=== PATIENT | female | born 1965 | race Caucasian/White ===

== ENCOUNTER 2020-04-14 13:32 | Inpatient (IN) ==
[2020-04-14] MEDS ORDERED: STAT IV Infusion **Titration per Protocol STA (14:08)
[2020-04-14] MEDS ORDERED: dilTIAZem HCl 5 MG/ML 5 ML VIAL IV STA (14:08)
[2020-04-14] MEDS ORDERED: SODIUM CHLORIDE 0.9% 500 ML IV SCH (14:15)
[2020-04-14] MEDS ORDERED: dilTIAZem HCL 125 MG in DEXTROSE 5% 100 ML IV SCH (14:15)
--- NOTE | 2020-04-14 14:19 | Emergency Department Note ---
Impression & Plan Atrial fibrillation with rapid ventricular response, Weakness, Chest tightness, Headache ED Provider Note NAME: STANLEY KO AGE: 54 SEX: F : 1965 ARRIVES VIA: Ambulance INFORMANT: [Patient] ED PROVIDER(S): [Bo Moss MD] CHIEF COMPLAINT: Cardiac assessment HISTORY OF PRESENT ILLNESS: The patient is a 54-year-old female who states that 2 weeks ago, she injured her left knee. She states that she is still having pain but it is improving. She does have some pain in the area of the left calf. The patient states that for the last 3 days, she has felt palpitations, she has been slightly more short of breath and her chest has been mildly tight. She has been fatigued and dizzy and weak. The patient states that she went to her doctor's office, she was referred to the ED as her pulse was fast. In route, she was given 25 milligrams of IV Cardizem and 4 mg of IV Zofran. The patient states that 2 weeks ago, she had her blood pressure medication do ubled, that has been her only recent change in medications. She has no history of A. fib or cardiac disease. She has not had a fever. No vomiting or diarrhea. No urinary complaints. REVIEW OF SYSTEMS: See HPI for pertinent positives and negatives. A total of ten systems were reviewed and were otherwise negative. PMHx/PSHx: See Below SOCIAL HISTORY: See Below. PHYSICAL EXAM: GENERAL: Patient is in mild distress HEENT: No acute trauma, normocephalic atraumatic, mucous membranes moist, no nasal congestion, no scleral icterus. NECK: No stridor, no adenopathy, no meningismus, trachea is midline. LUNGS: Clear to auscultation bilaterally, no wheeze, no rhonchi, breath sounds equal. HEART: Tachycardic, irregular rhythm, no obvious murmur. ABDOMEN: Soft, nontender, bowel sounds positive, no hernias, no peritonitis. EXTREMITIES: No cyanosis, mild bilateral pedal edema, no obvious gross deformity to the lower extremities. NEUROLOGIC: Oriented x 3, no acute motor or sensory deficits, no focal weakness. SKIN: No rash, no jaundice, no diaphoresis. DIFFERENTIAL DIAGNOSIS: Infection, dehydration, metabolic abnormality, hypo/hyperglycemia, electrolyte disturbance, SVT, A. fib or a flutter, CT, DVT or PE, anemia, hypoxia, cardiac sources, toxicologic issues, as well as other pathologies. EMERGENCY DEPARTMENT COURSE/PROCEDURES: ECG: Indication was tachycardia. The ECG shows atrial fibrillation with a rate of 137. There is poor R wave progression anteriorly. There is no ST elevation, no PVCs. The QTc is 501. Repeat ECG: Indication was atrial fibrillation. There is a normal sinus rhythm with a rate of 81. There is some poor anterior R wave progression. The QTc is 478. There are no PVCs, no ST elevation. Compared to the ECG from earlier today, normal sinus rhythm is now present. Continuous Cardiac Monitoring: An order was placed for continuous cardiac monitoring. The monitor shows a rate of 117 with atrial fibrillation. Critical Care Note: I have personally spent 52 minutes of critical care time in the direct management of this patient. This includes bedside care, interpretation of diagnostic studies, and testing, discussion with consultants, patient, and family members, and other required patient management activities. This 52 minutes is in excess of all separately billable procedures. MEDICAL DECISION MAKING: There is no leukocytosis or concerning anemia. There is a normal platelet count. No coagulopathy. No significant electrolyte abnormality or kidney failure. No concerning liver enzyme elevation. The patient appeared to be in a euthyroid state. ECG showed a rapid atrial fibrillation without ischemia. Cardiac enzyme testing x1 was not consistent with acute cardiac injury. Covid testing returned negative. Chest film did not show pneumonia or CHF. Left leg ultrasound did not show any evidence for DVT. Chest CT did not show PE or pneumonia. On exam, the patient was significantly tachycardic. The patient presented in a rapid atrial fibrillation. Patient was aggressively managed. She was given IV Cardizem as a bolus and then placed on an IV Cardizem drip. She received a 500 cc saline bolus and then a repeat 500 cc saline bolus. Patient received IV Toradol, IV Benadryl and IV Tylenol for her headache. The diltiazem drip was eventually discontinued when she converted to a sinus rhythm. I do think the patient is in need of a hospital stay. She has had ongoing symptoms for around 3 days. Further work-up is warranted, she is likely going to require rate controlling medications and possibly even anticoagulation. I did have a repeat ECG performed when she appeared to convert to a sinus rhythm on the monitor, this confirmed a normal sinus rhythm without acute ischemia. The patient is aware of her findings, case management has been involved. The on-call hospitalist was consulted. Past Med/Surg History Medical History Bipolar disorder DM type 2 (diabetes mellitus, type 2) HTN (hypertension) Hx of lymphoma, non-Hodgkins 2014 - 6 cycles of CHOP 2018 - 3 cycles of brentuximab and radiation Family History (Updated 04/14/20 @ 18:35 by PATSY Lopez) Denies family history of Heart disease Social History Smoking Status: Never smoker Hx Alcohol Use: No Hx Substance Use: No Preferred Language: Lao [employer] Required: No Beliefs That Will Affect Care: None Current Living Situation: Family Other Information That Helps Us Care for You: No Feels Safe at Home: Yes Safety Concerns: Feels Safe At This Time Assistive Devices: Cane, CPAP and Glasses Allergies Allergies Allergy/AdvReac Type Severity Reaction Status Date / Time No Known Allergies Allergy Unverified 04/14/20 17:10 Home Meds Home Medications Medication Instructions Recorded Confirmed fluoxetine 20 mg PO TID 04/14/20 04/14/20 gabapentin 400 mg PO HS PRN 04/14/20 04/14/20 ibuprofen [Advil] 400 mg PO Q6H PRN 04/14/20 04/14/20 lamotrigine 100 mg PO BID 04/14/20 04/14/20 lisinopril 40 mg PO DAILY 04/14/20 04/14/20 metformin 1,000 mg PO DAILY 04/14/20 04/14/20 Results & Data (ED) Vital Signs Vital Signs - 24 hr 04/14/20 13:38 04/14/20 13:51 04/14/20 13:58 Temperature 36.7 C Temperature Source Temporal Artery Scan Pulse Rate 131 H 117 H 128 H Pulse Rate from SpO2 Sensor 136 H 132 H Respiratory Rate 17 20 20 Respiratory Effort / Characteristics Non-Labored Spontaneous Respiratory Depth Normal Blood Pressure 175/113 H 175/113 H Blood Pressure Mean 133 133 Blood Pressure Position Sitting Pulse Oximetry 93 97 96 Oxygen Delivery Method Room Air Room Air Room Air Sepsis Recent Fever Within 48 Hours No Sepsis New/Unexplained Change in Mental Status N/A Sepsis Action Taken by Nursing No Action Required 04/14/20 14:00 04/14/20 14:10 04/14/20 14:17 Temperature Temperature Source Pulse Rate 138 H 135 H 138 H Pulse Rate from SpO2 Sensor 138 H 150 H 120 H Respiratory Rate 26 H 15 22 Respiratory Effort / Characteristics Respiratory Depth Blood Pressure 160/90 H Blood Pressure Mean 113 Blood Pressure Position Pulse Oximetry 95 92 98 Oxygen Delivery Method Room Air Room Air Room Air Sepsis Recent Fever Within 48 Hours Sepsis New/Unexplained Change in Mental Status Sepsis Action Taken by Nursing 04/14/20 14:20 04/14/20 14:30 04/14/20 14:40 Temperature Temperature Source Pulse Rate 155 H 130 H 132 H Pulse Rate from SpO2 Sensor 137 H Respiratory Rate 21 18 17 Respiratory Effort / Characteristics Respiratory Depth Blood Pressure Blood Pressure Mean Blood Pressure Position Pulse Oximetry 98 95 Oxygen Delivery Method Room Air Room Air Sepsis Recent Fever Within 48 Hours Sepsis New/Unexplained Change in Mental Status Sepsis Action Taken by Nursing 04/14/20 14:50 04/14/20 15:00 Temperature Temperature Source Pulse Rate 124 H 123 H Pulse Rate from SpO2 Sensor Respiratory Rate 16 16 Respiratory Effort / Characteristics Respiratory Depth Blood Pressure Blood Pressure Mean Blood Pressure Position Pulse Oximetry Oxygen Delivery Method Sepsis Recent Fever Within 48 Hours Sepsis New/Unexplained Change in Mental Status Sepsis Action Taken by [facility] Medications Current Medication List: was personally reviewed by me Laboratory Data Attestation: I reviewed the patient's lab results. Result diagrams: 04/14/20 13:31 04/14/20 13:31 Lab Results 04/14/20 04/14/20 04/14/20 Range/Units 13:31 13:31 13:31 WBC 8.90 (4.8-10.8) K/uL RBC 5.05 (4.2-5.4) M/uL Hgb 14.2 (12.0-16.0) g/dL Hct 43.8 (37-47) % MCV 86.7 (80-100) fL MCH 28.1 (25-34) pg MCHC 32.4 (32-36) g/dL RDW Std Deviation 48.4 H (36.4-46.3) fL RDW Coeff of Ida 15.2 H (11.5-14.5) % Plt Count 310 (130-400) K/uL MPV 10.6 H (7.4-10.4) fL Immature Gran % (Auto) 0.2 % Neut % (Auto) 62.6 % Lymph % (Auto) 28.4 % [place] % (Auto) 7.3 % Eos % (Auto) 1.3 % Baso % (Auto) 0.2 % Neut # (Auto) 5.56 (1.4-6.5) K/uL Lymph # (Auto) 2.53 (1.2-3.4) K/uL [place] # (Auto) 0.65 H (0.11-0.59) K/uL Eos # (Auto) 0.12 (0-0.5) K/uL Baso # (Auto) 0.02 (0-0.2) K/uL Immature Gran # (Auto) 0.02 (0.00-0.02) K/uL PT 10.3 (9.0-12.0) Seconds INR 1.0 (0.9-1.1) APTT 25.7 (21.0-31.0) Seconds PTT Ratio 1.0 Sodium 140 (136-145) mmol/L Potassium 4.5 (3.5-5.1) mmol/L Chloride 103 (98-107) mmol/L Carbon Dioxide 30 (21-32) mmol/L Anion Gap 7.0 (3-11) BUN 16 (7-18) mg/dl Creatinine 0.76 (0.6-1.2) mg/dl Est Cr Clr Drug Dosing 164.7 ml/min Est GFR ( Amer) 103.8 Est GFR (Non-Af Amer) 89.6 BUN/Creatinine Ratio 21.3 H (10-20) Glucose 121 H (70-99) mg/dl Calcium 9.5 (8.5-10.1) mg/dl Magnesium 2.1 (1.8-2.4) mg/dl Total Bilirubin 0.4 (0.2-1) mg/dl AST 24 (15-37) U/L ALT 35 (12-78) U/L Alkaline Phosphatase 101 (45-117) U/L Troponin I < 0.015 (0-0.045) ng/ml Total Protein 8.7 H (6.4-8.2) gm/dl Albumin 4.3 (3.4-5.0) gm/dl Globulin 4.4 H (2.5-4.0) gm/dl Albumin/Globulin Ratio 1.0 (0.9-2) TSH 1.050 (0.300-4.500) uIu/ml Specimen Hemolysis Administered Medications Acetaminophen (Acetaminophen 325 Mg Tab) 650 mg PO Q4H PRN PRN Reason: Pain or Fever Stop: 05/14/20 18:02 Last Admin: 04/14/20 18:24 Dose: 650 mg Documented by: [id number] Discontinued Medications Acetaminophen (Acetaminophen 1000 Mg/100 Ml Iv) 1,000 mg IV NOW STA Stop: 04/14/20 16:07 Last Admin: 04/14/20 16:17 Dose: 1,000 mg Documented by: [id number] Diltiazem HCl (Diltiazem Hcl 5 Mg/Ml 5 Ml Vial) 20 mg IV NOW STA Stop: 04/14/20 14:09 Last Admin: 04/14/20 14:20 Dose: 20 mg Documented by: [id number] Cosigned by: [id number] Diphenhydramine HCl (Diphenhydramine 50 Mg/Ml Vial) 12.5 mg IV NOW STA Stop: 04/14/20 16:07 Last Admin: 04/14/20 16:17 Dose: 12.5 mg Documented by: [id number] Diltiazem HCl 125 mg/ Dextrose 125 mls @ 5 mls/hr IV .Q24H ADAN; Protocol Stop: 05/14/20 14:14 Last Titration: 04/14/20 17:45 Dose: 0 mg/hr, 0 mls/hr Documented by: [id number] Cosigned by: [id number] Titration: 04/14/20 16:10 Dose: 0 mg/hr, 0 mls/hr Documented by: [id number] Cosigned by: [id number] Titration: 04/14/20 14:59 Dose: 15 mg/hr, 15 mls/hr Documented by: [id number] Cosigned by: [id number] Titration: 04/14/20 14:48 Dose: 10 mg/hr, 10 mls/hr Documented by: [id number] Cosigned by: [id number] Admin: 04/14/20 14:25 Dose: 5 mg/hr, 5 mls/hr Documented by: [id number] Cosigned by: [id number] Sodium Chloride (Nss) 500 mls @ 999 mls/hr IV .Q31M ADAN Stop: 04/14/20 14:45 Last Infusion: 04/14/20 14:51 Dose: 0 mls/hr Documented by: [id number] Admin: 04/14/20 14:19 Dose: 999 mls/hr Documented by: [id number] Sodium Chloride (Nss 1000ml) 500 mls @ 999 mls/hr IV .Q31M ONE Stop: 04/14/20 16:36 Last Infusion: 04/14/20 17:24 Dose: 0 mls/hr Documented by: [id number] Admin: 04/14/20 16:17 Dose: 999 mls/hr Documented by: [id number] Ioversol (Optiray 320 125ml) 120 ml IV ONCE ONE Stop: 04/14/20 15:38 Last Admin: 04/14/20 15:37 Dose: 120 ml Documented by: [id number] Ketorolac Tromethamine (Ketorolac Tromethamine 15 Mg/Ml Vial) 10 mg IV NOW ONE Stop: 04/14/20 16:07 Last Admin: 04/14/20 16:17 Dose: 10 mg Documented by: [id number] Miscellaneous (Stat Iv Infusion Titration Per Protocol) 1 ea N/A NOW STA Stop: 04/14/20 14:09 Last Admin: 04/14/20 16:23 Dose: Not Given Documented by: [id number] Imaging Data Radiologist's Impression: XR chest 1V portable HISTORY: weakness COMPARISON: Chest 08/05/2019. FINDINGS: There are low lung volumes. No pleural effusions. No pneumothorax. No focal lung consolidations to suggest pneumonia. No evidence for pulmonary edema. Stable mild cardiomegaly. IMPRESSION: No significant change compared to the prior study. No acute process. LEFT LOWER EXTREMITY VENOUS DOPPLER HISTORY: Left leg pain and swelling. COMPARISON STUDY: None. FINDINGS: There is normal compressibility, flow, and augmentation within the left lower extremity deep venous system. IMPRESSION: No DVT within the left lower extremity. CT angio chest PE protocol CT DOSE: 930.75 mGy.cm HISTORY: 54 years-old Female with PE. Acute shortness breath with dizziness and headache TECHNIQUE: Multiple CTA images of the chest were obtained after the intravenous administration of 120 ml Optiray 320. Coronal and sagittal MIPS were obtained from the axial data set and were submitted for review. All measurements were obtained according to NASCET criteria. A dose lowering technique was utilized adhering to the principles of ALARA. COMPARISON: Duplex venous Doppler study and chest radiograph exam of same day FINDINGS: CTA: Mild cardiomegaly. No pericardial effusion. No thoracic aortic aneurysm or dissection. Patency of the imaged great vessels. Reflux of contrast into the IVC and hepatic veins. Pulmonary artery is opacified to the level of the proximal segmental branches. No filling defects identified to suggest thromboembolic disease. CT CHEST: Unremarkable thyroid. No adenopathy. There is a fissural 10 x 6 mm solid nodule of the lateral left midlung on image 141 series 4. No pneumothorax, pleural effusion, overt pulmonary edema or airspace consolidation to suggest pneumonia. Mild dependent bibasilar groundglass densities suggest atelectasis. Central airways are patent. No acute process of the imaged upper abdomen. Hepatic steatosis with hepatome sonal. Unremarkable soft tissues. No acute fracture. Multilevel spondylitic spurring of the spine. IMPRESSION: 1. No acute intrathoracic abnormality, specifically there are no pulmonary emboli. 2. 10 x 6 mm solid perifissural nodule of the lateral left midlung. Follow-up guidelines provided below. 3. Hepatomegaly with hepatic steatosis. Discharge Plan Visit Data Chief Complaint: Cardiac Assessment ED Provider: Bo Moss Discharge Problem: Atrial fibrillation with rapid ventricular response, Weakness, Chest tightness, Headache Patient Disposition: Admitted As Inpatient Condition: Fair Discharge Instructions Interventions: ED Discharge Assessment Last Done: 04/14/20 17:58 Discharge Problem: Headache Qualifiers: Headache type: unspecified Headache chronicity pattern: acute headache Intractability: not intractable Qualified Code(s): R51.9 - Headache, unspecified
[2020-04-14 14:30] LABS: Basophils # (auto) 0.02 K/uL (0-0.2); Basophils % (auto) 0.2 %; Eosinophils # (auto) 0.12 K/uL (0-0.5); Eosinophils % (auto) 1.3 %; Hematocrit (blood only) 43.8 % (37-47); Hemoglobin 14.2 g/dL (12.0-16.0); Immature Granulocytes # (auto) 0.02 K/uL (0.00-0.02); Immature Granulocytes % (auto) 0.2 %; Lymphocytes # (auto) 2.53 K/uL (1.2-3.4); Lymphocytes % (auto) 28.4 %; Mean Corpuscular Hemoglobin 28.1 pg (25-34); Mean Corpuscular Hgb Conc 32.4 g/dL (32-36); Mean Corpuscular Volume 86.7 fL (80-100); Mean Platelet Volume 10.6 fL (7.4-10.4); Monocytes # (auto) 0.65 K/uL (0.11-0.59); Monocytes % (auto) 7.3 %; Neutrophils # (auto) 5.56 K/uL (1.4-6.5); Neutrophils % (auto) 62.6 %; Platelet Count 310 K/uL (130-400); RDW Coefficient of Variation 15.2 % (11.5-14.5); RDW Standard Deviation 48.4 fL (36.4-46.3); Red Blood Count 5.05 M/uL (4.2-5.4)
[2020-04-14 14:34] LABS: Partial Thromboplastin Time 25.7 Seconds (21.0-31.0); Prothrombin Time 10.3 Seconds (9.0-12.0)
[2020-04-14 14:37] LABS: Alanine Aminotransferase 35 U/L (12-78); Albumin Level 4.3 gm/dl (3.4-5.0); Aspartate Aminotransferase 24 U/L (15-37); BUN Creatinine Ratio 21.3 (10-20); Bilirubin,Total 0.4 mg/dl (0.2-1); Blood Urea Nitrogen 16 mg/dl (7-18); Calcium 9.5 mg/dl (8.5-10.1); Carbon Dioxide 30 mmol/L (21-32); Chloride 103 mmol/L (98-107); Creatinine Clr Calc Pharmacy 164.7 ml/min; Est GFR (African American) 103.8; Est GFR (Non-African American) 89.6; Globulin 4.4 gm/dl (2.5-4.0); Glucose 121 mg/dl (70-99); Magnesium 2.1 mg/dl (1.8-2.4); Potassium 4.5 mmol/L (3.5-5.1); Sodium 140 mmol/L (136-145); Total Protein 8.7 gm/dl (6.4-8.2)
[2020-04-14 14:41] LABS: Alkaline Phosphatase 101 U/L (45-117); Troponin I < 0.015 ng/ml (0-0.045)
--- NOTE | 2020-04-14 14:48 | XRay Report ---
XR chest 1V portable HISTORY: weakness COMPARISON: Chest 08/05/2019. FINDINGS: There are low lung volumes. No pleural effusions. No pneumothorax. No focal lung consolidat ions to suggest pneumonia. No evidence for pulmonary edema. Stable mild cardiomegaly. IMPRESSION: No significant change compared to the prior study. No acute process. ACT 112: Negative or not required by law. Electronically signed by: Nirmal Rashid M.D. 04/14/2020 2:47 PM
[2020-04-14] MEDS ORDERED: OPTIRAY 320 125ml IV ONE (15:37)
--- NOTE | 2020-04-14 15:52 | Ultrasound Report ---
LEFT LOWER EXTREMITY VENOUS DOPPLER HISTORY: Left leg pain and swelling. COMPARISON STUDY: None. FINDINGS: There is normal compressibility, flow, and augmentation within the left lower extremity damaris p venous system. IMPRESSION: No DVT within the left lower extremity. ACT 112: Negative or not required by law. Electronically signed by: Nirmal Rashid M.D. 04/14/2020 3:50 PM
--- NOTE | 2020-04-14 15:54 | CT Scan Report ---
CT angio chest PE protocol CT DOSE: 930.75 mGy.cm HISTORY: 54 years-old Female with PE. Acute shortness breath with dizziness and headache TECHNIQUE: Multiple CTA images of the chest were obtained after the intravenous administration of 120 ml Optiray 320. Coronal and sagittal MIPS were obtained from the axial data set and were submitted for review. All measurements were obtained according to NASCET criteria. A dose lowering technique w as utilized adhering to the principles of ALARA. COMPARISON: Duplex venous Doppler study and chest radiograph exam of same day FINDINGS: CTA: Mild cardiomegaly. No pericardial effusion. No thoracic aortic aneurysm or dissection. Patency of the imaged great vessels. Reflux of contrast into the IVC and hepatic veins. Pulmonary artery is opacifi ed to the level of the proximal segmental branches. No filling defects identified to suggest thromboe mbolic disease. CT CHEST: Unremarkable thyroid. No adenopathy. There is a fissural 10 x 6 mm solid nodule of the lateral left m idlung on image 141 series 4. No pneumothorax, pleural effusion, overt pulmonary edema or airspace co nsolidation to suggest pneumonia. Mild dependent bibasilar groundglass densities suggest atelectasis. Central airways are patent. No acute process of the imaged upper abdomen. Hepatic steatosis with hepatomegaly. Unremarkable soft tissues. No acute fracture. Multilevel spondylitic spurring of the spine. IMPRESSION: 1. No acute intrathoracic abnormality, specifically there are no pulmonary emboli. 2. 10 x 6 mm solid perifissural nodule of the lateral left midlung. Follow-up guidelines provided bel ow. 3. Hepatomegaly with hepatic steatosis. Please refer to below summary of Fleischner criteria recommendations for follow-up of incidental CT n odules (Carlos Bruce, Guidelines for management of small pulmonary nodules detected on CT scans: A sta tement from the Fleischner Society, Radiology 237: [phone].) SOLID NODULES Solitary nodule size: >8 mm * either low or high risk patients - consider follow-up CT at 3 months, and/or CT-PET, and/or biopsy Note: newly detected indeterminate nodule in persons 35 years of age or older. * Low risk patients: minimal or absent history of smoking and/or other known risk factors * high risk patients: history of smoking or of other known risk factors (e.g. first degree relative with lung cancer, or exposure to asbestos, radon, uranium) * if a nodule up to 8 mm is partly solid or is ground glass further follow-up is required after 24 m onths to exclude possible slow growing adenocarcinoma (ESTEFANI) ACT 112: Negative or not required by law. The above report was generated using voice recognition software. It may contain grammatical, syntax o r spelling errors. Electronically signed by: Ran Coburn M.D. 04/14/2020 3:53 PM
[2020-04-14] MEDS ORDERED: KETOROLAC TROMETHAMINE 15 MG/ML VIAL IV ONE (16:06)
[2020-04-14] MEDS ORDERED: ACETAMINOPHEN 1000 MG/100 ML IV IV STA (16:06)
[2020-04-14] MEDS ORDERED: SODIUM CHLORIDE 0.9% 1000ML 500 ML IV ONE (16:06)
[2020-04-14] MEDS ORDERED: diphenhydrAMINE 50 MG/ML VIAL IV STA (16:06)
--- NOTE | 2020-04-14 16:55 | Electrocardiogram Report ---
Test Reason : Blood Pressure : / mmHG Vent. Rate : 137 BPM Atrial Rate : 340 BPM P-R Int : 000 ms QRS Dur : 082 ms QT Int : 332 ms P-R-T Axes : 000 085 032 degrees QTc Int : 501 ms Atrial fibrillation with rapid ventricular response Possible Anterior infarct (cited on or before 14-APR-2020) Abnormal ECG When compared with ECG of 05-AUG-2019 18:27, Atrial fibrillation has replaced Sinus rhythm Vent. rate has increased BY 57 BPM Questionable change in initial forces of Anterior leads Confirmed by Anish De Leon ([id number]) on 04/14/2020 4:55:11 PM Referred By: REFERRED SELF Confirmed By:Bora De Leon
--- NOTE | 2020-04-14 16:57 | Electrocardiogram Report ---
Test Reason : Blood Pressure : / mmHG Vent. Rate : 081 BPM Atrial Rate : 081 BPM P-R Int : 178 ms QRS Dur : 082 ms QT Int : 412 ms P-R-T Axes : 036 064 039 degrees QTc Int : 478 ms Normal sinus rhythm Poor R wave progression, consider anterior MA vs. lead placement vs. LVH Abnormal ECG When compared with ECG of 14-APR-2020 13:39, (unconfirmed) Sinus rhythm has replaced Atrial fibrillation Vent. rate has decreased BY 56 BPM Confirmed by Anish De Leon ([id number]) on 04/14/2020 4:57:20 PM Referred By: REFERRED SELF Confirmed By:Bora De Leon
[2020-04-14] MEDS ORDERED: GLUCOSE 10 TABS/TUBE PO PRN (18:03)
[2020-04-14] MEDS ORDERED: GLUCOSE 40% GEL 15 GM TUBE PO PRN (18:03)
[2020-04-14] MEDS ORDERED: CARBOHYDRATES FOR HYPOGLYCEMIA PO PRN (18:03)
[2020-04-14] MEDS ORDERED: DEXTROSE 50% 50 ML SYRINGE IV PRN (18:03)
[2020-04-14] MEDS ORDERED: ACETAMINOPHEN 325 MG TAB PO PRN (18:03)
[2020-04-14] MEDS ORDERED: GLUCAGON FOR INJ 1 MG VIAL SQ PRN (18:03)
--- NOTE | 2020-04-14 18:28 | History & Physical Report ---
Date of Service April 14, 2020 Assessment & Plan (1) New onset a-fib: -Admit to telemetry -Patient presenting from referral of PCPs office for evaluation of new onset A. fib with RVR -In the ED, EKG demonstrated A. fib with RVR in the 140s. Patient received diltiazem 20 mg bolus followed by drip. Patient has since converted to NSR. Off diltiazem drip. -Start metoprolol tartrate 25 mg twice daily -[id number] score 3 (HTN, DM, female). Start heparin drip once head CT obtained (patient complains of headache). -Serial cardiac enzymes, resting echo -Etiology of A. fib unclear at this point. CTA chest negative for PE. Electrolytes acceptable. No signs of infection. Patient does have underlying MEIR however reports compliance with CPAP. -Cardiology consult, case discussed with Dr. Renee (2) HTN (hypertension): -BP elevated on presentation, improved after IV diltiazem -Continue home dose of lisinopril 40 mg daily, starting metoprolol as above (3) Bipolar disorder: -Continue Lamictal -PCP changed fluoxetine to duloxetine yesterday however patient did not start taking the duloxetine yet (4) Pulmonary nodule: -CTA chest shows 10 mm x 6 mm solid nodule of the left lung -09/2019 CT chest measured the nodule to be 6.7 mm x 9 mm -will need close follow-up given underlying history of non-Hodgkin's lymphoma, patient has follow-up appointment with oncology next week (5) DM type 2 (diabetes mellitus, type 2): -Hgb A1c 7.1 03/2019 -Hold metformin and utilize NovoLog per protocol while hospitalized (6) DVT prophylaxis: -Likely will be starting heparin drip as above Admission and Anticipated Discharge Date Admission Date: April 14, 2020 History of Present Illness Chief Complaint: Referred by PCP Primary Care Provider: Osmani Estrella MD 54-year-old female with PMH DM type II, HTN, MEIR on CPAP, bipolar disorder, hi story of non-Hodgkin's lymphoma in remission, and other problems listed below who presents to the ED by referral of PCP for evaluation of new onset A. fib with RVR. Patient reports that a few weeks ago, she fell on the ice and suffered an injury to her left knee. She has been evaluated by orthopedics and has been participating in PT. She also intermittently wears a brace. She notes increasing swelling to the left leg during this time. Patient reports over the past 1 week, she has had increased frontal headache. She describes the pain as a pressure. She also reports episodes of palpitations, chest pain, and shortness of breath. Denies any specific causative or alleviating factors. No lightheadedness, dizziness, diaphoresis, syncopal events. Reports her blood pressure has been running high at home as well. Was evaluated by PCP on 03/26 and lisinopril was increased to 40 mg daily. Patient was seen in PCPs office today and EKG was obtained showing new onset A. fib with RVR. Patient was then referred to the ED for further evaluation. Patient denies any episodes of fevers or chills. No other recent illnesses. Denies abdominal pain, nausea, vomiting, diarrhea. No urinary symptoms. In the ED, patient was found to be in A. fib with RVR with rates in the 140s. Patient was given diltiazem 20 mg bolus followed by drip. Patient subsequently converted to NSR. Patient was h ypertensive on presentation however BP is improving after IV diltiazem. CTA chest is negative for pulmonary embolism and lower extremity Dopplers negative for DVT. Labs are unremarkable. Allergies Allergy/AdvReac Type Severity Reaction Status Date / Time No Known Allergies Allergy Unverified 04/14/20 17:10 Home Medications Medication Instructions Recorded Confirmed Type fluoxetine 20 mg PO TID 04/14/20 04/14/20 History gabapentin 400 mg PO HS PRN 04/14/20 04/14/20 History ibuprofen [Advil] 400 mg PO Q6H PRN 04/14/20 04/14/20 History lamotrigine 100 mg PO BID 04/14/20 04/14/20 History lisinopril 40 mg PO DAILY 04/14/20 04/14/20 History metformin 1,000 mg PO DAILY 04/14/20 04/14/20 History Past Med/Surg History Medical History Bipolar disorder DM type 2 (diabetes mellitus, type 2) HTN (hypertension) Hx of lymphoma, non-Hodgkins 2014 - 6 cycles of CHOP 2018 - 3 cycles of brentuximab and radiation Family History (Updated 04/14/20 @ 18:35 by PATSY Lopez) Denies family history of Heart disease Social History Smoking Status: Never smoker Hx Alcohol Use: No Hx Substance Use: No Preferred Language: Belgian Taxation Economist Required: No Beliefs That Will Affect Care: None Current Living Situation: Family Other Information That Helps Us Care for You: No Feels Safe at Home: Yes Safety Concerns: Feels Safe At This Time Assistive Devices: Cane, CPAP and Glasses Review of Systems Review of Systems: ROS per HPI, all other systems reviewed and negative Physical Exam Constitutional: WD/WN, vitals as above + obese Eyes: PERRL, conjunctivae normal, anicteric sclerae ENMT: external ear and nose normal, oropharynx normal Respiratory: normal respiratory effort, lungs clear to auscultation Cardiovascular: Rate/Rhythm: regular rate and regular rhythm Vessels: normal peripheral pulses Extremities: no edema Gastrointestinal (Abdomen): normal bowel sounds, soft, nontender, no hepatosplenomegaly Musculoskeletal: no cyanosis or clubbing, extremities motor strength 5/5 Skin: no rashes, warm and dry Neurologic: PERRL, EOMI, accommodation nl, no face palsy, no dysarthria Psychiatric: A+Ox3, euthymic affect Results & Data Results & Data ([facility]) Vital Signs (Past 12 Hours) Vital Signs Temp Pulse Pulse Resp BP BP Pulse Ox 04/14/20 18:04 87 18 162/92 H 96 04/14/20 17:03 86 21 161/95 H 96 04/14/20 17:00 91 H 21 04/14/20 16:50 81 19 04/14/20 16:40 94 H 23 04/14/20 16:30 84 15 04/14/20 16:20 82 19 04/14/20 16:10 84 21 04/14/20 16:00 81 29 H 04/14/20 15:59 85 18 185/107 H 95 04/14/20 15:51 93 H 24 185/107 H 95 04/14/20 15:50 103 H 20 04/14/20 15:10 137 H 18 04/14/20 15:00 123 H 16 04/14/20 14:50 124 H 16 04/14/20 14:40 132 H 17 95 04/14/20 14:30 130 H 18 04/14/20 14:20 155 H 21 98 04/14/20 14:17 138 H 22 160/90 H 98 04/14/20 14:10 135 H 15 92 04/14/20 14:00 138 H 26 H 95 04/14/20 13:58 128 H 20 96 04/14/20 13:51 36.7 C 117 H 20 175/113 H 97 04/14/20 13:38 131 H 17 175/113 H 93 Laboratory Results Short CBC 04/14/20 Range/Units 13:31 WBC 8.90 (4.8-10.8) K/uL Hgb 14.2 (12.0-16.0) g/dL Hct 43.8 (37-47) % Plt Count 310 (130-400) K/uL BMP 04/14/20 13:31 Sodium 140 Potassium 4.5 Chloride 103 Carbon Dioxide 30 BUN 16 Creatinine 0.76 Glucose 121 H Calcium 9.5 Cardiac Enzymes 04/14/20 Range/Units 13:31 Troponin I < 0.015 (0-0.045) ng/ml Liver Function 04/14/20 Range/Units 13:31 Total Bilirubin 0.4 (0.2-1) mg/dl AST 24 (15-37) U/L ALT 35 (12-78) U/L Alkaline Phosphatase 101 (45-117) U/L Albumin 4.3 (3.4-5.0) gm/dl Diagnostic Findings CXR IMPRESSION: No significant change compared to the prior study. No acute process. BLE DOPPLER IMPRESSION: No DVT within the left lower extremity. CTA CHEST IMPRESSION: 1. No acute intrathoracic abnormality, specifically there are no pulmonary emboli. 2. 10 x 6 mm solid perifissural nodule of the lateral left midlung. Follow-up guidelines provided below. 3. Hepatomegaly with hepatic steatosis. Code Status & VTE Plan VTE Prophylaxis Plan VTE Prophylaxis will be ordered: No Supervising Physician Co-Signing Physician Notes I have seen and examined the patient and have discussed the case with the provider above. I agree with the assessment and plan as stated. The patient is a 54 yo F presenting with new onset atrial fibrillation. She has elevated blood pressure and is reporting a severe headache. She reports a h/o migraines 15 years ago and took Imitrex injections successfully as an abortive. However, she has not dealt with those since that time. She has obstructive sleep apnea and obesity. She is compliant with home CPAP therapy. She denies any recent changes in medicines, no alcohol use. She reports overall feeling "cruddy." She goes into more detail with is reporting some generalized chest pressure and a fluttering feeling. Although she was in sinus rhythm on the floor she has now converted back into atrial fibrillation and she was able to feel the onset of that change. Exam reveals an obese woman in no acute distress with warm and dry skin was mentating clearly. Lungs are clear to auscultation. Heart rhythm is irregular and rapid, no murmur is heard. She appears euvolemic on exam. Agree with plan as outlined above including heparin drip. Although her blood pressure is elevated she appears to be in significant pain related to her headache. Would continue with a trial of gabapentin and magnesium at this time. Repeat BP on the floor is now 128/95 (8pm) so do not feel that is contributing to her headache at this time. Cardiology consulted in am to discuss definitive afib management with patient. Cont to trend cardiac enzymes overnight which have been negative so far. EKG also not concerning for acute ischemia. Echo in am. Patient has h/o NHL treated with chemo in the past per her report. DO Bill [place] [facility]
[2020-04-14] MEDS ORDERED: BUTALBITAL/ACETAMIN/CAFFEINE TAB PO PRN (18:58)
--- NOTE | 2020-04-14 19:07 | CT Scan Report ---
CT head/brain wo con CLINICAL HISTORY: headache COMPARISON STUDY: No previous studies for comparison. TECHNIQUE: Axial CT of the brain is performed from the vertex to the skull base. IV contrast was not administered for this examination. A dose lowering technique was utilized adhering to the principles of ALARA. CT DOSE: 884.08 mGy.cm FINDINGS: No intra or extra-axial mass lesions are visualized. There is no CT evidence of acute cortical infarc tion. There is no evidence of midline shift. There is no acute hemorrhage. No calvarial fractures ar e visualized. There is no evidence of pathologic ventricular dilatation. There is no evidence of acute sinusitis IMPRESSION: No acute intracranial findings ACT 112: Negative or not required by law. Electronically signed by: Lamine Ramirez M.D. 04/14/2020 7:06 PM
[2020-04-14] MEDS ORDERED: Heparin IV Adult Wt-Based Standard *NO* Bolus Protocol IV SCH (19:30)
[2020-04-14] MEDS ORDERED: HEPARIN SODIUM/DEXTROSE 25,000 UNITS/500 ML BAG IV SCH (19:30)
[2020-04-14] MEDS ORDERED: METOPROLOL TARTRATE 1 MG/ML VIAL IV PRN (20:06)
[2020-04-14] MEDS ORDERED: METOPROLOL TARTRATE 1 MG/ML VIAL IV STA (20:06)
[2020-04-14] MEDS ORDERED: Heparin IV Adult Wt-Based Standard *NO* Bolus Protocol ONE (20:08)
[2020-04-14] MEDS: lamoTRIgine 100 MG TAB PO SCH (20:24)
[2020-04-14] MEDS: METOPROLOL TARTRATE 25 MG TAB PO SCH (20:24)
[2020-04-14] MEDS: FLUoxetine HCL 20 MG CAP PO SCH (20:26)
[2020-04-14] MEDS: INSULIN ASPART 100 UNITS/ML 3 ML PEN SC SCH (20:28)
[2020-04-14] MEDS: HEPARIN SODIUM/DEXTROSE 25,000 UNITS/500 ML BAG IV SCH (21:16)
[2020-04-14] MEDS ORDERED: GABAPENTIN 600 MG TAB PO STA (21:39)
[2020-04-14] MEDS ORDERED: MAGNESIUM OXIDE 400 MG TAB PO STA (21:40)
[2020-04-15 03:51] LABS: Hematocrit (blood only) 41.9 % (37-47); Hemoglobin 13.4 g/dL (12.0-16.0); Mean Corpuscular Hemoglobin 27.9 pg (25-34); Mean Corpuscular Volume 87.1 fL (80-100); Platelet Count 300 K/uL (130-400); RDW Coefficient of Variation 15.3 % (11.5-14.5); RDW Standard Deviation 49.3 fL (36.4-46.3); Red Blood Count 4.81 M/uL (4.2-5.4); White Blood Count 6.51 K/uL (4.8-10.8)
[2020-04-15 04:02] LABS: Partial Thromboplastin Ratio 1.5; Partial Thromboplastin Time 40.3 Seconds (21.0-31.0)
[2020-04-15 04:11] LABS: BUN Creatinine Ratio 18.7 (10-20); Creatinine Clr Calc Pharmacy 127.9 ml/min; Est GFR (African American) 86.9
[2020-04-15] MEDS: METOPROLOL TARTRATE 25 MG TAB PO SCH (08:17)
[2020-04-15] MEDS: lamoTRIgine 100 MG TAB PO SCH (08:18)
[2020-04-15] MEDS: FLUoxetine HCL 20 MG CAP PO SCH ×2 (08:18→14:47)
[2020-04-15] MEDS: INSULIN ASPART 100 UNITS/ML 3 ML PEN SC SCH ×2 (08:20→12:26)
[2020-04-15] MEDS ORDERED: lisinopril 40 MG TAB PO SCH (09:00)
[2020-04-15] MEDS: HEPARIN SODIUM/DEXTROSE 25,000 UNITS/500 ML BAG IV SCH (10:31)
--- NOTE | 2020-04-15 11:39 | Cardiology Consultation ---
Date of Consultation April 15, 2020 Assessment & Plan (1) Atrial fibrillation with rapid ventricular response: (2) DM type 2 (diabetes mellitus, type 2): (3) HTN (hypertension): (4) Bipolar disorder: I will review the echocardiogram that was completed this morning. If that study is unremarkable then I think the patient can be discharged on a combination of metoprolol and Eliquis. We will follow up with her as an outpatient. History of Present Illness Attending Physician: Zelda Jack MD History of Present Illness This is a 54-year-old female with no prior history of heart disease. She does have a history of obesity, type 2 diabetes and sleep apnea. She presented yesterday to the emergency department with atrial fibrillation and RVR. She was given a bolus of diltiazem and converted spontaneously to sinus rhythm. She has been admitted and started on IV heparin along with metoprolol. She has maintained sinus rhythm for the past 24 hours. The patient recently fell on the ice and injured her left leg. She was laid up for a while and there was concern that she may have had a DVT and pulmonary emboli however, her CT was negative for pulmonary emboli. She also had a CT of the brain due to her hypertension and a headache on presentation which was negative for bleeding. Cardiac markers were negative. Currently she has no cardiac complaints. Allergies Allergy/AdvReac Type Severity Reaction Status Date / Time No Known Allergies Allergy Unverified 04/14/20 17:10 Home Medications Medication Instructions Recorded Confirmed Type fluoxetine 20 mg PO TID 04/14/20 04/14/20 History gabapentin 400 mg PO HS PRN 04/14/20 04/14/20 History ibuprofen [Advil] 400 mg PO Q6H PRN 04/14/20 04/14/20 History lamotrigine 100 mg PO BID 04/14/20 04/14/20 History lisinopril 40 mg PO DAILY 04/14/20 04/14/20 History metformin 1,000 mg PO DAILY 04/14/20 04/14/20 History Patient History Medical History Bipolar disorder DM type 2 (diabetes mellitus, type 2) HTN (hypertension) Hx of lymphoma, non-Hodgkins 2014 - 6 cycles of CHOP 2018 - 3 cycles of brentuximab and radiation Family History Denies family history of Heart disease Social History Smoking Status: Never smoker Hx Alcohol Use: No Hx Substance Use: No Preferred Language: Luxembourger Convertible Top Installer Required: No Beliefs That Will Affect Care: None Current Living Situation: Family Other Information That Helps Us Care for You: No Feels Safe at Home: Yes Safety Concerns: Feels Safe At This Time Assistive Devices: None Review of Systems Review of Systems: All systems reviewed & are unremarkable except as noted in HPI & below Nothing additional to add. Physical Exam Physical Exam: General: no acute distress and stated age Head: normocephalic, no masses, lesions, tenderness or abnormalities Eyes: conjunctiva are pink and non-injected, sclera clear Neck: supple, no adenopathy, no bruits, normal jugular venous pulse, no hepatojugular reflux Chest: normal shape and normal respiratory effort Lungs: clear to auscultation and percussion Cardiac Exam: - regular rate & rhythm, no murmurs gallops or rubs - normal S1, normal S2 Pulses: 2(+) throughout Abdomen: Obese, abdomen soft, non-tender, no abnormal masses and no hepatosplenomegaly Musculoskeletal: no gait disturbance, no joint inflammation, no deforming arthritis Extremities: no edema and no cyanosis Neuro: grossly normal exam Results & Data ([facility]) Vital Signs (Past 12 Hours) Vital Signs Temp Pulse Resp BP Pulse Ox 04/15/20 11:19 36.7 C 83 20 136/84 93 04/15/20 07:31 36.8 C 77 20 149/91 H 96 04/15/20 03:42 36.8 C 90 18 156/91 H 95 Laboratory Results Laboratory Results - last 24 hr 04/14/20 04/14/20 04/14/20 13:31 13:31 13:31 WBC 8.90 RBC 5.05 Hgb 14.2 Hct 43.8 MCV 86.7 MCH 28.1 MCHC 32.4 RDW Std Deviation 48.4 H RDW Coeff of Ida 15.2 H Plt Count 310 MPV 10.6 H Immature Gran % (Auto) 0.2 Neut % (Auto) 62.6 Lymph % (Auto) 28.4 [place] % (Auto) 7.3 Eos % (Auto) 1.3 Baso % (Auto) 0.2 Neut # (Auto) 5.56 Lymph # (Auto) 2.53 [place] # (Auto) 0.65 H Eos # (Auto) 0.12 Baso # (Auto) 0.02 Immature Gran # (Auto) 0.02 PT 10.3 INR 1.0 APTT 25.7 PTT Ratio 1.0 Sodium 140 Potassium 4.5 Chloride 103 Carbon Dioxide 30 Anion Gap 7.0 BUN 16 Creatinine 0.76 Est Cr Clr Drug Dosing 164.7 Est GFR ( Amer) 103.8 Est GFR (Non-Af Amer) 89.6 BUN/Creatinine Ratio 21.3 H Glucose 121 H POC Glucose Calcium 9.5 Magnesium 2.1 Total Bilirubin 0.4 AST 24 ALT 35 Alkaline Phosphatase 101 Troponin I < 0.015 Total Protein 8.7 H Albumin 4.3 Globulin 4.4 H Albumin/Globulin Ratio 1.0 TSH 1.050 Specimen Hemolysis COVID-19 Eval Order SARS-CoV-2, RNA, NAAT 04/14/20 04/14/20 04/14/20 16:01 16:01 19:17 WBC RBC Hgb Hct MCV MCH MCHC RDW Std Deviation RDW Coeff of Ida Plt Count MPV Immature Gran % (Auto) Neut % (Auto) Lymph % (Auto) [place] % (Auto) Eos % (Auto) Baso % (Auto) Neut # (Auto) Lymph # (Auto) [place] # (Auto) Eos # (Auto) Baso # (Auto) Immature Gran # (Auto) PT INR APTT PTT Ratio Sodium Potassium Chloride Carbon Dioxide Anion Gap BUN Creatinine Est Cr Clr Drug Dosing Est GFR ( Amer) Est GFR (Non-Af Amer) BUN/Creatinine Ratio Glucose POC Glucose Calcium Magnesium Total Bilirubin AST ALT Alkaline Phosphatase Troponin I < 0.015 Total Protein Albumin Globulin Albumin/Globulin Ratio TSH Specimen Hemolysis COVID-19 Eval Order Covid19 IDNow [facility] SARS-CoV-2, RNA, NAAT NEGATIVE 04/14/20 04/15/20 04/15/20 20:27 01:09 03:42 WBC RBC Hgb Hct MCV MCH MCHC RDW Std Deviation RDW Coeff of Ida Plt Count MPV Immature Gran % (Auto) Neut % (Auto) Lymph % (Auto) [place] % (Auto) Eos % (Auto) Baso % (Auto) Neut # (Auto) Lymph # (Auto) [place] # (Auto) Eos # (Auto) Baso # (Auto) Immature Gran # (Auto) PT INR APTT 40.3 H PTT Ratio 1.5 Sodium Potassium Chloride Carbon Dioxide Anion Gap BUN Creatinine Est Cr Clr Drug Dosing Est GFR ( Amer) Est GFR (Non-Af Amer) BUN/Creatinine Ratio Glucose POC Glucose 156 H Calcium Magnesium Total Bilirubin AST ALT Alkaline Phosphatase Troponin I < 0.015 Total Protein Albumin Globulin Albumin/Globulin Ratio TSH Specimen Hemolysis COVID-19 Eval Order SARS-CoV-2, RNA, NAAT 04/15/20 04/15/20 04/15/20 03:42 03:42 07:30 WBC 6.51 RBC 4.81 Hgb 13.4 Hct 41.9 MCV 87.1 MCH 27.9 MCHC 32.0 RDW Std Deviation 49.3 H RDW Coeff of Ida 15.3 H Plt Count 300 MPV 10.0 Immature Gran % (Auto) Neut % (Auto) Lymph % (Auto) [place] % (Auto) Eos % (Auto) Baso % (Auto) Neut # (Auto) Lymph # (Auto) [place] # (Auto) Eos # (Auto) Baso # (Auto) Immature Gran # (Auto) PT INR APTT PTT Ratio Sodium 140 Potassium 4.0 Chloride 103 Carbon Dioxide 33 H Anion Gap 4.0 BUN 16 Creatinine 0.88 Est Cr Clr Drug Dosing 127.9 Est GFR ( Amer) 86.9 Est GFR (Non-Af Amer) 75.0 BUN/Creatinine Ratio 18.7 Glucose 149 H POC Glucose 154 H Calcium 9.0 Magnesium Total Bilirubin AST ALT Alkaline Phosphatase Troponin I Total Protein Albumin Globulin Albumin/Globulin Ratio TSH Specimen Hemolysis COVID-19 Eval Order SARS-CoV-2, RNA, NAAT 04/15/20 11:17 WBC RBC Hgb Hct MCV MCH MCHC RDW Std Deviation RDW Coeff of Ida Plt Count MPV Immature Gran % (Auto) Neut % (Auto) Lymph % (Auto) [place] % (Auto) Eos % (Auto) Baso % (Auto) Neut # (Auto) Lymph # (Auto) [place] # (Auto) Eos # (Auto) Baso # (Auto) Immature Gran # (Auto) PT INR APTT PTT Ratio Sodium Potassium Chloride Carbon Dioxide Anion Gap BUN Creatinine Est Cr Clr Drug Dosing Est GFR ( Amer) Est GFR (Non-Af Amer) BUN/Creatinine Ratio Glucose POC Glucose 125 H Calcium Magnesium Total Bilirubin AST ALT Alkaline Phosphatase Troponin I Total Protein Albumin Globulin Albumin/Globulin Ratio TSH Specimen Hemolysis COVID-19 Eval Order SARS-CoV-2, RNA, NAAT Medications Administered Current Inpatient Medications Acetaminophen (Acetaminophen 325 Mg Tab) 650 mg PO Q4H PRN PRN Reason: Pain or Fever Stop: 05/14/20 18:02 Last Admin: 04/14/20 18:24 Dose: 650 mg Documented by: Acetaminophen/Butalbital/Caffeine (Butalbital/Acetamin/Caffeine Tab) 1 tab PO Q4H PRN PRN Reason: Headache Stop: 05/14/20 18:57 Last Admin: 04/15/20 11:33 Dose: 1 tab Documented by: Apixaban (Apixaban 2.5 Mg Tab) 5 mg PO BID [facility] Stop: 05/15/20 11:44 Dextrose (Dextrose 50% 50 Ml Syringe) 25 - 50 ml IV UD PRN; Protocol PRN Reason: Hypoglycemia Protocol Stop: 05/14/20 18:02 Fluoxetine HCl (Fluoxetine Hcl 20 Mg Cap) 20 mg PO TID [facility] Stop: 05/14/20 20:59 Last Admin: 04/15/20 08:18 Dose: 20 mg Documented by: Glucagon (Glucagon For Inj 1 Mg Vial) 1 mg SQ UD PRN; Protocol PRN Reason: Hypoglycemia Protocol Stop: 05/14/20 18:02 Glucose (Glucose 10 Tabs/Tube) 4 - 8 tabs PO UD PRN; Protocol PRN Reason: Hypoglycemia Protocol Stop: 05/14/20 18:02 Glucose (Glucose 40% Gel 15 Gm Tube) 15 - 30 gm PO UD PRN; Protocol PRN Reason: Hypoglycemia Protocol Stop: 05/14/20 18:02 Insulin Aspart (Insulin Aspart 100 Units/Ml 3 Ml Pen) 0 units SC ACHS ADAN Stop: 05/14/20 20:59 Last Admin: 04/15/20 08:20 Dose: 4 units Documented by: Lamotrigine (Lamotrigine 100 Mg Tab) 100 mg PO BID [facility] Stop: 05/14/20 20:59 Last Admin: 04/15/20 08:18 Dose: 100 mg Documented by: Lisinopril (Lisinopril 40 Mg Tab) 40 mg PO DAILY [facility] Stop: 05/15/20 08:59 Last Admin: 04/15/20 08:17 Dose: 40 mg Documented by: Metoprolol Tartrate (Metoprolol Tartrate 25 Mg Tab) 25 mg PO BID [facility] Stop: 05/14/20 20:59 Last Admin: 04/15/20 08:17 Dose: 25 mg Documented by: Metoprolol Tartrate (Metoprolol Tartrate 1 Mg/Ml Vial) 5 mg IV Q6 PRN PRN Reason: Tachycardia Stop: 05/15/20 00:00 Miscellaneous (Carbohydrates For Hypoglycemia ) 15 - 30 gm PO UD PRN PRN Reason: Hypoglycemia Protocol Stop: 05/14/20 18:02
[2020-04-15] MEDS ORDERED: APIXABAN 2.5 MG TAB PO SCH (11:45)
--- NOTE | 2020-04-15 12:22 | Electrocardiogram Report ---
Test Reason : Blood Pressure : / mmHG Vent. Rate : 078 BPM Atrial Rate : 078 BPM P-R Int : 172 ms QRS Dur : 088 ms QT Int : 400 ms P-R-T Axes : 046 094 058 degrees QTc Int : 456 ms Normal sinus rhythm Rightward axis Low voltage QRS Abnormal ECG When compared with ECG of 14-APR-2020 16:09, No significant change was found Confirmed by nAish De Leon ([id number]) on 04/15/2020 12:22:12 PM Referred By: REFERRED SELF Confirmed By:Bora De Leon
[2020-04-15 13:30] LABS: Partial Thromboplastin Ratio 1.1; Partial Thromboplastin Time 29.1 Seconds (21.0-31.0)
[2020-04-15] MEDS ORDERED: BUTALBITAL/ACETAMIN/CAFFEINE TAB PO STA (13:57)
--- NOTE | 2020-04-30 08:26 | Discharge Summary ---
Date of Service April 30, 2020 Admission HPI Per Admitting Provider 54-year-old female with PMH DM type II, HTN, MEIR on CPAP, bipolar disorder, history of non-Hodgkin's lymphoma in remission, and other problems listed below who presents to the ED by referral of PCP for evaluation of new onset A. fib with RVR. Patient reports that a few weeks ago, she fell on the ice and suffered an injury to her left knee. She has been evaluated by orthopedics and has been participating in PT. She also intermittently wears a brace. She notes increasing swelling to the left leg during this time. Patient reports over the past 1 week, she has had increased frontal headache. She describes the pain as a pressure. She also reports episodes of palpitations, chest pain, and shortness of breath. Denies any specific causative or alleviating factors. No lightheadedness, dizziness, diaphoresis, syncopal events. Reports her blood pressure has been running high at home as well. Was evaluated by PCP on 03/26 and lisinopril was increased to 40 mg daily. Patient was seen in PCPs office today and EKG was obtained showing new onset A. fib with RVR. Patient was then referred to the ED for further evaluation. Patient denies any episodes of fevers or chills. No other recent illnesses. Denies abdominal pain, nausea, vomiting, diarrhea. No urinary symptoms. In the ED, patient was found to be in A. fib with RVR with rates in the 140s. Patient was given diltiazem 20 mg bolus followed by drip. Patient subsequently converted to NSR. Patient was hypertensive on presentation however BP is improving after IV diltiazem. CTA chest is negative for pulmonary embolism and lower extremity Dopplers negative for DVT. Labs are unremarkable. Admission Exam Per Admitting Provider Constitutional: WD/WN, vitals as above + obese Eyes: PERRL, conjunctivae normal, anicteric sclerae ENMT: external ear and nose normal, oropharynx normal Respiratory: normal respiratory effort, lungs clear to auscultation Cardiovascular: Rate/Rhythm: regular rate and regular rhythm Vessels: normal peripheral pulses Extremities: no edema Gastrointestinal (Abdomen): normal bowel sounds, soft, nontender, no hepatosplenomegaly Musculoskeletal: no cyanosis or clubbing, extremities motor strength 5/5 Skin: no rashes, warm and dry Neurologic: PERRL, EOMI, accommodation nl, no face palsy, no dysarthria Psychiatric: A+Ox3, euthymic affect Principal Diagnosis a fib with rvr Discharge Exam General: A&Ox3 HENT: NCAT, MMM, EOMI Eyes: PERRLA Neck: Supple, normal range of motion CVS: normal rate and rhythm Resp: b/l good breath sounds Abdomen: Soft, ND/NT Extremities: No c/c/e Neuro: face symmetric, strength grossly equal, no focal deficit Skin: no rashes/lesions/errythema MSK: no joint swelling/erythema Discharge Data Allergies Allergy/AdvReac Type Severity Reaction Status Date / Time No Known Allergies Allergy Unverified 04/14/20 17:10 Consultations 04/14/20 15:10 ED Decision to Admit Stat 04/14/20 18:03 Consult Cardiology Routine Ordered Studies 04/14/20 14:11 US venous doppler LE LT Stat 04/14/20 14:51 CT angio chest PE protocol Stat 04/14/20 16:42 CT head/brain wo con Stat Hospital Course (1) New onset a-fib: Patient is 54-year-old female who was referred from her PCP office for evaluation of new onset A. fib with RVR. Patient received diltiazem infusion followed by infusion. Patient did convert to normal sinus rhythm patient was started on Lopressor 25 mg twice daily. Patient had a Martín vas score of 3 and was started on heparin. Prior to discharge patient was converted to Eliquis. Cardiology was consulted. CTA of the chest was negative. Transthoracic echo normal systolic function. On the day of discharge patient was stable. She did not have any chest pain, shortness of breath or any palpitations. Rate was controlled. Patient was discharged in stable condition. (2) HTN (hypertension): Continue with lisinopril 40 mg daily and Lopressor. (3) Bipolar disorder: -Continue Lamictal -PCP changed fluoxetine to duloxetine yesterday however patient did not start taking the duloxetine yet (4) Pulmonary nodule: -CTA chest shows 10 mm x 6 mm solid nodule of the left lung -09/2019 CT chest measured the nodule to be 6.7 mm x 9 mm -will need close follow-up given underlying history of non-Hodgkin's lymphoma, patient has follow-up appointment with oncology next week (5) DM type 2 (diabetes mellitus, type 2): -Hgb A1c 7.1 03/2019 Total Time Total Time Spent Total Time Spent (In Minutes): 35 Discharge Plan Discharge Items Patient Disposition: Home - Self-Care Reason For Visit: AFIB RVR Discharge Diagnosis: New onset A. fib Condition on Discharge: Fair Activity: Resume your previous activity Non-emergency contact: Primary Care Provider Call non-emergency contact if: your symptoms worsen Follow-up/Referrals: Osmani Estrella MD [Primary Care Provider] - (Date & Time 04/20/2020 1:00 PM Provider Domitila Estrella MD Department Internal Medicine [facility] ) Diet: Heart Healthy Addtl Attending Provider Instructions: Follow-up with your primary care physician. An appointment has been requested. Pending Studies at Discharge: No Stand-Alone Forms: My [employer], Smoking Cessation Medications and DC Order Prescriptions: New metoprolol tartrate 25 mg Tablet 25 mg PO BID 60 Days Qty: 120 RF: 0 Eliquis 5 mg tablet 5 mg PO BID Qty: 60 RF: 0 Continued lisinopril 20 mg tablet 40 mg PO DAILY RF: 0 gabapentin 400 mg capsule 400 mg PO HS PRN (Reason: Pain) RF: 0 fluoxetine 20 mg capsule 20 mg PO TID RF: 0 metformin 500 mg tablet extended release 24 hr 1,000 mg PO DAILY RF: 0 lamotrigine 100 mg tablet 100 mg PO BID RF: 0 ibuprofen [Advil] 200 mg Tablet 400 mg PO Q6H PRN (Reason: Pain) RF: 0 Discharge Orders: Discharge Order (Routine); Ordered 04/15/20 Ordered By: Zelda Jack Admission Data Admit Date/Time: 04/14/20 15:07 Attending Provider: Zelda Jack Admit Provider: Quin Khan Primary Care Provider: Osmani Estrella Other Providers: Antwan Renee Other Interventions: Discharge Summary Assessment (RN) Last Done: 04/15/20 14:37
== END 2020-04-15 15:50 | disposition home or self-care (01) | DRG 309 ==
LOC: ED 13:32 → SUATTDRO 15:07 → 2S 15:07

== ENCOUNTER 2020-05-08 16:50 | Inpatient (IN) ==
[2020-05-08] MEDS ORDERED: SODIUM CHLORIDE 0.9% 500 ML IV ONE ×2 (17:21→20:21)
[2020-05-08] MEDS ORDERED: METOPROLOL TARTRATE 1 MG/ML VIAL IV STA ×3 (17:26→18:59)
[2020-05-08 17:35] LABS: Basophils # (auto) 0.01 K/uL (0-0.2); Basophils % (auto) 0.1 %; Eosinophils # (auto) 0.11 K/uL (0-0.5); Eosinophils % (auto) 1.3 %; Hematocrit (blood only) 40.6 % (37-47); Hemoglobin 13.1 g/dL (12.0-16.0); Immature Granulocytes # (auto) 0.02 K/uL (0.00-0.02); Immature Granulocytes % (auto) 0.2 %; Lymphocytes # (auto) 2.44 K/uL (1.2-3.4); Lymphocytes % (auto) 28.4 %; Mean Corpuscular Hemoglobin 27.6 pg (25-34); Mean Corpuscular Hgb Conc 32.3 g/dL (32-36); Mean Corpuscular Volume 85.7 fL (80-100); Mean Platelet Volume 10.1 fL (7.4-10.4); Monocytes # (auto) 0.69 K/uL (0.11-0.59); Neutrophils # (auto) 5.31 K/uL (1.4-6.5); Platelet Count 301 K/uL (130-400); RDW Coefficient of Variation 15.5 % (11.5-14.5); Red Blood Count 4.74 M/uL (4.2-5.4); White Blood Count 8.58 K/uL (4.8-10.8)
--- NOTE | 2020-05-08 17:43 | XRay Report ---
XR chest 1V portable CLINICAL HISTORY: Atypical chest pain COMPARISON STUDY: 04/14/2020 FINDINGS: The heart is borderline enlarged. There is no failure. There is no focal pulmonary consolid ation. There are no pleural effusions.[ IMPRESSION: No active disease in the chest. ACT 112: Negative or not required by law. Electronically signed by: Lamine Ramirez M.D. 05/08/2020 5:42 PM
[2020-05-08 17:52] LABS: Alanine Aminotransferase 64 U/L (12-78); Albumin Level 3.9 gm/dl (3.4-5.0); Aspartate Aminotransferase 22 U/L (15-37); BUN Creatinine Ratio 25.7 (10-20); Bilirubin Direct < 0.1 mg/dl (0-0.2); Blood Urea Nitrogen 23 mg/dl (7-18); Calcium 9.7 mg/dl (8.5-10.1); Carbon Dioxide 31 mmol/L (21-32); Chloride 106 mmol/L (98-107); Creatinine Clr Calc Pharmacy 130.4 ml/min; Est GFR (African American) 85.8; Glucose 113 mg/dl (70-99); Lipase 155 U/L (73-393); Potassium 3.7 mmol/L (3.5-5.1); Sodium 140 mmol/L (136-145)
[2020-05-08 18:01] LABS: Alkaline Phosphatase 91 U/L (45-117); Bilirubin,Total 0.4 mg/dl (0.2-1); NT Pro B Type Natriuretic Pept 2252 pg/ml (0-900); Phosphorus 3.8 mg/dl (2.5-4.9); Thyroid Stimulating Hormone 0.701 uIu/ml (0.300-4.500); Total Protein 7.9 gm/dl (6.4-8.2); Troponin I < 0.015 ng/ml (0-0.045)
[2020-05-08] MEDS ORDERED: POTASSIUM CHLORIDE / WTR 10 MEQ/100 ML PLCT IV ONE ×2 (18:08→20:21)
[2020-05-08] MEDS ORDERED: POTASSIUM CHLORIDE CRTAB 20 MEQ TABCR PO STA (18:08)
[2020-05-08] MEDS ORDERED: STAT IV Infusion **Titration per Protocol STA (20:27)
[2020-05-08] MEDS ORDERED: dilTIAZem HCl 5 MG/ML 5 ML VIAL IV STA (20:27)
--- NOTE | 2020-05-08 20:51 | Emergency Department Note ---
Impression & Plan Atrial fibrillation with rapid ventricular response, HTN (hypertension), On apixaban therapy ED Provider Note NAME: STANLEY KO AGE: 54 SEX: F ARRIVES VIA: Ambulance INFORMANT: Patient, ED PROVIDER(S): Vinay Sanchez MD CHIEF COMPLAINT: Palpitations, atrial fibrillation rvr PLAN: Disposition: Admit MEDICAL DECISION MAKING: The patient is a pleasant 54-year-old woman with a past medical history of hypertension, bipolar disorder, type 2 diabetes, newly diagnosed new onset atrial fibrillation which led to hospitalization at the end of March, discharged April 30 on metoprolol 25 mg twice daily and Eliquis who presents to the emergency department with persistent symptoms of palpitations and heart rate fluctuations where she reports frequently going into the 140s even 160s which frequently flares at night but became worse today and so presents to emergency department via EMS and was given 20 mg of IV Cardizem with heart rate improving to the 120s. Otherwise, the patient denies any fevers, chills, cough, congestion, GI or symptoms. She denies any known COVID-19 exposures. On arrival the patient is anxious appearing but no acute distress, afebrile with heart rate in the 120s-130s in atrial fibrillation. EKG without overt acute ischemia. Chest x-ray negative for acute cardiopulmonary process. WBC, H/H and platelets within normal limits. Chemistry without metabolic acidosis. Potassium 3.7 with repletion provided. Otherwise, electrolytes and LFTs unremarkable. Troponin negative/undetectable. BNP 2200, nonspecific and likely related to her RVR as she appears euvolemic to somewhat dry. TSH within normal limits. Given the patient's heart rate still persisted in the 120-130s with symptoms of palp itations she was given 5 mg of IV Lopressor x3 which had brief improvement to the 110s but then her heart rate would return to the 120s-130s. Thus, given no improvement we did agree with plan for admission for further rate control. Case was discussed with Dr. Finch, [facility] hospitalist, who will evaluate the patient for admission. We agreed to proceed with bolus and drip of IV diltiazem. Triage Nursing notes reviewed and agree them. Prior medical records reviewed Vital Signs: reviewed and remarkable for tachycardia. Differential diagnosis: Premature contractions, electrolyte abnormality, cardiac dysrhythmia, thyroid dysfunction, pulmonary embolism, infection, gastrointestinal, as well as other pathologies. ER treatment provided: See below. Diagnostics interpreted by me: ECG: Atrial fibrillation with RVR, 123 bpm, no ectopy, no overt ST elevation or depression, QTC 503, QRS 88. Cardiac Monitoring: An order for continuous cardiac monitoring was placed and demonstrated Atrial fibrillation with RVR, 123 bpm, no ectopy. Laboratory studies: See below Imaging studies: XR chest 1V portable CLINICAL HISTORY: Atypical chest pain COMPARISON STUDY: 04/14/2020 FINDINGS: The heart is borderline enlarged. There is no failure. There is no focal pulmonary consolidation. There are no pleural effusions.[ IMPRESSION: No active disease in the chest. Consultation(s): Case was discussed with Dr. Finch, [facility] hospitalist, who will evaluate the patient for admission. HPI: The patient is a pleasant 54-year-old woman with a past medical history of hypertension, bipolar disorder, type 2 diabetes, newly diagnosed new onset atrial fibrillation which led to hospitalization at the end of March, tano garcia April 30 on metoprolol 25 mg twice daily and Eliquis who presents to the emergency department with persistent symptoms of palpitations and heart rate fluctuations where she reports frequently going into the 140s even 160s which frequently flares at night but became worse today and so presents to emergency department via EMS and was given 20 mg of IV Cardizem with heart rate improving to the 120s. Otherwise, the patient denies any fevers, chills, cough, congestion, GI or symptoms. She denies any known COVID-19 exposures. ROS: See above HPI for pertinent positives & negatives. A total of 10 systems reviewed and were otherwise negative. PAST MEDICAL HISTORY:See Below PAST SURGICAL HISTORY:See Below FAMILY HISTORY:See Below SOCIAL HISTORY:See Below HOME MEDICATIONS:See Below ALLERGIES:See Below VITALS:See Below PHYSICAL EXAMINATION: GENERAL: Awake, alert, anxious-appearing, in no distress, BMI 56.9. HENT: Normocephalic, atraumatic. Oropharynx unremarkable. EYES: Normal conjunctiva. Sclera non-icteric. NECK: Supple. No nuchal rigidity. FROM. No JVD. RESPIRATORY: Clear to auscultation. CARDIAC: Tachycardic rate, Irregular rhythm. Extremities warm and well perfused. Pulses equal. ABDOMEN: Soft, non-distended. No tenderness to palpation. No rebound or guarding. No masses. RECTAL: Deferred. MUSCULOSKELETAL: Chest examination reveals no tenderness. The back is symmetrical on inspection without obvious abnormality. There is no CVA tendern ess to palpation. No joint edema. LOWER EXTREMITIES: Calves are equal size bilaterally and non-tender. No edema. No discoloration. NEURO: Normal sensorium. No sensory or motor deficits noted. SKIN: No rash or jaundice noted. ED COURSE: Critical Care: I have personally spent greater than 55 minutes of critical care time in the direct management of this patient. This includes bedside care, interpretation of diagnostic studies, and testing, discussion with consultants, patient, and family members, and other required patient management activities. This 55 minutes is in excess of all separately billable procedures. Vinay Sanchez MD Past Med/Surg History Medical History Bipolar disorder DM type 2 (diabetes mellitus, type 2) HTN (hypertension) Hx of lymphoma, non-Hodgkins 2014 - 6 cycles of CHOP 2018 - 3 cycles of brentuximab and radiation Family History Denies family history of Heart disease Social History Smoking Status: Never smoker Hx Alcohol Use: No Hx Substance Use: No Preferred Language: Moldovan Communication Ability: Effective Conductor Symphonic Orchestra Required: No Beliefs That Will Affect Care: None Current Living Situation: Family Feels Safe at Home: Yes Safety Concerns: Feels Safe At This Time Assistive Devices: Cane and Glasses Allergies Allergies Allergy/AdvReac Type Severity Reaction Status Date / Time No Known Allergies Allergy Unverified 05/08/20 18:45 Home Meds Home Medications Medication Instructions Recorded Confirmed gabapentin 400 mg PO HS PRN 04/14/20 05/08/20 lamotrigine 100 mg PO BID 04/14/20 05/08/20 metformin 500 mg PO BID 04/14/20 05/08/20 duloxetine 30 mg PO DAILY 05/08/20 05/08/20 lisinopril 40 mg PO DAILY 05/08/20 05/08/20 Previous Rx's Medication Instructions Recorded apixaban [Eliquis] 5 mg PO BID #60 tab 04/15/20 metoprolol tartrate 25 mg PO BID 60 Days #120 tab 04/15/20 Results & Data (ED) Vital Signs Vital Signs - 24 hr 05/08/20 16:53 05/08/20 17:20 05/08/20 17:45 Pulse Rate 128 H Pulse Rate [Left Apical] 127 H Pulse Rate from SpO2 Sensor Pulse Rhythm [Left Apical] Regular Pulse Strength [Left Apical] Normal Respiratory Rate 16 24 Respiratory Effort / Characteristics Non-Labored Non-Labored Non-Labored Spontaneous Respiratory Depth Normal Normal Normal Respiratory Pattern Regular Blood Pressure 154/126 H Blood Pressure [Right Arm] 138/101 H Blood Pressure Mean 135 Blood Pressure Mean [Right Arm] 113 Blood Pressure Position [Right Arm] Lying Pulse Oximetry 98 99 Oxygen Delivery Method Room Air Room Air Room Air Sepsis Recent Fever Within 48 Hours No Sepsis New/Unexplained Change in Mental Status N/A Sepsis Action Taken by Nursing No Action Required 05/08/20 17:54 05/08/20 18:21 05/08/20 18:31 Pulse Rate 127 H 116 H Pulse Rate [Left Apical] 120 H Pulse Rate from SpO2 Sensor Pulse Rhythm [Left Apical] Regular Pulse Strength [Left Apical] Normal Respiratory Rate 16 Respiratory Effort / Characteristics Non-Labored Spontaneous Respiratory Depth Normal Respiratory Pattern Regular Blood Pressure 138/101 H 152/111 H Blood Pressure [Right Arm] 143/122 H Blood Pressure Mean Blood Pressure Mean [Right Arm] 129 Blood Pressure Position [Right Arm] Lying Pulse Oximetry 98 Oxygen Delivery Method Room Air Sepsis Recent Fever Within 48 Hours Sepsis New/Unexplained Change in Mental Status Sepsis Action Taken by Nursing 05/08/20 19:00 05/08/20 19:01 05/08/20 19:02 Pulse Rate 125 H 134 H Pulse Rate [Left Apical] 116 H Pulse Rate from SpO2 Sensor 130 H 121 H Pulse Rhythm [Left Apical] Pulse Strength [Left Apical] Respiratory Rate 26 H 27 H 24 Respiratory Effort / Characteristics Non-Labored Respiratory Depth Normal Respiratory Pattern Blood Pressure 139/107 H Blood Pressure [Right Arm] 147/118 H Blood Pressure Mean 117 Blood Pressure Mean [Right Arm] 127 Blood Pressure Position [Right Arm] Pulse Oximetry 95 97 97 Oxygen Delivery Method Room Air Room Air Room Air Sepsis Recent Fever Within 48 Hours Sepsis New/Unexplained Change in Mental Status Sepsis Action Taken by Nursing 05/08/20 19:03 05/08/20 20:24 05/08/20 20:30 Pulse Rate 119 H 128 H 139 H Pulse Rate [Left Apical] Pulse Rate from SpO2 Sensor 117 H 119 H 131 H Pulse Rhythm [Left Apical] Pulse Strength [Left Apical] Respiratory Rate 20 20 16 Respiratory Effort / Characteristics Respiratory Depth Respiratory Pattern Blood Pressure 147/118 H 140/113 H 150/111 H Blood Pressure [Right Arm] Blood Pressure Mean 127 122 124 Blood Pressure Mean [Right Arm] Blood Pressure Position [Right Arm] Pulse Oximetry 96 98 96 Oxygen Delivery Method Room Air Room Air Room Air Sepsis Recent Fever Within 48 Hours Sepsis New/Unexplained Change in Mental Status Sepsis Action Taken by Nursing 05/08/20 20:40 05/08/20 20:49 05/08/20 21:14 Pulse Rate 125 H 129 H 132 H Pulse Rate [Left Apical] Pulse Rate from SpO2 Sensor 117 H 133 H 120 H Pulse Rhythm [Left Apical] Pulse Strength [Left Apical] Respiratory Rate 19 21 19 Respiratory Effort / Characteristics Respiratory Depth Respiratory Pattern Blood Pressure 164/133 H 136/115 H 165/114 H Blood Pressure [Right Arm] Blood Pressure Mean 143 122 131 Blood Pressure Mean [Right Arm] Blood Pressure Position [Right Arm] Pulse Oximetry 96 97 95 Oxygen Delivery Method Room Air Room Air Sepsis Recent Fever Within 48 Hours Sepsis New/Unexplained Change in Mental Status Sepsis Action Taken by Nursing 05/08/20 21:16 05/08/20 21:21 Pulse Rate 124 H Pulse Rate [Left Apical] Pulse Rate from SpO2 Sensor 129 H Pulse Rhythm [Left Apical] Pulse Strength [Left Apical] Respiratory Rate 21 Respiratory Effort / Characteristics Labored Respiratory Depth Normal Respiratory Pattern Regular Blood Pressure 145/110 H Blood Pressure [Right Arm] Blood Pressure Mean 121 Blood Pressure Mean [Right Arm] Blood Pressure Position [Right Arm] Pulse Oximetry 97 Oxygen Delivery Method Room Air Sepsis Recent Fever Within 48 Hours Sepsis New/Unexplained Change in Mental Status Sepsis Action Taken by Nursing Laboratory Data Result diagrams: 05/08/20 17:24 05/08/20 17:24 Lab Results 05/08/20 05/08/20 05/08/20 Range/Units 17:24 17:24 21:15 WBC 8.58 (4.8-10.8) K/uL RBC 4.74 (4.2-5.4) M/uL Hgb 13.1 (12.0-16.0) g/dL Hct 40.6 (37-47) % MCV 85.7 (80-100) fL MCH 27.6 (25-34) pg MCHC 32.3 (32-36) g/dL RDW Std Deviation 49.0 H (36.4-46.3) fL RDW Coeff of Ida 15.5 H (11.5-14.5) % Plt Count 301 (130-400) K/uL MPV 10.1 (7.4-10.4) fL Immature Gran % (Auto) 0.2 % Neut % (Auto) 62.0 % Lymph % (Auto) 28.4 % [place] % (Auto) 8.0 % Eos % (Auto) 1.3 % Baso % (Auto) 0.1 % Neut # (Auto) 5.31 (1.4-6.5) K/uL Lymph # (Auto) 2.44 (1.2-3.4) K/uL [place] # (Auto) 0.69 H (0.11-0.59) K/uL Eos # (Auto) 0.11 (0-0.5) K/uL Baso # (Auto) 0.01 (0-0.2) K/uL Immature Gran # (Auto) 0.02 (0.00-0.02) K/uL Sodium 140 (136-145) mmol/L Potassium 3.7 (3.5-5.1) mmol/L Chloride 106 (98-107) mmol/L Carbon Dioxide 31 (21-32) mmol/L Anion Gap 4.0 (3-11) BUN 23 H (7-18) mg/dl Creatinine 0.89 (0.6-1.2) mg/dl Est Cr Clr Drug Dosing 130.4 ml/min Est GFR ( Amer) 85.8 Est GFR (Non-Af Amer) 74.0 BUN/Creatinine Ratio 25.7 H (10-20) Glucose 113 H (70-99) mg/dl Calcium 9.7 (8.5-10.1) mg/dl Phosphorus 3.8 (2.5-4.9) mg/dl Magnesium 2.0 (1.8-2.4) mg/dl Total Bilirubin 0.4 (0.2-1) mg/dl Direct Bilirubin < 0.1 (0-0.2) mg/dl AST 22 (15-37) U/L ALT 64 (12-78) U/L Alkaline Phosphatase 91 (45-117) U/L Troponin I < 0.015 (0-0.045) ng/ml NT-Pro-B Natriuret Pep 2252 H (0-900) pg/ml Total Protein 7.9 (6.4-8.2) gm/dl Albumin 3.9 (3.4-5.0) gm/dl Globulin 4.0 (2.5-4.0) gm/dl Albumin/Globulin Ratio 1.0 (0.9-2) Lipase 155 (73-393) U/L TSH 0.701 (0.300-4.500) uIu/ml COVID-19 [facility] SARS-CoV-2, RNA, NAAT (NEGATIVE) 05/08/20 Range/Units 21:15 WBC (4.8-10.8) K/uL RBC (4.2-5.4) M/uL Hgb (12.0-16.0) g/dL Hct (37-47) % MCV (80-100) fL MCH (25-34) pg MCHC (32-36) g/dL RDW Std Deviation (36.4-46.3) fL RDW Coeff of Ida (11.5-14.5) % Plt Count (130-400) K/uL MPV (7.4-10.4) fL Immature Gran % (Auto) % Neut % (Auto) % Lymph % (Auto) % [place] % (Auto) % Eos % (Auto) % Baso % (Auto) % Neut # (Auto) (1.4-6.5) K/uL Lymph # (Auto) (1.2-3.4) K/uL [place] # (Auto) (0.11-0.59) K/uL Eos # (Auto) (0-0.5) K/uL Baso # (Auto) (0-0.2) K/uL Immature Gran # (Auto) (0.00-0.02) K/uL Sodium (136-145) mmol/L Potassium (3.5-5.1) mmol/L Chloride (98-107) mmol/L Carbon Dioxide (21-32) mmol/L Anion Gap (3-11) BUN (7-18) mg/dl Creatinine (0.6-1.2) mg/dl Est Cr Clr Drug Dosing ml/min Est GFR ( Amer) Est GFR (Non-Af Amer) BUN/Creatinine Ratio (10-20) Glucose (70-99) mg/dl Calcium (8.5-10.1) mg/dl Phosphorus (2.5-4.9) mg/dl Magnesium (1.8-2.4) mg/dl Total Bilirubin (0.2-1) mg/dl Direct Bilirubin (0-0.2) mg/dl AST (15-37) U/L ALT (12-78) U/L Alkaline Phosphatase (45-117) U/L Troponin I (0-0.045) ng/ml NT-Pro-B Natriuret Pep (0-900) pg/ml Total Protein (6.4-8.2) gm/dl Albumin (3.4-5.0) gm/dl Globulin (2.5-4.0) gm/dl Albumin/Globulin Ratio (0.9-2) Lipase (73-393) U/L TSH (0.300-4.500) uIu/ml COVID-19 Eval Order SARS-CoV-2, RNA, NAAT NEGATIVE (NEGATIVE) Administered Medications Diltiazem HCl 125 mg/ Dextrose 125 mls @ 5 mls/hr IV .Q24H [facility]; Protocol Stop: 06/07/20 20:29 Last Admin: 05/08/20 21:48 Dose: 5 mg/hr, 5 mls/hr Documented by: [id number] Cosigned by: [id number] Discontinued Medications Diltiazem HCl (Diltiazem Hcl 5 Mg/Ml 5 Ml Vial) 10 mg IV NOW STA Stop: 05/08/20 20:28 Last Admin: 05/08/20 21:47 Dose: 10 mg Documented by: [id number] Cosigned by: [id number] Sodium Chloride (Nss) 500 mls @ 999 mls/hr IV .Q31M ONE Stop: 05/08/20 17:51 Last Infusion: 05/08/20 19:45 Dose: 0 mls/hr Documented by: [id number] Admin: 05/08/20 17:55 Dose: 999 mls/hr Documented by: [id number] Potassium Chloride (K Stanford / Wtr) 10 meq in 100 mls @ 100 mls/hr IV ONE ONE Stop: 05/08/20 19:07 Last Infusion: 05/08/20 19:45 Dose: 0 mls/hr Documented by: [id number] Admin: 05/08/20 18:20 Dose: 100 mls/hr Documented by: [id number] Potassium Chloride (K Stanford / Wtr) 10 meq in 100 mls @ 100 mls/hr IV ONE ONE Stop: 05/08/20 21:20 Last Infusion: 05/08/20 22:15 Dose: 0 mls/hr Documented by: [id number] Admin: 05/08/20 21:10 Dose: 100 mls/hr Documented by: [id number] Sodium Chloride (Nss) 500 mls @ 999 mls/hr IV .Q31M ONE Stop: 05/08/20 20:51 Last Infusion: 05/08/20 21:50 Dose: 0 mls/hr Documented by: [id number] Admin: 05/08/20 21:10 Dose: 999 mls/hr Documented by: [id number] Metoprolol Tartrate (Metoprolol Tartrate 1 Mg/Ml Vial) 5 mg IV NOW STA Stop: 05/08/20 17:27 Last Admin: 05/08/20 17:54 Dose: 5 mg Documented by: [id number] Metoprolol Tartrate (Metoprolol Tartrate 1 Mg/Ml Vial) 5 mg IV NOW STA Stop: 05/08/20 18:12 Last Admin: 05/08/20 18:21 Dose: 5 mg Documented by: [id number] Metoprolol Tartrate (Metoprolol Tartrate 1 Mg/Ml Vial) 5 mg IV NOW STA Stop: 05/08/20 19:00 Last Admin: 05/08/20 19:03 Dose: 5 mg Documented by: [id number] Miscellaneous (Stat Iv Infusion Titration Per Protocol) 1 ea N/A NOW STA; Protocol Stop: 05/08/20 20:28 Last Admin: 05/08/20 21:50 Dose: Not Given Documented by: [id number] Oxycodone HCl (Oxycodone Hcl Ir 5 Mg Tab (Immediate Release)) 5 mg PO NOW STA Stop: 05/08/20 22:56 Last Admin: 05/08/20 23:16 Dose: 5 mg Documented by: [id number] Potassium Chloride (Potassium Chloride Crtab 20 Meq Tabcr) 40 meq PO NOW STA Stop: 05/08/20 18:09 Last Admin: 05/08/20 18:21 Dose: 40 meq Documented by: [id number] Discharge Plan Visit Data Chief Complaint: Cardiac Assessment ED Provider: Vinay Sanchez Discharge Problem: Atrial fibrillation with rapid ventricular response, HTN (hypertension), On apixaban therapy Patient Disposition: Admitted As Inpatient Discharge Instructions Interventions: ED Discharge Assessment Last Done: 05/08/20 23:35 Discharge Problem: HTN (hypertension) Qualifiers: Hypertension type: unspecified Qualified Code(s): I10 - Essential (primary) hypertension
[2020-05-08] MEDS: dilTIAZem HCL 125 MG in DEXTROSE 5% 100 ML IV SCH (21:48)
[2020-05-08] MEDS ORDERED: oxyCODONE HCL IR 5 MG TAB (IMMEDIATE RELEASE) PO STA (22:55)
--- NOTE | 2020-05-09 00:06 | History and Physical Report ---
DATE OF ADMISSION: 05/08/2020 CHIEF COMPLAINT: Rapid AFib. HISTORY OF PRESENT ILLNESS: This is a 54-year-old female with past medical history significant for type 2 diabetes, hypertension, bipolar affective disorder in remission, history of recurrent anaplastic large cell lymphoma, status post CHOP chemotherapy in 10/2013 and recurrent disease in 06/2017 and treated with 3 cycles of brentuximab. Last chemotherapy was in 08/2017. She has very poor tolerance and received radiation therapy in right parotid area. Completed radiation in 10/2017.She was here recently a couple of weeks ago with rapid AFib, treated with Cardizem, converted to sinus rhythm and started on Lopressor 25 mg p.o. b.i.d. and discharged on Eliquis. At that time CTA of the chest was negative, echo was normal and she also followed with cardiology. Today she was feeling clammy, sweating, weak, palpitations, chest pressure. She went to PCP and was sent here and she was in rapid AFib, received 20 of diltiazem en route here and in the ER, she received 15 mg of IV Lopressor, still she was in rapid AFib, started on Cardizem drip. Currently complains of severe headache. She says that she gets on and off headaches whenever her blood pressure is high. Currently, heart rates ranging from 100-120s, saturating fine on room air. No earache, no runny nose, no sore throat, no cough, no fever, no chills, no dysphagia. Appetite is okay. She gets short of breath possibly from AFib and on and off chest pressure. Currently, no chest pressure, no nausea, no vomiting, no abdominal pain. Normal bowel and bladder movements. No allergies. She has sleep apnea, uses CPAP. ALLERGIES: No known drug allergies. PAST MEDICAL HISTORY: As mentioned above. PAST SURGICAL HISTORY: Removal of parotid gland. MEDICATIONS: The patient is currently on Eliquis 5 mg p.o. b.i.d., duloxetine 30 mg p.o. daily, gabapentin 400 mg p.o. at bedtime p.r.n., Lamictal 100 mg p.o. b.i.d., lisinopril 40 mg p.o. daily, metformin 500 mg p.o. b.i.d., metoprolol tartrate 25 mg p.o. b.i.d. FAMILY HISTORY: No known family history. SOCIAL HISTORY: . No smoking, no alcohol, no drug use. REVIEW OF SYSTEMS: As per HPI. Rest of review of systems negative. PHYSICAL EXAMINATION: GENERAL: The patient is morbidly obese, not in acute distress. VITAL SIGNS: Temperature afebrile, pulse 120s, respiratory rate 21, blood pressure 145/110, oxygen 97% on room air. HEENT: Pupils equal, round, reactive to light. Oral mucosa moist. NECK: No JVD. No neck masses. CARDIOVASCULAR: S1, S2. Irregular rhythm. Tachycardia. No murmurs. RESPIRATORY SYSTEM: Normal AP diameter. No accessory muscle use. No wheezing, no crackles. ABDOMEN: Soft, bowel sounds present, nontender. No distention. CENTRAL NERVOUS SYSTEM: Cranial nerves II-XII grossly intact, nonfocal. EXTREMITIES: No obvious edema, no erythema seen. LABORATORY DATA: WBC 8.5, hemoglobin 13.1, hematocrit 40.6, platelets 301. Sodium 140, potassium 3.7, chloride 106, bicarbonate 31, BUN 23, creatinine 0.8, serum glucose 113, calcium 9.3, phosphorus 3.8, magnesium 2, total bilirubin 0.4, direct bilirubin less than 0.1, AST 22, ALT 64, alkaline phosphatase 91. Troponin I less than 0.015. BNP 2252, lipase 155. TSH 0.7. SARS-CoV-2 RNA negative. Chest x-ray, no active disease in the chest. AFib with RVR at rate of 123, QTc of 503. ASSESSMENT AND PLAN: This is a 54-year-old female who presents with rapid atrial fibrillation. 1. Rapid atrial fibrillation. Recently hospitalized with rapid atrial fibrillation, at that time treated with Cardizem, converted to sinus rhythm. Discharged on Lopressor and Eliquis, comes back with rapid AFib, received Cardizem en route and also IV Lopressor, but still in rapid AFib, started on Cardizem drip, which we will continue. Continue Eliquis. Follow serial enzymes. Recent echo was unremarkable. We will keep n.p.o. after midnight and consult cardiology in a.m. for further recommendations. 2. Severe headache possibly from rapid a fib and high blood pressure. We will monitor. Pain control. 3. Hypertension. Continue lisinopril and Lopressor and Cardizem drip. We will monitor the blood pressure. 4. History of bipolar disorder, on Lamictal. 5. History of depression, on duloxetine. 6. History of non-Hodgkin's lymphoma, status post chemo and also radiation. Follows with hematology/oncology. 7. Morbid obesity, needs counseling. 8. Sleep apnea, on CPAP at bedtime. 9. Deep venous thrombosis prophylaxis, on Eliquis. DISPOSITION: Closely monitor in tele floor. Level 1 full code. Expect discharge home and follow with family doctor. ADAMSD
[2020-05-09] MEDS ORDERED: GABAPENTIN 400 MG CAP PO PRN (00:42)
[2020-05-09] MEDS ORDERED: NITROGLYCERIN SL 0.4 MG/TAB TAB SL PRN (00:42)
[2020-05-09] MEDS ORDERED: ONDANSETRON INJ 2 MG/ML 2 ML VIAL IV PRN (00:42)
[2020-05-09] MEDS ORDERED: POLYETHYLENE (MIRALAX) 17 GM PACK PO PRN (00:42)
[2020-05-09] MEDS: METOPROLOL TARTRATE 25 MG TAB PO SCH ×2 (01:27→08:15)
[2020-05-09] MEDS ORDERED: GLUCAGON FOR INJ 1 MG VIAL SQ PRN (01:30)
[2020-05-09] MEDS ORDERED: CARBOHYDRATES FOR HYPOGLYCEMIA PO PRN (01:30)
[2020-05-09] MEDS ORDERED: GLUCOSE 40% GEL 15 GM TUBE PO PRN (01:30)
[2020-05-09] MEDS ORDERED: GLUCOSE 10 TABS/TUBE PO PRN (01:30)
[2020-05-09] MEDS ORDERED: DEXTROSE 50% 50 ML SYRINGE IV PRN (01:30)
[2020-05-09] MEDS: ACETAMINOPHEN 325 MG TAB PO PRN ×3 (03:14→21:51)
[2020-05-09 06:39] LABS: Basophils # (auto) 0.02 K/uL (0-0.2); Basophils % (auto) 0.3 %; Eosinophils # (auto) 0.11 K/uL (0-0.5); Eosinophils % (auto) 1.6 %; Hematocrit (blood only) 41.2 % (37-47); Hemoglobin 13.2 g/dL (12.0-16.0); Immature Granulocytes # (auto) 0.01 K/uL (0.00-0.02); Immature Granulocytes % (auto) 0.1 %; Lymphocytes % (auto) 29.7 %; Mean Corpuscular Hemoglobin 27.7 pg (25-34); Mean Corpuscular Volume 86.4 fL (80-100); Mean Platelet Volume 10.1 fL (7.4-10.4); Monocytes # (auto) 0.55 K/uL (0.11-0.59); Monocytes % (auto) 7.8 %; Neutrophils # (auto) 4.29 K/uL (1.4-6.5); Neutrophils % (auto) 60.5 %; Platelet Count 316 K/uL (130-400); RDW Coefficient of Variation 15.5 % (11.5-14.5); RDW Standard Deviation 49.3 fL (36.4-46.3); Red Blood Count 4.77 M/uL (4.2-5.4); White Blood Count 7.08 K/uL (4.8-10.8)
[2020-05-09 06:55] LABS: BUN Creatinine Ratio 21.4 (10-20); Calcium 9.3 mg/dl (8.5-10.1); Est GFR (African American) 93.3; Est GFR (Non-African American) 80.5; Magnesium 2.1 mg/dl (1.8-2.4); Potassium 4.1 mmol/L (3.5-5.1)
[2020-05-09 07:25] LABS: Estimated Average Glucose 160 mg/dl; Hemoglobin A1C 7.2 % (4.5-5.6)
[2020-05-09] MEDS: APIXABAN 5 MG TABLET PO SCH ×2 (08:15→21:37)
[2020-05-09] MEDS: lisinopril 40 MG TAB PO SCH (08:15)
[2020-05-09] MEDS: DULoxetine HCL 30 MG CAP PO SCH (08:15)
[2020-05-09] MEDS: lamoTRIgine 100 MG TAB PO SCH ×2 (08:15→21:37)
[2020-05-09] MEDS: INSULIN ASPART 100 UNITS/ML 3 ML PEN SC SCH ×4 (08:17→21:35)
--- NOTE | 2020-05-09 10:03 | Electrocardiogram Report ---
Test Reason : Blood Pressure : / mmHG Vent. Rate : 123 BPM Atrial Rate : 394 BPM P-R Int : 000 ms QRS Dur : 088 ms QT Int : 352 ms P-R-T Axes : 000 073 025 degrees QTc Int : 503 ms Atrial fibrillation with rapid ventricular response Abnormal ECG When compared with ECG of 15-APR-2020 07:12, Atrial fibrillation has replaced Sinus rhythm Vent. rate has increased BY 45 BPM Confirmed by Henri Jama ([id number]) on 05/09/2020 10:03:11 AM Referred By: Osmani Estrella Confirmed By:Henri Jama
--- NOTE | 2020-05-09 10:20 | Electrocardiogram Report ---
Test Reason : Blood Pressure : / mmHG Vent. Rate : 113 BPM Atrial Rate : 115 BPM P-R Int : 200 ms QRS Dur : 090 ms QT Int : 362 ms P-R-T Axes : 000 065 033 degrees QTc Int : 496 ms Atrial fibrillation with RVR Poor R wave progression, consider anterior DC vs. lead placement vs. LVH When compared with ECG of 08-MAY-2020 17:01, (unconfirmed) No significant change was found Confirmed by Henri Jama ([id number]) on 05/09/2020 10:19:52 AM Referred By: Osmani Estrella Confirmed By:Henri Jama
[2020-05-09] MEDS ORDERED: oxyCODONE HCL IR 5 MG TAB (IMMEDIATE RELEASE) PO STA (11:55)
--- NOTE | 2020-05-09 12:03 | Hospitalist Progress Note ---
Date of Service May 09, 2020 Assessment & Plan (1) Atrial fibrillation with rapid ventricular response: Recent admission with atrial fibrillation with RVR and there was treated with Cardizem Was discharged home on Eliquis and beta-chris Was admitted last night with recurrent A. fib with RVR Not controlled with single dose of Cardizem and multiple doses of intravenous beta-chris Has been on intravenous Cardizem for now and the heart rate is improving but remains in atrial fibrillation Awaiting cardiology evaluation-appreciate cardiology input and recommendation Beta-chris dose has been increased and Cardizem orally added Plan to discontinue Cardizem drip when appropriate She is not a candidate for rhythm control medication due to prolonged QT Complains of severe headache Not controlled with Tylenol Has been getting immediate release oxycodone with some improvement We will give her another dose of oxycodone (2) HTN (hypertension): Blood pressure remains stable We will continue current medications (3) DM type 2 (diabetes mellitus, type 2): Will monitor blood sugar SSI (4) Bipolar disorder: We will continue Lamictal and duloxetine No acute confusion and/or anxiety (5) Hx of lymphoma, non-Hodgkins: Seems to be in remission now Received last radiation treatment in October of 2017 Admission and Anticipated Discharge Date Admission Date: May 08, 2020 Subjective 05/09/2020 The patient was seen and examined in telemetry unit She still has A. fib and her rate seems to be improving on IV Cardizem She feels hungry and also has headache Review of Systems Review of Systems: All systems reviewed and are unremarkable except as noted below Respiratory: no cough and no dyspnea Cardiovascular: + edema (Trace edema bilaterally); no chest pain and no palpitations Physical Exam Physical Exam: Sitting on a chair without any acute distress Constitutional: well developed, well nourished and + morbidly obese; not ill appearing Eyes: PERRL, conjunctivae normal, anicteric sclerae ENMT: external ear and nose normal, oropharynx normal Neck: trachea midline, no thyromegaly Respiratory: normal respiratory effort; no respiratory distress Auscultation: lungs clear to auscultation bilaterally Cardiovascular: Rate/Rhythm: + irregularly irregular Heart Sounds: no murmur Extremities: + edema (Trace edema bilaterally) Gastrointestinal (Abdomen): Inspection/Auscultation: normal bowel sounds; abdomen not distended Percussion/Palpation: abdomen soft; abdomen nontender Musculoskeletal: No acute arthritis in any joint Neurologic: Alert, awake and oriented x3. No focal sensory or motor deficit appreciated Psychiatric: A+Ox3, euthymic affect Lymphatic: no cervical or axillary lymphadenopathy Results & Data Results & Data ([facility]) Vital Signs (Past 12 Hours) Vital Signs Temp Pulse Pulse Resp BP BP Pulse Ox 05/09/20 11:10 36.6 C 105 H 22 129/94 97 05/09/20 08:00 112 H 05/09/20 07:08 36.8 C 120 H 19 139/88 95 05/09/20 03:16 122 H 20 98 05/09/20 02:48 36.8 C 98 H 20 131/86 98 05/09/20 01:13 128 H 18 96 05/09/20 00:48 137 H 05/09/20 00:26 36.6 C 120 H 22 167/98 H 97 Laboratory Results Short CBC 05/08/20 05/09/20 Range/Units 17:24 06:23 WBC 8.58 7.08 (4.8-10.8) K/uL Hgb 13.1 13.2 (12.0-16.0) g/dL Hct 40.6 41.2 (37-47) % Plt Count 301 316 (130-400) K/uL BMP 05/08/20 05/09/20 17:24 06:23 Sodium 140 139 Potassium 3.7 4.1 Chloride 106 105 Carbon Dioxide 31 31 BUN 23 H 18 Creatinine 0.89 0.83 Glucose 113 H 150 H Calcium 9.7 9.3 Cardiac Enzymes 05/08/20 Range/Units 17:24 Troponin I < 0.015 (0-0.045) ng/ml Liver Function 05/08/20 Range/Units 17:24 Total Bilirubin 0.4 (0.2-1) mg/dl Direct Bilirubin < 0.1 (0-0.2) mg/dl AST 22 (15-37) U/L ALT 64 (12-78) U/L Alkaline Phosphatase 91 (45-117) U/L Albumin 3.9 (3.4-5.0) gm/dl Medications Administered Current Inpatient Medications Acetaminophen (Acetaminophen 325 Mg Tab) 650 mg PO Q4H PRN PRN Reason: Pain or Fever Stop: 06/08/20 00:41 Last Admin: 05/09/20 08:22 Dose: 650 mg Documented by: Apixaban (Apixaban 5 Mg Tablet) 5 mg PO BID [facility] Stop: 06/08/20 08:59 Last Admin: 05/09/20 08:15 Dose: 5 mg Documented by: Dextrose (Dextrose 50% 50 Ml Syringe) 25 - 50 ml IV UD PRN; Protocol PRN Reason: Hypoglycemia Protocol Stop: 06/08/20 01:29 Duloxetine HCl (Duloxetine Hcl 30 Mg Cap) 30 mg PO DAILY ADAN Stop: 06/08/20 08:59 Last Admin: 05/09/20 08:15 Dose: 30 mg Documented by: Gabapentin (Gabapentin 400 Mg Cap) 400 mg PO HS PRN PRN Reason: Pain Stop: 06/08/20 00:41 Glucagon (Glucagon For Inj 1 Mg Vial) 1 mg SQ UD PRN; Protocol PRN Reason: Hypoglycemia Protocol Stop: 06/08/20 01:29 Glucose (Glucose 40% Gel 15 Gm Tube) 15 - 30 gm PO UD PRN; Protocol PRN Reason: Hypoglycemia Protocol Stop: 06/08/20 01:29 Glucose (Glucose 10 Tabs/Tube) 4 - 8 tabs PO UD PRN; Protocol PRN Reason: Hypoglycemia Protocol Stop: 06/08/20 01:29 Diltiazem HCl 125 mg/ Dextrose 125 mls @ 5 mls/hr IV .Q24H [facility]; Protocol Stop: 06/07/20 20:29 Last Admin: 05/08/20 21:48 Dose: 5 mg/hr, 5 mls/hr Documented by: Insulin Aspart (Insulin Aspart 100 Units/Ml 3 Ml Pen) 0 units SC ACHS ADAN Stop: 06/08/20 07:29 Last Admin: 05/09/20 08:17 Dose: 1 units Documented by: Lamotrigine (Lamotrigine 100 Mg Tab) 100 mg PO BID [facility] Stop: 06/08/20 08:59 Last Admin: 05/09/20 08:15 Dose: 100 mg Documented by: Lisinopril (Lisinopril 40 Mg Tab) 40 mg PO DAILY [facility] Stop: 06/08/20 08:59 Last Admin: 05/09/20 08:15 Dose: 40 mg Documented by: Metoprolol Tartrate (Metoprolol Tartrate 25 Mg Tab) 25 mg PO BID [facility] Stop: 06/08/20 00:41 Last Admin: 03/20/21 08:15 Dose: 25 mg Documented by: Miscellaneous (Carbohydrates For Hypoglycemia ) 15 - 30 gm PO UD PRN PRN Reason: Hypoglycemia Treatment Stop: 06/08/20 01:29 Nitroglycerin (Nitroglycerin Sl 0.4 Mg/Tab Tab) 0.4 mg SL UD PRN PRN Reason: Chest Pain Stop: 06/08/20 00:41 Ondansetron HCl (Ondansetron Inj 2 Mg/Ml 2 Ml Vial) 4 mg IV Q6H PRN PRN Reason: Nausea Stop: 06/08/20 00:41 Oxycodone HCl (Oxycodone Hcl Ir 5 Mg Tab (Immediate Release)) 5 mg PO NOW STA Stop: 05/09/20 11:56 Polyethylene Glycol (Polyethylene (Miralax) 17 Gm Pack) 17 gm PO DAILY PRN PRN Reason: Constipation Stop: 06/08/20 00:41 (1) HTN (hypertension) Hypertension type: unspecified Qualified Code(s): I10 - Essential (primary) hypertension
--- NOTE | 2020-05-09 13:19 | Cardiology Consultation ---
Date of Consultation May 09, 2020 Assessment & Plan (1) Atrial fibrillation with rapid ventricular response: (2) Bipolar disorder: (3) HTN (hypertension): (4) DM type 2 (diabetes mellitus, type 2): (5) Morbid obesity: Once again the pathophysiology and treatment options for atrial fibr illation were discussed with the patient at great lengths today. Given her high likelihood of recurrence of atrial fibrillation along with her borderline prolonged QT interval at baseline I believe the most prudent course of action at this point would be rate control and she is in agreement. To that end, I will increase her metoprolol to 50 mg twice daily and start oral Cardizem 240 mg p.o. daily. Her Cardizem drip should be titrated to off with a goal heart rate between 80- 100. Continue Eliquis uninterrupted. We will reevaluate in the a.m. and possibly consider DC cardioversion on the but again, I would hesitate to start her on any antiarrhythmic therapy given her prolonged QT interval. History of Present Illness Reason for Consultation: afib with RVR Requesting Physician: Dr. Finch Attending Physician: Monet Scott MD History of Present Illness It was my pleasure to see Ms. Olmos in cardiac consultation today May 09, 2020. She is a very pleasant 54-year-old woman who recently established with Dr. Renee of our cardiology practice for new onset atrial fibrillation. She states that her symptoms started approximately 3 to 4 weeks ago and she was initially found to be in atrial fibrillation. She was admitted to [facility] at that time but spontaneously cardioverted on her own. She was discharged home on metoprolol and Eliquis. Since then she states that she never felt right. She states that she feels tired and rundown and just does not have the energy that she did before. She continued to have palpitations in the mi ddle of the night usually around 3 AM. Yesterday she was not feeling well and seen by her PCP and she was again found to be in A. fib with RVR and transported to the emergency room via EMS. Her Eliquis and metoprolol were continued and she was started on a Cardizem drip for further rate control. She denies any palpitations currently but states that she does feel tired and rundown. She states that she has been compliant with her medications as an outpatient. Allergies Allergy/AdvReac Type Severity Reaction Status Date / Time No Known Allergies Allergy Unverified 05/08/20 18:45 Home Medications Medication Instructions Recorded Confirmed Type gabapentin 400 mg PO HS PRN 04/14/20 05/08/20 History lamotrigine 100 mg PO BID 04/14/20 05/08/20 History metformin 500 mg PO BID 04/14/20 05/08/20 History apixaban [Eliquis] 5 mg PO BID #60 tab 04/15/20 05/08/20 Rx metoprolol tartrate 25 mg PO BID 60 Days #120 tab 04/15/20 05/08/20 Rx duloxetine 30 mg PO DAILY 05/08/20 05/08/20 History lisinopril 40 mg PO DAILY 05/08/20 05/08/20 History Patient History Medical History Bipolar disorder DM type 2 (diabetes mellitus, type 2) HTN (hypertension) Hx of lymphoma, non-Hodgkins 2014 - 6 cycles of CHOP 2018 - 3 cycles of brentuximab and radiation Family History Denies family history of Heart disease Social History Smoking Status: Never smoker Hx Alcohol Use: No Hx Substance Use: No Preferred Language: Sammarinese Communication Ability: Effective Airborne Operations Required: No Beliefs That Will Affect Care: None Current Living Situation: Family Feels Safe at Home: Yes Safety Concerns: Feels Safe At This Time Assistive Devices: None Review of Systems Review of Systems: All systems reviewed & are unremarkable except as noted in HPI & below Physical Exam Physical Exam: General: Awake, alert and oriented x 3. No acute distress. HEENT: Normocephalic, atraumatic. Pupils equal, round and reactive to light and accommodation. Extraocular muscles are intact. Anicteric sclera. Moist mucous membranes. Neck: No JVD. No bruit. Cardiovascular: irregularly irregular, unable to appreciate murmur, rub or gallop. Pulmonary: Clear to auscultation bilaterally. No rales, rhonchi, or wheezing. Abdomen: Bowel sounds x 4, soft. No rebound, guarding or tenderness. No organomegaly. Extremities: No clubbing, cyanosis or edema. +2 pedal pulses bilaterally. Skin: Warm and dry. Results & Data ([facility]) Vital Signs (Past 12 Hours) Vital Signs Temp Pulse Pulse Resp BP BP Pulse Ox 05/09/20 11:10 36.6 C 105 H 22 129/94 97 05/09/20 08:00 112 H 05/09/20 07:08 36.8 C 120 H 19 139/88 95 05/09/20 03:16 122 H 20 98 05/09/20 02:48 36.8 C 98 H 20 131/86 98 (1) HTN (hypertension) Hypertension type: unspecified Qualified Code(s): I10 - Essential (primary) hypertension
[2020-05-09] MEDS: dilTIAZem HCL 240 MG CAPCR PO SCH (13:46)
[2020-05-09] MEDS: dilTIAZem HCL 125 MG in DEXTROSE 5% 100 ML IV SCH (16:47)
[2020-05-09] MEDS: METOPROLOL TARTRATE 50 MG TAB PO SCH (21:37)
[2020-05-10] MEDS: lamoTRIgine 100 MG TAB PO SCH (08:14)
[2020-05-10] MEDS: DULoxetine HCL 30 MG CAP PO SCH (08:14)
[2020-05-10] MEDS: lisinopril 40 MG TAB PO SCH (08:15)
[2020-05-10] MEDS: APIXABAN 5 MG TABLET PO SCH (08:15)
[2020-05-10] MEDS: dilTIAZem HCL 240 MG CAPCR PO SCH (08:15)
[2020-05-10] MEDS: METOPROLOL TARTRATE 50 MG TAB PO SCH (08:15)
[2020-05-10] MEDS: INSULIN ASPART 100 UNITS/ML 3 ML PEN SC SCH ×2 (08:16→11:53)
--- NOTE | 2020-05-10 10:39 | Electrocardiogram Report ---
Test Reason : Blood Pressure : / mmHG Vent. Rate : 084 BPM Atrial Rate : 069 BPM P-R Int : 000 ms QRS Dur : 080 ms QT Int : 414 ms P-R-T Axes : 000 078 046 degrees QTc Int : 489 ms Atrial fibrillation Abnormal ECG When compared with ECG of 09-MAY-2020 08:48, No significant change was found Confirmed by Henri Jama ([id number]) on 05/10/2020 10:38:55 AM Referred By: Osmani Estrella Confirmed By:Henri Jama
[2020-05-10] MEDS ORDERED: METOPROLOL TARTRATE 25 MG TAB PO ONE (11:09)
--- NOTE | 2020-05-10 11:35 | Hospitalist Progress Note ---
Date of Service May 10, 2020 Assessment & Plan (1) Atrial fibrillation with rapid ventricular response: Recent admission with atrial fibrillation with RVR and there was treated with Cardizem Was discharged home on Eliquis and beta-chris Was admitted last night with recurrent A. fib with RVR Not controlled with single dose of Cardizem and multiple doses of intravenous beta-chris Has been on intravenous Cardizem for now and the heart rate is improving but remains in atrial fibrillation Awaiting cardiology evaluation-appreciate cardiology input and recommendation Beta-chris dose has been increased and Cardizem orally added Plan to discontinue Cardizem drip when appropriate She is not a candidate for rhythm control medication due to prolonged QT She is off the Cardizem drip Heart rate was noted to be high at 1 40-1 50 this morning when she was physically a little active At around 11 AM the heart rate seems to be controlled at 87 with hemodynamic stability Generalized weakness and feeling of unwell Complains of severe headache Not controlled with Tylenol Has been getting immediate release oxycodone with some improvement We will give her another dose of oxycodone No more headache reported (2) HTN (hypertension): Blood pressure remains stable We will continue current medications (3) DM type 2 (diabetes mellitus, type 2): Will monitor blood sugar SSI (4) Bipolar disorder: We will continue Lamictal and duloxetine No acute confusion and/or anxiety (5) Hx of lymphoma, non-Hodgkins: Seems to be in remission now Received last radiation treatment in October of 2017 Likely discharge this afternoon or tomorrow Admission and Anticipated Discharge Date Admission Date: May 08, 2020 Subjective 05/09/2020 The patient was seen and examined in telemetry unit She still has A. fib and her rate seems to be improving on IV Cardizem She feels hungry and also has headache 05/10/2020 The patient was seen and examined in telemetry unit She is off the Cardizem drip and still heart rate goes up to 1 40-1 50 whenever she is minimally active without any chest pain and/or palpitation She has been generally weak but denies any other symptoms Review of Systems Review of Systems: All systems reviewed and are unremarkable except as noted below Cardiovascular: + edema (Trace edema bilaterally); no chest pain and no palpitations Physical Exam Physical Exam: Sitting on a chair without any acute distress Constitutional: well developed, well nourished and + morbidly obese; not ill appearing Eyes: PERRL, conjunctivae normal, anicteric sclerae ENMT: external ear and nose normal, oropharynx normal Neck: trachea midline, no thyromegaly Respiratory: normal respiratory effort; no respiratory distress Auscultation: lungs clear to auscultation bilaterally Cardiovascular: Rate/Rhythm: + irregularly irregular Heart Sounds: no murmur Extremities: + edema (Trace edema bilaterally) Gastrointestinal (Abdomen): Inspection/Auscultation: normal bowel sounds; abdomen not distended Percussion/Palpation: abdomen soft; abdomen nontender Musculoskeletal: No acute arthritis in any joint Neurologic: Alert, awake and oriented x3. No focal sensory and motor deficit appreciated Psychiatric: A+Ox3, euthymic affect Lymphatic: no cervical or axillary lymphadenopathy Results & Data Results & Data ([facility]) Vital Signs (Past 12 Hours) Vital Signs Temp Pulse Pulse Resp BP Pulse Ox 05/10/20 11:06 36.7 C 87 20 127/80 95 05/10/20 07:13 91 H 05/10/20 07:11 36.8 C 102 H 22 173/108 H 95 05/10/20 02:49 37.2 C 78 20 151/86 H 96 Medications Administered Current Inpatient Medications Acetaminophen (Acetaminophen 325 Mg Tab) 650 mg PO Q4H PRN PRN Reason: Pain or Fever Stop: 06/08/20 00:41 Last Admin: 05/09/20 21:51 Dose: 650 mg Documented by: Apixaban (Apixaban 5 Mg Tablet) 5 mg PO BID [facility] Stop: 06/08/20 08:59 Last Admin: 05/10/20 08:15 Dose: 5 mg Documented by: Dextrose (Dextrose 50% 50 Ml Syringe) 25 - 50 ml IV UD PRN; Protocol PRN Reason: Hypoglycemia Protocol Stop: 06/08/20 01:29 Diltiazem HCl (Diltiazem Hcl 240 Mg Capcr) 240 mg PO QAM ADAN Stop: 06/08/20 13:14 Last Admin: 05/10/20 08:15 Dose: 240 mg Documented by: Duloxetine HCl (Duloxetine Hcl 30 Mg Cap) 30 mg PO DAILY ADAN Stop: 06/08/20 08:59 Last Admin: 05/10/20 08:14 Dose: 30 mg Documented by: Gabapentin (Gabapentin 400 Mg Cap) 400 mg PO HS PRN PRN Reason: Pain Stop: 06/08/20 00:41 Last Admin: 05/09/20 21:52 Dose: 400 mg Documented by: Glucagon (Glucagon For Inj 1 Mg Vial) 1 mg SQ UD PRN; Protocol PRN Reason: Hypoglycemia Protocol Stop: 06/08/20 01:29 Glucose (Glucose 40% Gel 15 Gm Tube) 15 - 30 gm PO UD PRN; Protocol PRN Reason: Hypoglycemia Protocol Stop: 06/08/20 01:29 Glucose (Glucose 10 Tabs/Tube) 4 - 8 tabs PO UD PRN; Protocol PRN Reason: Hypoglycemia Protocol Stop: 06/08/20 01:29 Diltiazem HCl 125 mg/ Dextrose 125 mls @ 10 mls/hr IV .[id number] [facility]; Protocol Stop: 06/07/20 20:29 Last Titration: 05/10/20 08:14 Dose: Infused Documented by: Insulin Aspart (Insulin Aspart 100 Units/Ml 3 Ml Pen) 0 units SC ACHS [facility] Stop: 06/08/20 07:29 Last Admin: 05/10/20 08:16 Dose: 6 units Documented by: Lamotrigine (Lamotrigine 100 Mg Tab) 100 mg PO BID [facility] Stop: 06/08/20 08:59 Last Admin: 05/10/20 08:14 Dose: 100 mg Documented by: Lisinopril (Lisinopril 40 Mg Tab) 40 mg PO DAILY [facility] Stop: 06/08/20 08:59 Last Admin: 05/10/20 08:15 Dose: 40 mg Documented by: Metoprolol Tartrate (Metoprolol Tartrate 25 Mg Tab) 75 mg PO BID [facility] Stop: 06/09/20 20:59 Miscellaneous (Carbohydrates For Hypoglycemia ) 15 - 30 gm PO UD PRN PRN Reason: Hypoglycemia Treatment Stop: 06/08/20 01:29 Nitroglycerin (Nitroglycerin Sl 0.4 Mg/Tab Tab) 0.4 mg SL UD PRN PRN Reason: Chest Pain Stop: 06/08/20 00:41 Ondansetron HCl (Ondansetron Inj 2 Mg/Ml 2 Ml Vial) 4 mg IV Q6H PRN PRN Reason: Nausea Stop: 06/08/20 00:41 Polyethylene Glycol (Polyethylene (Miralax) 17 Gm Pack) 17 gm PO DAILY PRN PRN Reason: Constipation Stop: 06/08/20 00:41 (1) HTN (hypertension) Hypertension type: unspecified Qualified Code(s): I10 - Essential (primary) hypertension
--- NOTE | 2020-05-10 13:25 | Cardiology Progress Note ---
Date of Service May 10, 2020 Assessment & Plan (1) Atrial fibrillation with rapid ventricular response: (2) Bipolar disorder: (3) HTN (hypertension): (4) DM type 2 (diabetes mellitus, type 2): (5) Morbid obesity: Once again the pathophysiology and treatment options for atrial fibrillat ion were discussed with the patient at great lengths today. Given her high likelihood of recurrence of atrial fibrillation along with her borderline prolonged QT interval at baseline I believe the most prudent course of action at this point would be rate control and she is in agreement. States that she is feeling well now. Heart rate and blood pressure well controlled with medication changes. She is anxious for discharge and I see no reason why she cannot be discharged today. Would discharge home on Eliquis 5 mg p.o. twice daily, metoprolol 75 mg p.o. twice daily and Cardizem CD 240 mg daily. My office will call to arrange follow-up as an outpatient. Admission and Anticipated Discharge Date Admission Date: May 08, 2020 Subjective Patient seen and examined, chart reviewed. States that she felt well overnight. Cardizem drip was discontinued this a.m. Denies chest pain, shortness of breath, palpitations, lightheadedness or dizziness. Telemetry reviewed: Atrial fibrillation with rates varying from the 80s Review of Systems Review of Systems: All systems reviewed & are unremarkable except as noted in HPI & below Physical Exam Physical Exam: General: Awake, alert and oriented x 3. No acute distress. HEENT: Normocephalic, atraumatic. Pupils equal, round and reactive to light and accommodation. Extraocular muscles are intact. Anicteric sclera. Moist mucous membranes. Neck: No JVD. No bruit. Cardiovascular: irregularly irregular, unable to appreciate murmur, rub or gallop. Pulmonary: Clear to auscultation bilaterally. No rales, rhonchi, or wheezing. Abdomen: Bowel sounds x 4, soft. No rebound, guarding or tenderness. No organomegaly. Extremities: No clubbing, cyanosis or edema. +2 pedal pulses bilaterally. Skin: Warm and dry. Results & Data ([facility]) Vital Signs (Past 12 Hours) Vital Signs Temp Pulse Pulse Resp BP BP Pulse Ox 05/10/20 13:21 36.7 C 87 20 127/80 131/86 95 05/10/20 11:06 36.7 C 87 20 127/80 95 05/10/20 07:13 91 H 05/10/20 07:11 36.8 C 102 H 22 173/108 H 95 05/10/20 02:49 37.2 C 78 20 151/86 H 96 (1) HTN (hypertension) Hypertension type: unspecified Qualified Code(s): I10 - Essential (primary) hypertension
[2020-05-10] MEDS ORDERED: METOPROLOL TARTRATE 25 MG TAB PO SCH (21:00)
--- NOTE | 2020-05-11 08:29 | Discharge Summary ---
Date of Service May 11, 2020 Admission HPI Per Admitting Provider DICTATED BY: Maximino Finch MD DATE OF ADMISSION: 05/08/2020 CHIEF COMPLAINT: Rapid AFib. HISTORY OF PRESENT ILLNESS: This is a 54-year-old female with past medical history significant for type 2 diabetes, hypertension, bipolar affective disorder in remission, history of recurrent anaplastic large cell lymphoma, status post [facility]OP chemotherapy in 10/2013 and recurrent disease in 06/2017 and treated with 3 cycles of brentuximab. Last chemotherapy was in 08/2017. She has very poor tolerance and received radiation therapy in right parotid area. Completed radiation in 10/2017.She was here recently a couple of weeks ago with rapid AFib, treated with Cardizem, converted to sinus rhythm and started on Lopressor 25 mg p.o. b.i.d. and discharged on Eliquis. At that time CTA of the chest was negative, echo was normal and she also followed with cardiology. Today she was feeling clammy, sweating, weak, palpitations, chest pressure. She went to PCP and was sent here and she was in rapid AFib, received 20 of diltiazem en route here and in the ER, she received 15 mg of IV Lopressor, still she was in rapid AFib, started on Cardizem drip. Currently complains of severe headache. She says that she gets on and off headaches whenever her blood pressure is high. Currently, heart rates ranging from 100-120s, saturating fine on room air. No earache, no runny nose, no sore throat, no cough, no fever, no chills, no dysphagia. Appetite is okay. She gets short of breath possibly from AFib and on and off chest pressure. Currently, no chest pressure, no nausea, no vomiting, no abdominal pain. Normal bowel and bladder movements. No allergies. She has sleep apnea, uses CPAP. Admission Exam Per Admitting Provider GENERAL: The patient is morbidly obese, not in acute distress. VITAL SIGNS: Temperature afebrile, pulse 120s, respiratory rate 21, blood pressure 145/110, oxygen 97% on room air. HEENT: Pupils equal, round, reactive to light. Oral mucosa moist. NECK: No JVD. No neck masses. CARDIOVASCULAR: S1, S2. Irregular rhythm. Tachycardia. No murmurs. RESPIRATORY SYSTEM: Normal AP diameter. No accessory muscle use. No wheezing, no crackles. ABDOMEN: Soft, bowel sounds present, nontender. No distention. CENTRAL NERVOUS SYSTEM: Cranial nerves II-XII grossly intact, nonfocal. EXTREMITIES: No obvious edema, no erythema seen. Principal Diagnosis Atrial fibrillation with rapid ventricular response, type 2 diabetes, hypertension, obesity 1 CPAP, bipolar disorder, history of large cell lymphoma Discharge Exam Constitutional well developed, well nourished and + morbidly obese; not ill appearing Eyes PERRL, conjunctivae normal, anicteric sclerae ENMT external ear and nose normal, oropharynx normal Neck trachea midline, no thyromegaly Respiratory normal respiratory effort; no respiratory distress Auscultation: lungs clear to auscultation bilaterally Cardiovascular Rate/Rhythm: + irregularly irregular Heart Sounds: no murmur Extremities: + edema (Trace edema bilaterally) Gastrointestinal (Abdomen) Inspection/Auscultation: normal bowel sounds; abdomen not distended Percussion/Palpation: abdomen soft; abdomen nontender Psychiatric A+Ox3, euthymic affect Lymphatic no cervical or axillary lymphadenopathy Discharge Data Allergies Allergy/AdvReac Type Severity Reaction Status Date / Time No Known Allergies Allergy Unverified 05/08/20 18:45 Consultations 05/08/20 20:20 ED Decision to Admit Stat 05/09/20 08:00 Consult Cardiology Routine Hospital Course (1) Atrial fibrillation with rapid ventricular response: Recent admission with atrial fibrillation with RVR and there was treated with Cardizem Was discharged home on Eliquis and beta-chris Was admitted last night with recurrent A. fib with RVR Not controlled with single dose of Cardizem and multiple doses of intravenous beta-chris Has been on intravenous Cardizem for now and the heart rate is improving but remains in atrial fibrillation Awaiting cardiology evaluation-appreciate cardiology input and recommendation Beta-chris dose has been increased and Cardizem orally added Plan to discontinue Cardizem drip when appropriate She is not a candidate for rhythm control medication due to prolonged QT She is off the Cardizem drip Heart rate was noted to be high at 1 40-1 50 this morning when she was physically a little active At around 11 AM the heart rate seems to be controlled at [address] ability Generalized weakness and feeling of unwell Complains of severe headache Not controlled with Tylenol Has been getting immediate release oxycodone with some improvement We will give her another dose of oxycodone No more headache reported (2) HTN (hypertension): Blood pressure remains stable We will continue current medications (3) DM type 2 (diabetes mellitus, type 2): Will monitor blood sugar SSI (4) Bipolar disorder: We will continue Lamictal and duloxetine No acute confusion and/or anxiety (5) Hx of lymphoma, non-Hodgkins: Seems to be in remission now Received last radiation treatment in October of 2017 Likely discharge this afternoon or tomorrow Total Time Total Time Spent Total Time Spent (In Minutes): 35 minutes Total Time Includes: Examination of the Patient, Discharge Planning, Medication Reconciliation and Communication With Other Providers Discharge Plan Discharge Items Patient Disposition: Home - Self-Care Reason For Visit: A-FIB Discharge Diagnosis: Atrial fibrillation with rapid ventricular response, type 2 diabetes, hypertension, obesity 1 CPAP, bipolar disorder, history of large cell lymphoma Activity: Resume your previous activity Non-emergency contact: Primary Care Provider Call non-emergency contact if: you have any medication questions and your symptoms worsen Follow-up/Referrals: Osmani Estrella MD [Primary Care Provider] - Diet: Carb Consistent or DM2, Heart Healthy and Low Sodium (2gm) Addtl Attending Provider Instructions: Your doctor's office will call with an appointment within 7 days Please keep appointment with [facility] applications trainer Please continue to take your medications as prescribed Pending Studies at Discharge: No Stand-Alone Forms: [employer], Smoking Cessation Medications and DC Order Prescriptions: New metoprolol tartrate 75 mg tablet 75 mg PO BID Qty: 60 RF: 0 diltiazem HCl 240 mg Capsule,Extended Release 24hr 240 mg PO QAM 30 Days Qty: 30 RF: 0 Continued gabapentin 400 mg capsule 400 mg PO HS PRN (Reason: Pain) RF: 0 metformin 500 mg tablet extended release 24 hr 500 mg PO BID RF: 0 lamotrigine 100 mg tablet 100 mg PO BID RF: 0 Eliquis 5 mg tablet 5 mg PO BID Qty: 60 RF: 0 lisinopril 40 mg tablet 40 mg PO DAILY RF: 0 duloxetine 30 mg capsule,delayed release(DR/EC) 30 mg PO DAILY RF: 0 Discontinued metoprolol tartrate 25 mg Tablet 25 mg PO BID 60 Days Qty: 120 RF: 0 Discharge Orders: Discharge Order (Routine); Ordered 05/10/20 Ordered By: Monet Domínguez/Other Patient Handouts: Diabetes and Heart Disease, Managing Type 2 Diabetes, Managing Diabetes: The A1C Test, Understanding Atrial Fibrillation Admission Data Admit Date/Time: 05/08/20 22:55 Attending Provider: Monet Scott Admit Provider: Maximino Finch Primary Care Provider: Osmani Estrella Other Providers: Maximino Finch ; Zach Lemus ; Toby Thakkar ; Satinder Camacho ; Sathish Mojica ; Antwan Renee ; Finesse Meza ; Susan Alegria ; Maida Turner ; Adryan Lee Other Interventions: Discharge Summary Assessment (RN) Last Done: 05/10/20 13:21
== END 2020-05-10 13:53 | disposition home or self-care (01) | DRG 309 ==
LOC: ED 16:50 → 2S 22:55

== ENCOUNTER 2020-05-29 18:17 | Inpatient (IN) ==
[2020-05-29] MEDS ORDERED: dilTIAZem HCl 5 MG/ML 5 ML VIAL IV STA (18:37)
[2020-05-29] MEDS ORDERED: APIXABAN 5 MG TABLET PO STA (18:37)
[2020-05-29] MEDS ORDERED: STAT IV Infusion **Titration per Protocol STA (18:37)
[2020-05-29 18:47] LABS: Basophils # (auto) 0.01 K/uL (0-0.2); Basophils % (auto) 0.1 %; Eosinophils # (auto) 0.08 K/uL (0-0.5); Eosinophils % (auto) 0.9 %; Immature Granulocytes # (auto) 0.02 K/uL (0.00-0.02); Immature Granulocytes % (auto) 0.2 %; Lymphocytes # (auto) 2.31 K/uL (1.2-3.4); Lymphocytes % (auto) 25.4 %; Mean Corpuscular Hemoglobin 27.5 pg (25-34); Mean Corpuscular Hgb Conc 31.7 g/dL (32-36); Mean Corpuscular Volume 86.9 fL (80-100); Mean Platelet Volume 10.1 fL (7.4-10.4); Monocytes # (auto) 0.68 K/uL (0.11-0.59); Monocytes % (auto) 7.5 %; Neutrophils # (auto) 6.01 K/uL (1.4-6.5); Neutrophils % (auto) 65.9 %; Platelet Count 273 K/uL (130-400); RDW Coefficient of Variation 15.3 % (11.5-14.5); RDW Standard Deviation 48.6 fL (36.4-46.3); Red Blood Count 4.72 M/uL (4.2-5.4); White Blood Count 9.11 K/uL (4.8-10.8)
[2020-05-29 18:57] LABS: Prothrombin Time 10.6 Seconds (9.0-12.0)
--- NOTE | 2020-05-29 18:58 | XRay Report ---
XR chest 1V portable CLINICAL HISTORY: Dysrhythmia, sob COMPARISON STUDY: Chest CT April 14, 2020. Chest radiograph May 08, 2020 FINDINGS: Cardiomegaly is noted. This is similar to prior exam. There is no pneumothorax or pleural e ffusion. Interstitial thickening has developed. No consolidation is identified. IMPRESSION: 1. Interval development of interstitial thickening which favors pulmonary edema. An infectious proces s could appear similar but is considered less likely. 2. Cardiomegaly. ACT 112: Negative or not required by law. Electronically signed by: Pool Mc M.D. 05/29/2020 6:56 PM
--- NOTE | 2020-05-29 19:00 | Emergency Department Note ---
Impression & Plan Breathlessness, Atrial fibrillation with rapid ventricular response, Atypical chest pain ED Provider Note Provider: Avelino Gonzalez MD DATE OF SERVICE: 05/29/2020 CHIEF COMPLAINT: Palpitations, shortness of breath, chest pain HISTORY OF PRESENT ILLNESS: Patient is a 54-year-old female with a past history of type 2 diabetes, hypertension, bipolar, prior treated lymphoma, and recent hospitalization over the past 2 months for atrial fibrillation. Patient states that she has been home for several weeks and having apparently recurrent issues with elevated heart rates. States she been taking her blood pressure at home and its been elevated into the 160s and 180s as well at times. Has been following with [facility] and recently had her Cardizem discontinued and increase metoprolol dosing reported. States he is a bit of swelling of her left leg but reports that she has been faithful in taking her Eliquis. Denies any trauma or syncope but states at times she feels bit sweaty short of breath and having some left-sided sharp chest discomfort. Patient denies significant abdominal discomfort. REVIEW OF SYSTEMS: A total of 10 review of systems was obtained and negative except as stated above in the HPI. PAST MEDICAL HISTORY: As noted above MEDICATIONS: Reviewed home medication with the patient, did not take evening medications prior to arrival SOCIAL HISTORY: Non-smoker, PHYSICAL EXAM: GENERAL: alert and oriented appears somewhat fatigued sitting on the stretcher Head: normocephalic and atraumatic EYES: No injection, discharge or icterus. NECK: Trachea midline. LUNGS: Airway patent. No retractions. Breath sounds clear with good air entry bilaterally. HEART: Regular and tachycardic rate and rhythm. No chest wall tenderness ABDOMEN: Soft and non-tender, without guarding or rebound. SKIN: Acyanotic, warm, dry, without rashes EXTREMITIES: Without significant deformity or erythema with some trace bilateral pedal edema. NEUROLOGICAL: No focal deficits. No aphasia. No facial droop or slurred speech. Ambulatory. EK bpm atrial fibrillation with rapid ventricular response. No PVC. No acute ST segment elevation is noted. Normal QRS interval. CONTINUOUS CARDIAC MONITORING: was ordered and showed a heart rate of 150s- bpm in atrial fibrillation Patient's laboratory studies and imaging reviewed. Differential includes Premature contractions, electrolyte abnormality, cardiac dysrhythmia, thyroid dysfunction, pulmonary embolism, infection, gastrointestinal, as well as other pathologies. IMPRESSION/MEDICAL DECISION MAKING: Patient presents with appears to be rapid atrial fibrillation likely causing her symptoms of chest discomfort shortness of breath and near syncope. Given some Cardizem and start a Cardizem drip. Given her evening dose of Eliquis that she has previously been on for anticoagulation. Basic labs were sent. Covid test ordered. Given the anticoagulation I doubt acute PE or DVT at this point. Believe the etiology of her symptoms are related to the uncontrolled A. fib. LFTs slightly elevated of unclear etiology. Diltiazem drip heart rate slowly improved. Became little bit nauseous and given some Zofran here. Benign abdomen and doubt acute intra-abdominal process at this time. Given her difficult rate control and symptomatic nature discussed with the hospitalist for further inpatient care. Patient very much wants to work on better control given her symptoms symptoms causing difficulty with completion of her ADLs at home. Hospitalist was contacted. DIAGNOSIS: Atrial fibrillation with rapid ventricular response, shortness of breath DISPOSITION: Hospitalist will evaluate Patient was agreeable with this plan. Critical Care I have personally spent 32 minutes of critical care time in the direct management of this patient. This includes bedside care, interpretation of diagnostic studies, and testing, discussion with consultants, patient, and family members, and other required patient management activities. These 32 minutes is in excess of all separately billable procedures. Past Med/Surg History Medical History Bipolar disorder DM type 2 (diabetes mellitus, type 2) Dyslipidemia HTN (hypertension) Hx of lymphoma, non-Hodgkins 2014 - 6 cycles of CHOP 2018 - 3 cycles of brentuximab and radiation Obesity MEIR (obstructive sleep apnea) Prolonged QT interval Surgical History History of parotid gland removal Family History Denies family history of Heart disease Social History Smoking Status: Never smoker Hx Alcohol Use: No Hx Substance Use: No Preferred Language: Mosotho Communication Ability: Effective Behavioral Health Specialist Required: No Beliefs That Will Affect Care: None Current Living Situation: Family Other Information That Helps Us Care for You: No Feels Safe at Home: Yes Safety Concerns: Feels Safe At This Time Assistive Devices: CPAP and Glasses Allergies Allergies Allergy/AdvReac Type Severity Reaction Status Date / Time No Known Allergies Allergy Unverified 05/29/20 20:14 Home Meds Home Medications Medication Instructions Recorded Confirmed gabapentin 400 mg PO HS PRN 04/14/20 05/29/20 lamotrigine 100 mg PO BID 04/14/20 05/29/20 metformin 500 mg PO BID 04/14/20 05/29/20 duloxetine 30 mg PO DAILY 05/08/20 05/29/20 lisinopril 40 mg PO DAILY 05/08/20 05/29/20 metoprolol tartrate 200 mg PO BID 05/29/20 05/29/20 Previous Rx's Medication Instructions Recorded Eliquis 5 mg PO BID #60 tab 04/15/20 Results & Data (ED) Vital Signs Vital Signs - 24 hr 05/29/20 18:21 05/29/20 19:47 05/29/20 19:53 Temperature 35.9 C L Temperature Source Skin Pulse Rate 150 H 132 H 117 H Pulse Rate from SpO2 Sensor 138 H 138 H Respiratory Rate 20 21 22 Respiratory Effort / Characteristics Non-Labored Spontaneous Respiratory Depth Normal Blood Pressure 168/133 H 148/111 H Blood Pressure Mean 144 123 Pulse Oximetry 97 94 94 Oxygen Delivery Method Room Air Sepsis Recent Fever Within 48 Hours No Sepsis New/Unexplained Change in Mental Status N/A Sepsis Action Taken by Nursing No Action Required 05/29/20 19:56 05/29/20 20:00 05/29/20 20:05 Temperature Temperature Source Pulse Rate 109 H 120 H 131 H Pulse Rate from SpO2 Sensor 115 H 120 H 134 H Respiratory Rate 24 22 Respiratory Effort / Characteristics Respiratory Depth Blood Pressure 150/118 H 144/106 H 165/115 H Blood Pressure Mean 128 118 131 Pulse Oximetry 94 95 93 Oxygen Delivery Method Sepsis Recent Fever Within 48 Hours Sepsis New/Unexplained Change in Mental Status Sepsis Action Taken by Nursing 05/29/20 20:10 05/29/20 20:15 05/29/20 20:16 Temperature Temperature Source Pulse Rate 124 H 134 H 133 H Pulse Rate from SpO2 Sensor 117 H 144 H 142 H Respiratory Rate 25 H 26 H 28 H Respiratory Effort / Characteristics Respiratory Depth Blood Pressure 132/112 H 142/96 H Blood Pressure Mean 118 111 Pulse Oximetry 94 Oxygen Delivery Method Sepsis Recent Fever Within 48 Hours Sepsis New/Unexplained Change in Mental Status Sepsis Action Taken by Nursing 05/29/20 20:34 05/29/20 20:38 05/29/20 20:51 Temperature Temperature Source Pulse Rate 110 H 124 H 100 H Pulse Rate from SpO2 Sensor 118 H 130 H Respiratory Rate 23 Respiratory Effort / Characteristics Respiratory Depth Blood Pressure 150/122 H 150/122 H Blood Pressure Mean 131 Pulse Oximetry 94 94 Oxygen Delivery Method Sepsis Recent Fever Within 48 Hours Sepsis New/Unexplained Change in Mental Status Sepsis Action Taken by Nursing 05/29/20 20:56 05/29/20 21:00 05/29/20 21:05 Temperature Temperature Source Pulse Rate 112 H 136 H 115 H Pulse Rate from SpO2 Sensor 109 H 125 H 113 H Respiratory Rate 21 21 29 H Respiratory Effort / Characteristics Respiratory Depth Blood Pressure 164/107 H 135/103 H 135/99 Blood Pressure Mean 126 113 111 Pulse Oximetry 95 80 L 95 Oxygen Delivery Method Sepsis Recent Fever Within 48 Hours Sepsis New/Unexplained Change in Mental Status Sepsis Action Taken by Nursing 05/29/20 21:10 05/29/20 21:15 05/29/20 21:22 Temperature Temperature Source Pulse Rate 119 H 120 H 114 H Pulse Rate from SpO2 Sensor 113 H 117 H 140 H Respiratory Rate 20 15 20 Respiratory Effort / Characteristics Respiratory Depth Blood Pressure 152/90 H 145/126 H 155/120 H Blood Pressure Mean 110 132 131 Pulse Oximetry 96 Oxygen Delivery Method Sepsis Recent Fever Within 48 Hours Sepsis New/Unexplained Change in Mental Status Sepsis Action Taken by Nursing Laboratory Data Result diagrams: 05/29/20 18:35 05/29/20 18:35 Lab Results 05/29/20 05/29/20 05/29/20 Range/Units 18:35 18:35 18:35 WBC 9.11 (4.8-10.8) K/uL RBC 4.72 (4.2-5.4) M/uL Hgb 13.0 (12.0-16.0) g/dL Hct 41.0 (37-47) % MCV 86.9 (80-100) fL MCH 27.5 (25-34) pg MCHC 31.7 L (32-36) g/dL RDW Std Deviation 48.6 H (36.4-46.3) fL RDW Coeff of Ida 15.3 H (11.5-14.5) % Plt Count 273 (130-400) K/uL MPV 10.1 (7.4-10.4) fL Immature Gran % (Auto) 0.2 % Neut % (Auto) 65.9 % Lymph % (Auto) 25.4 % Cowley % (Auto) 7.5 % Eos % (Auto) 0.9 % Baso % (Auto) 0.1 % Neut # (Auto) 6.01 (1.4-6.5) K/uL Lymph # (Auto) 2.31 (1.2-3.4) K/uL Cowley # (Auto) 0.68 H (0.11-0.59) K/uL Eos # (Auto) 0.08 (0-0.5) K/uL Baso # (Auto) 0.01 (0-0.2) K/uL Immature Gran # (Auto) 0.02 (0.00-0.02) K/uL PT 10.6 (9.0-12.0) Seconds INR 1.0 (0.9-1.1) APTT 25.0 (21.0-31.0) Seconds PTT Ratio 1.0 Sodium 140 (136-145) mmol/L Potassium 3.9 (3.5-5.1) mmol/L Chloride 106 (98-107) mmol/L Carbon Dioxide 31 (21-32) mmol/L Anion Gap 3.0 (3-11) BUN 18 (7-18) mg/dl Creatinine 0.88 (0.6-1.2) mg/dl Est Cr Clr Drug Dosing 129.5 ml/min Est GFR ( Amer) 86.9 Est GFR (Non-Af Amer) 75.0 BUN/Creatinine Ratio 20.4 H (10-20) Glucose 144 H (70-99) mg/dl Calcium 9.1 (8.5-10.1) mg/dl Magnesium 2.0 (1.8-2.4) mg/dl Total Bilirubin 0.4 (0.2-1) mg/dl AST 50 H (15-37) U/L ALT 132 H (12-78) U/L Alkaline Phosphatase 96 (45-117) U/L Troponin I < 0.015 (0-0.045) ng/ml Total Protein 8.2 (6.4-8.2) gm/dl Albumin 4.0 (3.4-5.0) gm/dl Globulin 4.2 H (2.5-4.0) gm/dl Albumin/Globulin Ratio 1.0 (0.9-2) TSH 1.190 (0.300-4.500) uIu/ml COVID-19 Eval Order SARS-CoV-2 (PCR) (Negative) Influenza Type A (PCR) (Neg) Influenza Type B (PCR) (Neg) RSV (RT-PCR) (Neg) 05/29/20 05/29/20 Range/Units 19:02 19:02 WBC (4.8-10.8) K/uL RBC (4.2-5.4) M/uL Hgb (12.0-16.0) g/dL Hct (37-47) % MCV (80-100) fL MCH (25-34) pg MCHC (32-36) g/dL RDW Std Deviation (36.4-46.3) fL RDW Coeff of Ida (11.5-14.5) % Plt Count (130-400) K/uL MPV (7.4-10.4) fL Immature Gran % (Auto) % Neut % (Auto) % Lymph % (Auto) % Cowley % (Auto) % Eos % (Auto) % Baso % (Auto) % Neut # (Auto) (1.4-6.5) K/uL Lymph # (Auto) (1.2-3.4) K/uL Cowley # (Auto) (0.11-0.59) K/uL Eos # (Auto) (0-0.5) K/uL Baso # (Auto) (0-0.2) K/uL Immature Gran # (Auto) (0.00-0.02) K/uL PT (9.0-12.0) Seconds INR (0.9-1.1) APTT (21.0-31.0) Seconds PTT Ratio Sodium (136-145) mmol/L Potassium (3.5-5.1) mmol/L Chloride (98-107) mmol/L Carbon Dioxide (21-32) mmol/L Anion Gap (3-11) BUN (7-18) mg/dl Creatinine (0.6-1.2) mg/dl Est Cr Clr Drug Dosing ml/min Est GFR ( Amer) Est GFR (Non-Af Amer) BUN/Creatinine Ratio (10-20) Glucose (70-99) mg/dl Calcium (8.5-10.1) mg/dl Magnesium (1.8-2.4) mg/dl Total Bilirubin (0.2-1) mg/dl AST (15-37) U/L ALT (12-78) U/L Alkaline Phosphatase (45-117) U/L Troponin I (0-0.045) ng/ml Total Protein (6.4-8.2) gm/dl Albumin (3.4-5.0) gm/dl Globulin (2.5-4.0) gm/dl Albumin/Globulin Ratio (0.9-2) TSH (0.300-4.500) uIu/ml COVID-19 Eval Order CovFluRsv at [facility] SARS-CoV-2 (PCR) NEGATIVE (Negative) Influenza Type A (PCR) Negative (Neg) Influenza Type B (PCR) Negative (Neg) RSV (RT-PCR) Negative (Neg) Administered Medications Diltiazem HCl 125 mg/ Dextrose 125 mls @ 5 mls/hr IV .Q24H ADAN; Protocol Stop: 06/28/20 18:44 Last Titration: 05/29/20 21:30 Dose: 15 mg/hr, 15 mls/hr Documented by: [id number] Cosigned by: [id number] Titration: 05/29/20 20:00 Dose: 10 mg/hr, 10 mls/hr Documented by: [id number] Cosigned by: [id number] Admin: 05/29/20 19:21 Dose: 5 mg/hr, 5 mls/hr Documented by: [id number] Cosigned by: [id number] Lorazepam (Ativan) 0.5 mg in 1 mls @ 1 mls/min IV Q4H PRN PRN Reason: Anxiety/Agitation Stop: 06/28/20 22:29 Last Admin: 05/29/20 22:40 Dose: 1 mls/min Documented by: [id number] Metoprolol Tartrate (Metoprolol Tartrate 100 Mg Tab) 200 mg PO BID ADAN Stop: 06/28/20 22:09 Last Admin: 05/29/20 22:42 Dose: 200 mg Documented by: [id number] Discontinued Medications Apixaban (Apixaban 5 Mg Tablet) 5 mg PO NOW STA Stop: 05/29/20 18:38 Last Admin: 05/29/20 19:23 Dose: 5 mg Documented by: [id number] Diltiazem HCl (Diltiazem Hcl 5 Mg/Ml 5 Ml Vial) 15 mg IV NOW STA Stop: 05/29/20 18:38 Last Admin: 05/29/20 18:45 Dose: 15 mg Documented by: [id number] Cosigned by: [id number] Furosemide (Furosemide 40 Mg/4 Ml Vial) 20 mg IV NOW STA Stop: 05/29/20 20:15 Last Admin: 05/29/20 20:52 Dose: 20 mg Documented by: [id number] Metoprolol Tartrate (Metoprolol Tartrate 1 Mg/Ml Vial) 5 mg IV NOW STA Stop: 05/29/20 20:11 Last Admin: 05/29/20 20:51 Dose: 5 mg Documented by: [id number] Miscellaneous (Stat Iv Infusion Titration Per Protocol) 1 ea N/A NOW STA Stop: 05/29/20 18:38 Last Admin: 05/29/20 19:23 Dose: Not Given Documented by: [id number] Ondansetron HCl (Ondansetron Inj 2 Mg/Ml 2 Ml Vial) 4 mg IV NOW STA Stop: 05/29/20 20:28 Last Admin: 05/29/20 20:51 Dose: 4 mg Documented by: [id number] Potassium Chloride (Potassium Chloride Crtab 20 Meq Tabcr) 20 meq PO NOW STA Stop: 05/29/20 20:15 Last Admin: 05/29/20 21:46 Dose: 20 meq Documented by: [id number] Imaging Data Radiologist's Impression: Chest X-Ray 05/29/20 18:38 XR chest 1V portable CLINICAL HISTORY: Dysrhythmia, sob COMPARISON STUDY: Chest CT April 14, 2020. Chest radiograph May 08, 2020 FINDINGS: Cardiomegaly is noted. This is similar to prior exam. There is no pneumothorax or pleural effusion. Interstitial thickening has developed. No consolidation is identified. IMPRESSION: 1. Interval development of interstitial thickening which favors pulmonary edema. An infectious process could appear similar but is considered less likely. 2. Cardiomegaly. ACT 112: Negative or not required by law. Electronically signed by: Pool Mc M.D. 05/29/2020 6:56 PM Discharge Plan Visit Data Chief Complaint: Chest Pain Stated Complaint: AFIB, CHEST PAIN ED Provider: Avelino Gonzalez Discharge Problem: Breathlessness, Atrial fibrillation with rapid ventricular response, Atypical chest pain Patient Disposition: Admitted As Inpatient Discharge Instructions Interventions: ED Discharge Assessment Last Done: 05/29/20 22:14
[2020-05-29 19:04] LABS: Alanine Aminotransferase 132 U/L (12-78); Aspartate Aminotransferase 50 U/L (15-37); BUN Creatinine Ratio 20.4 (10-20); Blood Urea Nitrogen 18 mg/dl (7-18); Calcium 9.1 mg/dl (8.5-10.1); Carbon Dioxide 31 mmol/L (21-32); Chloride 106 mmol/L (98-107); Creatinine Clr Calc Pharmacy 129.5 ml/min; Est GFR (African American) 86.9; Glucose 144 mg/dl (70-99); Potassium 3.9 mmol/L (3.5-5.1); Sodium 140 mmol/L (136-145)
[2020-05-29 19:15] LABS: Alkaline Phosphatase 96 U/L (45-117); Bilirubin,Total 0.4 mg/dl (0.2-1); Globulin 4.2 gm/dl (2.5-4.0); Total Protein 8.2 gm/dl (6.4-8.2); Troponin I < 0.015 ng/ml (0-0.045)
[2020-05-29] MEDS: dilTIAZem HCL 125 MG in DEXTROSE 5% 100 ML IV SCH (19:21)
[2020-05-29 20:02] LABS: Influenza A virus by PCR Negative (Neg); Influenza B virus by PCR Negative (Neg); RSV by PCR Negative (Neg); SARS CoV2 RNA(COVID-19) InHosp NEGATIVE (Negative)
[2020-05-29] MEDS ORDERED: METOPROLOL TARTRATE 1 MG/ML VIAL IV STA (20:10)
[2020-05-29] MEDS ORDERED: FUROSEMIDE 40 MG/4 ML VIAL IV STA (20:14)
[2020-05-29] MEDS ORDERED: POTASSIUM CHLORIDE CRTAB 20 MEQ TABCR PO STA (20:14)
[2020-05-29] MEDS ORDERED: ONDANSETRON INJ 2 MG/ML 2 ML VIAL IV STA (20:27)
--- NOTE | 2020-05-29 21:07 | History & Physical Report ---
Date of Service May 29, 2020 Assessment & Plan (1) Atrial fibrillation with rapid ventricular response: (2) HTN (hypertension): (3) DM type 2 (diabetes mellitus, type 2): (4) Prolonged QT interval: (5) MEIR (obstructive sleep apnea): (6) Bipolar disorder: (7) Morbid obesity: (8) Hx of lymphoma, non-Hodgkins: HPI, PE, chart review completed by myself Karie White PA-C. Assessment and Plan per Dr Marques. See addendum. History of Present Illness Chief Complaint: Palpitations, SOB Primary Care Provider: Osmani Estrella MD Pt is 54 y/o F with PMH atrial fibrillation, DM II, sleep apnea, HTN, dyslipidemia, bipolar, non-Hodgkin lymphoma, obesity, prolonged QTc presented to ER with c/o palpitations, exertional SOB. Pt with h/o hospitalization 03/2020 for rapid a-fib and was treated with diltiazem IV with spontaneous conversion to sinus rhythm. At that time she was started on Lopressor 25mg BID and Eliquis BID. Had readmission 04/2020 for rapid a-fib. Lopressor was titrated at that time and diltiazem added. Antiarrhythmic medications have been avoided secondary to prolonged QTc. Pt c/o fatigue, intermittent clammy sensation, palpitations, exertional SOB. Having intermittent stabbing chest pains. Reports noticed ankle edema, with left being worse hat she relates to recent left sprained ankle. Denies any missed doses of Eliquis or metoprolol. Was seen by cardiology on 05/26/20 and Lopressor increased from 100mg BID to 150mg BID and diltiazem was discontinued. 05/28/20 seen by PCP and Lopressor increased to 200mg BID. Pt states does not feel any improvement. Having some nausea. States 2 episodes/day loose stools past two days. Intermittent dizziness that she reports is when her BP is elevated. Reports pulse at home ranges 80's-160's. Denies fever/chills, vomiting, constipation, syncope, vision changes, neck pain, cough, sore throat, choking, otalgia, rhinorrhea, abdominal pain, paresthesias, rashes, urinary symptoms. Allergies Allergy/AdvReac Type Severity Reaction Status Date / Time No Known Allergies Allergy Unverified 05/29/20 20:14 Home Medications Medication Instructions Recorded Confirmed Type gabapentin 400 mg PO HS PRN 04/14/20 05/29/20 History lamotrigine 100 mg PO BID 04/14/20 05/29/20 History metformin 500 mg PO BID 04/14/20 05/29/20 History Eliquis 5 mg PO BID #60 tab 04/15/20 05/29/20 Rx duloxetine 30 mg PO DAILY 05/08/20 05/29/20 History lisinopril 40 mg PO DAILY 05/08/20 05/29/20 History metoprolol tartrate 200 mg PO BID 05/29/20 05/29/20 History Past Med/Surg History Medical History Bipolar disorder DM type 2 (diabetes mellitus, type 2) Dyslipidemia HTN (hypertension) Hx of lymphoma, non-Hodgkins 2014 - 6 cycles of CHOP 2018 - 3 cycles of brentuximab and radiation Obesity MEIR (obstructive sleep apnea) Prolonged QT interval Surgical History History of parotid gland removal Family History Denies family history of Heart disease Social History Smoking Status: Never smoker Hx Alcohol Use: No Hx Substance Use: No Preferred Language: Albanian Communication Ability: Effective Diploma Dental Assistant Required: No Beliefs That Will Affect Care: None Current Living Situation: Family Feels Safe at Home: Yes Assistive Devices: None Review of Systems Review of Systems: All systems reviewed & are unremarkable except as noted in HPI & below Physical Exam Physical Exam: General: anxious appearing, otherwise in no distress, obese Head: normocephalic, atraumatic Eyes: PERRL, EOM's intact, conjunctiva non-injected, anicteric ENT: normal inspection external ears, nose, mucous membranes moist Neck: supple, trachea midline Lungs: clear, no respiratory distress, no wheezing/rhonchi/rales appreciated CV: irregularly irregular, rate 120, no murmur, 1+ pretibial edema Abd: protuberant, normal BS, soft, non-tender Ext: no cyanosis, no calf tenderness Neuro: A&O x 3, no focal deficits noted, normal affect Skin: warm, dry Results & Data Results & Data ([facility]) Vital Signs (Past 12 Hours) Vital Signs Temp Pulse Resp BP Pulse Ox 05/29/20 20:15 134 H 26 H 142/96 H 05/29/20 20:10 124 H 25 H 132/112 H 94 05/29/20 20:05 131 H 22 165/115 H 93 05/29/20 20:00 120 H 144/106 H 95 05/29/20 19:56 109 H 24 150/118 H 94 05/29/20 19:53 117 H 22 148/111 H 94 05/29/20 19:47 132 H 21 94 05/29/20 18:21 35.9 C L 150 H 20 168/133 H 97 Laboratory Results Short CBC 05/29/20 Range/Units 18:35 WBC 9.11 (4.8-10.8) K/uL Hgb 13.0 (12.0-16.0) g/dL Hct 41.0 (37-47) % Plt Count 273 (130-400) K/uL BMP 05/29/20 18:35 Sodium 140 Potassium 3.9 Chloride 106 Carbon Dioxide 31 BUN 18 Creatinine 0.88 Glucose 144 H Calcium 9.1 Cardiac Enzymes 05/29/20 Range/Units 18:35 Troponin I < 0.015 (0-0.045) ng/ml Liver Function 05/29/20 Range/Units 18:35 Total Bilirubin 0.4 (0.2-1) mg/dl AST 50 H (15-37) U/L ALT 132 H (12-78) U/L Alkaline Phosphatase 96 (45-117) U/L Albumin 4.0 (3.4-5.0) gm/dl Diagnostic Findings Chest X-Ray 05/29/20 18:38 XR chest 1V portable CLINICAL HISTORY: Dysrhythmia, sob COMPARISON STUDY: Chest CT April 14, 2020. Chest radiograph May 08, 2020 FINDINGS: Cardiomegaly is noted. This is similar to prior exam. There is no pneumothorax or pleural effusion. Interstitial thickening has developed. No consolidation is identified. IMPRESSION: 1. Interval development of interstitial thickening which favors pulmonary edema. An infectious process could appear similar but is considered less likely. 2. Cardiomegaly. ACT 112: Negative or not required by law. Electronically signed by: Pool Mc M.D. 05/29/2020 6:56 PM Supervising Physician Co-Signing Physician Notes IM ATTENDING : Patient seen and examined. History obtained from patient and records. Preceding documentation by Ms. Karie White PA-C reviewed. FINAL ASSESSMENT AND PLAN as follows : Acute CHF secondary to uncontrolled hypertension, A. fib Symptomatic A. fib lasting beyond confinement from last month. DM2 on oral medications, reasonable control as of recent hemoglobin A1c of 7.21 April 2020 MEIR on CPAP, no recent outpatient follow-up visit with Sleep Medicine (Patient scheduled for outpatient Pulmonology appointment 2 weeks from now.) NHL status post chemoradiation, currently in remission Mood disorder, stable on regimen PCU Diuretic Rx Strict I/Os, daily weights, CHF education Continue current home beta-chris, IV Cardizem until patient seen by Cardiology Basal insulin, ISS BG goal [id number], carb count coverage DVT prophylaxis. Saiis Full code Text document was generated using [employer] voice recognition software. It may contain grammatical or spelling errors. Kindly contact undersigned for clarification of any documentation item in question. (1) HTN (hypertension) Hypertension type: unspecified Qualified Code(s): I10 - Essential (primary) hypertension
[2020-05-29] MEDS ORDERED: dilTIAZem HCL 125 MG in DEXTROSE 5% 100 ML IV SCH (21:30)
[2020-05-29] MEDS ORDERED: PROMETHAZINE HCL 12.5 MG in SODIUM CHLORIDE 0.9% 50 ML IV PRN (22:30)
[2020-05-29] MEDS ORDERED: ACETAMINOPHEN 325 MG TAB PO PRN (22:30)
[2020-05-29] MEDS ORDERED: LORazepam 0.5 MG/1 ML VIAL IV PRN (22:30)
[2020-05-29] MEDS ORDERED: CARBOHYDRATES FOR HYPOGLYCEMIA PO PRN (22:30)
[2020-05-29] MEDS ORDERED: DEXTROSE 50% 50 ML SYRINGE IV PRN (22:30)
[2020-05-29] MEDS ORDERED: traMADol HCL 50 MG TABLET PO PRN (22:30)
[2020-05-29] MEDS ORDERED: GLUCOSE 40% GEL 15 GM TUBE PO PRN (22:30)
[2020-05-29] MEDS ORDERED: MoRPHine SULFATE 4 MG/ML 1 ML CARP\\VIAL IV PRN (22:30)
[2020-05-29] MEDS ORDERED: GLUCAGON FOR INJ 1 MG VIAL SQ PRN (22:30)
[2020-05-29] MEDS ORDERED: NITROGLYCERIN SL 0.4 MG/TAB TAB SL PRN (22:30)
[2020-05-29] MEDS ORDERED: GLUCOSE 10 TABS/TUBE PO PRN (22:30)
[2020-05-29] MEDS: METOPROLOL TARTRATE 100 MG TAB PO SCH (22:42)
[2020-05-29] MEDS: INSULIN ASPART 100 UNITS/ML 3 ML PEN SC SCH (23:57)
[2020-05-30] MEDS: dilTIAZem HCL 125 MG in DEXTROSE 5% 100 ML IV SCH ×2 (02:45→14:29)
[2020-05-30 06:55] LABS: Basophils # (auto) 0.01 K/uL (0-0.2); Basophils % (auto) 0.1 %; Eosinophils # (auto) 0.09 K/uL (0-0.5); Eosinophils % (auto) 1.1 %; Hematocrit (blood only) 40.3 % (37-47); Hemoglobin 12.7 g/dL (12.0-16.0); Immature Granulocytes # (auto) 0.02 K/uL (0.00-0.02); Immature Granulocytes % (auto) 0.2 %; Lymphocytes % (auto) 28.3 %; Mean Corpuscular Hemoglobin 27.5 pg (25-34); Mean Corpuscular Hgb Conc 31.5 g/dL (32-36); Mean Corpuscular Volume 87.2 fL (80-100); Mean Platelet Volume 10.1 fL (7.4-10.4); Monocytes # (auto) 0.64 K/uL (0.11-0.59); Monocytes % (auto) 7.9 %; Neutrophils # (auto) 5.07 K/uL (1.4-6.5); Neutrophils % (auto) 62.4 %; Platelet Count 267 K/uL (130-400); RDW Coefficient of Variation 15.5 % (11.5-14.5); RDW Standard Deviation 49.7 fL (36.4-46.3); Red Blood Count 4.62 M/uL (4.2-5.4); White Blood Count 8.13 K/uL (4.8-10.8)
[2020-05-30 07:30] LABS: Creatinine Clr Calc Pharmacy 140.8 ml/min; Est GFR (African American) 96.1; Est GFR (Non-African American) 82.9; Magnesium 2.1 mg/dl (1.8-2.4); Potassium 3.6 mmol/L (3.5-5.1)
[2020-05-30] MEDS: lisinopril 40 MG TAB PO SCH (08:12)
[2020-05-30] MEDS: DULoxetine HCL 30 MG CAP PO SCH (08:12)
[2020-05-30] MEDS: APIXABAN 5 MG TABLET PO SCH ×2 (08:12→19:42)
[2020-05-30] MEDS: lamoTRIgine 100 MG TAB PO SCH ×2 (08:12→19:42)
[2020-05-30] MEDS: INSULIN GLARGINE SOLOSTAR 100 UNITS/ML 3 ML PEN SC SCH (08:13)
[2020-05-30] MEDS: METOPROLOL TARTRATE 100 MG TAB PO SCH (08:13)
[2020-05-30] MEDS: INSULIN ASPART 100 UNITS/ML 3 ML PEN SC SCH ×4 (08:15→20:43)
--- NOTE | 2020-05-30 09:58 | Cardiology Consultation ---
Date of Consultation May 30, 2020 Assessment & Plan (1) Atrial fibrillation with rapid ventricular response: (2) Acute heart failure with preserved ejection fraction: (3) HTN (hypertension): (4) Prolonged QT interval: (5) Morbid obesity: (6) DM type 2 (diabetes mellitus, type 2): I had a long conversation with the patient regarding the natural history and pathophysiology of atrial fibrillation. Appears she will require at least 2 AV bonnie blocking agents to maintain rate control. Recommend transitioning metoprolol tartrate to succinate formulation. I will reduce the overall dose to 150 mg twice daily. She received 200 mg of oral metoprolol tartrate this a.m. I will monitor telemetry over the next 3-6 hours and continue IV diltiazem infusion. Plan to add short acting diltiazem 60 mg 3 times daily this afternoon pending review of telemetry. Wean intravenous diltiazem infusion as tolerated. Antiarrhythmic therapies with potential to prolong the QT interval avoided due to borderline prolonged QT interval on resting ECG during periods of atrial fibrillation. We briefly discussed indications for PVI ablation, however, I explained this is not performed at this institution. She understands the plan during this hospitalization is to improve rate control, continue anticoagulation, and optimize volume status with plans for electrophysiology consultation to consider an invasive strategy pending clinical course. She does not appear significantly volume overloaded after 1 dose of intravenous Lasix therapy. Recommend addition of Lasix 20 mg PO daily. Continue to monitor fluid balance, GFR, and daily weight. History of Present Illness Reason for Consultation: Atrial fibrillation with rapid ventricular response, congestive heart failure Requesting Physician: Dr. Dante Hair Attending Physician: Quin Khan DO History of Present Illness 54-year-old female with history of paroxysmal atrial fibrillation, hypertension, and diabetes presented emergency department with palpitations, fatigue, and dyspnea on exertion. Diagnosed with symptomatic paroxysmal atrial fibrillation in March 2020. During hospitalization she spontaneously converted to sinus rhythm. Evaluate in the outpatient cardiology clinic and prescribed metoprolol tartrate 25 mg twice daily. Rehospitalized in April 2020 with symptomatic rapid atrial fibrillation. During visit, patient prescribed diltiazem CD in addition to metoprolol. A rate control strategy recommended due to borderline prolonged QT interval. Evaluated in the cardiology clinic 05/26/2020 with worsening edema and borderline rate control. Diltiazem discontinued. Metoprolol tartrate titrated to 150 mg twice daily. She was then evaluated in her primary care physician's office 05/28/2020. Metoprolol titrated to 200 mg twice daily by primary care physician. Patient presented to the ER with shortness of breath, palpitations, and fatigue. Treated with intravenous diltiazem and intravenous furosemide in the ER. Chest x-ray demonstrating pulmonary vascular congestion. Heart rate improved overnight with IV diltiazem infusion. Currently running at 10 mg/h. She received 200 mg of oral metoprolol tartrate last evening as well as this a.m. She is significantly frustrated and tearful during interview. Notes shortness of breath and chest discomfort with activity. Works from home, however, finding it difficult to complete her work obligations. Denies lightheadedness, di zziness, syncope, or near syncope. Reports elevated home blood pressure readings with systolic blood pressure in the 160s. Asymptomatic at rest. Offers no other concerns/complaints currently. Allergies Allergy/AdvReac Type Severity Reaction Status Date / Time No Known Allergies Allergy Unverified 05/29/20 20:14 Home Medications Medication Instructions Recorded Confirmed Type gabapentin 400 mg PO HS PRN 04/14/20 05/29/20 History lamotrigine 100 mg PO BID 04/14/20 05/29/20 History metformin 500 mg PO BID 04/14/20 05/29/20 History Eliquis 5 mg PO BID #60 tab 04/15/20 05/29/20 Rx duloxetine 30 mg PO DAILY 05/08/20 05/29/20 History lisinopril 40 mg PO DAILY 05/08/20 05/29/20 History metoprolol tartrate 200 mg PO BID 05/29/20 05/29/20 History Patient History Medical History Bipolar disorder DM type 2 (diabetes mellitus, type 2) Dyslipidemia HTN (hypertension) Hx of lymphoma, non-Hodgkins 2014 - 6 cycles of CHOP 2018 - 3 cycles of brentuximab and radiation Obesity MEIR (obstructive sleep apnea) Prolonged QT interval Surgical History History of parotid gland removal Family History Denies family history of Heart disease Social History Smoking Status: Never smoker Hx Alcohol Use: No Hx Substance Use: No Preferred Language: Maltese Communication Ability: Effective High Tension Tester Required: No Beliefs That Will Affect Care: None Current Living Situation: Family Other Information That Helps Us Care for You: No Feels Safe at Home: Yes Safety Concerns: Feels Safe At This Time Assistive Devices: None Review of Systems Review of Systems: All systems reviewed & are unremarkable except as noted in HPI & below Physical Exam Constitutional: well developed, well nourished and + morbidly obese; no acute distress Respiratory: normal respiratory effort; no respiratory distress Auscultation: lungs clear to auscultation bilaterally; no crackles, no rales, no rhonchi and no wheezes Cardiovascular: Rate/Rhythm: + irregularly irregular Heart Sounds: normal S1 and normal S2; no murmur Vessels: no JVD Extremities: + edema (Mild, 1+ bilateral pedal and ankle edema.) Gastrointestinal (Abdomen): Inspection/Auscultation: abdomen normal to ins pection and normal bowel sounds; abdomen not distended Percussion/Palpation: + abdomen rigid and abdomen soft; abdomen nontender and no guarding Neurologic: CN's II-XI intact bilaterally and moves all extremities; no focal motor deficits Motor/Sensory: no tremor Psychiatric: Orientation: alert, oriented x 3 and cooperative Affect: + tearful affect Results & Data ([facility]) Vital Signs (Past 12 Hours) Vital Signs Temp Pulse Pulse Resp BP BP Pulse Ox 05/30/20 08:18 36.6 C 115 H 18 130/81 91 05/30/20 03:55 36.8 C 77 127/84 97 05/30/20 00:12 37.1 C 85 18 128/84 95 05/29/20 22:30 37.2 C 118 H 22 172/140 H 96 05/29/20 22:06 117 H 21 147/116 H 96 05/29/20 22:00 112 H 22 135/111 H 93 05/29/20 21:55 131 H 24 147/107 H 93 05/29/20 21:50 128 H 24 151/123 H 95 (1) HTN (hypertension) Hypertension type: unspecified Qualified Code(s): I10 - Essential (primary) hypertension
[2020-05-30] MEDS: METOPROLOL SUCC 50MG EXT REL TAB PO SCH ×2 (10:11→19:41)
--- NOTE | 2020-05-30 10:15 | Electrocardiogram Report ---
Test Reason : Blood Pressure : / mmHG Vent. Rate : 141 BPM Atrial Rate : 127 BPM P-R Int : 000 ms QRS Dur : 088 ms QT Int : 316 ms P-R-T Axes : 000 080 034 degrees QTc Int : 484 ms Atrial fibrillation with rapid ventricular response Nonspecific T wave abnormality Abnormal ECG When compared with ECG of 10-MAY-2020 06:10, Vent. rate has increased BY 57 BPM Confirmed by Henri Jama ([id number]) on 05/30/2020 10:15:28 AM Referred By: REFERRED SELF Confirmed By:Henri Jama
[2020-05-30] MEDS: FUROSEMIDE 20 MG TAB PO SCH (10:30)
[2020-05-30] MEDS ORDERED: PERFLUTREN LIPID MICROSPHERE (DEFINITY) IV ONE (11:27)
[2020-05-30] MEDS: dilTIAZem HCl 60 MG TAB PO SCH ×2 (14:28→19:41)
--- NOTE | 2020-05-30 19:31 | Hospitalist Progress Note ---
Date of Service May 30, 2020 Assessment & Plan (1) Acute heart failure with preserved ejection fraction: Presented with hypervolemia and pulmonary edema. This was improved with Lasix therapy and a small dose of oral daily Lasix has been added to her regimen. Continue daily standing weights and low-salt diet as well as accurate ins and outs while admitted. (2) Atrial fibrillation with rapid ventricular response: rate controlled and now off dilt drip. Cont BB and CCB per Cardiology Ultimately will need to discuss a better strategy for overall control of her symptoms with her reported decreased QOL. Plans for outpatient electrophysiology consultation after this hospitalization are being considered. (3) HTN (hypertension): controlled on current medication regimen. (4) DM type 2 (diabetes mellitus, type 2): Slightly uncontrolled with an A1c of 7.2. Continue basal bolus insulin while hospitalized. (5) Prolonged QT interval: (6) MEIR (obstructive sleep apnea): Continue CPAP nightly (7) Bipolar disorder: She is stable with respect to mood. Continue Cymbalta 30 mg daily and Lamictal 100 mg p.o. twice daily per home regimen. (8) Morbid obesity: Lifestyle changes recommended to decrease percent body fat and increased lean muscle mass for overall general health and wellness. (9) Hx of lymphoma, non-Hodgkins: History of CHOP chemotherapy status post radiation therapy, currently in remission. (10) DVT prophylaxis: Eliquis Full code Disposition-to home when cleared by cardiology and feeling improved Quin Khan DO [facility] Hospitalist Admission and Anticipated Discharge Date Admission Date: May 29, 2020 Subjective 54 yo F with symptomatic atrial fibrillation with RVR heart rate has improved on current rate control therapies however, patient is still reporting not feeling well generally she is expressing frustration with the overall decline in QOL which is understandable we discussed various treatment strategies available to treat atrial fibrillation denies chest pain interested in walking in the hallways later which was encouraged. Review of Systems Review of Systems: All systems reviewed & are unremarkable except as noted in Subjective Physical Exam Physical Exam: CONSTITUTIONAL: obese, vitals as above, generally well- appearing EYES: normal conjunctivae, no scleral icterus ENT: external ear and nose normal, MMM RESPIRATORY: clear to auscultation bilaterally, no crackles, rales or wheezes, normal respiratory effort CARDIOVASCULAR: irregular rate and irregular rhythm, S1 and 2 heard without murmurs, gallops or rubs, no JVD, no peripheral edema GASTROINTESTINAL: nondistended MUSCULOSKELETAL: strength 5/5 throughout, head is normocephalic and atraumatic, ambulatory SKIN: warm and dry NEUROLOGIC: CN 2-12 grossly intact, no gross focal deficits. PSYCHIATRIC: alert cooperative and oriented to person, place and time. Results & Data Results & Data ([facility]) Vital Signs (Past 12 Hours) Vital Signs Temp Pulse Pulse Resp BP Pulse Ox 05/30/20 16:47 36.8 C 107 H 18 129/77 95 05/30/20 16:29 62 05/30/20 12:35 36.7 C 87 18 142/82 H 95 05/30/20 11:11 62 05/30/20 08:18 36.6 C 115 H 18 130/81 91 Laboratory Results Short CBC 05/30/20 Range/Units 06:34 WBC 8.13 (4.8-10.8) K/uL Hgb 12.7 (12.0-16.0) g/dL Hct 40.3 (37-47) % Plt Count 267 (130-400) K/uL BMP 05/30/20 06:34 Sodium 140 Potassium 3.6 Chloride 103 Carbon Dioxide 33 H BUN 15 Creatinine 0.81 Glucose 157 H Calcium 9.0 Medications Administered Current Inpatient Medications Acetaminophen (Acetaminophen 325 Mg Tab) 650 mg PO Q4H PRN PRN Reason: Pain or Fever Stop: 06/28/20 22:29 Apixaban (Apixaban 5 Mg Tablet) 5 mg PO BID ADAN Stop: 06/29/20 08:59 Last Admin: 05/30/20 08:12 Dose: 5 mg Documented by: Dextrose (Dextrose 50% 50 Ml Syringe) 25 - 50 ml IV UD PRN; Protocol PRN Reason: Hypoglycemia Protocol Stop: 06/28/20 22:29 Diltiazem HCl (Diltiazem Hcl 60 Mg Tab) 60 mg PO TID ADAN Stop: 06/29/20 13:59 Last Admin: 05/30/20 14:28 Dose: 60 mg Documented by: Duloxetine HCl (Duloxetine Hcl 30 Mg Cap) 30 mg PO DAILY ADAN Stop: 06/29/20 08:59 Last Admin: 05/30/20 08:12 Dose: 30 mg Documented by: Furosemide (Furosemide 20 Mg Tab) 20 mg PO QAM ADAN Stop: 06/29/20 09:59 Last Admin: 05/30/20 10:30 Dose: 20 mg Documented by: Gabapentin (Gabapentin 400 Mg Cap) 400 mg PO HS PRN PRN Reason: Pain Stop: 06/28/20 22:29 Glucagon (Glucagon For Inj 1 Mg Vial) 1 mg SQ UD PRN; Protocol PRN Reason: Hypoglycemia Protocol Stop: 06/28/20 22:29 Glucose (Glucose 10 Tabs/Tube) 4 - 8 tabs PO UD PRN; Protocol PRN Reason: Hypoglycemia Protocol Stop: 06/28/20 22:29 Glucose (Glucose 40% Gel 15 Gm Tube) 15 - 30 gm PO UD PRN; Protocol PRN Reason: Hypoglycemia Protocol Stop: 06/28/20 22:29 Diltiazem HCl 125 mg/ Dextrose 125 mls @ 5 mls/hr IV .Q24H ADAN; Protocol Stop: 06/28/20 18:44 Last Titration: 05/30/20 14:29 Dose: Infused Documented by: Promethazine HCl 12.5 mg/ (Sodium Chloride) 50.5 mls @ 202 mls/hr IV Q6H PRN PRN Reason: Nausea And Vomiting Stop: 06/28/20 22:29 Lorazepam (Ativan) 0.5 mg in 1 mls @ 1 mls/min IV Q4H PRN PRN Reason: Anxiety/Agitation Stop: 06/28/20 22:29 Last Admin: 05/29/20 22:40 Dose: 1 mls/min Documented by: Insulin Aspart (Insulin Aspart 100 Units/Ml 3 Ml Pen) 0 units SC ACHS [facility] Stop: 06/28/20 23:14 Last Admin: 05/30/20 16:57 Dose: 4 units Documented by: Insulin Glargine (Insulin Glargine Solostar 100 Units/Ml 3 Ml Pen) 5 units SC DAILY [facility] Stop: 06/29/20 08:59 Last Admin: 05/30/20 08:13 Dose: 5 units Documented by: Lamotrigine (Lamotrigine 100 Mg Tab) 100 mg PO BID [facility] Stop: 06/29/20 08:59 Last Admin: 05/30/20 08:12 Dose: 100 mg Documented by: Lisinopril (Lisinopril 40 Mg Tab) 40 mg PO DAILY [facility] Stop: 06/29/20 08:59 Last Admin: 05/30/20 08:12 Dose: 40 mg Documented by: Metoprolol Succinate (Metoprolol Succ 50mg Ext Rel Tab) 150 mg PO BID ADAN Stop: 06/29/20 08:59 Last Admin: 05/30/20 10:11 Dose: Not Given Documented by: Miscellaneous (Carbohydrates For Hypoglycemia ) 15 - 30 gm PO UD PRN PRN Reason: Hypoglycemia Protocol Stop: 06/28/20 22:29 Morphine Sulfate (Morphine Sulfate 4 Mg/Ml 1 Ml Carp\Vial) 4 mg IV Q4H PRN PRN Reason: Pain Stop: 06/12/20 22:29 Nitroglycerin (Nitroglycerin Sl 0.4 Mg/Tab Tab) 0.4 mg SL UD PRN PRN Reason: Chest Pain Stop: 06/28/20 22:29 Tramadol HCl (Tramadol Hcl 50 Mg Tablet) 25 - 50 mg PO Q4H PRN PRN Reason: Pain Stop: 06/28/20 22:29 Last Admin: 05/30/20 02:21 Dose: 25 mg Documented by: (1) HTN (hypertension) Hypertension type: unspecified Qualified Code(s): I10 - Essential (primary) hypertension
[2020-05-30] MEDS: GABAPENTIN 400 MG CAP PO PRN (20:43)
[2020-05-30] MEDS ORDERED: MELATONIN 3 MG TAB PO ONE (21:32)
[2020-05-30] MEDS: MELATONIN 3 MG TAB PO PRN (21:33)
[2020-05-31 07:25] LABS: BUN Creatinine Ratio 19.8 (10-20); Calcium 8.9 mg/dl (8.5-10.1); Creatinine Clr Calc Pharmacy 146.9 ml/min; Est GFR (African American) 102.2; Est GFR (Non-African American) 88.2; Magnesium 2.2 mg/dl (1.8-2.4); Potassium 4.1 mmol/L (3.5-5.1)
[2020-05-31] MEDS: dilTIAZem HCl 60 MG TAB PO SCH ×4 (07:38→20:29)
[2020-05-31] MEDS: METOPROLOL SUCC 50MG EXT REL TAB PO SCH ×2 (07:39→20:30)
[2020-05-31] MEDS: lamoTRIgine 100 MG TAB PO SCH ×2 (07:39→20:29)
[2020-05-31] MEDS: APIXABAN 5 MG TABLET PO SCH ×2 (07:39→20:29)
[2020-05-31] MEDS: lisinopril 40 MG TAB PO SCH (07:39)
[2020-05-31] MEDS: FUROSEMIDE 20 MG TAB PO SCH (07:40)
[2020-05-31] MEDS: DULoxetine HCL 30 MG CAP PO SCH (07:40)
[2020-05-31] MEDS: INSULIN ASPART 100 UNITS/ML 3 ML PEN SC SCH ×4 (07:41→20:32)
[2020-05-31] MEDS: INSULIN GLARGINE SOLOSTAR 100 UNITS/ML 3 ML PEN SC SCH (08:10)
--- NOTE | 2020-05-31 12:12 | Cardiology Progress Note ---
Date of Service May 31, 2020 Assessment & Plan (1) Atrial fibrillation with rapid ventricular response: (2) Acute heart failure with preserved ejection fraction: (3) HTN (hypertension): (4) Prolonged QT interval: (5) Morbid obesity: (6) DM type 2 (diabetes mellitus, type 2): Titrate diltiazem to 60mg QID. Continue toprol XL 150mg BID and eliquis 5mg BID. Monitor patient in hospital for an additional 24-48 hours. Again, we discussed outpatient referral to electrophysiology to consider PVI ablation. Antiarrhythmic therapies with potential to prolong the QT interval avoided due to borderline prolonged QT interval on resting ECG during periods of atrial fibrillation. Blood pressure and edema improved. Continue Lasix 20 mg PO daily. Monitor fluid balance, GFR, and daily weight. Admission and Anticipated Discharge Date Admission Date: May 29, 2020 Subjective Patient seen and examined at the bedside. Feeling better today. Heart rate averaging approximate 100 bpm although elevated during periods of activity. Denies chest discomfort. Dyspnea on exertion unchanged. Edema improved. Metoprolol tartrate transition to Toprol-XL. Intravenous diltiazem infusion discontinued. Review of Systems Review of Systems: All systems reviewed & are unremarkable except as noted in Subjective Physical Exam Constitutional: well developed, well nourished and + morbidly obese; no acute distress Respiratory: normal respiratory effort; no respiratory distress Auscultation: lungs clear to auscultation bilaterally; no crackles, no rales, no rhonchi and no wheezes Cardiovascular: Rate/Rhythm: + irregularly irregular Heart Sounds: normal S1 and normal S2; no murmur Vessels: no JVD Extremities: + edema (Mild, 1+ bilateral pedal and ankle edema.) Gastrointestinal (Abdomen): Inspection/Auscultation: abdomen normal to inspection and normal bowel sounds; abdomen not distended Percussion/Palpation: + abdomen rigid and abdomen soft; abdomen nontender and no guarding Neurologic: CN's II-XI intact bilaterally and moves all extremities; no focal motor deficits Motor/Sensory: no tremor Psychiatric: Orientation: alert, oriented x 3 and cooperative Affect: + tearful affect Results & Data ([facility]) Vital Signs (Past 12 Hours) Vital Signs Temp Pulse Pulse Resp BP Pulse Ox 05/31/20 12:03 36.6 C 108 H 18 130/84 96 05/31/20 08:16 113 H 05/31/20 08:06 36.5 C 113 H 19 139/83 96 05/31/20 03:31 36.4 C L 108 H 18 136/92 93 (1) HTN (hypertension) Hypertension type: unspecified Qualified Code(s): I10 - Essential (primary) hypertension
--- NOTE | 2020-05-31 12:29 | Hospitalist Progress Note ---
Date of Service May 31, 2020 Assessment & Plan (1) Acute heart failure with preserved ejection fraction: Presented with hypervolemia and pulmonary edema, but now compensated after diuretic therapy. Cont small dose of oral daily Lasix has been added to her regimen. Continue daily standing weights and low-salt diet as well as accurate ins and outs while admitted. (2) Atrial fibrillation with rapid ventricular response: Working on getting resting heart rate down, currently low 100s. Cont BB and CCB per Cardiology Plans for outpatient electrophysiology consultation after this hospitalization are being considered to discuss ablation or PVI if more conservative strategies are not effective. (3) HTN (hypertension): controlled on current medication regimen. (4) DM type 2 (diabetes mellitus, type 2): Slightly uncontrolled with an A1c of 7.2. Continue basal bolus insulin while hospitalized. (5) Prolonged QT interval: (6) MEIR (obstructive sleep apnea): Continue CPAP nightly (7) Bipolar disorder: She is stable with respect to mood. Continue Cymbalta 30 mg daily and Lamictal 100 mg p.o. twice daily per home regimen. (8) Morbid obesity: Lifestyle changes recommended to decrease percent body fat and increased lean muscle mass for overall general health and wellness. (9) Hx of lymphoma, non-Hodgkins: History of CHOP chemotherapy status post radiation therapy, currently in r emission. (10) DVT prophylaxis: Bryon Full code Disposition-to home when cleared by cardiology and feeling improved, likely tomorrow. Quin Khan DO [employer] Hospitalist Admission and Anticipated Discharge Date Admission Date: May 29, 2020 Subjective 54 yo F with new onset atrial fibrillation that is causing decreased QOL for her over the past month presented with rapid ventricular response. Feeling better today and resolved to her trial of new medications with adjustments in regimen by [facility] Cardiology only. Denies chest discomfort. Some persistent dyspnea with exertion. Doing well on the new daily diuretic started. We discussed weight loss programs that are available to try including [employer] and [employer]. She again reports compliance 100% with her CPAP. Review of Systems Review of Systems: All systems reviewed & are unremarkable except as noted in Subjective Physical Exam Physical Exam: CONSTITUTIONAL: obese, vitals as above, generally well- appearing EYES: normal conjunctivae, no scleral icterus ENT: external ear and nose normal, MMM RESPIRATORY: clear to auscultation bilaterally, no crackles, rales or wheezes, normal respiratory effort CARDIOVASCULAR: irregular rate and irregular rhythm, S1 and 2 heard without murmurs, gallops or rubs, no JVD, no peripheral edema GASTROINTESTINAL: nondistended MUSCULOSKELETAL: strength 5/5 throughout, head is normocephalic and atraumatic, ambulatory SKIN: warm and dry NEUROLOGIC: CN 2-12 grossly intact, no gross focal deficits. PSYCHIATRIC: alert cooperative and oriented to person, place and time. Results & Data Results & Data ([facility]) Vital Signs (Past 12 Hours) Vital Signs Temp Pulse Pulse Resp BP Pulse Ox 05/31/20 12:03 36.6 C 108 H 18 130/84 96 05/31/20 08:16 113 H 05/31/20 08:06 36.5 C 113 H 19 139/83 96 05/31/20 03:31 36.4 C L 108 H 18 136/92 93 Laboratory Results BMP 05/31/20 06:32 Sodium 140 Potassium 4.1 Chloride 104 Carbon Dioxide 32 BUN 15 Creatinine 0.77 Glucose 144 H Calcium 8.9 Medications Administered Current Inpatient Medications Acetaminophen (Acetaminophen 325 Mg Tab) 650 mg PO Q4H PRN PRN Reason: Pain or Fever Stop: 06/28/20 22:29 Apixaban (Apixaban 5 Mg Tablet) 5 mg PO BID ADAN Stop: 06/29/20 08:59 Last Admin: 05/31/20 07:39 Dose: 5 mg Documented by: Dextrose (Dextrose 50% 50 Ml Syringe) 25 - 50 ml IV UD PRN; Protocol PRN Reason: Hypoglycemia Protocol Stop: 06/28/20 22:29 Diltiazem HCl (Diltiazem Hcl 60 Mg Tab) 60 mg PO QID ADAN Stop: 06/30/20 12:59 Duloxetine HCl (Duloxetine Hcl 30 Mg Cap) 30 mg PO DAILY ADAN Stop: 06/29/20 08:59 Last Admin: 05/31/20 07:40 Dose: 30 mg Documented by: Furosemide (Furosemide 20 Mg Tab) 20 mg PO QAM ADAN Stop: 06/29/20 09:59 Last Admin: 05/31/20 07:40 Dose: 20 mg Documented by: Gabapentin (Gabapentin 400 Mg Cap) 400 mg PO HS PRN PRN Reason: Pain Stop: 06/28/20 22:29 Last Admin: 05/30/20 20:43 Dose: 400 mg Documented by: Glucagon (Glucagon For Inj 1 Mg Vial) 1 mg SQ UD PRN; Protocol PRN Reason: Hypoglycemia Protocol Stop: 06/28/20 22:29 Glucose (Glucose 10 Tabs/Tube) 4 - 8 tabs PO UD PRN; Protocol PRN Reason: Hypoglycemia Protocol Stop: 06/28/20 22:29 Glucose (Glucose 40% Gel 15 Gm Tube) 15 - 30 gm PO UD PRN; Protocol PRN Reason: Hypoglycemia Protocol Stop: 06/28/20 22:29 Diltiazem HCl 125 mg/ Dextrose 125 mls @ 5 mls/hr IV .Q24H ADAN; Protocol Stop: 06/28/20 18:44 Last Titration: 05/30/20 14:29 Dose: Infused Documented by: Promethazine HCl 12.5 mg/ (Sodium Chloride) 50.5 mls @ 202 mls/hr IV Q6H PRN PRN Reason: Nausea And Vomiting Stop: 06/28/20 22:29 Lorazepam (Ativan) 0.5 mg in 1 mls @ 1 mls/min IV Q4H PRN PRN Reason: Anxiety/Agitation Stop: 06/28/20 22:29 Last Admin: 05/29/20 22:40 Dose: 1 mls/min Documented by: Insulin Aspart (Insulin Aspart 100 Units/Ml 3 Ml Pen) 0 units SC ACHS [facility] Stop: 06/28/20 23:14 Last Admin: 05/31/20 07:41 Dose: 3 units Documented by: Lamotrigine (Lamotrigine 100 Mg Tab) 100 mg PO BID ADAN Stop: 06/29/20 08:59 Last Admin: 05/31/20 07:39 Dose: 100 mg Documented by: Lisinopril (Lisinopril 40 Mg Tab) 40 mg PO DAILY ADAN Stop: 06/29/20 08:59 Last Admin: 05/31/20 07:39 Dose: 40 mg Documented by: Melatonin (Melatonin 3 Mg Tab) 3 mg PO HS PRN PRN Reason: Sleep Stop: 06/29/20 21:22 Last Admin: 05/30/20 21:33 Dose: 3 mg Documented by: Metoprolol Succinate (Metoprolol Succ 50mg Ext Rel Tab) 150 mg PO BID ADAN Stop: 06/29/20 08:59 Last Admin: 05/31/20 07:39 Dose: 150 mg Documented by: Miscellaneous (Carbohydrates For Hypoglycemia ) 15 - 30 gm PO UD PRN PRN Reason: Hypoglycemia Protocol Stop: 06/28/20 22:29 Morphine Sulfate (Morphine Sulfate 4 Mg/Ml 1 Ml Carp\Vial) 4 mg IV Q4H PRN PRN Reason: Pain Stop: 06/12/20 22:29 Nitroglycerin (Nitroglycerin Sl 0.4 Mg/Tab Tab) 0.4 mg SL UD PRN PRN Reason: Chest Pain Stop: 06/28/20 22:29 Tramadol HCl (Tramadol Hcl 50 Mg Tablet) 25 - 50 mg PO Q4H PRN PRN Reason: Pain Stop: 06/28/20 22:29 Last Admin: 05/30/20 02:21 Dose: 25 mg Documented by: (1) HTN (hypertension) Hypertension type: unspecified Qualified Code(s): I10 - Essential (primary) hypertension
[2020-05-31] MEDS: dilTIAZem HCL 125 MG in DEXTROSE 5% 100 ML IV SCH (17:06)
[2020-05-31] MEDS: MELATONIN 3 MG TAB PO PRN (20:34)
[2020-05-31] MEDS: GABAPENTIN 400 MG CAP PO PRN (21:09)
--- NOTE | 2020-06-01 06:08 | Electrocardiogram Report ---
Test Reason : Blood Pressure : / mmHG Vent. Rate : 108 BPM Atrial Rate : 129 BPM P-R Int : 000 ms QRS Dur : 084 ms QT Int : 402 ms P-R-T Axes : 000 086 076 degrees QTc Int : 538 ms Atrial fibrillation with rapid ventricular response Low voltage QRS Nonspecific T wave abnormality Abnormal ECG When compared with ECG of 29-MAY-2020 18:32, No significant change was found Confirmed by Alexandro Teran ([id number]) on 06/01/2020 6:08:46 AM Referred By: REFERRED SELF Confirmed By:Alexandro Teran
[2020-06-01] MEDS: DULoxetine HCL 30 MG CAP PO SCH (08:05)
[2020-06-01] MEDS: METOPROLOL SUCC 50MG EXT REL TAB PO SCH (08:05)
[2020-06-01] MEDS: FUROSEMIDE 20 MG TAB PO SCH (08:05)
[2020-06-01] MEDS: dilTIAZem HCl 60 MG TAB PO SCH (08:05)
[2020-06-01] MEDS: APIXABAN 5 MG TABLET PO SCH (08:05)
[2020-06-01] MEDS: lisinopril 40 MG TAB PO SCH (08:05)
[2020-06-01] MEDS: lamoTRIgine 100 MG TAB PO SCH (08:05)
[2020-06-01] MEDS: INSULIN ASPART 100 UNITS/ML 3 ML PEN SC SCH ×2 (08:06→12:15)
--- NOTE | 2020-06-01 09:53 | Cardiology Progress Note ---
Date of Service June 01, 2020 Assessment & Plan (1) Atrial fibrillation with rapid ventricular response: (2) Acute heart failure with preserved ejection fraction: (3) HTN (hypertension): (4) Prolonged QT interval: (5) Morbid obesity: Continue metoprolol succinate at 150 mg twice a day Change/increase diltiazem to Diltiazem CD 360 mg/day Continue Eliquis anticoagulation Continue low dose furosemide on discharge Add oral digoxin, as an outpatient, if needed next Outpatient Electrophysiology Consultation with [facility] EP Patient encouraged to proceed with the planned follow-up outpatient sleep evaluation Admission and Anticipated Discharge Date Admission Date: May 29, 2020 Supervising Physician Co-Signing Physician Notes Patient seen and examined the bedside. Heart rate mildly improved. Blood pressure under control. Tolerating high-dose Toprol-XL and short acting diltiazem. Requesting discharge if possible. Offers no concerns/complaints. PE: Gen: NAD, awake alert Pawling x3. Lungs: Clear bilateral, no rales rhonchi or wheeze. Heart: Irregular, borderline tachycardic, no murmur or rub appreciated. Extremities: Trace bilateral pedal edema. Neuro: No focal deficit. A/P: Agree with above PA-C history, physical exam, assessment and plan. Patient will be discharged to home. Outpatient follow-up with Dr. Renee and [facility] electrophysiology. Subjective Patient seen and examined. Chart, medications, and telemetry reviewed Feeling OK. No chest pain. No overt palpitations. No resting dyspnea. Telemetry: Atrial fibrillation ranging from 90 bpm to 130 bpm. Review of Systems Constitutional: + fatigue; no fever and no chills Respiratory: + dyspnea on exertion and + snoring; no cough, no chest congestion, no dyspnea, no hemoptysis and no pain on inspiration Cardiovascular: + chest pain with activity and + edema; no dyspnea at rest, no paroxysmal nocturnal dyspnea, no palpitations and no syncope Integumentary: no rash Physical Exam Physical Exam: General: A&Ox3. NAD. Elevated BMI HENT: Normocephalic. Atraumatic. Eyes: PER. Conjunctiva pink, sclera clear. Neck: No carotid bruits. No overt JVD. Heart: Irregularly irregular around 110 bpm. Distant heart sounds. No murmur. Lungs: Diminished. Decreased. No abnormal breath sounds appreciated. Abdomen: +BS. Soft. Nontender. No masses or organomegaly. Extremities: Minimal edema. No clubbing. No cyanosis. Limited neurological examination is without focal deficits. Pulses: radial=2/4, posterior tibial=2/4. Results & Data ([facility]) Vital Signs (Past 12 Hours) Vital Signs Temp Pulse Resp BP Pulse Ox 06/01/20 08:09 36.6 C 112 H 18 143/84 H 96 06/01/20 04:14 36.8 C 114 H 23 138/102 H 96 05/31/20 23:03 36.7 C 109 H 22 116/75 95 Laboratory Results Laboratory Results - last 24 hr 05/31/20 05/31/20 05/31/20 11:31 16:27 20:02 POC Glucose 275 H 190 H 182 H 06/01/20 07:27 POC Glucose 175 H (1) HTN (hypertension) Hypertension type: unspecified Qualified Code(s): I10 - Essential (primary) hypertension
[2020-06-01 10:36] LABS: BUN Creatinine Ratio 22.8 (10-20); Calcium 8.9 mg/dl (8.5-10.1); Creatinine Clr Calc Pharmacy 159.7 ml/min; Est GFR (African American) 112.7; Est GFR (Non-African American) 97.2
--- NOTE | 2020-06-01 13:59 | Discharge Summary ---
Date of Service June 01, 2020 Admission HPI Per Admitting Provider Pt is 54 y/o F with PMH atrial fibrillation, DM II, sleep apnea, HTN, dyslipidemia, bipolar, non-Hodgkin lymphoma, obesity, prolonged QTc presented to ER with c/o palpitations, exertional SOB. Pt with h/o hospitalization 03/2020 for rapid a-fib and was treated with diltiazem IV with spontaneous conversion to sinus rhythm. At that time she was started on Lopressor 25mg BID and Eliquis BID. Had readmission 04/2020 for rapid a-fib. Lopressor was titrated at that time and diltiazem added. Antiarrhythmic medications have been avoided secondary to prolonged QTc. Pt c/o fatigue, intermittent clammy sensation, palpitations, exertional SOB. Having intermittent stabbing chest pains. Reports noticed ankle edema, with left being worse hat she relates to recent left sprained ankle. Denies any missed doses of Eliquis or metoprolol. Was seen by cardiology on 05/26/20 and Lopressor increased from 100mg BID to 150mg BID and diltiazem was discontinued. 05/28/20 seen by PCP and Lopressor increased to 200mg BID. Pt states does not feel any improvement. Having some nausea. States 2 episodes/day loose stools past two days. Intermittent dizziness that she reports is when her BP is elevated. Reports pulse at home ranges 80's-160's. Denies fever/chills, vomiting, constipation, syncope, vision changes, neck pain, cough, sore throat, choking, otalgia, rhinorrhea, abdominal pain, paresthesias, rashes, urinary symptoms. Admission Exam Per Admitting Provider General: anxious appearing, otherwise in no distress, obese Head: normocephalic, atraumatic Eyes: PERRL, EOM's intact, conjunctiva non-injected, anicteric ENT: normal inspection external ears, nose, mucous membranes moist Neck: supple, trachea midline Lungs: clear, no respiratory distress, no wheezing/rhonchi/rales appreciated CV: irregularly irregular, rate 120, no murmur, 1+ pretibial edema Abd: protuberant, normal BS, soft, non-tender Ext: no cyanosis, no calf tenderness Neuro: A&O x 3, no focal deficits noted, normal affect Skin: warm, dry Principal Diagnosis Atrial fibrillation Discharge Exam General: A&Ox3 HENT: NCAT, MMM, EOMI Eyes: PERRLA Neck: Supple, normal range of motion CVS: Cardiac with irregular rate Resp: b/l good breath sounds Abdomen: Soft, ND/NT, +BS Extremities: No c/c/e Neuro: face symmetric, strength grossly equal, no focal deficit Skin: warm and dry, no rashes/lesions/errythema MSK: normal ROM, no joint swelling/erythema Discharge Data Allergies Allergy/AdvReac Type Severity Reaction Status Date / Time No Known Allergies Allergy Unverified 05/29/20 20:14 Consultations 05/29/20 20:08 ED Decision to Admit Stat 05/29/20 22:30 Consult Cardiology Routine Hospital Course (1) Acute heart failure with preserved ejection fraction: Presented with hypervolemia and pulmonary edema, patient was diuresed during his hospitalization. On the day of discharge she was hemodynamically doing better and was on room air. (2) Atrial fibrillation with rapid ventricular response: Cardiology was consulted. Patient will need to be evaluated by electrophysiology as an outpatient. Patient was discharged on beta-chris, Cardizem, Lasix and lisinopril. (3) HTN (hypertension): controlled on current medication regimen. (4) DM type 2 (diabetes mellitus, type 2): Slightly uncontrolled with an A1c of 7.2. (5) Prolonged QT interval: (6) MEIR (obstructive sleep apnea): Continue CPAP nightly (7) Bipolar disorder: Continue Cymbalta 30 mg daily and Lamictal 100 mg p.o. twice daily per home regimen. (8) Morbid obesity: Lifestyle changes recommended. (9) Hx of lymphoma, non-Hodgkins: History of CHOP chemotherapy status post radiation therapy, currently in remission. Total Time Total Time Spent Total Time Spent (In Minutes): 35 Discharge Plan Discharge Items Patient Disposition: Home - Self-Care Reason For Visit: CHF, PRIVATE ROOM IF POSSIBLE PER PX REQUEST Discharge Diagnosis: Atrial fibrilltaion Activity: Resume your previous activity Non-emergency contact: Primary Care Provider Call non-emergency contact if: your symptoms worsen Follow-up/Referrals: Osmani Estrella MD [Primary Care Provider] - (Date & Time 06/05/2020 11:20 AM Provider Domitila Estrella MD Department Internal Medicine [facility] ) Diet: Heart Healthy Addtl Attending Provider Instructions: Follow-up with 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 Pending Studies at Discharge: No Stand-Alone Forms: My [facility], Smoking Cessation Medications and DC Order Prescriptions: New diltiazem HCl 180 mg Capsule,Extended Release 24hr 360 mg PO QAM Qty: 30 RF: 0 metoprolol succinate 50 mg Tablet Extended Release 24 Hr 150 mg PO BID Qty: 60 RF: 0 furosemide 20 mg Tablet 20 mg PO QAM Qty: 30 RF: 0 Continued gabapentin 400 mg capsule 400 mg PO HS PRN (Reason: Pain) RF: 0 metformin 500 mg tablet extended release 24 hr 500 mg PO BID RF: 0 lamotrigine 100 mg tablet 100 mg PO BID RF: 0 Eliquis 5 mg tablet 5 mg PO BID Qty: 60 RF: 0 lisinopril 40 mg tablet 40 mg PO DAILY RF: 0 duloxetine 30 mg capsule,delayed release(DR/EC) 30 mg PO DAILY RF: 0 No Action metoprolol tartrate 100 mg tablet 200 mg PO BID RF: 0 Discharge Orders: Discharge Order (Routine); Ordered 06/01/20 Ordered By: Zelda Jack Admission Data Admit Date/Time: 05/29/20 21:23 Attending Provider: Zelda Jack Admit Provider: Julio Marques Primary Care Provider: Osmani Estrella Other Providers: Julio Marques ; Zach Lemus ; Toby Thakkar ; Satinder Camacho ; Sathish Mojica ; Antwan Renee ; Finesse Meza ; Susan Alegria ; Maida Turner ; Jennifer Pugh ; Adryan Lee
[2020-06-02] MEDS ORDERED: dilTIAZem HCL 180 MG CAPCR PO SCH (10:00)
== END 2020-06-01 14:45 | disposition home or self-care (01) | DRG 308 ==
LOC: ED 18:17 → SUATTDRO 21:23 → 2S 21:23

== ENCOUNTER 2020-06-09 13:04 | Inpatient (IN) ==
[2020-06-09] MEDS ORDERED: dilTIAZem HCl 5 MG/ML 5 ML VIAL IV STA (13:24)
[2020-06-09] MEDS ORDERED: STAT IV Infusion **Titration per Protocol STA (13:24)
--- NOTE | 2020-06-09 13:29 | Emergency Department Note ---
History of Present Illness General Chief complaint: Arrhythmia/Palpitations Stated complaint: AFIB Time Seen by Provider: 06/09/20 13:06 Source: patient Mode of arrival: ambulatory Limitations: no limitations History of Present Illness Provider complaint: A. fib with RVR Maximum Pain Intensity: 8 This is a 54-year-old female who presents to the ED with a chief complaint of atrial fibrillation with RVR. 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 fib with RVR. She states that she has been in A. fib for more than a month. She is having some palpitations. Denies any chest pains, shortness of breath or fevers or recent illness. Home Medications Medication Instructions Recorded Confirmed Type gabapentin 400 mg PO HS 04/14/20 06/09/20 History lamotrigine 100 mg PO BID 04/14/20 06/09/20 History metformin 500 mg PO BID 04/14/20 06/09/20 History Eliquis 5 mg PO BID #60 tab 04/15/20 06/09/20 Rx duloxetine 30 mg PO DAILY 05/08/20 06/09/20 History lisinopril 40 mg PO DAILY 05/08/20 06/09/20 History diltiazem HCl 360 mg PO QAM #30 cap 06/01/20 06/09/20 Rx furosemide 20 mg PO QAM #30 tab 06/01/20 06/09/20 Rx metoprolol succinate 150 mg PO BID #60 tab 06/01/20 06/09/20 Rx ketoconazole 1 applic TOPICAL BID 06/09/20 06/09/20 History Allergies Allergy/AdvReac Type Severity Reaction Status Date / Time No Known Allergies Allergy Unverified 06/09/20 13:45 Past Med/Surg History Medical History Bipolar disorder DM type 2 (diabetes mellitus, type 2) Dyslipidemia HTN (hypertension) Hx of lymphoma, non-Hodgkins 2014 - 6 cycles of CHOP 2018 - 3 cycles of brentuximab and radiation Obesity MEIR (obstructive sleep apnea) Prolonged QT interval Surgical History History of parotid gland removal Family History Denies family history of Heart disease Social History Smoking Status: Never smoker Hx Alcohol Use: No Hx Substance Use: No Preferred Language: Upper Sorbian Communication Ability: Effective Applied Research Director Required: No Beliefs That Will Affect Care: None Current Living Situation: Family Feels Safe at Home: Yes Assistive Devices: None Review of Systems A total of 10 systems reviewed and were otherwise negative Physical Exam Vital Signs Vital Signs - 24 hr 06/09/20 13:05 06/09/20 13:37 06/09/20 13:40 Temperature 35.9 C L Temperature Source Temporal Artery Scan Pulse Rate 95 H 121 H 119 H Pulse Rate from SpO2 Sensor Pulse Rhythm Regular Pulse Strength Normal Respiratory Rate 20 20 20 Respiratory Effort / Characteristics Non-Labored Respiratory Depth Normal Respiratory Pattern Regular Blood Pressure 177/114 H 151/100 H 144/100 H Blood Pressure Mean 135 117 114 Blood Pressure Position Sitting Pulse Oximetry 96 Oxygen Delivery Method Room Air Sepsis Recent Fever Within 48 Hours No Sepsis New/Unexplained Change in Mental Status No Sepsis Action Taken by Nursing No Action Required 06/09/20 13:50 06/09/20 14:00 06/09/20 14:10 Temperature Temperature Source Pulse Rate 115 H 121 H 121 H Pulse Rate from SpO2 Sensor 110 H 112 H 114 H Pulse Rhythm Pulse Strength Respiratory Rate 15 25 H 20 Respiratory Effort / Characteristics Respiratory Depth Respiratory Pattern Blood Pressure 127/108 H 152/94 H 150/108 H Blood Pressure Mean 114 113 122 Blood Pressure Position Pulse Oximetry 95 97 96 Oxygen Delivery Method Sepsis Recent Fever Within 48 Hours Sepsis New/Unexplained Change in Mental Status Sepsis Action Taken by Nursing 06/09/20 14:20 06/09/20 14:30 Temperature Temperature Source Pulse Rate 102 H 124 H Pulse Rate from SpO2 Sensor 104 H 124 H Pulse Rhythm Pulse Strength Respiratory Rate 15 19 Respiratory Effort / Characteristics Respiratory Depth Respiratory Pattern Blood Pressure 154/110 H 133/112 H Blood Pressure Mean 124 119 Blood Pressure Position Pulse Oximetry 96 97 Oxygen Delivery Method Sepsis Recent Fever Within 48 Hours Sepsis New/Unexplained Change in Mental Status Sepsis Action Taken by Nursing CONSTITUTIONAL/VITAL SIGNS: Reviewed / noted above. GENERAL: Non-toxic in appearance. INTEGUMENTARY: Warm, dry, and [place]. HEAD: Normocephalic. EYES: without scleral icterus or trauma. ENT/OROPHARYNX: clear and moist. LYMPHADENOPATHY/NECK: Is supple without lymphadenopathy or meningismus. RESPIRATORY: Lungs clear and equal. CARDIOVASCULAR: Rapid rate and irregular rhythm. GI/ABDOMEN: Soft and nontender. No organomegaly or pulsatile mass. No rebound or guarding. Normal bowel sounds. EXTREMITIES: Warm and well perfused. BACK: No CVA tenderness. NEUROLOGICAL: Intact without focal deficits. PSYCHIATRIC: normal affect. MUSCULOSKELETAL: Normally developed with good muscle tone. TRIAGE NURSING DOCUMENTATION REVIEWED. Course Administered Medications Diltiazem HCl 125 mg/ Dextrose 125 mls @ 5 mls/hr IV .Q24H ADAN; Protocol Stop: 07/09/20 13:29 Last Titration: 06/09/20 14:35 Dose: 10 mg/hr, 10 mls/hr Documented by: [id number] Cosigned by: [id number] Admin: 06/09/20 13:45 Dose: 5 mg/hr, 5 mls/hr Documented by: [id number] Cosigned by: [id number] Discontinued Medications Acetaminophen (Acetaminophen 500 Mg Tab) 500 mg PO NOW STA Stop: 06/09/20 13:52 Last Admin: 06/09/20 14:04 Dose: 500 mg Documented by: [id number] Diltiazem HCl (Diltiazem Hcl 5 Mg/Ml 5 Ml Vial) 25 mg IV NOW STA Stop: 06/09/20 13:25 Last Admin: 06/09/20 13:36 Dose: 25 mg Documented by: [id number] Cosigned by: [id number] Miscellaneous (Stat Iv Infusion Titration Per Protocol) 1 ea N/A NOW STA Stop: 06/09/20 13:25 Last Admin: 06/09/20 13:50 Dose: Not Given Documented by: [id number] Ondansetron HCl (Ondansetron Inj 2 Mg/Ml 2 Ml Vial) 4 mg IV NOW STA Stop: 06/09/20 13:52 Last Admin: 06/09/20 14:05 Dose: 4 mg Documented by: [id number] Critical Care Time Critical Care Time: Yes Total Critical Care Time: 30 I have personally spent 30 minutes of critical care time in the direct management of this patient. This includes bedside care, interpretation of diagnostic studies, and testing, discussion with consultants, patient, and family members, and other required patient management activities. This 30 minutes is in excess of all separately billable procedures. Medical Decision Making Differential Diagnosis The differential that was considered includes acute myocardial infarction, acute coronary syndrome, myocarditis, pericarditis, pericardial effusions /tamponade, esophageal perforation, thoracic aortic dissection, pulmonary embolism, pneumonia, pneumothorax, pancreatitis, shingles, acute cholecystitis, perforated abdominal viscus. Medical Records Attestation: I reviewed the patient's medical records. Home Medications Current Medication List: was personally reviewed by me Laboratory Data Attestation: I reviewed the patient's lab results. Result diagrams: 06/09/20 13:29 06/09/20 13:29 Lab Results 06/09/20 06/09/20 06/09/20 Range/Units 13:29 13:29 13:29 WBC 7.82 (4.8-10.8) K/uL RBC 4.62 (4.2-5.4) M/uL Hgb 12.9 (12.0-16.0) g/dL Hct 39.9 (37-47) % MCV 86.4 (80-100) fL MCH 27.9 (25-34) pg MCHC 32.3 (32-36) g/dL RDW Std Deviation 48.5 H (36.4-46.3) fL RDW Coeff of Ida 15.3 H (11.5-14.5) % Plt Count 306 (130-400) K/uL MPV 10.2 (7.4-10.4) fL Immature Gran % (Auto) 0.1 % Neut % (Auto) 66.0 % Lymph % (Auto) 26.3 % Archuleta % (Auto) 5.9 % Eos % (Auto) 1.4 % Baso % (Auto) 0.3 % Neut # (Auto) 5.16 (1.4-6.5) K/uL Lymph # (Auto) 2.06 (1.2-3.4) K/uL Archuleta # (Auto) 0.46 (0.11-0.59) K/uL Eos # (Auto) 0.11 (0-0.5) K/uL Baso # (Auto) 0.02 (0-0.2) K/uL Immature Gran # (Auto) 0.01 (0.00-0.02) K/uL PT 10.3 (9.0-12.0) Seconds INR 1.0 (0.9-1.1) APTT 24.1 (21.0-31.0) Seconds PTT Ratio 0.9 Sodium 139 (136-145) mmol/L Potassium 3.9 (3.5-5.1) mmol/L Chloride 106 (98-107) mmol/L Carbon Dioxide 31 (21-32) mmol/L Anion Gap 2.0 L (3-11) BUN 18 (7-18) mg/dl Creatinine 0.77 (0.6-1.2) mg/dl Est Cr Clr Drug Dosing 125.2 ml/min Est GFR ( Amer) 102.2 Est GFR (Non-Af Amer) 88.2 BUN/Creatinine Ratio 23.2 H (10-20) Glucose 189 H (70-99) mg/dl Calcium 9.2 (8.5-10.1) mg/dl Magnesium 2.2 (1.8-2.4) mg/dl Total Bilirubin 0.4 (0.2-1) mg/dl AST 22 (15-37) U/L ALT 47 (12-78) U/L Alkaline Phosphatase 102 (45-117) U/L Troponin I < 0.015 (0-0.045) ng/ml Total Protein 8.1 (6.4-8.2) gm/dl Albumin 4.0 (3.4-5.0) gm/dl Globulin 4.1 H (2.5-4.0) gm/dl Albumin/Globulin Ratio 1.0 (0.9-2) TSH 0.982 (0.300-4.500) uIu/ml Imaging Data Radiologist's Impression: Chest X-Ray 06/09/20 13:10 XR chest 1V portable CLINICAL HISTORY: Dysrhythmia COMPARISON STUDY: Chest CT April 14, 2020. Chest radiograph May 29, 2020. FINDINGS: Lung volumes are normal. There is no pneumothorax or pleural effusion. Interstitial thickening has slightly decreased since prior exam. There is stable cardiomegaly. No consolidation is identified. IMPRESSION: 1. Interval decrease in interstitial thickening since chest radiograph of May 29, 2020. 2. Stable cardiomegaly. ACT 112: Negative or not required by law. Electronically signed by: Pool Mc M.D. 06/09/2020 1:41 PM ECG Data Attestation: I personally reviewed and interpreted this ECG as follows: Indication: + palpitations Rate (beats per minute): 128 Rhythm: + atrial fibrillation ECG Intervals/blocks: + Normal QT-c ECG ST segments: no ST elevation ECG Findings: no PVCs MDM Narrative Patient presents with A. fib with RVR. Details above. Her vital signs here reveal hypertension and tachycardia. EKG shows A. fib with RVR with a heart rate in the 130 range. Chest x-ray did not show acute process. CBC and chemistry panel was unremarkable. Troponin was negative. Chest x-ray did not show acute process. The patient was seen by the hospitalist for further evaluation and care. She was treated with IV Cardizem bolus and drip. She was given some IV Zofran for nausea and some Tylenol p.o. for headache. Impression & Plan Atrial fibrillation with RVR Discharge Plan Visit Data Chief Complaint: Arrhythmia/Palpitations Stated Complaint: AFIB ED Provider: Bg Ricketts Discharge Problem: Atrial fibrillation with RVR Forms Stand Alone Forms: [facility] Prescriptions Prescriptions: No Action gabapentin 400 mg capsule 400 mg PO HS RF: 0 metformin 500 mg tablet extended release 24 hr 500 mg PO BID RF: 0 lamotrigine 100 mg tablet 100 mg PO BID RF: 0 Eliquis 5 mg tablet 5 mg PO BID Qty: 60 RF: 0 lisinopril 40 mg tablet 40 mg PO DAILY RF: 0 duloxetine 30 mg capsule,delayed release(DR/EC) 30 mg PO DAILY RF: 0 diltiazem HCl 180 mg Capsule,Extended Release 24hr 360 mg PO QAM Qty: 30 RF: 0 metoprolol succinate 50 mg Tablet Extended Release 24 Hr 150 mg PO BID Qty: 60 RF: 0 furosemide 20 mg Tablet 20 mg PO QAM Qty: 30 RF: 0 ketoconazole 2 % cream 1 applic TOPICAL BID RF: 0
[2020-06-09] MEDS ORDERED: dilTIAZem HCL 125 MG in DEXTROSE 5% 100 ML IV SCH (13:30)
[2020-06-09 13:40] LABS: Basophils # (auto) 0.02 K/uL (0-0.2); Basophils % (auto) 0.3 %; Eosinophils # (auto) 0.11 K/uL (0-0.5); Eosinophils % (auto) 1.4 %; Hematocrit (blood only) 39.9 % (37-47); Hemoglobin 12.9 g/dL (12.0-16.0); Immature Granulocytes # (auto) 0.01 K/uL (0.00-0.02); Immature Granulocytes % (auto) 0.1 %; Lymphocytes # (auto) 2.06 K/uL (1.2-3.4); Lymphocytes % (auto) 26.3 %; Mean Corpuscular Hemoglobin 27.9 pg (25-34); Mean Corpuscular Hgb Conc 32.3 g/dL (32-36); Mean Corpuscular Volume 86.4 fL (80-100); Mean Platelet Volume 10.2 fL (7.4-10.4); Monocytes # (auto) 0.46 K/uL (0.11-0.59); Monocytes % (auto) 5.9 %; Neutrophils # (auto) 5.16 K/uL (1.4-6.5); Platelet Count 306 K/uL (130-400); RDW Coefficient of Variation 15.3 % (11.5-14.5); RDW Standard Deviation 48.5 fL (36.4-46.3); Red Blood Count 4.62 M/uL (4.2-5.4); White Blood Count 7.82 K/uL (4.8-10.8)
--- NOTE | 2020-06-09 13:42 | XRay Report ---
XR chest 1V portable CLINICAL HISTORY: Dysrhythmia COMPARISON STUDY: Chest CT April 14, 2020. Chest radiograph May 29, 2020. FINDINGS: Lung volumes are normal. There is no pneumothorax or pleural effusion. Interstitial thicken ing has slightly decreased since prior exam. There is stable cardiomegaly. No consolidation is identi fied. IMPRESSION: 1. Interval decrease in interstitial thickening since chest radiograph of May 29, 2020. 2. Stable cardiomegaly. ACT 112: Negative or not required by law. Electronically signed by: Pool Mc M.D. 06/09/2020 1:41 PM
[2020-06-09 13:47] LABS: Partial Thromboplastin Ratio 0.9; Partial Thromboplastin Time 24.1 Seconds (21.0-31.0); Prothrombin Time 10.3 Seconds (9.0-12.0)
[2020-06-09] MEDS ORDERED: ONDANSETRON INJ 2 MG/ML 2 ML VIAL IV STA (13:51)
[2020-06-09] MEDS ORDERED: ACETAMINOPHEN 500 MG TAB PO STA (13:51)
[2020-06-09 14:03] LABS: Alanine Aminotransferase 47 U/L (12-78); Aspartate Aminotransferase 22 U/L (15-37); BUN Creatinine Ratio 23.2 (10-20); Blood Urea Nitrogen 18 mg/dl (7-18); Calcium 9.2 mg/dl (8.5-10.1); Carbon Dioxide 31 mmol/L (21-32); Chloride 106 mmol/L (98-107); Creatinine Clr Calc Pharmacy 125.2 ml/min; Est GFR (African American) 102.2; Est GFR (Non-African American) 88.2; Glucose 189 mg/dl (70-99); Magnesium 2.2 mg/dl (1.8-2.4); Potassium 3.9 mmol/L (3.5-5.1); Sodium 139 mmol/L (136-145)
[2020-06-09 14:14] LABS: Alkaline Phosphatase 102 U/L (45-117); Bilirubin,Total 0.4 mg/dl (0.2-1); Globulin 4.1 gm/dl (2.5-4.0); Thyroid Stimulating Hormone 0.982 uIu/ml (0.300-4.500); Total Protein 8.1 gm/dl (6.4-8.2); Troponin I < 0.015 ng/ml (0-0.045)
--- NOTE | 2020-06-09 14:43 | History & Physical Report ---
Date of Service June 09, 2020 Assessment & Plan (1) Atrial fibrillation with rapid ventricular response: This is a 54yo F with a PMH of atrial fibrillation, DM II, sleep apnea, HTN, dyslipidemia, bipolar disorder, non-Hodgkin lymphoma in remission, obesity, prolonged QTc and other medical problems listed below who was sent in from cardiology clinic with A fib with RVR. Multiple admissions in past few months with A fib with RVR HR 104-120s since arrival, EKG with A Fib at 128 bpm CXR with interval decrease in interstitial thickening since chest radiograph of May 29, 2020. Stable cardiomegaly Started on IV diltiazem drip in ED - plan to continue Discussed with Dr. Camacho, who will evaluate patient today and discuss with EP in [place] Admit to telemetry, trend troponin, continue Eliquis for anticoagulation (2) Prolonged QT interval: Notable on EKG when patient is in A fib. Continue to monitor (3) DM type 2 (diabetes mellitus, type 2): A1c 7.2 in April 2020 Hold home agents SSI while in-patient BSG AC HS (4) HTN (hypertension): Continue Lisinopril, Toprol (5) Bipolar disorder: Continue Cymbalta, Lamictal (6) Hx of lymphoma, non-Hodgkins: History of 6 cycles of CHOP in 2014, 3 cycles of brentuximab and radiation in 2018 In remission (7) Morbid obesity: Discussed; patient understands need for weight loss (8) MEIR (obstructive sleep apnea): Brought CPAP from home DVT Ppx: Eliquis Code status: FULL PCP: Sameer Dispo: Admitted to PCU. Plan to return home once medically stable. Patient seen in collaboration with Dr. Ellis. Please see addendum. History of Present Illness Chief Complaint: sent from clinic - a fib iwth rvr Primary Care Provider: Osmani Estrella MD This is a 54yo F with a PMH of atrial fibrillation, DM II, sleep apnea, HTN, dyslipidemia, bipolar disorder, non-Hodgkin lymphoma in remission, obesity, prolonged QTc and other medical problems listed below who was sent in from cardiology clinic with A fib with RVR. Has been admitted twice over the past few months for A fib with RVR, most recently from 05/29-06/01. At that time, patient had medical adjustments made and remained in A fib throughout admission. Consideration of starting an anti-arrhythmic medication on previous admission but due to prolonged QTC, a decision was made for her to see electrophysiology in follow up in outpatient setting. Her echocardiogram with her recent admissions was unremarkable. Since discharge home on 06/01, patient has continued feeling fatigued and short of breath. Has had difficulty concentrating at work. Endorses intermittent shortness of breath and palpitations, worse in the evening. Has been compliant with medications and wearing CPAP. Also experiencing intermittent headache. Denies fever, chills, lightheadedness, nausea, vomiting, abdominal pain, dysuria, diarrhea or constipation. Allergies Allergy/AdvReac Type Severity Reaction Status Date / Time No Known Allergies Allergy Unverified 06/09/20 13:45 Home Medications Medication Instructions Recorded Confirmed Type gabapentin 400 mg PO HS 04/14/20 06/09/20 History lamotrigine 100 mg PO BID 04/14/20 06/09/20 History metformin 500 mg PO BID 04/14/20 06/09/20 History Eliquis 5 mg PO BID #60 tab 04/15/20 06/09/20 Rx duloxetine 30 mg PO DAILY 05/08/20 06/09/20 History lisinopril 40 mg PO DAILY 05/08/20 06/09/20 History diltiazem HCl 360 mg PO QAM #30 cap 06/01/20 06/09/20 Rx furosemide 20 mg PO QAM #30 tab 06/01/20 06/09/20 Rx metoprolol succinate 150 mg PO BID #60 tab 06/01/20 06/09/20 Rx ketoconazole 1 applic TOPICAL BID 06/09/20 06/09/20 History Past Med/Surg History Medical History Bipolar disorder DM type 2 (diabetes mellitus, type 2) Dyslipidemia HTN (hypertension) Hx of lymphoma, non-Hodgkins 2014 - 6 cycles of CHOP 2018 - 3 cycles of brentuximab and radiation Obesity MEIR (obstructive sleep apnea) Prolonged QT interval Surgical History History of parotid gland removal Family History Denies family history of Heart disease Social History Smoking Status: Never smoker Hx Alcohol Use: No Hx Substance Use: No Preferred Language: Niuean Communication Ability: Effective Boarding House Manager Required: No Beliefs That Will Affect Care: None Current Living Situation: Family Feels Safe at Home: Yes Assistive Devices: None Review of Systems Review of Systems: At least ten systems reviewed and negative except as noted in the HPI. Physical Exam Physical Exam: General Appearance: WD/WN, vitals as above, NAD, sitting up in bed, pleasant, obese, conversing easily Head: normocephalic, atraumatic Eyes: normal inspection, PERRL, conjunctivae normal, anicteric sclerae ENT: external ear and nose normal, oropharynx normal Neck: normal visual inspection, trachea midline, no thyromegaly Respiratory: normal respiratory effort, lungs clear to auscultation, no wheeze, rales, rhonchi. No accessory muscle use Cardiovascular: irregular rate & rhythm, no murmur appreciated, normal peripheral pulses, trace BLE edema. Vessels: no JVD Chest: normal inspection of chest Abdomen/GI: normal bowel sounds, soft, nontender, no hepatosplenomegaly Extremities/Musculoskeletal: no cyanosis or clubbing, extremities motor strength 5/5 Neurologic: PERRL, EOMI, accommodation nl, no face palsy, no dysarthria, CN's II-XI intact bilaterally and moves all extremities Psychiatric: A+Ox3, euthymic affect Skin: no rashes, normal color, warm/dry Results & Data Results & Data ([facility]) Vital Signs (Past 12 Hours) Vital Signs Temp Pulse Resp BP Pulse Ox 06/09/20 14:30 124 H 19 133/112 H 97 06/09/20 14:20 102 H 15 154/110 H 96 06/09/20 14:10 121 H 20 150/108 H 96 06/09/20 14:00 121 H 25 H 152/94 H 97 06/09/20 13:50 115 H 15 127/108 H 95 06/09/20 13:40 119 H 20 144/100 H 06/09/20 13:37 121 H 20 151/100 H 06/09/20 13:05 35.9 C L 95 H 20 177/114 H 96 Laboratory Results Short CBC 06/09/20 Range/Units 13:29 WBC 7.82 (4.8-10.8) K/uL Hgb 12.9 (12.0-16.0) g/dL Hct 39.9 (37-47) % Plt Count 306 (130-400) K/uL BMP 06/09/20 13:29 Sodium 139 Potassium 3.9 Chloride 106 Carbon Dioxide 31 BUN 18 Creatinine 0.77 Glucose 189 H Calcium 9.2 Cardiac Enzymes 06/09/20 Range/Units 13:29 Troponin I < 0.015 (0-0.045) ng/ml Liver Function 06/09/20 Range/Units 13:29 Total Bilirubin 0.4 (0.2-1) mg/dl AST 22 (15-37) U/L ALT 47 (12-78) U/L Alkaline Phosphatase 102 (45-117) U/L Albumin 4.0 (3.4-5.0) gm/dl Diagnostic Findings Chest X-Ray 06/09/20 13:10 XR chest 1V portable CLINICAL HISTORY: Dysrhythmia COMPARISON STUDY: Chest CT April 14, 2020. Chest radiograph May 29, 2020. FINDINGS: Lung volumes are normal. There is no pneumothorax or pleural effusion. Interstitial thickening has slightly decreased since prior exam. There is stable cardiomegaly. No consolidation is identified. IMPRESSION: 1. Interval decrease in interstitial thickening since chest radiograph of May 29, 2020. 2. Stable cardiomegaly. ACT 112: Negative or not required by law. Electronically signed by: Pool Mc M.D. 06/09/2020 1:41 PM ECG Rhythm: atrial fibrillation Supervising Physician Co-Signing Physician Notes Patient seen and examined care coordinated with Roxana Lewis PA-C: This is a 54-year-old female with complex medical history of paroxysmal A. fib, type 2 diabetes morbid obesity, obstructive sleep apnea, prolonged QT interval Sent from cardiology office for rapid A. fib RVR. Patient reports that she has been feeling progressively fatigue, short of breath, dyspnea on exertion for past 1 to 2 weeks Her home blood pressure monitor recorded multiple episode of heart rate more than 140 In the ER patient was started on IV Cardizem drip Already on anticoagulation with Eliquis Cardiology consulted, appreciate input, Per Dr. Camacho, patient will be continued with IV Cardizem drip, cardiology will be in contact with EP cardiology in [place], Patient has refractory A. fib, with underlying prolonged QT interval, utilization of antiarrhythmics are restricted Possible benefit with ablation treatment will defer to cardiology Please refer to further documentation by Roxana Lewis PA-C for discussion of other medical issues Lili Ellis (1) HTN (hypertension) Hypertension type: unspecified Qualified Code(s): I10 - Essential (primary) hypertension
--- NOTE | 2020-06-09 14:55 | Electrocardiogram Report ---
Test Reason : Blood Pressure : / mmHG Vent. Rate : 128 BPM Atrial Rate : 129 BPM P-R Int : 000 ms QRS Dur : 080 ms QT Int : 330 ms P-R-T Axes : 000 081 059 degrees QTc Int : 481 ms Atrial fibrillation with rapid ventricular response Low voltage QRS Nonspecific ST abnormality Abnormal ECG When compared with ECG of 30-MAY-2020 08:07, No significant change was found Confirmed by Anish De Leon ([id number]) on 06/09/2020 2:55:21 PM Referred By: Confirmed By:Bora De Leon
[2020-06-09] MEDS ORDERED: MAGNESIUM HYDROXIDE SUSP 30 ML UDC PO PRN (14:56)
[2020-06-09] MEDS ORDERED: NITROGLYCERIN SL 0.4 MG/TAB TAB SL PRN (14:56)
[2020-06-09] MEDS ORDERED: POLYETHYLENE (MIRALAX) 17 GM PACK PO PRN (14:56)
[2020-06-09] MEDS ORDERED: ALUMINUM/MAGNESIUM SUSP 30 ML UDC PO PRN (14:56)
[2020-06-09] MEDS ORDERED: ACETAMINOPHEN 325 MG TAB PO PRN (14:56)
[2020-06-09] MEDS ORDERED: ONDANSETRON INJ 2 MG/ML 2 ML VIAL IV PRN (14:56)
--- NOTE | 2020-06-09 16:24 | Communication Note ---
Date of Service: June 09, 2020 pt admitted with Rapid Afib RVR admitted to PCU pt is already on Eliquis plan for cardiovert in AM by Cardiology BABATUNDE Friedman , all antiarrhythmic is ordered to be on hold Per cardiology, not to treat for rapid A. fib RVR for the night, until patient is cardioverted in a.m. 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
[2020-06-09 16:33] LABS: Influenza A virus by PCR Negative (Neg); Influenza B virus by PCR Negative (Neg); RSV by PCR Negative (Neg); SARS CoV2 RNA(COVID-19) InHosp NEGATIVE (Negative)
--- NOTE | 2020-06-09 16:42 | Cardiology Consultation ---
Date of Consultation June 09, 2020 Assessment & Plan (1) Atrial fibrillation with rapid ventricular response: Patient's course as outlined with recent episodes of paroxysmal atrial fibrillation now persistent atrial fibrillation since last admission. Rates poorly controlled despite high-dose AV bonnie blocking medications. Patient tolerating rate control poorly. She has been appropriately anticoagulated. Plan after admission will arrange for synchronized electrical cardioversion in a.m. We will discontinue diltiazem this evening reduce p.m. dose of metoprolol succinate continue anticoagulation with apixaban Single dose of IV furosemide was given with oral potassium supplement Procedure and risks of synchronized electrical cardioversion discussed with patient. Will consider antiarrhythmic therapy after procedure whether successful or not and EKG post procedure (2) Morbid obesity: (3) Hx of lymphoma, non-Hodgkins: (4) HTN (hypertension): (5) MEIR (obstructive sleep apnea): History of Present Illness Reason for Consultation: Atrial fibrillation with rapid response Requesting Physician: Dr. Ellis Attending Physician: Dr. Ellis History of Present Illness Patient is a 54-year-old female with complex history which includes 1. Paroxysmal now persistent atrial fibrillation with rapid response 2. Labile hypertension 3. Morbid obesity 4. Type 2 diabetes mellitus 5. Obstructive sleep apnea on BiPAP supplementation 6. Compensated diastolic heart failure with preserved ejection fraction 7. 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 Recent history is notable for presentation with initially paroxysmal atrial fibrillation in March and April 2020 converting to sinus rhythm then persistent atrial fibrillation during hospitalization in May 2020. Patient was discharged on medication for rate control with elevated heart rates on discharge with combination of metoprolol succinate 150 mg twice per day and diltiazem 360 mg/day. Patient has felt poorly since hospital discharge on 06/01/2020. She notes lethargy and difficulty concentrating with some mental mistakes when working. Feels shortness of breath and fatigue with any activities. Notes no syncope or near syncope. Notes no worsening orthopnea PND or peripheral edema. Notes diuretics have kept weight and lower extremity edema controlled. No fevers chills or unexplained infections. Is aware of some lability in blood pressures usually in the evenings. She has been chronically anticoagulated without interruption for greater than 1 month. Previous echocardiogram with preserved left ventricular ejection QT intervals have been notably prolonged during atrial fibrillation with elevated ventricular response rates. Single EKG in sinus rhythm 05/05/2020 demonstrated normal QT interval Allergies Allergy/AdvReac Type Severity Reaction Status Date / Time No Known Allergies Allergy Unverified 06/09/20 13:45 Home Medications Medication Instructions Recorded Confirmed Type gabapentin 400 mg PO HS 04/14/20 06/09/20 History lamotrigine 100 mg PO BID 04/14/20 06/09/20 History metformin 500 mg PO BID 04/14/20 06/09/20 History Eliquis 5 mg PO BID #60 tab 04/15/20 06/09/20 Rx duloxetine 30 mg PO DAILY 05/08/20 06/09/20 History lisinopril 40 mg PO DAILY 05/08/20 06/09/20 History diltiazem HCl 360 mg PO QAM #30 cap 06/01/20 06/09/20 Rx furosemide 20 mg PO QAM #30 tab 06/01/20 06/09/20 Rx metoprolol succinate 150 mg PO BID #60 tab 06/01/20 06/09/20 Rx ketoconazole 1 applic TOPICAL BID 06/09/20 06/09/20 History Patient History Medical History Bipolar disorder DM type 2 (diabetes mellitus, type 2) Dyslipidemia HTN (hypertension) Hx of lymphoma, non-Hodgkins 2014 - 6 cycles of CHOP 2018 - 3 cycles of brentuximab and radiation Obesity MEIR (obstructive sleep apnea) Prolonged QT interval Surgical History History of parotid gland removal Family History Denies family history of Heart disease Social History Smoking Status: Never smoker Second Hand Exposure: No; Do You Dip or Chew Tobacco: No; Tobacco Cessation Education Requested by Patient: No Hx Alcohol Use: No Hx Substance Use: No Preferred Language: Bulgarian Communication Ability: Effective Promotions Intern Required: No Beliefs That Will Affect Care: None Current Living Situation: Family Other Information That Helps Us Care for You: No Feels Safe at Home: Yes Safety Concerns: Feels Safe At This Time Assistive Devices: CPAP and Glasses Assistive Devices Comment: cpap Review of Systems Review of Systems: All systems reviewed & are unremarkable except as noted in HPI & below Physical Exam Constitutional: + morbidly obese Eyes: PERRL, conjunctivae normal, anicteric sclerae ENMT: external ear and nose normal, oropharynx normal Neck: trachea midline, no thyromegaly Respiratory: normal respiratory effort, lungs clear to auscultation Cardiovascular: Rate/Rhythm: + tachycardic and + irregularly irregular Heart Sounds: normal S1 and normal S2; no gallop and no murmur Palpation: normal PMI Vessels: normal carotid upstroke and radial pulses present; no JVD and no carotid bruit Extremities: + edema (Trace to 1+) Chest (Breasts): Additional Comments: Very large breasted Gastrointestinal (Abdomen): normal bowel sounds, soft, nontender, no hepatosplenomegaly Musculoskeletal: no cyanosis or clubbing, extremities motor strength 5/5 Skin: no rashes, warm and dry Neurologic: PERRL, EOMI, accommodation nl, no face palsy, no dysarthria Psychiatric: A+Ox3, euthymic affect Results & Data ([facility]) Vital Signs (Past 12 Hours) Vital Signs Temp Pulse Resp BP Pulse Ox 06/09/20 15:31 104 H 26 H 146/97 H 98 06/09/20 15:20 102 H 21 140/90 96 06/09/20 15:11 131 H 32 H 132/111 H 06/09/20 15:00 108 H 34 H 146/113 H 97 06/09/20 14:50 129 H 22 133/86 96 06/09/20 14:40 116 H 21 127/92 96 06/09/20 14:30 124 H 19 133/112 H 97 06/09/20 14:20 102 H 15 154/110 H 96 06/09/20 14:10 121 H 20 150/108 H 96 06/09/20 14:00 121 H 25 H 152/94 H 97 06/09/20 13:50 115 H 15 127/108 H 95 06/09/20 13:40 119 H 20 144/100 H 06/09/20 13:37 121 H 20 151/100 H 06/09/20 13:05 35.9 C L 95 H 20 177/114 H 96 Laboratory Results Laboratory Results - last 24 hr 04/20/21 04/20/21 04/20/21 13:29 13:29 13:29 WBC 7.82 RBC 4.62 Hgb 12.9 Hct 39.9 MCV 86.4 MCH 27.9 MCHC 32.3 RDW Std Deviation 48.5 H RDW Coeff of Ida 15.3 H Plt Count 306 MPV 10.2 Immature Gran % (Auto) 0.1 Neut % (Auto) 66.0 Lymph % (Auto) 26.3 Hart % (Auto) 5.9 Eos % (Auto) 1.4 Baso % (Auto) 0.3 Neut # (Auto) 5.16 Lymph # (Auto) 2.06 Hart # (Auto) 0.46 Eos # (Auto) 0.11 Baso # (Auto) 0.02 Immature Gran # (Auto) 0.01 PT 10.3 INR 1.0 APTT 24.1 PTT Ratio 0.9 Sodium 139 Potassium 3.9 Chloride 106 Carbon Dioxide 31 Anion Gap 2.0 L BUN 18 Creatinine 0.77 Est Cr Clr Drug Dosing 125.2 Est GFR ( Amer) 102.2 Est GFR (Non-Af Amer) 88.2 BUN/Creatinine Ratio 23.2 H Glucose 189 H Calcium 9.2 Magnesium 2.2 Total Bilirubin 0.4 AST 22 ALT 47 Alkaline Phosphatase 102 Troponin I < 0.015 NT-Pro-B Natriuret Pep Total Protein 8.1 Albumin 4.0 Globulin 4.1 H Albumin/Globulin Ratio 1.0 TSH 0.982 COVID-19 Eval Order SARS-CoV-2 (PCR) Influenza Type A (PCR) Influenza Type B (PCR) RSV (RT-PCR) 06/09/20 06/09/20 06/09/20 13:29 15:43 15:43 WBC RBC Hgb Hct MCV MCH MCHC RDW Std Deviation RDW Coeff of Ida Plt Count MPV Immature Gran % (Auto) Neut % (Auto) Lymph % (Auto) Hart % (Auto) Eos % (Auto) Baso % (Auto) Neut # (Auto) Lymph # (Auto) Hart # (Auto) Eos # (Auto) Baso # (Auto) Immature Gran # (Auto) PT INR APTT PTT Ratio Sodium Potassium Chloride Carbon Dioxide Anion Gap BUN Creatinine Est Cr Clr Drug Dosing Est GFR ( Amer) Est GFR (Non-Af Amer) BUN/Creatinine Ratio Glucose Calcium Magnesium Total Bilirubin AST ALT Alkaline Phosphatase Troponin I NT-Pro-B Natriuret Pep 1501 H Total Protein Albumin Globulin Albumin/Globulin Ratio TSH COVID-19 Eval Order CovFluRsv at [facility] SARS-CoV-2 (PCR) NEGATIVE Influenza Type A (PCR) Negative Influenza Type B (PCR) Negative RSV (RT-PCR) Negative (1) HTN (hypertension) Hypertension type: unspecified Qualified Code(s): I10 - Essential (primary) hypertension
[2020-06-09] MEDS ORDERED: GLUCOSE 40% GEL 15 GM TUBE PO PRN (18:15)
[2020-06-09] MEDS ORDERED: GLUCOSE 10 TABS/TUBE PO PRN (18:15)
[2020-06-09] MEDS ORDERED: CARBOHYDRATES FOR HYPOGLYCEMIA PO PRN (18:15)
[2020-06-09] MEDS ORDERED: GLUCAGON FOR INJ 1 MG VIAL SQ PRN (18:15)
[2020-06-09] MEDS ORDERED: DEXTROSE 50% 50 ML SYRINGE IV PRN (18:15)
[2020-06-09] MEDS: KETOCONAZOLE 2% CR 15 GM TUBE EXT SCH (20:33)
[2020-06-09] MEDS: lamoTRIgine 100 MG TAB PO SCH (20:33)
[2020-06-09] MEDS: GABAPENTIN 400 MG CAP PO SCH (20:34)
[2020-06-09] MEDS: APIXABAN 5 MG TABLET PO SCH (20:34)
--- NOTE | 2020-06-09 20:42 | Anesthesiology Consultation ---
Date of Service June 09, 2020 Assessment & Plan Chart Review Chart Review: Acceptable Risk for Surgery and Patient NOT seen in Pre Admission Testing Consults Requested none History Surgery Operation Date: 06/10/20 07:15 Proposed Procedures p Cardioversion Watch And Clock Repairer w/Anesthesia - Satinder Camacho MD Height/Weight Height: 5 ft 9 in Weight: 174 kg Allergies Allergy/AdvReac Type Severity Reaction Status Date / Time No Known Allergies Allergy Unverified 06/09/20 13:45 Medications Home Medications Medication Instructions Recorded Confirmed Last Taken gabapentin 400 mg PO HS 04/14/20 06/09/20 Unknown lamotrigine 100 mg PO BID 04/14/20 06/09/20 06/09/20 09:00 metformin 500 mg PO BID 04/14/20 06/09/20 06/09/20 09:00 Eliquis 5 mg PO BID #60 tab 04/15/20 06/09/20 06/09/20 09:00 duloxetine 30 mg PO DAILY 05/08/20 06/09/20 06/09/20 09:00 lisinopril 40 mg PO DAILY 05/08/20 06/09/20 06/09/20 09:00 diltiazem HCl 360 mg PO QAM #30 cap 06/01/20 06/09/20 06/09/20 09:00 furosemide 20 mg PO QAM #30 tab 06/01/20 06/09/20 06/09/20 09:00 metoprolol succinate 150 mg PO BID #60 tab 06/01/20 06/09/20 06/09/20 09:00 ketoconazole 1 applic TOPICAL BID 06/09/20 06/09/20 Unknown Active Medications Generic Name Dose Route Start Last Admin Trade Name Catarinoq PRN Reason Stop Dose Admin Apixaban 5 mg 06/09/20 21:00 06/09/20 20:34 Apixaban 5 Mg Tablet PO 07/09/20 20:59 5 mg BID ADAN Administration Gabapentin 400 mg 06/09/20 21:00 06/09/20 20:34 Gabapentin 400 Mg Cap PO 07/09/20 20:59 400 mg HS ADAN Administration Ketoconazole 1 appln 06/09/20 21:00 06/09/20 20:33 Ketoconazole 2% Cr 15 Gm Tube EXT 06/19/20 20:59 Not Given BID ADAN Lamotrigine 100 mg 06/09/20 21:00 06/09/20 20:33 Lamotrigine 100 Mg Tab PO 07/09/20 20:59 100 mg BID ADAN Administration Metoprolol Succinate 150 mg 06/09/20 21:00 06/09/20 20:32 Metoprolol Succ 50mg Ext Rel Tab PO 07/09/20 20:59 150 mg BID ADAN Administration Past Medical History Medical History Bipolar disorder DM type 2 (diabetes mellitus, type 2) Dyslipidemia HTN (hypertension) Hx of lymphoma, non-Hodgkins 2014 - 6 cycles of CHOP 2018 - 3 cycles of brentuximab and radiation Obesity MEIR (obstructive sleep apnea) Prolonged QT interval Past Family History Family History Denies family history of Heart disease Past Surgical History Surgical History History of parotid gland removal Social History Smoking Status: Never smoker Do You Dip or Chew Tobacco: No Hx Alcohol Use: No Hx Substance Use: No substance use type: does not use Physical Exam Vital Signs Last Vital Signs Temp 36.7 C 06/09/20 19:14 Pulse 119 H 06/09/20 19:14 Resp 18 06/09/20 19:14 BP 125/87 06/09/20 19:14 Pulse Ox 95 06/09/20 19:14 Lab Results Anesthesia Preop Results Results Anesthesia Widget: WBC 7.82 K/uL (4.8-10.8) 06/09/20 Hgb 12.9 g/dL (12.0-16.0) 06/09/20 Hct 39.9 % (37-47) 06/09/20 Plt 306 K/uL (130-400) 06/09/20 Na 139 mmol/L (136-145) 06/09/20 K 3.9 mmol/L (3.5-5.1) 06/09/20 Cl 106 mmol/L (98-107) 06/09/20 CO2 31 mmol/L (21-32) 06/09/20 BUN 18 mg/dl (7-18) 06/09/20 Creat 0.77 mg/dl (0.6-1.2) 06/09/20 Glucose Level 189 mg/dl (70-99) H 06/09/20 PT 10.3 Seconds (9.0-12.0) 06/09/20 PTT 24.1 Seconds (21.0-31.0) 06/09/20 INR 1.0 (0.9-1.1) 06/09/20 TSH 0.982 uIu/ml (0.300-4.500) 06/09/20 HA1c 7.2 % (4.5-5.6) H 05/09/20 COVID-19 PCR NEGATIVE (Negative) 06/09/20 Testing Laboratory Results 06/09/20 13:29 06/09/20 13:29 PT 10.3 Seconds (9.0-12.0) 06/09/20 13:29 INR 1.0 (0.9-1.1) 06/09/20 13:29 APTT 24.1 Seconds (21.0-31.0) 06/09/20 13:29 06/09/20 06/09/20 20:17 17:44 POC Glucose 212 H 148 H Echocardiogram Date: 05/30/20 EF: 55 LV Function: normal Other Findings: + LVH
[2020-06-09] MEDS ORDERED: METOPROLOL SUCC 50MG EXT REL TAB PO SCH (21:00)
[2020-06-09] MEDS: INSULIN ASPART 100 UNITS/ML 3 ML PEN SC SCH (21:25)
[2020-06-09] MEDS ORDERED: LORazepam 0.5 MG TAB PO STA (22:21)
[2020-06-10 07:16] LABS: Estimated Average Glucose 177 mg/dl; Hemoglobin A1C 7.8 % (4.5-5.6)
[2020-06-10 07:28] LABS: BUN Creatinine Ratio 24.5 (10-20); Blood Urea Nitrogen 17 mg/dl (7-18); Calcium 9.1 mg/dl (8.5-10.1); Carbon Dioxide 35 mmol/L (21-32); Chloride 104 mmol/L (98-107); Creatinine Clr Calc Pharmacy 168.6 ml/min; Est GFR (African American) 116.3; Est GFR (Non-African American) 100.4; Glucose 186 mg/dl (70-99); Potassium 3.8 mmol/L (3.5-5.1); Sodium 141 mmol/L (136-145)
[2020-06-10 07:33] LABS: Troponin I < 0.015 ng/ml (0-0.045)
--- NOTE | 2020-06-10 07:38 | Cardioversion ---
Date of Service June 10, 2020 Electrical Cardioversion Rpt Electrical Cardioversion Report Procedure and risks discussed in detail with patient, informed consent was obtained. After TIME OUT, patient was sedated using anesthesia consult with continuous O2, BP, HR and end tidal CO2 monitoring. Synchronized electrical cardioversion was performed sequentially with 150J, 200J and 360J with ultimate conversion to sinus rhythm Patient aroused, tolerated well EKG NSR at 85 bpm QTc 495 Plan: Will anticipate ongoing telemetry for antiarrhythmic rx
[2020-06-10] MEDS ORDERED: HYDROCORTISONE 1% CRM 30 GM TUBE EXT PRN (07:44)
[2020-06-10] MEDS ORDERED: LIDOCAINE HCL 2% 2 ML VIAL/AMP(20MG/ML) INFIL ONE (08:01)
[2020-06-10] MEDS ORDERED: PROPOFOL IV EMULSION 10 MG/ML 20 ML VIAL IV ONE (08:01)
[2020-06-10] MEDS: lamoTRIgine 100 MG TAB PO SCH ×2 (08:57→20:46)
[2020-06-10] MEDS: ASPIRIN 81 MG ECTAB PO SCH (08:57)
[2020-06-10] MEDS: APIXABAN 5 MG TABLET PO SCH ×2 (08:57→20:46)
[2020-06-10] MEDS: KETOCONAZOLE 2% CR 15 GM TUBE EXT SCH (08:58)
[2020-06-10] MEDS: lisinopril 40 MG TAB PO SCH (08:58)
[2020-06-10] MEDS: FUROSEMIDE 20 MG TAB PO SCH (08:58)
--- NOTE | 2020-06-10 09:13 | Anesthesiology Progress Note ---
Date of Service June 10, 2020 Anesthesia Post Procedure Vital Signs Vital Signs: Temp Pulse Pulse Resp BP BP Pulse Ox 06/10/20 07:56 37.1 C 86 20 141/96 H 96 06/10/20 07:45 84 18 129/91 95 06/10/20 07:30 88 18 137/100 95 06/10/20 07:05 36.3 C L 126 H 20 156/102 H 96 06/10/20 03:19 36.6 C 135 H 20 145/103 H 96 06/09/20 23:08 36.5 C 19 130/86 95 06/09/20 19:14 36.7 C 119 H 18 125/87 95 06/09/20 17:51 36.7 C 114 H 22 106/64 96 06/09/20 17:21 114 H 20 141/86 H 94 06/09/20 17:11 99 H 22 114/88 96 06/09/20 17:01 103 H 22 148/118 H 97 06/09/20 16:50 105 H 20 134/110 H 96 06/09/20 16:41 106 H 24 138/100 95 06/09/20 16:30 115 H 29 H 129/101 H 96 06/09/20 16:21 108 H 19 126/103 H 98 06/09/20 16:10 100 H 26 H 135/117 H 98 06/09/20 16:00 110 H 23 129/95 93 06/09/20 15:51 110 H 23 127/99 96 06/09/20 15:41 116 H 23 121/98 97 06/09/20 15:31 104 H 26 H 146/97 H 98 06/09/20 15:20 102 H 21 140/90 96 06/09/20 15:11 131 H 32 H 132/111 H 06/09/20 15:00 108 H 34 H 146/113 H 97 06/09/20 14:50 129 H 22 133/86 96 06/09/20 14:40 116 H 21 127/92 96 06/09/20 14:30 124 H 19 133/112 H 97 06/09/20 14:20 102 H 15 154/110 H 96 06/09/20 14:10 121 H 20 150/108 H 96 06/09/20 14:00 121 H 25 H 152/94 H 97 06/09/20 13:50 115 H 15 127/108 H 95 06/09/20 13:40 119 H 20 144/100 H 06/09/20 13:37 121 H 20 151/100 H 06/09/20 13:05 35.9 C L 95 H 20 177/114 H 96 Transfer of Care Handoff Completed per policy Notes Mental Status: alert / awake / arousable and participated in evaluation Patient Amnestic to Procedure: Yes Nausea / Vomiting: adequately controlled Pain: adequately controlled Airway Patency, RR, SpO2: stable & adequate BP & HR: stable & adequate Hydration State: stable & adequate Anesthetic Complications: no major complications apparent
[2020-06-10] MEDS: INSULIN ASPART 100 UNITS/ML 3 ML PEN SC SCH ×4 (09:37→20:13)
[2020-06-10] MEDS: METOPROLOL SUCC 25MG EXT REL TAB PO SCH ×2 (12:54→20:47)
--- NOTE | 2020-06-10 13:42 | Cardiology Progress Note ---
Date of Service June 10, 2020 Assessment & Plan (1) Atrial fibrillation with rapid ventricular response: Patient underwent synchronized electrical cardioversion earlier today with conversion to sinus rhythm We will resume beta-chris with metoprolol succinate 75 mg twice per day Add antiarrhythmic therapy with flecainide 100 mg twice per day following EKG and QT intervals patient to be maintained on telemetry approximately 48 hours Patient scheduled with EP in early June Patient remains anticoagulated with Eliquis We will supplement potassium today (2) Morbid obesity: (3) Hx of lymphoma, non-Hodgkins: (4) HTN (hypertension): Will follow may need to increase therapy (5) MEIR (obstructive sleep apnea): Admission and Anticipated Discharge Date Admission Date: June 09, 2020 Subjective Patient was seen and examined, chart, medications, telemetry reviewed. Patient underwent synchronized electrical cardioversion earlier today with successful conversion to sinus rhythm. No acute complaints currently. Tolerated procedure well. Review of Systems Review of Systems: All systems reviewed & are unremarkable except as noted in HPI & below Physical Exam Constitutional: + morbidly obese Eyes: PERRL, conjunctivae normal, anicteric sclerae ENMT: external ear and nose normal, oropharynx normal Neck: trachea midline, no thyromegaly Respiratory: normal respiratory effort, lungs clear to auscultation Cardiovascular: Rate/Rhythm: regular rate and regular rhythm Heart Sounds: normal S1 and normal S2; no gallop and no murmur Palpation: normal PMI Vessels: normal carotid upstroke and radial pulses present; no JVD and no carotid bruit Extremities: + edema (Trace to 1+) Gastrointestinal (Abdomen): normal bowel sounds, soft, nontender, no hepatosplenomegaly Musculoskeletal: no cyanosis or clubbing, extremities motor strength 5/5 Skin: no rashes, warm and dry Neurologic: PERRL, EOMI, accommodation nl, no face palsy, no dysarthria Psychiatric: A+Ox3, euthymic affect Results & Data ([facility]) Vital Signs (Past 12 Hours) Vital Signs Temp Pulse Resp BP Pulse Ox 06/10/20 11:21 36.7 C 93 H 19 151/74 H 97 06/10/20 07:56 37.1 C 86 20 141/96 H 96 06/10/20 07:45 84 18 129/91 95 06/10/20 07:30 88 18 137/100 95 06/10/20 07:05 36.3 C L 126 H 20 156/102 H 96 06/10/20 03:19 36.6 C 135 H 20 145/103 H 96 Laboratory Results Laboratory Results - last 24 hr 06/09/20 06/09/20 06/09/20 13:29 13:29 13:29 WBC 7.82 RBC 4.62 Hgb 12.9 Hct 39.9 MCV 86.4 MCH 27.9 MCHC 32.3 RDW Std Deviation 48.5 H RDW Coeff of Ida 15.3 H Plt Count 306 MPV 10.2 Immature Gran % (Auto) 0.1 Neut % (Auto) 66.0 Lymph % (Auto) 26.3 [place] % (Auto) 5.9 Eos % (Auto) 1.4 Baso % (Auto) 0.3 Neut # (Auto) 5.16 Lymph # (Auto) 2.06 [place] # (Auto) 0.46 Eos # (Auto) 0.11 Baso # (Auto) 0.02 Immature Gran # (Auto) 0.01 PT 10.3 INR 1.0 APTT 24.1 PTT Ratio 0.9 Sodium 139 Potassium 3.9 Chloride 106 Carbon Dioxide 31 Anion Gap 2.0 L BUN 18 Creatinine 0.77 Est Cr Clr Drug Dosing 125.2 Est GFR ( Amer) 102.2 Est GFR (Non-Af Amer) 88.2 BUN/Creatinine Ratio 23.2 H Glucose 189 H POC Glucose Estimat Average Glucose Hemoglobin A1c Calcium 9.2 Magnesium 2.2 Total Bilirubin 0.4 AST 22 ALT 47 Alkaline Phosphatase 102 Troponin I < 0.015 NT-Pro-B Natriuret Pep Total Protein 8.1 Albumin 4.0 Globulin 4.1 H Albumin/Globulin Ratio 1.0 TSH 0.982 COVID-19 Eval Order SARS-CoV-2 (PCR) Influenza Type A (PCR) Influenza Type B (PCR) RSV (RT-PCR) 06/09/20 06/09/20 06/09/20 13:29 15:43 15:43 WBC RBC Hgb Hct MCV MCH MCHC RDW Std Deviation RDW Coeff of Ida Plt Count MPV Immature Gran % (Auto) Neut % (Auto) Lymph % (Auto) [place] % (Auto) Eos % (Auto) Baso % (Auto) Neut # (Auto) Lymph # (Auto) [place] # (Auto) Eos # (Auto) Baso # (Auto) Immature Gran # (Auto) PT INR APTT PTT Ratio Sodium Potassium Chloride Carbon Dioxide Anion Gap BUN Creatinine Est Cr Clr Drug Dosing Est GFR ( Amer) Est GFR (Non-Af Amer) BUN/Creatinine Ratio Glucose POC Glucose Estimat Average Glucose Hemoglobin A1c Calcium Magnesium Total Bilirubin AST ALT Alkaline Phosphatase Troponin I NT-Pro-B Natriuret Pep 1501 H Total Protein Albumin Globulin Albumin/Globulin Ratio TSH COVID-19 Eval Order CovFluRsv at [facility] SARS-CoV-2 (PCR) NEGATIVE Influenza Type A (PCR) Negative Influenza Type B (PCR) Negative RSV (RT-PCR) Negative 06/09/20 06/09/20 06/09/20 17:44 19:38 20:17 WBC RBC Hgb Hct MCV MCH MCHC RDW Std Deviation RDW Coeff of Ida Plt Count MPV Immature Gran % (Auto) Neut % (Auto) Lymph % (Auto) [place] % (Auto) Eos % (Auto) Baso % (Auto) Neut # (Auto) Lymph # (Auto) [place] # (Auto) Eos # (Auto) Baso # (Auto) Immature Gran # (Auto) PT INR APTT PTT Ratio Sodium Potassium Chloride Carbon Dioxide Anion Gap BUN Creatinine Est Cr Clr Drug Dosing Est GFR ( Amer) Est GFR (Non-Af Amer) BUN/Creatinine Ratio Glucose POC Glucose 148 H 212 H Estimat Average Glucose Hemoglobin A1c Calcium Magnesium Total Bilirubin AST ALT Alkaline Phosphatase Troponin I < 0.015 NT-Pro-B Natriuret Pep Total Protein Albumin Globulin Albumin/Globulin Ratio TSH COVID-19 Eval Order SARS-CoV-2 (PCR) Influenza Type A (PCR) Influenza Type B (PCR) RSV (RT-PCR) 06/10/20 06/10/20 06/10/20 06:28 06:28 07:59 WBC RBC Hgb Hct MCV MCH MCHC RDW Std Deviation RDW Coeff of Ida Plt Count MPV Immature Gran % (Auto) Neut % (Auto) Lymph % (Auto) [place] % (Auto) Eos % (Auto) Baso % (Auto) Neut # (Auto) Lymph # (Auto) [place] # (Auto) Eos # (Auto) Baso # (Auto) Immature Gran # (Auto) PT INR APTT PTT Ratio Sodium 141 Potassium 3.8 Chloride 104 Carbon Dioxide 35 H Anion Gap 2.0 L BUN 17 Creatinine 0.67 Est Cr Clr Drug Dosing 168.6 Est GFR ( Amer) 116.3 Est GFR (Non-Af Amer) 100.4 BUN/Creatinine Ratio 24.5 H Glucose 186 H POC Glucose 187 H Estimat Average Glucose 177 Hemoglobin A1c 7.8 H Calcium 9.1 Magnesium Total Bilirubin AST ALT Alkaline Phosphatase Troponin I < 0.015 NT-Pro-B Natriuret Pep Total Protein Albumin Globulin Albumin/Globulin Ratio [facility] COVID-19 Eval Order SARS-CoV-2 (PCR) Influenza Type A (PCR) Influenza Type B (PCR) RSV (RT-PCR) 06/10/20 11:20 WBC RBC Hgb Hct MCV MCH MCHC RDW Std Deviation RDW Coeff of Ida Plt Count MPV Immature Gran % (Auto) Neut % (Auto) Lymph % (Auto) [place] % (Auto) Eos % (Auto) Baso % (Auto) Neut # (Auto) Lymph # (Auto) [place] # (Auto) Eos # (Auto) Baso # (Auto) Immature Gran # (Auto) PT INR APTT PTT Ratio Sodium Potassium Chloride Carbon Dioxide Anion Gap BUN Creatinine Est Cr Clr Drug Dosing Est GFR ( Amer) Est GFR (Non-Af Amer) BUN/Creatinine Ratio Glucose POC Glucose 239 H Estimat Average Glucose Hemoglobin A1c Calcium Magnesium Total Bilirubin AST ALT Alkaline Phosphatase Troponin I NT-Pro-B Natriuret Pep Total Protein Albumin Globulin Albumin/Globulin Ratio [facility] COVID-19 Eval Order SARS-CoV-2 (PCR) Influenza Type A (PCR) Influenza Type B (PCR) RSV (RT-PCR) Medications Administered Current Medications Acetaminophen (Acetaminophen 325 Mg Tab) 650 mg PO Q4H PRN PRN Reason: Pain or Fever Stop: 07/09/20 14:55 Last Admin: 06/10/20 12:11 Dose: 650 mg Documented by: Al Hydrox/Mg Hydrox/Simethicone (Aluminum/Magnesium Susp 30 Ml Udc) 15 ml PO Q4H PRN PRN Reason: Dyspepsia Stop: 07/09/20 14:55 Apixaban (Apixaban 5 Mg Tablet) 5 mg PO BID [facility] Stop: 07/09/20 20:59 Last Admin: 06/10/20 08:57 Dose: 5 mg Documented by: Aspirin (Aspirin 81 Mg Ectab) 81 mg PO QAM [facility] Stop: 07/10/20 08:59 Last Admin: 06/10/20 08:57 Dose: 81 mg Documented by: Dextrose (Dextrose 50% 50 Ml Syringe) 25 - 50 ml IV UD PRN; Protocol PRN Reason: Hypoglycemia Protocol Stop: 07/09/20 18:14 Flecainide Acetate (Flecainide Acetate 100 Mg Tablet) 100 mg PO Q12 ADAN Stop: 07/10/20 20:59 Flecainide Acetate (Flecainide Acetate 100 Mg Tablet) 100 mg PO ONE ONE Stop: 06/10/20 13:34 Furosemide (Furosemide 20 Mg Tab) 20 mg PO QAM ADAN Stop: 07/10/20 08:59 Last Admin: 06/10/20 08:58 Dose: 20 mg Documented by: Gabapentin (Gabapentin 400 Mg Cap) 400 mg PO HS ADAN Stop: 07/09/20 20:59 Last Admin: 06/09/20 20:34 Dose: 400 mg Documented by: Glucagon (Glucagon For Inj 1 Mg Vial) 1 mg SQ UD PRN; Protocol PRN Reason: Hypoglycemia Protocol Stop: 07/09/20 18:14 Glucose (Glucose 10 Tabs/Tube) 4 - 8 tabs PO UD PRN; Protocol PRN Reason: Hypoglycemia Protocol Stop: 07/09/20 18:14 Glucose (Glucose 40% Gel 15 Gm Tube) 15 - 30 gm PO UD PRN; Protocol PRN Reason: Hypoglycemia Protocol Stop: 07/09/20 18:14 Hydrocortisone (Hydrocortisone 1% Crm 30 Gm Tube) 1 appln EXT Q4 PRN PRN Reason: Chin Stop: 07/10/20 07:43 Insulin Aspart (Insulin Aspart 100 Units/Ml 3 Ml Pen) 0 units SC ACHS ADAN Stop: 07/09/20 20:59 Last Admin: 06/10/20 12:11 Dose: 8 units Documented by: Ketoconazole (Ketoconazole 2% Cr 15 Gm Tube) 1 appln EXT BID ADAN Stop: 06/19/20 20:59 Last Admin: 06/10/20 08:58 Dose: Not Given Documented by: Lamotrigine (Lamotrigine 100 Mg Tab) 100 mg PO BID ADAN Stop: 07/09/20 20:59 Last Admin: 06/10/20 08:57 Dose: 100 mg Documented by: Lisinopril (Lisinopril 40 Mg Tab) 40 mg PO DAILY [facility] Stop: 07/10/20 08:59 Last Admin: 06/10/20 08:58 Dose: 40 mg Documented by: Magnesium Hydroxide (Magnesium Hydroxide Susp 30 Ml Udc) 30 ml PO Q12H PRN PRN Reason: Constipation Stop: 07/09/20 14:55 Metoprolol Succinate (Metoprolol Succ 25mg Ext Rel Tab) 75 mg PO BID [facility] Stop: 07/10/20 10:59 Last Admin: 06/10/20 12:54 Dose: 75 mg Documented by: Miscellaneous (Carbohydrates For Hypoglycemia ) 15 - 30 gm PO UD PRN PRN Reason: Hypoglycemia Protocol Stop: 07/09/20 18:14 Nitroglycerin (Nitroglycerin Sl 0.4 Mg/Tab Tab) 0.4 mg SL UD PRN PRN Reason: Chest Pain Stop: 07/09/20 14:55 Polyethylene Glycol (Polyethylene (Miralax) 17 Gm Pack) 17 gm PO DAILY PRN PRN Reason: Constipation Stop: 07/09/20 14:55 (1) HTN (hypertension) Hypertension type: unspecified Qualified Code(s): I10 - Essential (primary) hypertension
[2020-06-10] MEDS ORDERED: POTASSIUM CHLORIDE CRTAB 20 MEQ TABCR PO ONE (13:47)
[2020-06-10] MEDS ORDERED: FLECAINIDE ACETATE 100 MG TABLET PO ONE (14:00)
--- NOTE | 2020-06-10 15:22 | Electrocardiogram Report ---
Test Reason : Blood Pressure : / mmHG Vent. Rate : 085 BPM Atrial Rate : 085 BPM P-R Int : 188 ms QRS Dur : 092 ms QT Int : 400 ms P-R-T Axes : 035 065 051 degrees QTc Int : 476 ms Normal sinus rhythm Low voltage QRS Abnormal ECG When compared with ECG of 10-JUN-2020 04:16, (unconfirmed) Sinus rhythm has replaced Atrial fibrillation Confirmed by Anish De Leon ([id number]) on 06/10/2020 3:22:36 PM Referred By: REFERRED SELF Confirmed By:Bora De Leon
--- NOTE | 2020-06-10 16:27 | Hospitalist Progress Note ---
Date of Service June 10, 2020 Assessment & Plan (1) Atrial fibrillation with rapid ventricular response: Patient is a 54 yr female with H/O atrial fibrillation, DM II, sleep apnea, HTN, dyslipidemia, bipolar disorder, non-Hodgkin lymphoma in remission, obesity, prolonged QTc and other medical problems listed below who was sent in from cardiology clinic with A fib with RVR. A. fib RVR CXR:Interval decrease in interstitial thickening since chest radiograph of May 29, 2020. Stable cardiomegaly. Normal TSH S/P Successful Cardioversion Continue metoprolol started for milligrams twice daily Also started on flecainide 100 mg twice daily Monitor QTC Appreciate cardiology input Continue Eliquis for anticoagulation (2) Prolonged QT interval: Monitor QTC while started on flecainide Daily EKG (3) DM type 2 (diabetes mellitus, type 2): A1c 7.2 in April 2020 Hold home agents SSI while in-patient BSG AC HS (4) HTN (hypertension): Continue Lisinopril, Toprol (5) Bipolar disorder: Continue Cymbalta, Lamictal (6) Hx of lymphoma, non-Hodgkins: H/O 6 cycles of CHOP in 2014, 3 cycles of brentuximab and radiation in 2018 In remission (7) Morbid obesity: BMI: 57 [employer] on lifestyle changes (8) MEIR (obstructive sleep apnea): continue CPAP DVT Px: Eliquis Code status: FULL CODE PCP: Sameer Disposition: Plan to discharge home when medically stable Admission and Anticipated Discharge Date Admission Date: June 09, 2020 Subjective Patient is seen and examined at bedside States having intermittent dizziness Had cardioversion earlier today Denies chest pain, dyspnea, nausea, abdominal pain Offers no other complaints Currently in sinus Review of Systems Review of Systems: All systems reviewed & are unremarkable except as noted in HPI & below Physical Exam Physical Exam: Physical Exam: Vitals signs as noted above General Appearance:Morbidly Obese, no apparent distress Head: normocephalic, Atraumatic Eyes: normal inspection, EOMI Neck: supple, Trachea midline Respiratory/Chest: Normal breath sounds, CTA Cardiovascular: S1, S2, No murmur Abdomen/GI:Soft, Non tender, Bowel sounds present Extremities/Musculoskeletal:normal inspection, no edema Neurologic/Psych:AAOX3, grossly no focal neurological deficits Skin: normal color, warm Results & Data Results & Data ([facility]) Vital Signs (Past 12 Hours) Vital Signs Temp Pulse Pulse Resp BP Pulse Ox 06/10/20 14:58 36.4 C L 81 20 155/87 H 97 06/10/20 14:47 84 06/10/20 11:21 36.7 C 93 H 19 151/74 H 97 06/10/20 07:56 37.1 C 86 20 141/96 H 96 06/10/20 07:45 84 18 129/91 95 06/10/20 07:30 88 18 137/100 95 06/10/20 07:05 36.3 C L 126 H 20 156/102 H 96 Laboratory Results BMP 06/10/20 06:28 Sodium 141 Potassium 3.8 Chloride 104 Carbon Dioxide 35 H BUN 17 Creatinine 0.67 Glucose 186 H Calcium 9.1 Cardiac Enzymes 06/09/20 06/10/20 Range/Units 19:38 06:28 Troponin I < 0.015 < 0.015 (0-0.045) ng/ml (1) HTN (hypertension) Hypertension type: unspecified Qualified Code(s): I10 - Essential (primary) hypertension
[2020-06-10] MEDS: GABAPENTIN 400 MG CAP PO SCH (20:46)
[2020-06-10] MEDS ORDERED: FLECAINIDE ACETATE 100 MG TABLET PO SCH (21:00)
[2020-06-11 07:44] LABS: Hematocrit (blood only) 41.4 % (37-47); Mean Corpuscular Hemoglobin 27.3 pg (25-34); Mean Corpuscular Hgb Conc 31.4 g/dL (32-36); Mean Platelet Volume 10.5 fL (7.4-10.4); Platelet Count 322 K/uL (130-400); RDW Coefficient of Variation 15.3 % (11.5-14.5); RDW Standard Deviation 49.1 fL (36.4-46.3); Red Blood Count 4.76 M/uL (4.2-5.4)
[2020-06-11 08:12] LABS: BUN Creatinine Ratio 25.4 (10-20); Calcium 9.5 mg/dl (8.5-10.1); Creatinine Clr Calc Pharmacy 156.9 ml/min; Est GFR (African American) 110.8; Est GFR (Non-African American) 95.6; Magnesium 2.1 mg/dl (1.8-2.4); Potassium 4.2 mmol/L (3.5-5.1)
[2020-06-11] MEDS: lamoTRIgine 100 MG TAB PO SCH (08:29)
[2020-06-11] MEDS: FUROSEMIDE 20 MG TAB PO SCH (08:29)
[2020-06-11] MEDS: ASPIRIN 81 MG ECTAB PO SCH (08:29)
[2020-06-11] MEDS: APIXABAN 5 MG TABLET PO SCH (08:29)
[2020-06-11] MEDS: lisinopril 40 MG TAB PO SCH (08:29)
[2020-06-11] MEDS: INSULIN ASPART 100 UNITS/ML 3 ML PEN SC SCH ×2 (08:30→12:29)
[2020-06-11] MEDS: METOPROLOL SUCC 25MG EXT REL TAB PO SCH (08:32)
[2020-06-11] MEDS ORDERED: DULoxetine HCL 30 MG CAP PO SCH (09:00)
--- NOTE | 2020-06-11 12:13 | Electrocardiogram Report ---
Test Reason : Blood Pressure : / mmHG Vent. Rate : 083 BPM Atrial Rate : 083 BPM P-R Int : 198 ms QRS Dur : 092 ms QT Int : 405 ms P-R-T Axes : 037 071 068 degrees QTc Int : 476 ms Normal sinus rhythm Prolonged QT Abnormal ECG When compared with ECG of 10-JUN-2020 07:38, No significant change was found Confirmed by Anish De Leon ([id number]) on 06/11/2020 12:13:23 PM Referred By: REFERRED SELF Confirmed By:Bora De Leon
--- NOTE | 2020-06-11 12:15 | Electrocardiogram Report ---
Test Reason : Blood Pressure : / mmHG Vent. Rate : 084 BPM Atrial Rate : 084 BPM P-R Int : 190 ms QRS Dur : 098 ms QT Int : 405 ms P-R-T Axes : 041 057 044 degrees QTc Int : 479 ms Normal sinus rhythm Prolonged QT Abnormal ECG When compared with ECG of 10-JUN-2020 14:59, (unconfirmed) No significant change was found Confirmed by Anish De Leon ([id number]) on 06/11/2020 12:15:01 PM Referred By: REFERRED SELF Confirmed By:Bora De Leon
--- NOTE | 2020-06-11 12:18 | Electrocardiogram Report ---
Test Reason : Blood Pressure : / mmHG Vent. Rate : 089 BPM Atrial Rate : 089 BPM P-R Int : 192 ms QRS Dur : 090 ms QT Int : 400 ms P-R-T Axes : 039 083 062 degrees QTc Int : 487 ms Normal sinus rhythm Prolonged QT Abnormal ECG When compared with ECG of 10-JUN-2020 19:28, (unconfirmed) No significant change was found Confirmed by Anish De Leon ([id number]) on 06/11/2020 12:17:26 PM Referred By: REFERRED SELF Confirmed By:Bora De Leon
--- NOTE | 2020-06-11 13:11 | XRay Report ---
TWO VIEW CHEST CLINICAL HISTORY: Cough. FINDINGS: PA and lateral chest radiographs are compared to study dated 06/09/2020. Correlation is made with chest CT dated 04/14/2020. The examination is degraded by large body habitus. The heart is mildl y enlarged. There is prominence of the pulmonary vasculature. No airspace consolidation is seen. Atel ectasis is noted at the lung bases. There is no pleural effusion or pneumothorax. The skeletal struct ures are osteopenic. The bony thorax appears intact. Degenerative change is seen in the thoracic spin e. Cholecystectomy clips are noted in the upper abdomen. IMPRESSION: 1. Cardiomegaly with prominence of the pulmonary vasculature. Correlate clinically for evidence of mi ld congestive change. 2. No airspace consolidation or pleural effusion is identified. ACT 112: Negative or not required by law. Electronically signed by: Bo Wilson M.D. 06/11/2020 1:09 PM
--- NOTE | 2020-06-11 14:50 | Hospitalist Progress Note ---
Date of Service June 11, 2020 Assessment & Plan (1) Atrial fibrillation with rapid ventricular response: Patient is a 54 yr female with H/O atrial fibrillation, DM II, sleep apnea, HTN, dyslipidemia, bipolar disorder, non-Hodgkin lymphoma in remission, obesity, prolonged QTc and other medical problems listed below who was sent in from cardiology clinic with A fib with RVR. A. fib RVR CXR:Interval decrease in interstitial thickening since chest radiograph of May 29, 2020. Stable cardiomegaly. Normal TSH S/P Successful Cardioversion Metoprolol Succinate decreased to 75mg BID Diltiazem discontinued Appreciate cardiology input Continue Eliquis for anticoagulation Needs follow up with Cardiology upon discharge (2) Prolonged QT interval: Monitor QTC while started on flecainide Daily EKG (3) DM type 2 (diabetes mellitus, type 2): A1c 7.2 in April 2020 Hold home agents SSI while in-patient BSG AC HS (4) HTN (hypertension): Continue Lisinopril, Toprol (5) Bipolar disorder: Continue Cymbalta, Lamictal (6) Hx of lymphoma, non-Hodgkins: H/O 6 cycles of CHOP in 2014, 3 cycles of brentuximab and radiation in 2018 In remission (7) Morbid obesity: 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 (8) MEIR (obstructive sleep apnea): continue CPAP DVT Px: Eliquis Code status: FULL CODE PCP: Sameer Disposition: Home with Home Health Admission and Anticipated Discharge Date Admission Date: June 09, 2020 Subjective Patient is seen and examined at bedside Reports minimal cough Dizziness improved Denies chest pain, dyspnea, nausea, abdominal pain Discussed with cardiology today Remains in sinus Review of Systems Review of Systems: All systems reviewed & are unremarkable except as noted in HPI & below Physical Exam Physical Exam: Physical Exam: Vitals signs as noted above General Appearance:Morbidly Obese, no apparent distress Head: normocephalic, Atraumatic Eyes: normal inspection, EOMI Neck: supple, Trachea midline Respiratory/Chest: Normal breath sounds, CTA Cardiovascular: S1, S2, No murmur Abdomen/GI:Soft, Non tender, Bowel sounds present Extremities/Musculoskeletal:normal inspection, no edema Neurologic/Psych:AAOX3, grossly no focal neurological deficits Skin: normal color, warm Results & Data Results & Data ([facility]) Vital Signs (Past 12 Hours) Vital Signs Temp Pulse Pulse Resp BP Pulse Ox 04/22/21 12:21 79 06/11/20 12:11 36.9 C 87 18 140/97 89 L 06/11/20 08:05 37.0 C 78 20 149/68 H 98 06/11/20 04:22 36.4 C L 91 H 18 138/82 98 Laboratory Results Short CBC 06/11/20 Range/Units 06:50 WBC 7.70 (4.8-10.8) K/uL Hgb 13.0 (12.0-16.0) g/dL Hct 41.4 (37-47) % Plt Count 322 (130-400) K/uL BMP 06/11/20 06:50 Sodium 139 Potassium 4.2 Chloride 104 Carbon Dioxide 30 BUN 18 Creatinine 0.72 Glucose 169 H Calcium 9.5 (1) HTN (hypertension) Hypertension type: unspecified Qualified Code(s): I10 - Essential (primary) hypertension
--- NOTE | 2020-06-11 15:10 | Discharge Summary ---
Date of Service June 11, 2020 Admission HPI Per Admitting Provider This is a 54yo F with a PMH of atrial fibrillation, DM II, sleep apnea, HTN, dyslipidemia, bipolar disorder, non-Hodgkin lymphoma in remission, obesity, prolonged QTc and other medical problems listed below who was sent in from cardiology clinic with A fib with RVR. Has been admitted twice over the past few months for A fib with RVR, most recently from 05/29-06/01. At that time, patient had medical adjustments made and remained in A fib throughout admission. Consideration of starting an anti-arrhythmic medication on previous admission but due to prolonged QTC, a decision was made for her to see electrophysiology i n follow up in outpatient setting. Her echocardiogram with her recent admissions was unremarkable. Since discharge home on 06/01, patient has continued feeling fatigued and short of breath. Has had difficulty concentrating at work. Endorses intermittent shortness of breath and palpitations, worse in the evening. Has been compliant with medications and wearing CPAP. Also experiencing intermittent headache. Denies fever, chills, lightheadedness, nausea, vomiting, abdominal pain, dysuria, diarrhea or constipation. Admission Exam Per Admitting Provider Physical Exam Physical Exam: General Appearance: WD/WN, vitals as above, NAD, sitting up in bed, pleasant, obese, conversing easily Head: normocephalic, atraumatic Eyes: normal inspection, PERRL, conjunctivae normal, anicteric sclerae ENT: external ear and nose normal, oropharynx normal Neck: normal visual inspection, trachea midline, no thyromegaly Respiratory: normal respiratory effort, lungs clear to auscultation, no wheeze, rales, rhonchi. No accessory muscle use Cardiovascular: irregular rate & rhythm, no murmur appreciated, normal peripheral pulses, trace BLE edema. Vessels: no JVD Chest: normal inspection of chest Abdomen/GI: normal bowel sounds, soft, nontender, no hepatosplenomegaly Extremities/Musculoskeletal: no cyanosis or clubbing, extremities motor strength 5/5 Neurologic: PERRL, EOMI, accommodation nl, no face palsy, no dysarthria, CN's II-XI intact bilaterally and moves all extremities Psychiatric: A+Ox3, euthymic affect Skin: no rashes, normal color, warm/dry Principal Diagnosis Atrial fibrillation with rapid ventricular response Discharge Data Allergies Allergy/AdvReac Type Severity Reaction Status Date / Time No Known Allergies Allergy Unverified 06/09/20 13:45 Consultations 06/09/20 14:37 ED Decision to Admit Stat 06/09/20 14:56 Consult Cardiology Routine 06/10/20 07:15 Consult Anesthesiology Routine Procedures Performed Operation Date: 06/10/20 07:15 Actual Procedures p Cardioversion - Satinder Camacho MD Ordered Studies CXR: 1. Interval decrease in interstitial thickening since chest radiograph of May 29, 2020. 2. Stable cardiomegaly. Hospital Course (1) Atrial fibrillation with rapid ventricular response: Patient is a 54 yr female with H/O atrial fibrillation, DM II, sleep apnea, HTN, dyslipidemia, bipolar disorder, non-Hodgkin lymphoma in remission, obesity, prolonged QTc and other medical problems listed below who was sent in from cardiology clinic with A fib with RVR. A. fib RVR CXR:Interval decrease in interstitial thickening since chest radiograph of May 29, 2020. Stable cardiomegaly. Normal TSH S/P Successful Cardioversion Metoprolol Succinate decreased to 75mg BID Diltiazem discontinued Appreciate cardiology input Continue Eliquis for anticoagulation Needs follow up with Cardiology upon discharge (2) Prolonged QT interval: Monitor QTC while started on flecainide Daily EKG (3) DM type 2 (diabetes mellitus, type 2): A1c 7.2 in April 2020 Hold home agents SSI while in-patient BSG AC HS (4) HTN (hypertension): Continue Lisinopril, Toprol (5) Bipolar disorder: Continue Cymbalta, Lamictal (6) Hx of lymphoma, non-Hodgkins: H/O 6 cycles of CHOP in 2013, 3 cycles of brentuximab and radiation in 2018 In remission (7) Morbid obesity: BMI: 57 Emergency Vehicle Dispatcher on lifestyle changes (8) MEIR (obstructive sleep apnea): continue CPAP DVT Px: Eliquis Code status: FULL CODE PCP: Sameer Disposition: Home with Home Health Total Time Total Time Spent Total Time Spent (In Minutes): 42 minutes Discharge Plan Discharge Items Patient Disposition: Home - Self-Care Reason For Visit: AFIB RVR Discharge Diagnosis: Atrial fibrillation with rapid ventricular response Activity: Per Instructions section Exercise/Sports: Gradually increase as tolerated Non-emergency contact: Primary Care Provider and Cutter Barrel Drum Call non-emergency contact if: you have any medication questions, your symptoms worsen, your pain is not controlled, your pain is worsening, your pain is concerning for you and you have a fever Follow-up/Referrals: Osmani Estrella MD [Primary Care Provider] - Diet: Carb Consistent or DM2 and Heart Healthy Addtl Attending Provider Instructions: Follow up with your Primary Care Physician in 1 week upon discharge 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 Camacho as recommended Medication Changes (As recommended by your Cutter Barrel Drum): Your metoprolol succinate is decreased to 75 mg twice a day Diltiazem 360 mg is discontinued Seek immediate medical attention if your symptoms reoccur or worsen Pending Studies at Discharge: No Stand-Alone Forms: [facility] [employer], Smoking Cessation Medications and DC Order Prescriptions: New metoprolol succinate 50 mg tablet extended release 24 hr 75 mg PO BID 30 Days Qty: 90 RF: 0 Continued gabapentin 400 mg capsule 400 mg PO HS RF: 0 metformin 500 mg tablet extended release 24 hr 500 mg PO BID RF: 0 lamotrigine 100 mg tablet 100 mg PO BID RF: 0 Eliquis 5 mg tablet 5 mg PO BID Qty: 60 RF: 0 lisinopril 40 mg tablet 40 mg PO DAILY RF: 0 duloxetine 30 mg capsule,delayed release(DR/EC) 30 mg PO DAILY RF: 0 furosemide 20 mg Tablet 20 mg PO QAM Qty: 30 RF: 0 ketoconazole 2 % cream 1 applic TOPICAL BID RF: 0 Discontinued diltiazem HCl 180 mg Capsule,Extended Release 24hr 360 mg PO QAM Qty: 30 RF: 0 metoprolol succinate 50 mg Tablet Extended Release 24 Hr 150 mg PO BID Qty: 60 RF: 0 Discharge Orders: Discharge Order (Routine); Ordered 06/11/20 Ordered By: Jayme Domínguez/Other Patient Handouts: Managing Type 2 Diabetes, Managing Diabetes: The A1C Test Admission Data Admit Date/Time: 06/09/20 14:56 Attending Provider: Jayme Warren Admit Provider: Lili Ellis Primary Care Provider: Osmani Estrella Other Providers: Lili Ellis ; Zach Lemus ; Toby Thakkar ; Satinder Camacho ; Sathish Mojica ; Antwan Renee ; Finesse Meza ; Susan Alegria ; Maida Turner ; Jennifer Pugh ; Adryan Lee ; Erik Nunez Other Interventions: Discharge Summary Assessment (RN) Last Done: 06/11/20 15:27
--- NOTE | 2020-06-11 15:19 | Cardiology Progress Note ---
Date of Service June 11, 2020 Assessment & Plan (1) Atrial fibrillation with rapid ventricular response: Patient underwent synchronized electrical cardioversion with conversion to sinus rhythm Trial attempt to add flecainide for further rhythm control is unsuccessful with prolonged QT after single dose. No further arrhythmias overnight Plan will be to continue metoprolol succinate 75 mg twice per day, discontinue diltiazem. Continue lisinopril and furosemide Patient has scheduled EP appointment to consider RF ablation Patient should avoid strenuous activities for the next 48 hours. Continue therapies as prescribed report any worsening dyspnea or fluid return (2) Morbid obesity: (3) Hx of lymphoma, non-Hodgkins: (4) HTN (hypertension): Will follow may need to increase therapy (5) MEIR (obstructive sleep apnea): Admission and Anticipated Discharge Date Admission Date: June 09, 2020 Subjective Patient was seen and examined, chart, medications, telemetry reviewed. Trial of flecainide yesterday on not tolerated with further prolongation of QT interval. Notes note tachypalpitations or dizziness. Moderate irritation at pacer pad sites No worsening edema. Mild cough nonproductive Review of Systems Review of Systems: All systems reviewed & are unremarkable except as noted in HPI & below Physical Exam Constitutional: + morbidly obese Eyes: PERRL, conjunctivae normal, anicteric sclerae ENMT: external ear and nose normal, oropharynx normal Neck: trachea midline, no thyromegaly Respiratory: normal respiratory effort, lungs clear to auscultation Cardiovascular: Rate/Rhythm: regular rate and regular rhythm Heart Sounds: normal S1 and normal S2; no gallop and no murmur Palpation: normal PMI Vessels: normal carotid upstroke and radial pulses present; no JVD and no carotid bruit Extremities: + edema (Trace to 1+) Gastrointestinal (Abdomen): normal bowel sounds, soft, nontender, no hepatosplenomegaly Musculoskeletal: no cyanosis or clubbing, extremities motor strength 5/5 Skin: no rashes, warm and dry Neurologic: PERRL, EOMI, accommodation nl, no face palsy, no dysarthria Psychiatric: A+Ox3, euthymic affect Results & Data ([facility]) Vital Signs (Past 12 Hours) Vital Signs Temp Pulse Pulse Resp BP Pulse Ox 06/11/20 12:21 79 06/11/20 12:11 36.9 C 87 18 140/97 89 L 06/11/20 08:05 37.0 C 78 20 149/68 H 98 06/11/20 04:22 36.4 C L 91 H 18 138/82 98 (1) HTN (hypertension) Hypertension type: unspecified Qualified Code(s): I10 - Essential (primary) hypertension
== END 2020-06-11 16:10 | disposition home or self-care (01) | DRG 309 ==
LOC: ED 13:04 → SUATTDRO 14:56 → 2S 14:56

== ENCOUNTER 2020-07-06 15:03 | Inpatient (IN) ==
[2020-07-06] MEDS ORDERED: HEPARIN (PORCINE) 1000 UNIT/ML 10 ML (CATH LAB USE ONLY) ONE (15:05)
[2020-07-06] MEDS ORDERED: niCARdipine HCL INJ 2.5 MG/ML 10 ML AMP ONE (15:05)
[2020-07-06] MEDS ORDERED: MIDAZOLAM HCL 1 MG/ML 2ML VIAL ONE (15:05)
[2020-07-06] MEDS ORDERED: fentaNYL citrate PF 100 MCG/2 ML VIAL ONE (15:05)
[2020-07-06] MEDS ORDERED: NITROGLYCERIN/D5W 100MCG/ML 20ML SYR ONE (15:06)
[2020-07-06] MEDS ORDERED: METOCLOPRAMIDE HCL INJ 5 MG/ML 2 ML VIAL IV STA (15:16)
[2020-07-06 15:30] LABS: Basophils # (auto) 0.01 K/uL (0-0.2); Basophils % (auto) 0.2 %; Eosinophils # (auto) 0.16 K/uL (0-0.5); Eosinophils % (auto) 2.6 %; Hematocrit (blood only) 43.1 % (37-47); Hemoglobin 13.7 g/dL (12.0-16.0); Immature Granulocytes # (auto) 0.01 K/uL (0.00-0.02); Immature Granulocytes % (auto) 0.2 %; Mean Corpuscular Hemoglobin 27.6 pg (25-34); Mean Corpuscular Hgb Conc 31.8 g/dL (32-36); Mean Corpuscular Volume 86.7 fL (80-100); Mean Platelet Volume 10.3 fL (7.4-10.4); Monocytes % (auto) 6.5 %; Neutrophils # (auto) 4.31 K/uL (1.4-6.5); Neutrophils % (auto) 69.5 %; Platelet Count 293 K/uL (130-400); RDW Coefficient of Variation 15.5 % (11.5-14.5); RDW Standard Deviation 49.2 fL (36.4-46.3); Red Blood Count 4.97 M/uL (4.2-5.4); White Blood Count 6.19 K/uL (4.8-10.8)
[2020-07-06 15:40] LABS: Alanine Aminotransferase 76 U/L (12-78); Albumin Level 4.1 gm/dl (3.4-5.0); Aspartate Aminotransferase 29 U/L (15-37); BUN Creatinine Ratio 12.2 (10-20); Blood Urea Nitrogen 11 mg/dl (7-18); Calcium 9.4 mg/dl (8.5-10.1); Carbon Dioxide 34 mmol/L (21-32); Chloride 99 mmol/L (98-107); Creatinine Clr Calc Pharmacy 130.9 ml/min; Est GFR (African American) 86.9 ml/min; Glucose 176 mg/dl (70-99); Lipase 168 U/L (73-393); Magnesium 1.9 mg/dl (1.8-2.4); Potassium 3.2 mmol/L (3.5-5.1); Sodium 140 mmol/L (136-145)
--- NOTE | 2020-07-06 15:43 | Cardiology Consultation ---
Date of Consultation July 06, 2020 Assessment & Plan (1) Atrial flutter with rapid ventricular response: ECGs reviewed demonstrating atrial flutter. Heart alert canceled. Patient is currently pain-free and resting comfortably. No dyspnea at rest. Continue amiodarone, diltiazem, apixaban, and Toprol-XL as previously ordered. Risk, benefit, alternatives to repeat external direct-current cardioversion discussed. Patient agreeable. She has been adequately anticoagulated with apixaban uninterrupted. Elective external direct-current cardioversion will be scheduled in a.m. (2) Paroxysmal atrial fibrillation: Status post cardioversion 07/03/2020. Continue cardiovascular medications as noted above. (3) Acute on chronic heart failure with preserved ejection fraction (HFpEF): Patient appears compensated. Continue Lasix 40 mg daily. Replace potassium as indicated. Recommend 40 mEq of supplemental potassium. I will write for an additional 20 mEq IV x1 now for a total of 30 mEq IV. She may rec eive oral potassium supplementation if nausea resolves. Maintain serum potassium level greater than 4.0. Maintain serum magnesium level greater than 2.0. History of Present Illness Reason for Consultation: Heart Alert Atrial Flutter Requesting Physician: Dr. Ellis Attending Physician: Dr. Ellis History of Present Illness 54-year-old female with a history of paroxysmal atrial fibrillation dating back to February 2020. Evaluated by the undersigned in May due to symptomatic paroxysmal atrial fibrillation. During that visit a rate control strategy was initiated with metoprolol and diltiazem. She was readmitted with symptomatic atrial fibrillation with initiation of flecainide approximately 10 days later. Due to QT prolongation, flecainide was discontinued. She then followed up with electrophysiology who ordered amiodarone 400 mg twice daily. Direct-current cardioversion was performed 07/03/2020 successfully with 200 J. Amiodarone 400 mg twice daily continued. She has been anticoagulated without interruption. Evaluated her primary care physician's office today for routine follow-up. Complained of shortness of breath and substernal chest discomfort with fatigue for 2 days. ECG performed in clinic demonstrating atrial flutter, however, computer read suggesting possible acute ST elevation ND. She was sent via EMS to the emergency department where again ECG confirms atrial flutter. Most recent echocardiogram performed 05/30/2020 demonstrates preserved LV systolic function with mild concentric left ventricular hypertrophy, mild mitral regurgitation. Mild left atrial dilatation. Currently patient resting comfortably. States "I have not felt right since cardioversion". Evaluated at [facility] on Monday. Told she had mild CHF and Lasix was increased to 40 mg daily. Chronic pedal edema unchanged. No orthopnea or PND. Previously noted chest discomfort has resolved. Notes dyspnea on exertion unchanged for several weeks. Functional capacity remains limited. Denies lightheadedness, dizziness, syncope, or near syncope. Feeling nauseated today. Received 1 dose of IV Zofran in route. Nausea has improved. Blood pressure is elevated. Reports compliance with current cardiovascular medications including amiodarone, diltiazem, metoprolol, and Eliquis. Allergies Allergy/AdvReac Type Severity Reaction Status Date / Time No Known Allergies Allergy Verified 07/06/20 15:19 Home Medications Medication Instructions Recorded Confirmed Type gabapentin 400 mg PO HS 04/14/20 07/06/20 History lamotrigine 100 mg PO BID 04/14/20 07/06/20 History metformin 500 mg PO BID 04/14/20 07/06/20 History Eliquis 5 mg PO BID #60 tab 04/15/20 07/06/20 Rx duloxetine 30 mg PO DAILY 05/08/20 07/06/20 History lisinopril 40 mg PO DAILY 05/08/20 07/06/20 History furosemide 20 mg PO QAM #30 tab 06/01/20 07/06/20 Rx metoprolol succinate 75 mg PO BID 30 Days #90 tab 06/11/20 07/06/20 Rx amiodarone 400 mg PO BID 07/06/20 07/06/20 History diltiazem HCl 90 mg PO TID 07/06/20 07/06/20 History Patient History Medical History Bipolar disorder DM type 2 (diabetes mellitus, type 2) Dyslipidemia HTN (hypertension) Hx of lymphoma, non-Hodgkins 2014 - 6 cycles of CHOP 2018 - 3 cycles of brentuximab and radiation Obesity MEIR (obstructive sleep apnea) Prolonged QT interval Surgical History History of parotid gland removal Family History Denies family history of Heart disease Social History Smoking Status: Never smoker Tobacco Type: Cigarettes Second Hand Exposure: No; Hx Alcohol Use: No Hx Substance Use: No Preferred Language: Cymro Communication Ability: Effective Broke Handler Required: No Beliefs That Will Affect Care: None Current Living Situation: Family Feels Safe at Home: Yes Assistive Devices: CPAP and Glasses Review of Systems Review of Systems: All systems reviewed & are unremarkable except as noted in Subjective Physical Exam Constitutional: + morbidly obese; no acute distress Respiratory: no respiratory distress, no labored breathing and no retractions Auscultation: no crackles, no rales, no rhonchi and no wheezes Cardiovascular: Rate/Rhythm: regular rate and + tachycardic Heart Sounds: normal S1 and normal S2; no murmur Vessels: no JVD Extremities: + edema (Trace bilateral pedal edema.) Gastrointestinal (Abdomen): Inspection/Auscultation: abdomen normal to ins pection and normal bowel sounds; abdomen not distended Percussion/Palpation: abdomen soft; abdomen nontender, no guarding and abdomen not rigid Neurologic: CN's II-XI intact bilaterally and moves all extremities; no focal motor deficits Motor/Sensory: no tremor Psychiatric: Orientation: alert, oriented x 3 and cooperative Results & Data ([place]) Vital Signs (Past 12 Hours) Vital Signs Temp Pulse Resp BP Pulse Ox 07/06/20 15:28 36.8 C 106 H 22 146/114 H 96 07/06/20 15:27 96 07/06/20 15:26 96
[2020-07-06 15:44] LABS: INR 1.1 (0.9-1.1); Partial Thromboplastin Time 26.3 Seconds (21.0-31.0); Prothrombin Time 10.9 Seconds (9.0-12.0)
[2020-07-06] MEDS ORDERED: POTASSIUM CHLORIDE / WTR 10 MEQ/100 ML PLCT IV ONE ×2 (15:47→16:47)
[2020-07-06 15:50] LABS: Alkaline Phosphatase 110 U/L (45-117); Bilirubin,Total 0.9 mg/dl (0.2-1); Creatine Kinase 109 U/L (26-192); Globulin 4.2 gm/dl (2.5-4.0); Total Protein 8.3 gm/dl (6.4-8.2); Troponin I < 0.015 ng/ml (0-0.045)
[2020-07-06] MEDS ORDERED: MAGNESIUM SULFATE / D5W 1 GM/100 ML BAG IV ONE (16:14)
[2020-07-06] MEDS ORDERED: ACETAMINOPHEN 325 MG TAB PO PRN (16:23)
--- NOTE | 2020-07-06 16:37 | XRay Report ---
XR chest 1V portable CLINICAL HISTORY: Chest pain COMPARISON STUDY: Chest radiograph June 11, 2020. FINDINGS: Exam is compromised by suboptimal penetration. Cardiomegaly is unchanged. There is no pneum othorax or pleural effusion. No consolidation is identified. There may be pulmonary vascular congesti on. IMPRESSION: 1. Cardiomegaly. Possible pulmonary vascular congestion. 2. No consolidation identified. ACT 112: Negative or not required by law. Electronically signed by: Pool Mc M.D. 07/06/2020 4:36 PM
--- NOTE | 2020-07-06 16:50 | Emergency Department Note ---
Impression & Plan Left-sided chest pain, Atrial flutter with rapid ventricular response, Nausea, Hypokalemia ED Provider Note INFORMANT: Patient ED PROVIDER(S): Tawanda Jansen MD CHIEF COMPLAINT: Chest pain PLAN: Disposition: Admitted Condition: Good Outpatient prescription management: none Referral: None MEDICAL DECISION MAKING: Patient presented to the ER and was made a heart alert. A repeat ECG was performed and appeared to be improved. Prehospital ECG review seems to be more consistent with atrial flutter rather than true ST elevation. The patient's CBC and chemistry panel unremarkable except for mild hypokalemia. Troponin is negative. She was given Reglan and Benadryl for her nausea. She was evaluated in ER by Dr. Watkins of interventional cardiology. He felt that the issue was mor e related to the patient's a flutter and not a true acute [place]. Emergent intervention was felt to be not necessary. He did consult with Dr. Mojica of cardiology who also evaluated the patient in the ER. It was felt that hospitalist admission was appropriate. He will likely cardiovert the patient tomorrow. Patient was found to be mildly hypokalemic and this was treated with IV potassium. I did consult with Dr. Oliva of the [facility] hospitalist service. Patient was evaluated in ER admitted for further management. Triage Nursing notes reviewed and agree them. Vital Signs: reviewed and remarkable for borderline tachycardic heart rate. Mild hypertension Differential diagnosis: Cardiac ischemia, dysrhythmia aortic dissection, pulmonary embolism, pneumothorax, pneumonia, pericarditis, myocarditis, esophageal rupture, GERD, cholecystitis, pancreatitis, musculoskeletal, as well as other pathologies. Diagnostics interpreted by me: ECG: Twelve-lead ECG reveals atrial flutter with variable block at 100 bpm. Low voltage QRS. Inferior ST abnormality present. Normal QTC. Cardiac Monitoring: Cardiac monitoring ordered by me: The patient was placed on continuous cardiac monitoring and observed. It revealed atrial flutter at 104 bpm. Imaging studies: Chest x-ray. Findings: A chest x-ray was performed and revealed no pneumothorax, effusion, infiltrate, pulmonary edema, free air under the diaphragm, or wide mediastinum. Impression: No acute disease. HPI: The patient is a 54 year old female who presents to the Emergency Room with complaints of left-sided chest pain. This started yesterday and is persisting. The patient also notes the following associated symptoms, nausea, diaphoresis, mild cough, mild shortness of breath fatigue. The patient has been given Zofran and morphine by EMS for relieving factors. Current pain is rated as 2/10. Patient has had problems recently with atrial fibrillation. She has had several cardioversions. She is anticoagulated on Eliquis. The prehospital ECG had raise concerns for subtle ST elevation inferiorly. In conjunction with her symptoms they contacted medical command for possible heart alert. Pt denies LOC, headache, fevers, chills, visual changes, neck pain, vomiting, abdominal pain, back pain, melena, hematochezia, urinary symptoms, numbness, weakness, lymphadenopathy, rash, or other complaints. ROS: See above HPI for pertinent positives & negatives. A total of 10 systems reviewed and were otherwise negative. PAST MEDICAL HISTORY:See Below , atrial fibrillation PAST SURGICAL HISTORY:See Below, cardioversion FAMILY HISTORY:See Below SOCIAL HISTORY:See Below, non-smoker HOME MEDICATIONS:See Below ALLERGIES:See Below VITALS:See Below PHYSICAL EXAMINATION: GENERAL: Awake, alert, uncomfortable-appearing, in no distress HENT: Normocephalic, atraumatic. Oropharynx unremarkable. EYES: Normal conjunctiva. Sclera non-icteric. NECK: Inspection normal. Non-tender. Supple. No nuchal rigidity. FROM. No masses. RESPIRATORY: Clear to auscultation. No wheezes. No rales. Normal respiratory effort. CARDIAC: Borderline tachycardic rate. Irregular rhythm. No murmurs. No rubs. Extremities warm and well perfused. Pulses equal. No JVD. GI: Soft, non-distended. No tenderness to palpation. No rebound or guarding. No masses. RECTAL: Deferred. MUSCULOSKELETAL: Atraumatic. Chest examination reveals no tenderness. The back is symmetrical on inspection without obvious abnormality. There is no CVA tenderness to palpation. No joint edema. LOWER EXTREMITIES: Calves are equal size bilaterally and non-tender. 1+ edema. No discoloration. NEURO: Normal sensorium. No sensory or motor deficits noted. SKIN: No rash or jaundice noted. Tawanda Jansen MD Past Med/Surg History Medical History Bipolar disorder DM type 2 (diabetes mellitus, type 2) Dyslipidemia HTN (hypertension) Hx of lymphoma, non-Hodgkins 2014 - 6 cycles of CHOP 2018 - 3 cycles of brentuximab and radiation Obesity MEIR (obstructive sleep apnea) Prolonged QT interval Surgical History History of parotid gland removal Family History Denies family history of Heart disease Social History Smoking Status: Never smoker Tobacco Type: Cigarettes Second Hand Exposure: No; Hx Alcohol Use: No Hx Substance Use: No Preferred Language: Bahraini Communication Ability: Effective Wood Floor Refinisher Required: No Beliefs That Will Affect Care: None Current Living Situation: Family Feels Safe at Home: Yes Assistive Devices: CPAP and Glasses Allergies Allergies Allergy/AdvReac Type Severity Reaction Status Date / Time No Known Allergies Allergy Verified 07/06/20 15:19 Home Meds Home Medications Medication Instructions Recorded Confirmed gabapentin 400 mg PO HS 04/14/20 07/06/20 lamotrigine 100 mg PO BID 04/14/20 07/06/20 metformin 500 mg PO BID 04/14/20 07/06/20 duloxetine 30 mg PO DAILY 05/08/20 07/06/20 lisinopril 40 mg PO DAILY 05/08/20 07/06/20 amiodarone 400 mg PO BID 07/06/20 07/06/20 diltiazem HCl 90 mg PO TID 07/06/20 07/06/20 metoprolol succinate [Toprol XL] 150 mg PO BID 07/06/20 07/06/20 Previous Rx's Medication Instructions Recorded Eliquis 5 mg PO BID #60 tab 04/15/20 furosemide 20 mg PO QAM #30 tab 06/01/20 Results & Data (ED) Vital Signs Vital Signs - 24 hr 07/06/20 15:06 07/06/20 15:10 07/06/20 15:11 Temperature Temperature Source Pulse Rate 110 H 110 H 98 H Pulse Rate from SpO2 Sensor 110 H 110 H 101 H Respiratory Rate 22 14 20 Respiratory Effort / Characteristics Respiratory Depth Respiratory Pattern Blood Pressure 146/114 H 152/112 H Blood Pressure Mean 124 125 Blood Pressure Position Pulse Oximetry 98 96 97 Oxygen Delivery Method Room Air Room Air Room Air Sepsis Recent Fever Within 48 Hours Sepsis New/Unexplained Change in Mental Status Sepsis Action Taken by Nursing 07/06/20 15:16 07/06/20 15:20 07/06/20 15:21 Temperature Temperature Source Pulse Rate 111 H 112 H 112 H Pulse Rate from SpO2 Sensor 112 H 112 H 112 H Respiratory Rate 24 18 21 Respiratory Effort / Characteristics Respiratory Depth Respiratory Pattern Blood Pressure 156/112 H 154/108 H Blood Pressure Mean 126 123 Blood Pressure Position Pulse Oximetry 95 92 91 Oxygen Delivery Method Room Air Room Air Room Air Sepsis Recent Fever Within 48 Hours Sepsis New/Unexplained Change in Mental Status Sepsis Action Taken by Nursing 07/06/20 15:26 07/06/20 15:27 07/06/20 15:28 Temperature 36.8 C Temperature Source Oral Pulse Rate 111 H 106 H Pulse Rate from SpO2 Sensor 111 H Respiratory Rate 23 22 Respiratory Effort / Characteristics Non-Labored Spontaneous Respiratory Depth Normal Respiratory Pattern Regular Blood Pressure 128/93 146/114 H Blood Pressure Mean 104 124 Blood Pressure Position Sitting Pulse Oximetry 95 96 96 Oxygen Delivery Method Room Air Room Air Room Air Sepsis Recent Fever Within 48 Hours No Sepsis New/Unexplained Change in Mental Status N/A Sepsis Action Taken by Nursing No Action Required 07/06/20 15:30 07/06/20 15:31 07/06/20 15:36 Temperature Temperature Source Pulse Rate 111 H 112 H 112 H Pulse Rate from SpO2 Sensor 112 H 112 H 112 H Respiratory Rate 22 21 19 Respiratory Effort / Characteristics Respiratory Depth Respiratory Pattern Blood Pressure 150/107 H 139/104 H Blood Pressure Mean 121 115 Blood Pressure Position Pulse Oximetry 96 94 96 Oxygen Delivery Method Room Air Room Air Room Air Sepsis Recent Fever Within 48 Hours Sepsis New/Unexplained Change in Mental Status Sepsis Action Taken by Nursing 07/06/20 15:40 07/06/20 15:41 07/06/20 15:46 Temperature Temperature Source Pulse Rate 112 H 112 H 111 H Pulse Rate from SpO2 Sensor 113 H 112 H 111 H Respiratory Rate 18 21 21 Respiratory Effort / Characteristics Respiratory Depth Respiratory Pattern Blood Pressure 134/105 H 131/106 H Blood Pressure Mean 114 114 Blood Pressure Position Pulse Oximetry 93 93 94 Oxygen Delivery Method Room Air Room Air Room Air Sepsis Recent Fever Within 48 Hours Sepsis New/Unexplained Change in Mental Status Sepsis Action Taken by Nursing 07/06/20 15:50 07/06/20 15:51 07/06/20 16:33 Temperature Temperature Source Pulse Rate 111 H 112 H 112 H Pulse Rate from SpO2 Sensor 111 H 110 H 113 H Respiratory Rate 15 22 22 Respiratory Effort / Characteristics Respiratory Depth Respiratory Pattern Blood Pressure 129/106 H Blood Pressure Mean 149 113 Blood Pressure Position Pulse Oximetry 94 91 95 Oxygen Delivery Method Room Air Sepsis Recent Fever Within 48 Hours Sepsis New/Unexplained Change in Mental Status Sepsis Action Taken by Nursing 07/06/20 17:11 07/06/20 17:30 07/06/20 18:00 Temperature Temperature Source Pulse Rate 98 H 113 H 111 H Pulse Rate from SpO2 Sensor 104 H 113 H 111 H Respiratory Rate 28 H 17 17 Respiratory Effort / Characteristics Respiratory Depth Respiratory Pattern Blood Pressure 154/98 H 162/122 H 149/113 H Blood Pressure Mean 116 135 125 Blood Pressure Position Pulse Oximetry 95 99 99 Oxygen Delivery Method Sepsis Recent Fever Within 48 Hours Sepsis New/Unexplained Change in Mental Status Sepsis Action Taken by Nursing Laboratory Data Result diagrams: 07/06/20 14:30 07/06/20 14:30 Lab Results 07/06/20 07/06/20 07/06/20 Range/Units 14:30 14:30 14:30 WBC 6.19 (4.8-10.8) K/uL RBC 4.97 (4.2-5.4) M/uL Hgb 13.7 (12.0-16.0) g/dL Hct 43.1 (37-47) % MCV 86.7 (80-100) fL MCH 27.6 (25-34) pg MCHC 31.8 L (32-36) g/dL RDW Std Deviation 49.2 H (36.4-46.3) fL RDW Coeff of Ida 15.5 H (11.5-14.5) % Plt Count 293 (130-400) K/uL MPV 10.3 (7.4-10.4) fL Immature Gran % (Auto) 0.2 % Neut % (Auto) 69.5 % Lymph % (Auto) 21.0 % Gilliam % (Auto) 6.5 % Eos % (Auto) 2.6 % Baso % (Auto) 0.2 % Neut # (Auto) 4.31 (1.4-6.5) K/uL Lymph # (Auto) 1.30 (1.2-3.4) K/uL Gilliam # (Auto) 0.40 (0.11-0.59) K/uL Eos # (Auto) 0.16 (0-0.5) K/uL Baso # (Auto) 0.01 (0-0.2) K/uL Immature Gran # (Auto) 0.01 (0.00-0.02) K/uL PT 10.9 (9.0-12.0) Seconds INR 1.1 (0.9-1.1) APTT 26.3 (21.0-31.0) Seconds PTT Ratio 1.0 Sodium 140 (136-145) mmol/L Potassium 3.2 L (3.5-5.1) mmol/L Chloride 99 (98-107) mmol/L Carbon Dioxide 34 H (21-32) mmol/L Anion Gap 7.0 (3-11) BUN 11 (7-18) mg/dl Creatinine 0.88 (0.6-1.2) mg/dl Est Cr Clr Drug Dosing 130.9 ml/min Est GFR ( Amer) 86.9 ml/min Est GFR (Non-Af Amer) 75.0 ml/min BUN/Creatinine Ratio 12.2 (10-20) Glucose 176 H (70-99) mg/dl Calcium 9.4 (8.5-10.1) mg/dl Magnesium 1.9 (1.8-2.4) mg/dl Total Bilirubin 0.9 (0.2-1) mg/dl AST 29 (15-37) U/L ALT 76 (12-78) U/L Alkaline Phosphatase 110 (45-117) U/L Total Creatine Kinase 109 (26-192) U/L CK-MB (CK-2) 1.0 (0.5-3.6) ng/ml CK/CKMB % Calc 0.9 (0-3.0) Troponin I < 0.015 (0-0.045) ng/ml Total Protein 8.3 H (6.4-8.2) gm/dl Albumin 4.1 (3.4-5.0) gm/dl Globulin 4.2 H (2.5-4.0) gm/dl Albumin/Globulin Ratio 1.0 (0.9-2) Lipase 168 (73-393) U/L TSH 2.710 (0.300-4.500) uIu/ml COVID-19 Eval Order SARS-CoV-2 (PCR) (Negative) 07/06/20 07/06/20 Range/Units 15:38 15:38 WBC (4.8-10.8) K/uL RBC (4.2-5.4) M/uL Hgb (12.0-16.0) g/dL Hct (37-47) % MCV (80-100) fL MCH (25-34) pg MCHC (32-36) g/dL RDW Std Deviation (36.4-46.3) fL RDW Coeff of Ida (11.5-14.5) % Plt Count (130-400) K/uL MPV (7.4-10.4) fL Immature Gran % (Auto) % Neut % (Auto) % Lymph % (Auto) % Gilliam % (Auto) % Eos % (Auto) % Baso % (Auto) % Neut # (Auto) (1.4-6.5) K/uL Lymph # (Auto) (1.2-3.4) K/uL Gilliam # (Auto) (0.11-0.59) K/uL Eos # (Auto) (0-0.5) K/uL Baso # (Auto) (0-0.2) K/uL Immature Gran # (Auto) (0.00-0.02) K/uL PT (9.0-12.0) Seconds INR (0.9-1.1) APTT (21.0-31.0) Seconds PTT Ratio Sodium (136-145) mmol/L Potassium (3.5-5.1) mmol/L Chloride (98-107) mmol/L Carbon Dioxide (21-32) mmol/L Anion Gap (3-11) BUN (7-18) mg/dl Creatinine (0.6-1.2) mg/dl Est Cr Clr Drug Dosing ml/min Est GFR ( Amer) ml/min Est GFR (Non-Af Amer) ml/min BUN/Creatinine Ratio (10-20) Glucose (70-99) mg/dl Calcium (8.5-10.1) mg/dl Magnesium (1.8-2.4) mg/dl Total Bilirubin (0.2-1) mg/dl AST (15-37) U/L ALT (12-78) U/L Alkaline Phosphatase (45-117) U/L Total Creatine Kinase (26-192) U/L CK-MB (CK-2) (0.5-3.6) ng/ml CK/CKMB % Calc (0-3.0) Troponin I (0-0.045) ng/ml Total Protein (6.4-8.2) gm/dl Albumin (3.4-5.0) gm/dl Globulin (2.5-4.0) gm/dl Albumin/Globulin Ratio (0.9-2) Lipase (73-393) U/L TSH (0.300-4.500) uIu/ml COVID-19 Eval Order Covid19 at [facility] SARS-CoV-2 (PCR) NEGATIVE (Negative) Administered Medications Discontinued Medications Fentanyl Citrate (Fentanyl Citrate 100 Mcg/2 Ml Vial) Confirm Administered Dose 100 mcg .ROUTE .STK-MED ONE Stop: 07/06/20 15:06 Last Admin: 07/06/20 16:09 Dose: Not Given Documented by: [id number] Heparin Sodium (Porcine) (Heparin (Porcine) 1000 Unit/Ml 10 Ml (Uranium Processing Supervisor Use Only)) Confirm Administered Dose 10,000 units .ROUTE .STK-MED ONE Stop: 07/06/20 15:06 Last Admin: 07/06/20 16:09 Dose: Not Given Documented by: [id number] Heparin Sodium/Sodium Chloride (Heparin In Nss Infusion 1000 Unit/500 Ml (2 U/Ml) Bag) Confirm Administered Dose 3,000 units IV .STK-MED ONE Stop: 07/06/20 15:06 Last Admin: 07/06/20 16:09 Dose: Not Given Documented by: [id number] Diphenhydramine HCl 12.5 mg/ (Syringe) 0.25 mls @ 1 mls/hr IV NOW STA Stop: 07/06/20 15:30 Last Admin: 07/06/20 16:39 Dose: Not Given Documented by: [id number] Potassium Chloride (K Stanford / Wtr) 10 meq in 100 mls @ 100 mls/hr IV ONE ONE Stop: 07/06/20 16:46 Last Infusion: 07/06/20 17:11 Dose: 0 mls/hr Documented by: [id number] Admin: 07/06/20 16:11 Dose: 100 mls/hr Documented by: [id number] Potassium Chloride (K Stanford / Wtr) 10 meq in 100 mls @ 100 mls/hr IV ONE ONE Stop: 07/06/20 17:46 Last Admin: 07/06/20 17:19 Dose: 100 mls/hr Documented by: [id number] Magnesium Sulfate/Dextrose (Magnesium Sulfate / D5w) 1 gm in 100 mls @ 50 mls/hr IV ONE ONE Stop: 07/06/20 18:13 Last Infusion: 07/06/20 17:40 Dose: 0 mls/hr Documented by: [id number] Admin: 07/06/20 16:41 Dose: 50 mls/hr Documented by: [id number] Metoclopramide HCl (Metoclopramide Hcl Inj 5 Mg/Ml 2 Ml Vial) 10 mg IV NOW STA Stop: 07/06/20 15:17 Last Admin: 07/06/20 15:27 Dose: 10 mg Documented by: [id number] Midazolam HCl (Midazolam Hcl 1 Mg/Ml 2ml Vial) Confirm Administered Dose 2 mg .ROUTE [email or web address] ONE Stop: 07/06/20 15:06 Last Admin: 07/06/20 16:09 Dose: Not Given Documented by: [id number] Nicardipine HCl (Nicardipine Hcl Inj 2.5 Mg/Ml 10 Ml Amp) Confirm Administered Dose 25 mg .ROUTE [email or web address] ONE Stop: 07/06/20 15:06 Last Admin: 07/06/20 16:08 Dose: Not Given Documented by: [id number] Nitroglycerin/Dextrose (Nitroglycerin/D5w 100mcg/Ml 20ml Syr) Confirm Administered Dose 2,000 mcg .ROUTE [email or web address] ONE Stop: 07/06/20 15:07 Last Admin: 07/06/20 16:08 Dose: Not Given Documented by: [id number] Imaging Data Radiologist's Impression: Chest X-Ray 07/06/20 15:15 XR chest 1V portable CLINICAL HISTORY: Chest pain COMPARISON STUDY: Chest radiograph June 11, 2020. FINDINGS: Exam is compromised by suboptimal penetration. Cardiomegaly is unchanged. There is no pneumothorax or pleural effusion. No consolidation is identified. There may be pulmonary vascular congestion. IMPRESSION: 1. Cardiomegaly. Possible pulmonary vascular congestion. 2. No consolidation identified. ACT 112: Negative or not required by law. Electronically signed by: Pool Mc M.D. 07/06/2020 4:36 PM Discharge Plan Visit Data Chief Complaint: Cardiac Assessment ED Provider: Tawanda Jansen Discharge Problem: Left-sided chest pain, Atrial flutter with rapid ventricular response, Nausea, Hypokalemia Forms Stand Alone Forms: [facility] Prescriptions Prescriptions: No Action gabapentin 400 mg capsule 400 mg PO HS RF: 0 metformin 500 mg tablet extended release 24 hr 500 mg PO BID RF: 0 lamotrigine 100 mg tablet 100 mg PO BID RF: 0 Eliquis 5 mg tablet 5 mg PO BID Qty: 60 RF: 0 lisinopril 40 mg tablet 40 mg PO DAILY RF: 0 duloxetine 30 mg capsule,delayed release(DR/EC) 30 mg PO DAILY RF: 0 amiodarone 200 mg tablet 400 mg PO BID RF: 0 diltiazem HCl 90 mg tablet 90 mg PO TID RF: 0 metoprolol succinate [Toprol XL] 100 mg Tablet Extended Release 24 Hr 150 mg PO BID RF: 0 furosemide 20 mg Tablet 20 mg PO QAM Qty: 30 RF: 0
--- NOTE | 2020-07-06 17:02 | History & Physical Report ---
Date of Service July 06, 2020 Assessment & Plan (1) Atrial flutter with rapid ventricular response: (2) Paroxysmal atrial fibrillation: Patient presents with shortness of breath, chest pain and palpitations from her PCP office - was made a heart alert -Found to have atrial flutter with RVR in ED -Replete electrolytes, keep potassium above 4, magnesium above 2 -She has history of paroxysmal A. fib, and underwent several cardioversions in the past -Trial of flecainide was done as well for A. fib, however her QTC prolonged with medication and so it had to be stopped -was seen by EP, and was started on amiodarone, her last cardioversion was on July 03 -Cardiology consulted, plan for cardioversion in the morning, continue her home medications, which are metoprolol 150 twice daily, diltiazem 90 TID, amiodarone 400 twice daily, continue Eliquis 5 mg twice daily -N.p.o. after midnight -Continue to closely monitor on telemetry Chronic CHF w/ preserved EF HTN -Recently Lasix was increased from 20 daily to 40 mg daily -Seems euvolemic on exam -Continue current dose of lasix, 40 mg daily, and home lisinopril -Monitor I's and O's -Replete electrolytes as needed, as above -monitor BP (3) Hypokalemia: -Potassium 3.2 on admission -Replete and monitor (4) DM type 2 (diabetes mellitus, type 2): -Hemoglobin A1c 7.2 in April 2020 - hold home Metformin, SSI while inpatient, monitor blood glucose AC HS (5) Bipolar disorder: -Continue home Lamictal, Cymbalta (6) MEIR (obstructive sleep apnea): - CPAP HS (7) Morbid obesity: -BMI 56 -Chief Revenue Officer on lifestyle changes Code: Full DVT ppx: On Eliquis Dispo: Admit to PCU, patient admitted from home, plan to discharge home when medically stable History of Present Illness Chief Complaint: shortness of breath, chest pain, Aflutter w/ RVR Primary Care Provider: Osmani Estrella MD Mrs. Olmos is a 54-year-old female with history of diabetes mellitus type 2, sleep apnea, hypertension, dyslipidemia, bipolar disorder, non-Hodgkin lymphoma in remission, obesity, paroxysmal A. fib who presents with chest pain, shortness of breath, and found to be in atrial flutter with RVR. Patient was recently admitted at [facility] due to A. fib with RVR, trial of flecainide was done however her QTC was prolonged and so the medication had to be stopped however patient underwent successful synchronized electrical cardioversion with Dr. Camacho. Unfortunately she went back into A. fib again after her hospital discharge, was seen by spanish lecturer, and was started on amiodarone, and underwent another cardioversion on July 03. She presented today at her PCPs office because she was having dyspnea with exertion, palpitations and chest pain. In the office EKG was done, showing atrial flutter, however also concerning for ST elevations in leads II, III, aVF, and ST depressions in leads V1 and V2. She was therefore sent to ED for further evaluation. Patient was made a heart alert, and evaluated in the ED by net fisher, it was determined that her symptoms are due to atrial flutter with RVR, and heart alert was canceled, and she was then seen by [facility] general tracer clerk. Patient was having severe nausea on presentation, and was given antiemetics in the ED. She was also found hypokalemic, presumably due to increased furosemide dose recently, and potassium was replaced. Currently patient is feeling better, denies chest pain, palpitations, shortness of breath also reports that nausea has been well controlled now. Per cardiology, plan for cardioversion in the morning. Allergies Allergy/AdvReac Type Severity Reaction Status Date / Time No Known Allergies Allergy Verified 07/06/20 15:19 Home Medications Medication Instructions Recorded Confirmed Type gabapentin 400 mg PO HS 04/14/20 07/06/20 History lamotrigine 100 mg PO BID 04/14/20 07/06/20 History metformin 500 mg PO BID 04/14/20 07/06/20 History Eliquis 5 mg PO BID #60 tab 04/15/20 07/06/20 Rx duloxetine 30 mg PO DAILY 05/08/20 07/06/20 History lisinopril 40 mg PO DAILY 05/08/20 07/06/20 History furosemide 20 mg PO QAM #30 tab 06/01/20 07/06/20 Rx amiodarone 400 mg PO BID 07/06/20 07/06/20 History diltiazem HCl 90 mg PO TID 07/06/20 07/06/20 History metoprolol succinate [Toprol XL] 150 mg PO BID 07/06/20 07/06/20 History Past Med/Surg History Medical History Bipolar disorder DM type 2 (diabetes mellitus, type 2) Dyslipidemia HTN (hypertension) Hx of lymphoma, non-Hodgkins 2014 - 6 cycles of CHOP 2018 - 3 cycles of brentuximab and radiation Obesity MEIR (obstructive sleep apnea) Prolonged QT interval Surgical History History of parotid gland removal Family History Denies family history of Heart disease Social History Smoking Status: Never smoker Tobacco Type: Cigarettes Second Hand Exposure: No; Hx Alcohol Use: No Hx Substance Use: No Preferred Language: Azeri Communication Ability: Effective Pediatric Care Coordinator Required: No Beliefs That Will Affect Care: None Current Living Situation: Family Feels Safe at Home: Yes Assistive Devices: CPAP and Glasses Review of Systems Review of Systems: All systems reviewed & are unremarkable except as noted in HPI & below Constitutional: no fever and no chills Eyes: no problem reported Ear, Nose, Mouth, Throat: no problem reported Respiratory: no problem reported Cardiovascular: + palpitations and + edema; no chest pain Gastrointestinal: + nausea; no abdominal pain and no vomiting Genitourinary: no problem reported Musculoskeletal: no problem reported Integumentary: no problem reported Neurologic: no problem reported Psychiatric: no problem reported Endocrine: no problem reported Hematologic / Lymphatic: no problem reported Allergy / Immunological: no problem reported Physical Exam 2 Constitutional: WD/WN, vitals as above + morbidly obese Eyes: PERRL, conjunctivae normal, anicteric sclerae ENMT: external ear and nose normal, oropharynx normal Neck: normal visual inspection and + thick neck Respiratory: normal respiratory effort, lungs clear to auscultation Auscultation: no crackles, no rhonchi and no wheezes Cardiovascular: Rate/Rhythm: + tachycardic Heart Sounds: no murmur Vessels: no JVD Extremities: + edema (pedal b/l) Chest (Breasts): Chest: normal inspection of chest Gastrointestinal (Abdomen): normal bowel sounds, soft, nontender, no hepatosplenomegaly Musculoskeletal: Head/Neck/Chest: normocephalic and head atraumatic Skin: no rashes, warm and dry Neurologic: PERRL, EOMI, accommodation nl, no face palsy, no dysarthria Psychiatric: A+Ox3, euthymic affect Genitourinary: no CVA tenderness Lymphatic: + lymphedema (mild pedal b/l) Results & Data Results & Data ([facility]) Vital Signs (Past 12 Hours) Vital Signs Temp Pulse Resp BP Pulse Ox 07/06/20 15:51 112 H 22 91 07/06/20 15:50 111 H 15 94 07/06/20 15:46 111 H 21 131/106 H 94 07/06/20 15:41 112 H 21 134/105 H 93 07/06/20 15:40 112 H 18 93 07/06/20 15:36 112 H 19 139/104 H 96 07/06/20 15:31 112 H 21 150/107 H 94 07/06/20 15:30 111 H 22 96 07/06/20 15:28 36.8 C 106 H 22 146/114 H 96 07/06/20 15:27 96 07/06/20 15:26 111 H 23 128/93 95 07/06/20 15:21 112 H 21 154/108 H 91 07/06/20 15:20 112 H 18 92 07/06/20 15:16 111 H 24 156/112 H 95 07/06/20 15:11 98 H 20 152/112 H 97 07/06/20 15:10 110 H 14 96 07/06/20 15:06 110 H 22 146/114 H 98 Laboratory Results 07/06/20 07/06/20 07/06/20 Range/Units 15:38 15:38 14:30 WBC (4.8-10.8) K/uL RBC (4.2-5.4) M/uL Hgb (12.0-16.0) g/dL Hct (37-47) % MCV (80-100) fL MCH (25-34) pg MCHC (32-36) g/dL RDW Std Deviation (36.4-46.3) fL RDW Coeff of Ida (11.5-14.5) % Plt Count (130-400) K/uL MPV (7.4-10.4) fL Immature Gran % (Auto) % Neut % (Auto) % Lymph % (Auto) % Collin % (Auto) % Eos % (Auto) % Baso % (Auto) % Neut # (Auto) (1.4-6.5) K/uL Lymph # (Auto) (1.2-3.4) K/uL Collin # (Auto) (0.11-0.59) K/uL Eos # (Auto) (0-0.5) K/uL Baso # (Auto) (0-0.2) K/uL Immature Gran # (Auto) (0.00-0.02) K/uL PT (9.0-12.0) Seconds INR (0.9-1.1) APTT (21.0-31.0) Seconds PTT Ratio Sodium 140 (136-145) mmol/L Potassium 3.2 L (3.5-5.1) mmol/L Chloride 99 (98-107) mmol/L Carbon Dioxide 34 H (21-32) mmol/L Anion Gap 7.0 (3-11) BUN 11 (7-18) mg/dl Creatinine 0.88 (0.6-1.2) mg/dl Est Cr Clr Drug Dosing 130.9 ml/min Est GFR ( Amer) 86.9 ml/min Est GFR (Non-Af Amer) 75.0 ml/min BUN/Creatinine Ratio 12.2 (10-20) Glucose 176 H (70-99) mg/dl Calcium 9.4 (8.5-10.1) mg/dl Magnesium 1.9 (1.8-2.4) mg/dl Total Bilirubin 0.9 (0.2-1) mg/dl AST 29 (15-37) U/L ALT 76 (12-78) U/L Alkaline Phosphatase 110 (45-117) U/L Total Creatine Kinase 109 (26-192) U/L CK-MB (CK-2) 1.0 (0.5-3.6) ng/ml CK/CKMB % Calc 0.9 (0-3.0) Troponin I < 0.015 (0-0.045) ng/ml Total Protein 8.3 H (6.4-8.2) gm/dl Albumin 4.1 (3.4-5.0) gm/dl Globulin 4.2 H (2.5-4.0) gm/dl Albumin/Globulin Ratio 1.0 (0.9-2) Lipase 168 (73-393) U/L TSH 2.710 (0.300-4.500) uIu/ml COVID-19 Eval Order Covid19 at [facility] SARS-CoV-2 (PCR) Pending 07/06/20 07/06/20 Range/Units 14:30 14:30 WBC 6.19 (4.8-10.8) K/uL RBC 4.97 (4.2-5.4) M/uL Hgb 13.7 (12.0-16.0) g/dL Hct 43.1 (37-47) % MCV 86.7 (80-100) fL MCH 27.6 (25-34) pg MCHC 31.8 L (32-36) g/dL RDW Std Deviation 49.2 H (36.4-46.3) fL RDW Coeff of Ida 15.5 H (11.5-14.5) % Plt Count 293 (130-400) K/uL MPV 10.3 (7.4-10.4) fL Immature Gran % (Auto) 0.2 % Neut % (Auto) 69.5 % Lymph % (Auto) 21.0 % Collin % (Auto) 6.5 % Eos % (Auto) 2.6 % Baso % (Auto) 0.2 % Neut # (Auto) 4.31 (1.4-6.5) K/uL Lymph # (Auto) 1.30 (1.2-3.4) K/uL Collin # (Auto) 0.40 (0.11-0.59) K/uL Eos # (Auto) 0.16 (0-0.5) K/uL Baso # (Auto) 0.01 (0-0.2) K/uL Immature Gran # (Auto) 0.01 (0.00-0.02) K/uL PT 10.9 (9.0-12.0) Seconds INR 1.1 (0.9-1.1) APTT 26.3 (21.0-31.0) Seconds PTT Ratio 1.0 Sodium (136-145) mmol/L Potassium (3.5-5.1) mmol/L Chloride (98-107) mmol/L Carbon Dioxide (21-32) mmol/L Anion Gap (3-11) BUN (7-18) mg/dl Creatinine (0.6-1.2) mg/dl Est Cr Clr Drug Dosing ml/min Est GFR ( Amer) ml/min Est GFR (Non-Af Amer) ml/min BUN/Creatinine Ratio (10-20) Glucose (70-99) mg/dl Calcium (8.5-10.1) mg/dl Magnesium (1.8-2.4) mg/dl Total Bilirubin (0.2-1) mg/dl AST (15-37) U/L ALT (12-78) U/L Alkaline Phosphatase (45-117) U/L Total Creatine Kinase (26-192) U/L CK-MB (CK-2) (0.5-3.6) ng/ml CK/CKMB % Calc (0-3.0) Troponin I (0-0.045) ng/ml Total Protein (6.4-8.2) gm/dl Albumin (3.4-5.0) gm/dl Globulin (2.5-4.0) gm/dl Albumin/Globulin Ratio (0.9-2) Lipase (73-393) U/L TSH (0.300-4.500) uIu/ml COVID-19 Eval Order SARS-CoV-2 (PCR) Diagnostic Findings CXR IMPRESSION: 1. Cardiomegaly. Possible pulmonary vascular congestion. 2. No consolidation identified.
--- NOTE | 2020-07-06 17:02 | Anesthesiology Consultation ---
Date of Service July 06, 2020 Assessment & Plan (1) Encounter for pre-operative examination: Chart Review Chart Review: data entry supervisor initiated History Surgery Operation Date: 07/06/20 15:15 Proposed Procedures p Cardiac Heart Alert - Thad Watkins MD Operation Date: 07/07/20 07:30 Proposed Procedures p Cardioversion [employer] Hand w/Anesthesia - Sathish Mojica DO Height/Weight Height: 5 ft 10 in Weight: 177.7 kg Allergies Allergy/AdvReac Type Severity Reaction Status Date / Time No Known Allergies Allergy Verified 07/06/20 15:19 Medications Home Medications Medication Instructions Recorded Confirmed Last Taken gabapentin 400 mg PO HS 04/14/20 07/06/20 07/05/20 lamotrigine 100 mg PO BID 04/14/20 07/06/20 07/06/20 08:00 metformin 500 mg PO BID 04/14/20 07/06/20 07/06/20 08:00 Eliquis 5 mg PO BID #60 tab 04/15/20 07/06/20 07/06/20 08:00 duloxetine 30 mg PO DAILY 05/08/20 07/06/20 07/06/20 lisinopril 40 mg PO DAILY 05/08/20 07/06/20 07/06/20 furosemide 20 mg PO QAM #30 tab 06/01/20 07/06/20 07/06/20 amiodarone 400 mg PO BID 07/06/20 07/06/20 07/06/20 08:00 diltiazem HCl 90 mg PO TID 07/06/20 07/06/20 07/06/20 08:00 metoprolol succinate [Toprol XL] 150 mg PO BID 07/06/20 07/06/20 07/06/20 09:00 Active Medications Generic Name Dose Route Start Last Admin Trade Name Freq PRN Reason Stop Dose Admin Magnesium Sulfate/Dextrose 1 gm in 100 mls @ 50 mls/hr 07/06/20 16:14 07/06/20 16:41 Magnesium Sulfate / D5w IV 07/06/20 18:13 50 mls/hr ONE ONE Administration Past Medical History Medical History Bipolar disorder DM type 2 (diabetes mellitus, type 2) Dyslipidemia HTN (hypertension) Hx of lymphoma, non-Hodgkins 2014 - 6 cycles of CHOP 2018 - 3 cycles of brentuximab and radiation Obesity MEIR (obstructive sleep apnea) Prolonged QT interval Past Family History Family History Denies family history of Heart disease Past Surgical History Surgical History History of parotid gland removal Social History Smoking Status: Never smoker Hx Alcohol Use: No Hx Substance Use: No substance use type: does not use Physical Exam Vital Signs Last Vital Signs Temp 98.2 F 07/06/20 15:28 Pulse 112 H 07/06/20 16:33 Resp 22 07/06/20 16:33 BP 129/106 H 07/06/20 16:33 Pulse Ox 95 07/06/20 16:33 Testing Laboratory Results 07/06/20 14:30 07/06/20 14:30 PT 10.9 Seconds (9.0-12.0) 07/06/20 14:30 INR 1.1 (0.9-1.1) 07/06/20 14:30 APTT 26.3 Seconds (21.0-31.0) 07/06/20 14:30 Electrocardiogram Date: 07/06/20 Atrial flutter with variable A-V block, rate 100 bpm Low voltage QRS Cannot rule out Anterior infarct , age undetermined T wave abnormality, consider inferior ischemia Abnormal ECG When compared with ECG of 11-JUN-2020 05:36, Atrial flutter has replaced Sinus rhythm Minimal criteria for Anterior infarct are now Present Nonspecific T wave abnormality now evident in Anterolateral leads QT has shortened Chest X-Ray Date: 07/06/20 IMPRESSION: 1. Cardiomegaly. Possible pulmonary vascular congestion. 2. No consolidation identified. Echocardiogram Date: 05/30/20 EF 55-60% Mild concentric LVH LA is mildly dilated Mild MR
--- NOTE | 2020-07-06 18:06 | Electrocardiogram Report ---
Test Reason : Blood Pressure : / mmHG Vent. Rate : 100 BPM Atrial Rate : 220 BPM P-R Int : 000 ms QRS Dur : 088 ms QT Int : 304 ms P-R-T Axes : 000 066 064 degrees QTc Int : 392 ms Atrial flutter with variable A-V block Low voltage QRS Poor R wave progression, consider anterior MO vs. lead placement vs. LVH T wave abnormality, consider inferior ischemia Abnormal ECG When compared with ECG of 11-JUN-2020 05:36, Atrial flutter has replaced Sinus rhythm Minimal criteria for Anterior infarct are now Present Nonspecific T wave abnormality now evident in Anterolateral leads QT has shortened Confirmed by Anish De Leon ([id number]) on 07/06/2020 6:06:21 PM Referred By: REFERRED SELF Confirmed By:Bora De Leon
[2020-07-06] MEDS ORDERED: GLUCAGON FOR INJ 1 MG VIAL SQ PRN (18:57)
[2020-07-06] MEDS ORDERED: DEXTROSE 50% 50 ML SYRINGE IV PRN (18:57)
[2020-07-06] MEDS ORDERED: GLUCOSE 10 TAB/TUBE PO PRN (18:57)
[2020-07-06] MEDS ORDERED: GLUCOSE 40% GEL 15 GM TUBE PO PRN (18:57)
[2020-07-06] MEDS ORDERED: CARBOHYDRATES FOR HYPOGLYCEMIA PO PRN (18:57)
[2020-07-06] MEDS ORDERED: METOPROLOL SUCC 50MG EXT REL TAB PO SCH (21:00)
[2020-07-06] MEDS: INSULIN ASPART 100 UNITS/ML 3 ML PEN SC SCH (22:13)
[2020-07-06] MEDS: AMIODARONE 200 MG TAB PO SCH (22:14)
[2020-07-06] MEDS: APIXABAN 5 MG TABLET PO SCH (22:14)
[2020-07-06] MEDS: dilTIAZem HCL 30 MG TAB PO SCH (22:15)
[2020-07-06] MEDS: GABAPENTIN 400 MG CAP PO SCH (22:15)
[2020-07-06] MEDS: METOPROLOL SUCC 50MG EXT REL TAB PO SCH (22:16)
[2020-07-06] MEDS: lamoTRIgine 100 MG TAB PO SCH (22:16)
[2020-07-06] MEDS: guaiFENesin/CODEINE 100MG/10MG 5ML UDC PO PRN (22:31)
--- NOTE | 2020-07-07 07:29 | Hospitalist Progress Note ---
Date of Service July 07, 2020 Assessment & Plan (1) Atrial flutter with rapid ventricular response: (2) Paroxysmal atrial fibrillation: Patient presents with shortness of breath, chest pain and palpitations from her PCP office - was made a heart alert -Found to have atrial flutter with RVR in ED -Replete electrolytes, keep potassium above 4, magnesium above 2 -She has history of paroxysmal A. fib, and underwent several cardioversions in the past -Trial of flecainide was done as well for A. fib, however her QTC prolonged with medication and so it had to be stopped -was seen by EP, and was started on amiodarone, her last cardioversion was on July 03 -Cardiology consulted, now s/p synchronized electrical cardioversion this the morning, w/ Dr. Camacho Currently in sinus rhythm, however does not feel well, complains of cough, nausea, has some diffuse mild crackles and wheezing - continue her home medications, which are metoprolol 150 twice daily, diltiazem 90 TID, amiodarone 400 twice daily, continue Eliquis 5 mg twice daily -Continue to closely monitor on telemetry Acute on Chronic CHF w/ preserved EF HTN -Recently Lasix was increased from 20 daily to 40 mg daily -Seemed euvolemic on exam on admission -Continued current dose of lasix, 40 mg daily, and home lisinopril -Monitor I's and O's -Replete electrolytes as needed, as above -monitor BP -Overnight patient had more cough, and despite cardioversion she does not feel well, has more diffuse mild crackles and wheezing, will diurese with IV Lasix, spironolactone in addition to above -Continue to closely monitor on telemetry (3) Hypokalemia: -Potassium 3.2 on admission -Replete and monitor (4) DM type 2 (diabetes mellitus, type 2): -Hemoglobin A1c 7.2 in April 2020 - hold home Metformin, SSI while inpatient, monitor blood glucose AC HS (5) Bipolar disorder: -Continue home Lamictal, Cymbalta (6) MEIR (obstructive sleep apnea): - CPAP HS (7) Morbid obesity: -BMI 56 -[employer] on lifestyle changes Code: Full DVT ppx: On Eliquis Dispo: Admit to PCU, patient admitted from home, plan to discharge home when medically stable Admission and Anticipated Discharge Date Admission Date: July 06, 2020 Subjective Patient seen in follow-up of atrial flutter with RVR, palpitations, nausea She is now s/p synchronized electrical cardioversion for atrial flutter with THELMA with successful conversion to sinus rhythm. Overnight she complained of more cough, was given guaifenesin. Says that she does not feel so well today after the procedure. Patient still complaining of cough and mild dyspnea and nausea. No dizziness or lightheadedness. Rhythm remains sinus in the 80s Plan to diurese the patient, will continue to closely monitor on telemetry. Review of Systems Review of Systems: All systems reviewed & are unremarkable except as noted in HPI & below Constitutional: no fever and no chills Respiratory: + dyspnea (mild) Cardiovascular: no chest pain and no palpitations Gastrointestinal: + nausea; no abdominal pain and no vomiting Physical Exam Constitutional: WD/WN, vitals as above + morbidly obese Eyes: PERRL, conjunctivae normal, anicteric sclerae ENMT: external ear and nose normal, oropharynx normal Neck: normal visual inspection and + thick neck Respiratory: normal respiratory effort, lungs clear to auscultation Auscultation: + crackles (mild b/l) and + wheezes (mild diffuse); no rhonchi Cardiovascular: RRR, no murmur, no edema Heart Sounds: no murmur Vessels: no JVD Extremities: + edema (pedal b/l) Chest (Breasts): Chest: normal inspection of chest Gastrointestinal (Abdomen): normal bowel sounds, soft, nontender, no hepatosplenomegaly Musculoskeletal: Head/Neck/Chest: normocephalic and head atraumatic Skin: no rashes, warm and dry Neurologic: PERRL, EOMI, accommodation nl, no face palsy, no dysarthria Psychiatric: A+Ox3, euthymic affect Genitourinary: no CVA tenderness Lymphatic: + lymphedema (mild pedal b/l) Results & Data Results & Data ([facility]) Vital Signs (Past 12 Hours) Vital Signs Temp Pulse Pulse Resp BP BP Pulse Ox 07/07/20 05:11 36.5 C 113 H 20 142/80 H 94 07/06/20 23:47 36.7 C 116 H 18 149/95 H 94 07/06/20 23:14 112 H 07/06/20 22:20 118 H 07/06/20 20:09 163/107 H Laboratory Results 07/07/20 07/07/20 07/07/20 Range/Units 09:02 09:02 08:21 WBC 5.52 (4.8-10.8) K/uL RBC 4.52 (4.2-5.4) M/uL Hgb 12.4 (12.0-16.0) g/dL Hct 39.8 (37-47) % MCV 88.1 (80-100) fL MCH 27.4 (25-34) pg MCHC 31.2 L (32-36) g/dL RDW Std Deviation 49.5 H (36.4-46.3) fL RDW Coeff of Ida 15.4 H (11.5-14.5) % Plt Count 276 (130-400) K/uL MPV 10.1 (7.4-10.4) fL Immature Gran % (Auto) % Neut % (Auto) % Lymph % (Auto) % Barry % (Auto) % Eos % (Auto) % Baso % (Auto) % Neut # (Auto) (1.4-6.5) K/uL Lymph # (Auto) (1.2-3.4) K/uL Barry # (Auto) (0.11-0.59) K/uL Eos # (Auto) (0-0.5) K/uL Baso # (Auto) (0-0.2) K/uL Immature Gran # (Auto) (0.00-0.02) K/uL PT (9.0-12.0) Seconds INR (0.9-1.1) APTT (21.0-31.0) Seconds PTT Ratio Sodium 139 (136-145) mmol/L Potassium 3.5 (3.5-5.1) mmol/L Chloride 104 (98-107) mmol/L Carbon Dioxide 28 (21-32) mmol/L Anion Gap 7.0 (3-11) BUN 13 (7-18) mg/dl Creatinine 0.66 (0.6-1.2) mg/dl Est Cr Clr Drug Dosing 173.5 ml/min Est GFR ( Amer) 116.9 ml/min Est GFR (Non-Af Amer) 100.9 ml/min BUN/Creatinine Ratio 18.8 (10-20) Glucose 205 H (70-99) mg/dl POC Glucose 212 H (70-99) mg/dl Calcium 9.0 (8.5-10.1) mg/dl Magnesium 2.2 (1.8-2.4) mg/dl Total Bilirubin (0.2-1) mg/dl AST (15-37) U/L ALT (12-78) U/L Alkaline Phosphatase (45-117) U/L Total Creatine Kinase (26-192) U/L CK-MB (CK-2) (0.5-3.6) ng/ml CK/CKMB % Calc (0-3.0) Troponin I (0-0.045) ng/ml Total Protein (6.4-8.2) gm/dl Albumin (3.4-5.0) gm/dl Globulin (2.5-4.0) gm/dl Albumin/Globulin Ratio (0.9-2) Lipase (73-393) U/L TSH (0.300-4.500) uIu/ml COVID-19 Eval Order SARS-CoV-2 (PCR) (Negative) 07/06/20 07/06/20 07/06/20 Range/Units 21:00 18:59 15:38 WBC (4.8-10.8) K/uL RBC (4.2-5.4) M/uL Hgb (12.0-16.0) g/dL Hct (37-47) % MCV (80-100) fL MCH (25-34) pg MCHC (32-36) g/dL RDW Std Deviation (36.4-46.3) fL RDW Coeff of Ida (11.5-14.5) % Plt Count (130-400) K/uL MPV (7.4-10.4) fL Immature Gran % (Auto) % Neut % (Auto) % Lymph % (Auto) % Barry % (Auto) % Eos % (Auto) % Baso % (Auto) % Neut # (Auto) (1.4-6.5) K/uL Lymph # (Auto) (1.2-3.4) K/uL Barry # (Auto) (0.11-0.59) K/uL Eos # (Auto) (0-0.5) K/uL Baso # (Auto) (0-0.2) K/uL Immature Gran # (Auto) (0.00-0.02) K/uL PT (9.0-12.0) Seconds INR (0.9-1.1) APTT (21.0-31.0) Seconds PTT Ratio Sodium (136-145) mmol/L Potassium (3.5-5.1) mmol/L Chloride (98-107) mmol/L Carbon Dioxide (21-32) mmol/L Anion Gap (3-11) BUN (7-18) mg/dl Creatinine (0.6-1.2) mg/dl Est Cr Clr Drug Dosing ml/min Est GFR ( Amer) ml/min Est GFR (Non-Af Amer) ml/min BUN/Creatinine Ratio (10-20) Glucose (70-99) mg/dl POC Glucose 180 H 159 H (70-99) mg/dl Calcium (8.5-10.1) mg/dl Magnesium (1.8-2.4) mg/dl Total Bilirubin (0.2-1) mg/dl AST (15-37) U/L ALT (12-78) U/L Alkaline Phosphatase (45-117) U/L Total Creatine Kinase (26-192) U/L CK-MB (CK-2) (0.5-3.6) ng/ml CK/CKMB % Calc (0-3.0) Troponin I (0-0.045) ng/ml Total Protein (6.4-8.2) gm/dl Albumin (3.4-5.0) gm/dl Globulin (2.5-4.0) gm/dl Albumin/Globulin Ratio (0.9-2) Lipase (73-393) U/L TSH (0.300-4.500) uIu/ml COVID-19 Eval Order SARS-CoV-2 (PCR) NEGATIVE (Negative) 07/06/20 07/06/20 07/06/20 Range/Units 15:38 14:30 14:30 WBC (4.8-10.8) K/uL RBC (4.2-5.4) M/uL Hgb (12.0-16.0) g/dL Hct (37-47) % MCV (80-100) fL MCH (25-34) pg MCHC (32-36) g/dL RDW Std Deviation (36.4-46.3) fL RDW Coeff of Ida (11.5-14.5) % Plt Count (130-400) K/uL MPV (7.4-10.4) fL Immature Gran % (Auto) % Neut % (Auto) % Lymph % (Auto) % Barry % (Auto) % Eos % (Auto) % Baso % (Auto) % Neut # (Auto) (1.4-6.5) K/uL Lymph # (Auto) (1.2-3.4) K/uL Barry # (Auto) (0.11-0.59) K/uL Eos # (Auto) (0-0.5) K/uL Baso # (Auto) (0-0.2) K/uL Immature Gran # (Auto) (0.00-0.02) K/uL PT 10.9 (9.0-12.0) Seconds INR 1.1 (0.9-1.1) APTT 26.3 (21.0-31.0) Seconds PTT Ratio 1.0 Sodium 140 (136-145) mmol/L Potassium 3.2 L (3.5-5.1) mmol/L Chloride 99 (98-107) mmol/L Carbon Dioxide 34 H (21-32) mmol/L Anion Gap 7.0 (3-11) BUN 11 (7-18) mg/dl Creatinine 0.88 (0.6-1.2) mg/dl Est Cr Clr Drug Dosing 130.9 ml/min Est GFR ( Amer) 86.9 ml/min Est GFR (Non-Af Amer) 75.0 ml/min BUN/Creatinine Ratio 12.2 (10-20) Glucose 176 H (70-99) mg/dl POC Glucose (70-99) mg/dl Calcium 9.4 (8.5-10.1) mg/dl Magnesium 1.9 (1.8-2.4) mg/dl Total Bilirubin 0.9 (0.2-1) mg/dl AST 29 (15-37) U/L ALT 76 (12-78) U/L Alkaline Phosphatase 110 (45-117) U/L Total Creatine Kinase 109 (26-192) U/L CK-MB (CK-2) 1.0 (0.5-3.6) ng/ml CK/CKMB % Calc 0.9 (0-3.0) Troponin I < 0.015 (0-0.045) ng/ml Total Protein 8.3 H (6.4-8.2) gm/dl Albumin 4.1 (3.4-5.0) gm/dl Globulin 4.2 H (2.5-4.0) gm/dl Albumin/Globulin Ratio 1.0 (0.9-2) Lipase 168 (73-393) U/L TSH 2.710 (0.300-4.500) uIu/ml COVID-19 Eval Order Covid19 at [facility] SARS-CoV-2 (PCR) (Negative) 07/06/20 Range/Units 14:30 WBC 6.19 (4.8-10.8) K/uL RBC 4.97 (4.2-5.4) M/uL Hgb 13.7 (12.0-16.0) g/dL Hct 43.1 (37-47) % MCV 86.7 (80-100) fL MCH 27.6 (25-34) pg MCHC 31.8 L (32-36) g/dL RDW Std Deviation 49.2 H (36.4-46.3) fL RDW Coeff of Ida 15.5 H (11.5-14.5) % Plt Count 293 (130-400) K/uL MPV 10.3 (7.4-10.4) fL Immature Gran % (Auto) 0.2 % Neut % (Auto) 69.5 % Lymph % (Auto) 21.0 % Barry % (Auto) 6.5 % Eos % (Auto) 2.6 % Baso % (Auto) 0.2 % Neut # (Auto) 4.31 (1.4-6.5) K/uL Lymph # (Auto) 1.30 (1.2-3.4) K/uL Barry # (Auto) 0.40 (0.11-0.59) K/uL Eos # (Auto) 0.16 (0-0.5) K/uL Baso # (Auto) 0.01 (0-0.2) K/uL Immature Gran # (Auto) 0.01 (0.00-0.02) K/uL PT (9.0-12.0) Seconds INR (0.9-1.1) APTT (21.0-31.0) Seconds PTT Ratio Sodium (136-145) mmol/L Potassium (3.5-5.1) mmol/L Chloride (98-107) mmol/L Carbon Dioxide (21-32) mmol/L Anion Gap (3-11) BUN (7-18) mg/dl Creatinine (0.6-1.2) mg/dl Est Cr Clr Drug Dosing ml/min Est GFR ( Amer) ml/min Est GFR (Non-Af Amer) ml/min BUN/Creatinine Ratio (10-20) Glucose (70-99) mg/dl POC Glucose (70-99) mg/dl Calcium (8.5-10.1) mg/dl Magnesium (1.8-2.4) mg/dl Total Bilirubin (0.2-1) mg/dl AST (15-37) U/L ALT (12-78) U/L Alkaline Phosphatase (45-117) U/L Total Creatine Kinase (26-192) U/L CK-MB (CK-2) (0.5-3.6) ng/ml CK/CKMB % Calc (0-3.0) Troponin I (0-0.045) ng/ml Total Protein (6.4-8.2) gm/dl Albumin (3.4-5.0) gm/dl Globulin (2.5-4.0) gm/dl Albumin/Globulin Ratio (0.9-2) Lipase (73-393) U/L TSH (0.300-4.500) uIu/ml COVID-19 Eval Order SARS-CoV-2 (PCR) (Negative) Medications Administered Current Inpatient Medications Acetaminophen (Acetaminophen 325 Mg Tab) 650 mg PO Q4H PRN PRN Reason: Pain or Fever Stop: 08/05/20 16:22 Amiodarone HCl (Amiodarone 200 Mg Tab) 400 mg PO BID ADAN Stop: 08/05/20 20:59 Last Admin: 07/06/20 22:14 Dose: 400 mg Documented by: Apixaban (Apixaban 5 Mg Tablet) 5 mg PO BID ADAN Stop: 08/05/20 20:59 Last Admin: 07/06/20 22:14 Dose: 5 mg Documented by: Dextrose (Dextrose 50% 50 Ml Syringe) 25 - 50 ml IV UD PRN; Protocol PRN Reason: Hypoglycemia Protocol Stop: 08/05/20 18:56 Diltiazem HCl (Diltiazem Hcl 30 Mg Tab) 90 mg PO TID ADAN Stop: 08/05/20 20:59 Last Admin: 07/06/20 22:15 Dose: 90 mg Documented by: Duloxetine HCl (Duloxetine Hcl 30 Mg Cap) 30 mg PO DAILY ADAN Stop: 08/06/20 08:59 Furosemide (Furosemide 40 Mg Tab) 40 mg PO QAM ADAN Stop: 08/06/20 08:59 Gabapentin (Gabapentin 400 Mg Cap) 400 mg PO HS [facility] Stop: 08/05/20 20:59 Last Admin: 07/06/20 22:15 Dose: 400 mg Documented by: Glucagon (Glucagon For Inj 1 Mg Vial) 1 mg SQ UD PRN; Protocol PRN Reason: Hypoglycemia Protocol Stop: 08/05/20 18:56 Glucose (Glucose 10 Tabs/Tube) 4 - 8 tabs PO UD PRN; Protocol PRN Reason: Hypoglycemia Protocol Stop: 08/05/20 18:56 Glucose (Glucose 40% Gel 15 Gm Tube) 15 - 30 gm PO UD PRN; Protocol PRN Reason: Hypoglycemia Protocol Stop: 08/05/20 18:56 Guaifenesin/Codeine Phosphate (Guaifenesin/Codeine 100mg/10mg 5ml Udc) 5 ml PO Q6H PRN PRN Reason: Cough Stop: 08/05/20 20:06 Last Admin: 07/06/20 22:31 Dose: 5 ml Documented by: Insulin Aspart (Insulin Aspart 100 Units/Ml 3 Ml Pen) 0 units SC ACHS ADAN Stop: 08/05/20 20:59 Last Admin: 07/06/20 22:13 Dose: Not Given Documented by: Lamotrigine (Lamotrigine 100 Mg Tab) 100 mg PO BID [facility] Stop: 08/05/20 20:59 Last Admin: 07/06/20 22:16 Dose: 100 mg Documented by: Lisinopril (Lisinopril 40 Mg Tab) 40 mg PO DAILY [facility] Stop: 08/06/20 08:59 Metoprolol Succinate (Metoprolol Succ 50mg Ext Rel Tab) 150 mg PO BID ADAN Stop: 08/05/20 20:59 Last Admin: 07/06/20 22:16 Dose: 150 mg Documented by: Miscellaneous (Carbohydrates For Hypoglycemia ) 15 - 30 gm PO UD PRN PRN Reason: Hypoglycemia Protocol Stop: 08/05/20 18:56
[2020-07-07] MEDS ORDERED: PROPOFOL IV EMULSION 10 MG/ML 20 ML VIAL IV ONE (07:35)
[2020-07-07] MEDS ORDERED: LIDOCAINE 2% 2 ML VIAL/AMP(20MG/ML) INFIL ONE (07:35)
--- NOTE | 2020-07-07 08:02 | Cardioversion ---
Date of Service July 07, 2020 Electrical Cardioversion Rpt Electrical Cardioversion Report Patient seen and examined, procedure discussed in detail, informed consent obtained. Formal TIMEOUT was performed Patient was sedated via anesthesia consult with continuous O2 sat, HR, BP endtidal C02 monitoring. Single synchronized electrical biphasic cardioversion performed using 200J shock with conversion to sinus. Patient aroused tolerating well EKG NSR at 68 bpm Qtc 501
--- NOTE | 2020-07-07 08:18 | Anesthesiology Progress Note ---
Date of Service July 07, 2020 Anesthesia Post Procedure Vital Signs Vital Signs: Temp Pulse Pulse Pulse Resp BP BP 07/07/20 08:05 70 18 132/95 07/07/20 07:50 64 18 148/93 H 07/07/20 05:11 36.5 C 113 H 20 07/06/20 23:47 36.7 C 116 H 18 149/95 H 07/06/20 23:14 112 H 07/06/20 22:20 118 H 07/06/20 20:09 07/06/20 19:00 36.7 C 105 H 18 173/119 H 07/06/20 18:00 111 H 17 149/113 H 07/06/20 17:30 113 H 17 162/122 H 07/06/20 17:11 98 H 28 H 154/98 H 07/06/20 16:33 112 H 22 129/106 H 07/06/20 15:51 112 H 22 07/06/20 15:50 111 H 15 07/06/20 15:46 111 H 21 131/106 H 07/06/20 15:41 112 H 21 134/105 H 07/06/20 15:40 112 H 18 07/06/20 15:36 112 H 19 139/104 H 07/06/20 15:31 112 H 21 150/107 H 07/06/20 15:30 111 H 22 07/06/20 15:28 36.8 C 106 H 22 146/114 H 07/06/20 15:27 07/06/20 15:26 111 H 23 128/93 07/06/20 15:21 112 H 21 154/108 H 07/06/20 15:20 112 H 18 07/06/20 15:16 111 H 24 156/112 H 07/06/20 15:11 98 H 20 152/112 H 07/06/20 15:10 110 H 14 07/06/20 15:06 110 H 22 146/114 H BP Pulse Ox 07/07/20 08:05 95 07/07/20 07:50 99 07/07/20 05:11 142/80 H 94 07/06/20 23:47 94 07/06/20 23:14 07/06/20 22:20 07/06/20 20:09 163/107 H 07/06/20 19:00 180/106 H 97 07/06/20 18:00 99 07/06/20 17:30 99 07/06/20 17:11 95 07/06/20 16:33 95 07/06/20 15:51 91 07/06/20 15:50 94 07/06/20 15:46 94 07/06/20 15:41 93 07/06/20 15:40 93 07/06/20 15:36 96 07/06/20 15:31 94 07/06/20 15:30 96 07/06/20 15:28 96 07/06/20 15:27 96 07/06/20 15:26 95 07/06/20 15:21 91 07/06/20 15:20 92 07/06/20 15:16 95 07/06/20 15:11 97 07/06/20 15:10 96 07/06/20 15:06 98 Transfer of Care Handoff Completed per policy Notes Mental Status: alert / awake / arousable Patient Amnestic to Procedure: Yes Nausea / Vomiting: adequately controlled Pain: adequately controlled Airway Patency, RR, SpO2: stable & adequate BP & HR: stable & adequate Hydration State: stable & adequate Anesthetic Complications: no major complications apparent
[2020-07-07] MEDS: METOPROLOL SUCC 50MG EXT REL TAB PO SCH ×2 (08:39→20:11)
[2020-07-07] MEDS: lamoTRIgine 100 MG TAB PO SCH ×2 (08:39→20:11)
[2020-07-07] MEDS: AMIODARONE 200 MG TAB PO SCH ×2 (08:40→20:07)
[2020-07-07] MEDS: dilTIAZem HCL 30 MG TAB PO SCH ×3 (08:40→20:10)
[2020-07-07] MEDS: APIXABAN 5 MG TABLET PO SCH ×2 (08:40→20:09)
[2020-07-07] MEDS: FUROSEMIDE 40 MG TAB PO SCH (08:40)
[2020-07-07] MEDS: lisinopril 40 MG TAB PO SCH (08:40)
[2020-07-07] MEDS: DULoxetine HCL 30 MG CAP PO SCH (08:40)
[2020-07-07] MEDS: INSULIN ASPART 100 UNITS/ML 3 ML PEN SC SCH ×4 (08:42→20:10)
[2020-07-07] MEDS: guaiFENesin/CODEINE 100MG/10MG 5ML UDC PO PRN ×2 (08:48→21:03)
[2020-07-07 09:17] LABS: Hematocrit (blood only) 39.8 % (37-47); Hemoglobin 12.4 g/dL (12.0-16.0); Mean Corpuscular Hemoglobin 27.4 pg (25-34); Mean Corpuscular Hgb Conc 31.2 g/dL (32-36); Mean Corpuscular Volume 88.1 fL (80-100); Mean Platelet Volume 10.1 fL (7.4-10.4); Platelet Count 276 K/uL (130-400); RDW Coefficient of Variation 15.4 % (11.5-14.5); RDW Standard Deviation 49.5 fL (36.4-46.3); Red Blood Count 4.52 M/uL (4.2-5.4); White Blood Count 5.52 K/uL (4.8-10.8)
[2020-07-07 09:34] LABS: BUN Creatinine Ratio 18.8 (10-20); Creatinine Clr Calc Pharmacy 173.5 ml/min; Est GFR (African American) 116.9 ml/min; Est GFR (Non-African American) 100.9 ml/min; Magnesium 2.2 mg/dl (1.8-2.4); Potassium 3.5 mmol/L (3.5-5.1)
[2020-07-07] MEDS ORDERED: ADENOSINE IV SOLN 3 MG/ML 20 ML VIAL IV ONE (09:52)
[2020-07-07] MEDS ORDERED: POTASSIUM CHLORIDE CRTAB 20 MEQ TABCR PO STA (10:43)
--- NOTE | 2020-07-07 10:59 | Cardiology Progress Note ---
Date of Service July 07, 2020 Assessment & Plan (1) Atrial flutter with rapid ventricular response: Patient underwent synchronized electrical cardioversion this morning with successful conversion to sinus rhythm we will continue current therapies. (2) Paroxysmal atrial fibrillation: On amiodarone therapy (3) Acute on chronic heart failure with preserved ejection fraction (HFpEF): Patient appears to have mild exacerbation post procedure. We will give dose of IV furosemide 40 mg, begin spironolactone 25 mg/day with additional potassium orally today as well Admission and Anticipated Discharge Date Admission Date: July 06, 2020 Subjective Patient seen post procedure this morning. She underwent synchronized electrical cardioversion for atrial flutter with elevated ventricular response with successful conversion to sinus rhythm. Patient still complaining of cough and mild dyspnea. No dizziness or lightheadedness. Rhythm remains sinus in the 80s Review of Systems Review of Systems: All systems reviewed & are unremarkable except as noted in HPI & below Physical Exam Constitutional: + morbidly obese; no acute distress Eyes: PERRL, conjunctivae normal, anicteric sclerae ENMT: external ear and nose normal, oropharynx normal Neck: trachea midline, no thyromegaly Respiratory: + cough Auscultation: + wheezes Cardiovascular: Rate/Rhythm: regular rate and regular rhythm Heart Sounds: normal S1 and normal S2; no gallop and no murmur Palpation: normal PMI Vessels: normal carotid upstroke and radial pulses present; no JVD and no carotid bruit Extremities: no edema Gastrointestinal (Abdomen): normal bowel sounds, soft, nontender, no hepatosplenomegaly Musculoskeletal: no cyanosis or clubbing, extremities motor strength 5/5 Skin: no rashes, warm and dry Neurologic: PERRL, EOMI, accommodation nl, no face palsy, no dysarthria Psychiatric: A+Ox3, euthymic affect Results & Data ([facility]) Vital Signs (Past 12 Hours) Vital Signs Temp Pulse Pulse Pulse Resp BP BP 07/07/20 08:54 74 15 142/87 H 07/07/20 08:24 36.8 C 68 19 148/89 H 07/07/20 08:23 36.8 C 68 19 148/89 H 07/07/20 08:05 70 18 132/95 07/07/20 08:00 112 H 07/07/20 07:50 64 18 148/93 H 07/07/20 05:11 36.5 C 113 H 20 142/80 H 07/06/20 23:47 36.7 C 116 H 18 149/95 H 07/06/20 23:14 112 H Pulse Ox 07/07/20 08:54 95 07/07/20 08:24 94 07/07/20 08:23 94 07/07/20 08:05 95 07/07/20 08:00 07/07/20 07:50 99 07/07/20 05:11 94 07/06/20 23:47 94 07/06/20 23:14 Laboratory Results Laboratory Results - last 24 hr 07/06/20 07/06/20 07/06/20 14:30 14:30 14:30 WBC 6.19 RBC 4.97 Hgb 13.7 Hct 43.1 MCV 86.7 MCH 27.6 MCHC 31.8 L RDW Std Deviation 49.2 H RDW Coeff of Ida 15.5 H Plt Count 293 MPV 10.3 Immature Gran % (Auto) 0.2 Neut % (Auto) 69.5 Lymph % (Auto) 21.0 [place] % (Auto) 6.5 Eos % (Auto) 2.6 Baso % (Auto) 0.2 Neut # (Auto) 4.31 Lymph # (Auto) 1.30 [place] # (Auto) 0.40 Eos # (Auto) 0.16 Baso # (Auto) 0.01 Immature Gran # (Auto) 0.01 PT 10.9 INR 1.1 APTT 26.3 PTT Ratio 1.0 Sodium 140 Potassium 3.2 L Chloride 99 Carbon Dioxide 34 H Anion Gap 7.0 BUN 11 Creatinine 0.88 Est Cr Clr Drug Dosing 130.9 Est GFR ( Amer) 86.9 Est GFR (Non-Af Amer) 75.0 BUN/Creatinine Ratio 12.2 Glucose 176 H POC Glucose Calcium 9.4 Magnesium 1.9 Total Bilirubin 0.9 AST 29 ALT 76 Alkaline Phosphatase 110 Total Creatine Kinase 109 CK-MB (CK-2) 1.0 CK/CKMB % Calc 0.9 Troponin I < 0.015 Total Protein 8.3 H Albumin 4.1 Globulin 4.2 H Albumin/Globulin Ratio 1.0 Lipase 168 TSH 2.710 COVID-19 Eval Order SARS-CoV-2 (PCR) 07/06/20 07/06/20 07/06/20 15:38 15:38 18:59 WBC RBC Hgb Hct MCV MCH MCHC RDW Std Deviation RDW Coeff of Ida Plt Count MPV Immature Gran % (Auto) Neut % (Auto) Lymph % (Auto) [place] % (Auto) Eos % (Auto) Baso % (Auto) Neut # (Auto) Lymph # (Auto) [place] # (Auto) Eos # (Auto) Baso # (Auto) Immature Gran # (Auto) PT INR APTT PTT Ratio Sodium Potassium Chloride Carbon Dioxide Anion Gap BUN Creatinine Est Cr Clr Drug Dosing Est GFR ( Amer) Est GFR (Non-Af Amer) BUN/Creatinine Ratio Glucose POC Glucose 159 H Calcium Magnesium Total Bilirubin AST ALT Alkaline Phosphatase Total Creatine Kinase CK-MB (CK-2) CK/CKMB % Calc Troponin I Total Protein Albumin Globulin Albumin/Globulin Ratio Lipase TSH COVID-19 Eval Order Covid19 at [facility] SARS-CoV-2 (PCR) NEGATIVE 07/06/20 07/07/20 07/07/20 21:00 08:21 09:02 WBC 5.52 RBC 4.52 Hgb 12.4 Hct 39.8 MCV 88.1 MCH 27.4 MCHC 31.2 L RDW Std Deviation 49.5 H RDW Coeff of Ida 15.4 H Plt Count 276 MPV 10.1 Immature Gran % (Auto) Neut % (Auto) Lymph % (Auto) [place] % (Auto) Eos % (Auto) Baso % (Auto) Neut # (Auto) Lymph # (Auto) [place] # (Auto) Eos # (Auto) Baso # (Auto) Immature Gran # (Auto) PT INR APTT PTT Ratio Sodium Potassium Chloride Carbon Dioxide Anion Gap BUN Creatinine Est Cr Clr Drug Dosing Est GFR ( Amer) Est GFR (Non-Af Amer) BUN/Creatinine Ratio Glucose POC Glucose 180 H 212 H Calcium Magnesium Total Bilirubin AST ALT Alkaline Phosphatase Total Creatine Kinase CK-MB (CK-2) CK/CKMB % Calc Troponin I Total Protein Albumin Globulin Albumin/Globulin Ratio Lipase TSH COVID-19 Eval Order SARS-CoV-2 (PCR) 07/07/20 09:02 WBC RBC Hgb Hct MCV MCH MCHC RDW Std Deviation RDW Coeff of Ida Plt Count MPV Immature Gran % (Auto) Neut % (Auto) Lymph % (Auto) [place] % (Auto) Eos % (Auto) Baso % (Auto) Neut # (Auto) Lymph # (Auto) [place] # (Auto) Eos # (Auto) Baso # (Auto) Immature Gran # (Auto) PT INR APTT PTT Ratio Sodium 139 Potassium 3.5 Chloride 104 Carbon Dioxide 28 Anion Gap 7.0 BUN 13 Creatinine 0.66 Est Cr Clr Drug Dosing 173.5 Est GFR ( Amer) 116.9 Est GFR (Non-Af Amer) 100.9 BUN/Creatinine Ratio 18.8 Glucose 205 H POC Glucose Calcium 9.0 Magnesium 2.2 Total Bilirubin AST ALT Alkaline Phosphatase Total Creatine Kinase CK-MB (CK-2) CK/CKMB % Calc Troponin I Total Protein Albumin Globulin Albumin/Globulin Ratio Lipase TSH COVID-19 Eval Order SARS-CoV-2 (PCR)
[2020-07-07] MEDS ORDERED: POTASSIUM CHLORIDE CRTAB 20 MEQ TABCR PO ONE (11:00)
[2020-07-07] MEDS ORDERED: FUROSEMIDE 40 MG in SYRINGE 0 ML IV SCH (11:15)
[2020-07-07] MEDS: SPIRONOLACTONE 25 MG TAB PO SCH (11:45)
--- NOTE | 2020-07-07 12:08 | Electrocardiogram Report ---
Test Reason : Blood Pressure : / mmHG Vent. Rate : 072 BPM Atrial Rate : 072 BPM P-R Int : 196 ms QRS Dur : 096 ms QT Int : 404 ms P-R-T Axes : 034 059 080 degrees QTc Int : 442 ms Normal sinus rhythm Nonspecific T wave abnormality Abnormal ECG When compared with ECG of 06-JUL-2020 15:06, Sinus rhythm has replaced Atrial flutter Nonspecific T wave abnormality, improved in Anterior leads Confirmed by Anish De Leon [id number]) on 07/07/2020 12:07:43 PM Referred By: REFERRED SELF Confirmed By:Bora De Leon
[2020-07-07] MEDS ORDERED: PROCHLORPERAZINE 5 MG in SYRINGE 4 ML IV ONE (12:15)
[2020-07-07] MEDS: POTASSIUM CHLORIDE / WTR 10 MEQ/100 ML PLCT IV SCH ×2 (12:37→13:41)
[2020-07-07] MEDS: GABAPENTIN 400 MG CAP PO SCH (20:11)
[2020-07-07 21:11] LABS: BUN Creatinine Ratio 14.7 (10-20); Calcium 9.4 mg/dl (8.5-10.1); Creatinine Clr Calc Pharmacy 99.6 ml/min; Est GFR (African American) 62.9 ml/min; Est GFR (Non-African American) 54.3 ml/min; Magnesium 2.4 mg/dl (1.8-2.4); Potassium 3.6 mmol/L (3.5-5.1)
[2020-07-08 06:26] LABS: Hematocrit (blood only) 40.2 % (37-47); Hemoglobin 12.5 g/dL (12.0-16.0); Mean Corpuscular Hemoglobin 27.1 pg (25-34); Mean Corpuscular Hgb Conc 31.1 g/dL (32-36); Mean Platelet Volume 9.8 fL (7.4-10.4); Platelet Count 277 K/uL (130-400); RDW Coefficient of Variation 15.8 % (11.5-14.5); RDW Standard Deviation 50.4 fL (36.4-46.3); Red Blood Count 4.62 M/uL (4.2-5.4); White Blood Count 7.04 K/uL (4.8-10.8)
[2020-07-08 07:02] LABS: BUN Creatinine Ratio 19.6 (10-20); Creatinine Clr Calc Pharmacy 127.1 ml/min; Est GFR (African American) 84.6 ml/min; Magnesium 2.6 mg/dl (1.8-2.4); Potassium 4.1 mmol/L (3.5-5.1)
[2020-07-08] MEDS ORDERED: PROCHLORPERAZINE 5 MG in SYRINGE 4 ML IV ONE (07:35)
[2020-07-08] MEDS: guaiFENesin/CODEINE 100MG/10MG 5ML UDC PO PRN (08:42)
[2020-07-08] MEDS: lisinopril 40 MG TAB PO SCH (08:51)
[2020-07-08] MEDS: SPIRONOLACTONE 25 MG TAB PO SCH (08:51)
[2020-07-08] MEDS: METOPROLOL SUCC 50MG EXT REL TAB PO SCH (08:51)
[2020-07-08] MEDS: dilTIAZem HCL 30 MG TAB PO SCH ×2 (08:52→13:12)
[2020-07-08] MEDS: FUROSEMIDE 40 MG TAB PO SCH (08:52)
[2020-07-08] MEDS: AMIODARONE 200 MG TAB PO SCH (08:52)
[2020-07-08] MEDS: DULoxetine HCL 30 MG CAP PO SCH (08:52)
[2020-07-08] MEDS: APIXABAN 5 MG TABLET PO SCH (08:52)
[2020-07-08] MEDS: lamoTRIgine 100 MG TAB PO SCH (08:52)
[2020-07-08] MEDS: INSULIN ASPART 100 UNITS/ML 3 ML PEN SC SCH ×2 (08:53→12:01)
--- NOTE | 2020-07-08 09:58 | Cardiology Progress Note ---
Date of Service July 08, 2020 Assessment & Plan (1) Atrial flutter with rapid ventricular response: Patient underwent synchronized electrical cardioversion yesterday morning with successful conversion to sinus rhythm. She has maintained sinus rhythm on telemetry without further arrhythmia. She is on extensive multiple drug regimen and will continue amiodarone diltiazem and metoprolol as ordered Will need cardiology follow-up in 2 to 3 weeks (2) Paroxysmal atrial fibrillation: On amiodarone therapy (3) Acute on chronic heart failure with preserved ejection fraction (HFpEF): Mild heart failure post procedure. Clinically appears improved We will plan on discharging on furosemide 40 mg daily with spironolactone 25 mg daily We will need BMP in 1 week Admission and Anticipated Discharge Date Admission Date: July 06, 2020 Subjective Patient was seen and examined, chart, medications, telemetry reviewed. Still feels "off" dyspnea however is improved wheezes and cough have improved chest now clear this morning. No further sputum production. Telemetry reveals sinus rhythm without tachycardia or bradycardia events Review of Systems Review of Systems: All systems reviewed & are unremarkable except as noted in HPI & below Physical Exam Constitutional: + morbidly obese; no acute distress Eyes: PERRL, conjunctivae normal, anicteric sclerae ENMT: external ear and nose normal, oropharynx normal Neck: trachea midline, no thyromegaly Respiratory: normal respiratory effort, lungs clear to auscultation Cardiovascular: Rate/Rhythm: regular rate and regular rhythm Heart Sounds: normal S1 and normal S2; no gallop and no murmur Palpation: normal PMI Vessels: normal carotid upstroke and radial pulses present; no JVD and no carotid bruit Extremities: no edema Gastrointestinal (Abdomen): normal bowel sounds, soft, nontender, no hepatosplenomegaly Musculoskeletal: no cyanosis or clubbing, extremities motor strength 5/5 Skin: no rashes, warm and dry Neurologic: PERRL, EOMI, accommodation nl, no face palsy, no dysarthria Psychiatric: A+Ox3, euthymic affect Results & Data ([facility]) Vital Signs (Past 12 Hours) Vital Signs Temp Pulse Pulse Resp BP Pulse Ox 07/08/20 09:00 36.7 C 81 19 142/81 H 94 07/08/20 05:47 78 07/08/20 03:19 36.5 C 64 18 141/88 H 97 07/07/20 23:11 36.8 C 67 21 106/66 95 Laboratory Results Laboratory Results - last 24 hr 07/07/20 07/07/20 07/07/20 11:26 16:05 20:25 WBC RBC Hgb Hct MCV MCH MCHC RDW Std Deviation RDW Coeff of Ida Plt Count MPV Sodium 139 Potassium 3.6 Chloride 100 Carbon Dioxide 33 H Anion Gap 5.0 BUN 17 Creatinine 1.15 D Est Cr Clr Drug Dosing 99.6 Est GFR ( Amer) 62.9 Est GFR (Non-Af Amer) 54.3 BUN/Creatinine Ratio 14.7 Glucose 147 H POC Glucose 217 H 154 H Calcium 9.4 Magnesium 2.4 07/07/20 07/08/20 07/08/20 20:29 06:01 06:01 WBC 7.04 RBC 4.62 Hgb 12.5 Hct 40.2 MCV 87.0 MCH 27.1 MCHC 31.1 L RDW Std Deviation 50.4 H RDW Coeff of Ida 15.8 H Plt Count 277 MPV 9.8 Sodium 141 Potassium 4.1 Chloride 104 Carbon Dioxide 33 H Anion Gap 4.0 BUN 18 Creatinine 0.90 Est Cr Clr Drug Dosing 127.1 Est GFR ( Amer) 84.6 Est GFR (Non-Af Amer) 73.0 BUN/Creatinine Ratio 19.6 Glucose 187 H POC Glucose 164 H Calcium 9.0 Magnesium 2.6 H 07/08/20 07:16 WBC RBC Hgb Hct MCV MCH MCHC RDW Std Deviation RDW Coeff of Ida Plt Count MPV Sodium Potassium Chloride Carbon Dioxide Anion Gap BUN Creatinine Est Cr Clr Drug Dosing Est GFR ( Amer) Est GFR (Non-Af Amer) BUN/Creatinine Ratio Glucose POC Glucose 183 H Calcium Magnesium
--- NOTE | 2020-07-08 12:20 | Discharge Summary ---
Date of Service July 08, 2020 Admission HPI Per Admitting Provider Mrs. Olmos is a 54-year-old female with history of diabetes mellitus type 2, sleep apnea, hypertension, dyslipidemia, bipolar disorder, non-Hodgkin lymphoma in remission, obesity, paroxysmal A. fib who presents with chest pain, shortness of breath, and found to be in atrial flutter with RVR. Patient was recently admitted at [facility] due to A. fib with RVR, trial of flecainide was done however her QTC was prolonged and so the medication had to be stopped however patient underwent successful synchronized electrical cardioversion with Dr. Camacho. Unfortunately she went back into A. fib again after her hospital discharge, was seen by product management manager, and was started on amiodarone, and underwent another cardioversion on July 03. She presented today at her PCPs office because she was having dyspnea with exertion, palpitations and chest pain. In the office EKG was done, showing atrial flutter, however also concerning for ST elevations in leads II, III, aVF, and ST depressions in leads V1 and V2. She was therefore sent to ED for further evaluation. Patient was made a heart alert, and evaluated in the ED by exercise physiologist certified, it was determined that her symptoms are due to atrial flutter with RVR, and heart alert was canceled, and she was then seen by [facility] general farm manager. Patient was having severe nausea on presentation, and was given antiemetics in the ED. She was also found hypokalemic, presumably due to increased furosemide dose recently, and potassium was replaced. Currently patient is feeling better, denies chest pain, palpitations, shortness of breath also reports that nausea has been well controlled now. Per cardiology, plan for cardioversion in the morning. Admission Exam Per Admitting Provider Constitutional: WD/WN, vitals as above + morbidly obese Eyes: PERRL, conjunctivae normal, anicteric sclerae ENMT: external ear and nose normal, oropharynx normal Neck: normal visual inspection and + thick neck Respiratory: normal respiratory effort, lungs clear to auscultation Auscultation: no crackles, no rhonchi and no wheezes Cardiovascular: Rate/Rhythm: + tachycardic Heart Sounds: no murmur Vessels: no JVD Extremities: + edema (pedal b/l) Chest (Breasts): Chest: normal inspection of chest Gastrointestinal (Abdomen): normal bowel sounds, soft, nontender, no hepatosplenomegaly Musculoskeletal: Head/Neck/Chest: normocephalic and head atraumatic Skin: no rashes, warm and dry Neurologic: PERRL, EOMI, accommodation nl, no face palsy, no dysarthria Psychiatric: A+Ox3, euthymic affect Genitourinary: no CVA tenderness Lymphatic: + lymphedema (mild pedal b/l) Principal Diagnosis Atrial flutter with rapid ventricular response Paroxysmal atrial fibrillation Acute on chronic heart failure with preserved ejection fraction Morbid obesity Discharge Exam CONSTITUTIONAL: obese, vitals as above, generally well-appearing EYES: normal conjunctivae, no scleral icterus ENT: external ear and nose normal, MMM RESPIRATORY: clear to auscultation bilaterally, no crackles, rales or wheezes, normal respiratory effort CARDIOVASCULAR: regular rate and rhythm, S1 and 2 heard without murmurs, gallops or rubs, no JVD, some 2+ pitting edema on her left foot only. GASTROINTESTINAL: soft, nontender, nondistended, protuberant MUSCULOSKELETAL: strength 5/5 throughout, head is normocephalic and atraumatic, neck supple, normal palpation of chest wall without tenderness SKIN: warm and dry NEUROLOGIC: CN 2-12 grossly intact, normal cognition, normal speech, no gross focal deficits. PSYCHIATRIC: alert cooperative and oriented to person, place and time. Discharge Data Allergies Allergy/AdvReac Type Severity Reaction Status Date / Time No Known Allergies Allergy Verified 07/06/20 15:19 Consultations 07/06/20 16:02 Consult Anesthesiology Routine 07/06/20 16:23 ED Decision to Admit Stat 07/07/20 10:41 Consult Cardiology Routine Procedures Performed Operation Date: 07/06/20 15:15 Actual Procedures p Cardiac Heart Alert - Thad Watkins MD Operation Date: 07/07/20 07:30 Actual Procedures p Cardioversion - Satinder Camacho MD Ordered Studies Laboratory Results WBC 7.04 K/uL (4.8-10.8) 07/08/20 06:01 RBC 4.62 M/uL (4.2-5.4) 07/08/20 06:01 Hgb 12.5 g/dL (12.0-16.0) 07/08/20 06:01 Hct 40.2 % (37-47) 07/08/20 06:01 MCV 87.0 fL (80-100) 07/08/20 06:01 MCH 27.1 pg (25-34) 07/08/20 06:01 MCHC 31.1 g/dL (32-36) L 07/08/20 06:01 RDW Std Deviation 50.4 fL (36.4-46.3) H 07/08/20 06:01 RDW Coeff of Ida 15.8 % (11.5-14.5) H 07/08/20 06:01 Plt Count 277 K/uL (130-400) 07/08/20 06:01 MPV 9.8 fL (7.4-10.4) 07/08/20 06:01 Immature Gran % (Auto) 0.2 % 07/06/20 14:30 Neut % (Auto) 69.5 % 07/06/20 14:30 Lymph % (Auto) 21.0 % 07/06/20 14:30 [place] % (Auto) 6.5 % 07/06/20 14:30 Eos % (Auto) 2.6 % 07/06/20 14:30 Baso % (Auto) 0.2 % 07/06/20 14:30 Neut # (Auto) 4.31 K/uL (1.4-6.5) 07/06/20 14:30 Lymph # (Auto) 1.30 K/uL (1.2-3.4) 07/06/20 14:30 [place] # (Auto) 0.40 K/uL (0.11-0.59) 07/06/20 14:30 Eos # (Auto) 0.16 K/uL (0-0.5) 07/06/20 14:30 Baso # (Auto) 0.01 K/uL (0-0.2) 07/06/20 14:30 Immature Gran # (Auto) 0.01 K/uL (0.00-0.02) 07/06/20 14:30 PT 10.9 Seconds (9.0-12.0) 07/06/20 14:30 INR 1.1 (0.9-1.1) 07/06/20 14:30 APTT 26.3 Seconds (21.0-31.0) 07/06/20 14:30 PTT Ratio 1.0 07/06/20 14:30 Sodium 141 mmol/L (136-145) 07/08/20 06:01 Potassium 4.1 mmol/L (3.5-5.1) 07/08/20 06:01 Chloride 104 mmol/L (98-107) 07/08/20 06:01 Carbon Dioxide 33 mmol/L (21-32) H 07/08/20 06:01 Anion Gap 4.0 (3-11) 07/08/20 06:01 BUN 18 mg/dl (7-18) 07/08/20 06:01 Creatinine 0.90 mg/dl (0.6-1.2) 07/08/20 06:01 Est Cr Clr Drug Dosing 127.1 ml/min 07/08/20 06:01 Est GFR ( Amer) 84.6 ml/min 07/08/20 06:01 Est GFR (Non-Af Amer) 73.0 ml/min 07/08/20 06:01 BUN/Creatinine Ratio 19.6 (10-20) 07/08/20 06:01 Glucose 187 mg/dl (70-99) H 07/08/20 06:01 POC Glucose 279 mg/dl (70-99) H 07/08/20 11:37 Calcium 9.0 mg/dl (8.5-10.1) 07/08/20 06:01 Magnesium 2.6 mg/dl (1.8-2.4) H 07/08/20 06:01 Total Bilirubin 0.9 mg/dl (0.2-1) 07/06/20 14:30 AST 29 U/L (15-37) 07/06/20 14:30 ALT 76 U/L (12-78) 07/06/20 14:30 Alkaline Phosphatase 110 U/L (45-117) 07/06/20 14:30 Total Creatine Kinase 109 U/L (26-192) 07/06/20 14:30 CK-MB (CK-2) 1.0 ng/ml (0.5-3.6) 07/06/20 14:30 CK/CKMB % Calc 0.9 (0-3.0) 07/06/20 14:30 Troponin I < 0.015 ng/ml (0-0.045) 07/06/20 14:30 Total Protein 8.3 gm/dl (6.4-8.2) H 07/06/20 14:30 Albumin 4.1 gm/dl (3.4-5.0) 07/06/20 14:30 Globulin 4.2 gm/dl (2.5-4.0) H 07/06/20 14:30 Albumin/Globulin Ratio 1.0 (0.9-2) 07/06/20 14:30 Lipase 168 U/L (73-393) 07/06/20 14:30 TSH 2.710 uIu/ml (0.300-4.500) 07/06/20 14:30 COVID-19 Eval Order Covid19 at [facility] 07/06/20 15:38 SARS-CoV-2 (PCR) NEGATIVE (Negative) 07/06/20 15:38 Impressions Chest X-Ray 07/06/20 15:15 XR chest 1V portable CLINICAL HISTORY: Chest pain COMPARISON STUDY: Chest radiograph June 11, 2020. FINDINGS: Exam is compromised by suboptimal penetration. Cardiomegaly is unchanged. There is no pneumothorax or pleural effusion. No consolidation is identified. There may be pulmonary vascular congestion. IMPRESSION: 1. Cardiomegaly. Possible pulmonary vascular congestion. 2. No consolidation identified. ACT 112: Negative or not required by law. Electronically signed by: Pool Mc M.D. 07/06/2020 4:36 PM Hospital Course (1) Atrial flutter with rapid ventricular response: (2) Paroxysmal atrial fibrillation: (3) Acute on chronic heart failure with preserved ejection fraction (HFpEF): (4) Morbid obesity: The patient is a 54-year-old female with known history of paroxysmal atrial fibrillation dating back to February 2020. Treatment was begun using a rate control strategy initiated with metoprolol and diltiazem. She was readmitted with symptomatic atrial fibrillation with initiation of flecainide approximately 10 days later. Due to poor QT prolongation flecainide was discontinued. She then followed up with electrophysiology who ordered amiodarone 400mg twice daily. Direct-current cardioversion was performed 07/03 successfully with 200 J. Amiodarone 400 mg p.o. twice daily was continued. She has been anticoagulated on apixaban without interruption. She presented this admission reporting shortness of breath and substernal chest discomfort and fatigue for 2 days. EKG confirmed atrial flutter. She was admitted for treatment of acute on chronic heart failure with preserved ejection fraction. Intravenous diuretics and potassium replacement was administered. A repeat cardioversion was performed on 07/07 using 200 J. Successful conversion to sinus rhythm was present and she remained in sinus rhythm throughout the remainder of her hospitalization. She did appear to have a mild exacerbation post procedure and was given 1 dose of IV furosemide 40 mg. Spironolactone 25 mg p.o. daily was also started and continued at discharge. She continues on amiodarone therapy, diltiazem and metoprolol. At time of discharge she was hemodynamically stable and afebrile and oxygenating well on room air. She was mentating and ambulating at baseline and tolerating p.o. She did report continued generalized malaise, however, she was optimized from a cardiac standpoint and cleared for discharge home with close cardiology follow-up. A repeat BMP was recommended with additional medications started during this admission. Total Time Total Time Spent Total Time Spent (In Minutes): 60 Total Time Includes: Examination of the Patient, Discharge Planning, Medication Reconciliation and Communication With Other Providers Discharge Plan Discharge Items Patient Disposition: Home - Self-Care Reason For Visit: AFLUTTER, CHEST PAIN Discharge Diagnosis: Atrial flutter with rapid ventricular response Paroxysmal atrial fibrillation Acute on chronic heart failure with preserved ejection fraction Morbid obesity Condition on Discharge: Good Activity: Resume your previous activity Non-emergency contact: Primary Care Provider Call non-emergency contact if: you have any medication questions and your symptoms worsen Follow-up/Referrals: Osmani Estrella MD [Primary Care Provider] - (Date & Time 07/13/2020 10:00 AM Provider Domitila Estrella MD Department Family Medicine [facility] ) Diet: Carb Consistent or DM2 and Heart Healthy Addtl Attending Provider Instructions: Please take all medications as instructed on discharge list below. Please follow-up with [facility] in 2-3 weeks after cardioversion. Continue your APIXABAN without interruption. Please followup with our primary care physician as scheduled above. At this appointment, please consider ordering non-fasting bloodwork (BMP) to check your kidney function and electrolytes after a change in your medications during this hospital stay. It was a pleasure taking care of you! Please call if you have any questions or problems. You can reach a [facility] hospitalist on duty at [facility] 24 hours a day by calling [phone]. Take care of yourself. Quin Khan DO [facility] Hospitalist Pending Studies at Discharge: No Stand-Alone Forms: My [facility] Medications and DC Order Prescriptions: New spironolactone 25 mg Tablet 25 mg PO QAM Qty: 30 RF: 0 furosemide 40 mg Tablet 40 mg PO QAM Qty: 30 RF: 0 Continued gabapentin 400 mg capsule 400 mg PO HS RF: 0 metformin 500 mg tablet extended release 24 hr 500 mg PO BID RF: 0 lamotrigine 100 mg tablet 100 mg PO BID RF: 0 Eliquis 5 mg tablet 5 mg PO BID Qty: 60 RF: 0 lisinopril 40 mg tablet 40 mg PO DAILY RF: 0 duloxetine 30 mg capsule,delayed release(DR/EC) 30 mg PO DAILY RF: 0 amiodarone 200 mg tablet 400 mg PO BID RF: 0 diltiazem HCl 90 mg tablet 90 mg PO TID RF: 0 metoprolol succinate [Toprol XL] 100 mg Tablet Extended Release 24 Hr 150 mg PO BID RF: 0 Discontinued furosemide 20 mg Tablet 20 mg PO QAM Qty: 30 RF: 0 Discharge Orders: Discharge Order (Routine); Ordered 07/08/20 Ordered By: Quin Khan Admission Data Admit Date/Time: 07/06/20 16:23 Attending Provider: Quin Khan Admit Provider: Chip Oliva Primary Care Provider: Osmani Estrella Other Providers: Nissa Rush ; Mitali Willis ; Dona Colbert ; Cheri Hall ; Jessica Caldera ; Lilian Concepcion ; Aroldo Reardon ; Polo Mccoy ; Antwan Nance ; Nirmal Narayanan ; Isa Narayanan ; Gregg Cleaning ; Melissa Garrett ; Erik Nunez ; Brenden Franco ; Elvis Tsai ; Avelino Bales ; Elly Tolentino ; Finesse Rivera ; Josephine Martini ; Courtney Rivera ; Lamberto Reyes ; Jennifer Conner ; Meliton Lopez ; Susan Ludwig ; Yvonne Hinkle ; Jennifer Vo ; Viki Bower ; Zach Celeste ; Sherine Cr ; Laura Moya ; Emely Peres ; Ximena Tubbs ; Julio Tubbs V ; Jaime Martinez ; Dona Torrez ; Audie Caro ; Miller Zarco ; Mikayla Chávez ; Nan Meyers ; Julio Urbina ; Vivek Tolentino ; Maximiliano Combs ; Katie Seth ; Emely Rubin ; Toby Thompson ; Tawanda Bales ; Lia Galdamez ; Thad Celestin ; Patrice Voss ; Agsutín Bowens ; Marcelino Vázquez ; Chip Oliva ; Sathish Mojica
== END 2020-07-08 13:45 | disposition home or self-care (01) ==
LOC: ED 15:03 → 2S 16:23 → SUATTDRO 16:23 → 2S 18:37

== ENCOUNTER 2020-07-20 13:08 | Inpatient (IN) ==
[2020-07-20] MEDS ORDERED: ACETAMINOPHEN 325 MG TAB PO PRN ×2 (16:17→17:23)
--- NOTE | 2020-07-20 17:58 | History & Physical Report ---
Date of Service July 20, 2020 Assessment & Plan (1) Atrial flutter with rapid ventricular response: Patient w/history of recurrent A. fib, a flutter with RVR Recently admitted for a flutter with RVR, underwent cardioversion on July [address] Camacho [place] well initially for several days, however now again presents with dyspnea on exertion, chest discomfort and dizziness Presented in [place] ED, where she was found in a flutter and was then transferred here for further cardiology care Will obtain EKG, will monitor on telemetry proBNP was elevated in the ED in [place], will repeat now Chest x-ray was reportedly without acute disease, will repeat chest x-ray here On last discharge, patient was started on furosemide and spironolactone Will monitor electrolytes, keep magnesium above 2 and potassium above 4 Continue home metoprolol, amiodarone, diltiazem, Eliquis Cardiology contacted, appreciate further recommendations -Discussed with cardiology, will hold home diltiazem and will give IV diltiazem for better heart rate control -N.p.o. after midnight Chronic CHF w/ preserved EF -patient may be in mild exacerbation HTN -proBNP in [place] ED elevated, will obtain proBNP here -Chest x-ray reviewed with the ED reportedly without acute disease, will obtain chest x-ray. -Seems generally euvolemic on exam however difficult to properly assess due to body habitus -At home she is on furosemide, spironolactone, lisinopril -Spironolactone was added on last admission -Monitor I's and O's -Replete electrolytes as needed, as above -monitor BP -Cardiology contacted, appreciate further recommendations, will give 1 dose of 20 IV Lasix DM type 2 (diabetes mellitus, type 2): -Hemoglobin A1c 7.2 in April 2020 - hold home Metformin, SSI while inpatient, monitor blood glucose AC HS Bipolar disorder: -Continue home Lamictal, Cymbalta MEIR (obstructive sleep apnea): - CPAP HS Morbid obesity: -BMI 56 -Stonemason Helper on lifestyle changes Left axillary nodule/ adenopathy -Per patient this is new, and noted only several days ago while bathing -It is nontender to palpation, there is no erythema noted -Patient has a history of recurrent non-Hodgkin lymphoma, previously treated at [facility], currently followed up with Dr. Silva -Reviewed previous CTA that patient obtained in March of this year for any suspicious lymphadenopathy -We will obtain ultrasound of her left axilla Skin rash/ lesions -Patient now has several skin lesions on her abdomen and chest reports being seen by family physician, and started on steroid cream -Patient reports lesions getting worse -Recommend to follow-up with dermatology Code: Full DVT ppx: On Eliquis Dispo: Admit to PCU, patient admitted from home, plan to discharge home when medically stable Admission and Anticipated Discharge Date Admission Date: July 20, 2020 History of Present Illness Chief Complaint: Aflutter Primary Care Provider: Osmani Estrella MD Mrs. Olmos is a 54-year-old female with history of diabetes mellitus type 2, sleep apnea, hypertension, dyslipidemia, bipolar disorder, non-Hodgkin lymphoma in remission, obesity, paroxysmal A. fib who presented to the emergency room in [place], with dizziness, chest discomfort, dyspnea on exertion, and was found to be in atrial flutter. Patient was recently admitted at [facility] due to atrial flutter with RVR and underwent cardioversion with Dr. Camacho on July 07. She was then discharged, and reportedly was doing well. She was also discharged on additional medications, furosemide 40 mg daily and spironolactone 25 mg daily. She was supposed to follow-up with cardiology in early July. Unfortunately developed again chest discomfort, dyspnea on exertion, dizziness and so presented to the ED in [place]. There there was found to be in atrial flutter. Troponin was negative, BNP was elevated at 1700. Chest x-ray reportedly without any acute changes. At that time ED provider planned for IV Lasix, and transfer patient to our hospital as she has her cardiology team here. Patient at the time did not want to take Lasix as she felt that would be difficult during the transfer, and she also feels that she is voiding quite a bit with her new medications. Here patient is in atrial flutter, will obtain EKG, chest x-ray, troponin, proBNP. Cardiology aware of the patient and will follow up further. She is currently sitting up in chair in no acute distress, on room air, breathing comfortably. Denies any chest pain however she reports occasional chest discomfort that starts at the sternum and radiates to her left side. She feels dizzy if she would be walking in the hallway even for short distances but she feels comfortable at rest. Patient has history of A. fib and a flutter, and underwent several cardioversions in the past. Today in addition to her chest discomfort and dyspnea, dizziness, she also reports new finding of a lump in her left arm. And several skin lesions on her abdomen and chest. Reports seeing primary care for her skin issues, however the lump seems to be new. Patient has a history of non-Hodgkin lymphoma, previously treated at [facility], since she moved to [place], she has been following with Dr. Silva. Allergies Allergy/AdvReac Type Severity Reaction Status Date / Time No Known Allergies Allergy Verified 07/06/20 15:19 Home Medications Medication Instructions Recorded Confirmed Type gabapentin 400 mg PO HS 04/14/20 07/06/20 History lamotrigine 100 mg PO BID 04/14/20 07/20/20 History metformin 500 mg PO BID 04/14/20 07/20/20 History Eliquis 5 mg PO BID #60 tab 04/15/20 07/20/20 Rx duloxetine 30 mg PO DAILY 05/08/20 07/20/20 History lisinopril 40 mg PO DAILY 05/08/20 07/20/20 History amiodarone 400 mg PO BID 07/06/20 07/20/20 History diltiazem HCl 90 mg PO TID 07/06/20 07/20/20 History metoprolol succinate [Toprol XL] 150 mg PO BID 07/06/20 07/20/20 History furosemide 40 mg PO QAM #30 tab 07/08/20 07/20/20 Rx spironolactone 25 mg PO QAM #30 tab 07/08/20 07/20/20 Rx acetaminophen [Tylenol] 650 mg PO Q4 PRN 07/20/20 07/20/20 History melatonin 10 mg PO HS PRN 07/20/20 07/20/20 History ondansetron HCl [Zofran] 4 mg PO Q6H PRN 07/20/20 07/20/20 History Past Med/Surg History Medical History Atrial flutter with rapid ventricular response Dyslipidemia HTN (hypertension) Hx of lymphoma, non-Hodgkins 2014 - 6 cycles of CHOP 2018 - 3 cycles of brentuximab and radiation Hypokalemia Left-sided chest pain Nausea Obesity Prolonged QT interval Surgical History History of parotid gland removal Family History Denies family history of Heart disease Social History Smoking Status: Never smoker Tobacco Type: Cigarettes Second Hand Exposure: No; Hx Alcohol Use: No Hx Substance Use: No Preferred Language: Turkmen Communication Ability: Effective 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 Beliefs That Will Affect Care: None Current Living Situation: Alone Other Information That Helps Us Care for You: No Feels Safe at Home: Yes Safety Concerns: Feels Safe At This Time Assistive Devices: None Review of Systems Review of Systems: All systems reviewed & are unremarkable except as noted in HPI & below Constitutional: no fever and no chills Eyes: no problem reported Ear, Nose, Mouth, Throat: no problem reported Respiratory: + dyspnea on exertion; no cough Cardiovascular: + chest pain (on and off, sternal radiating to the left side) Gastrointestinal: no abdominal pain, no nausea and no vomiting Genitourinary: no problem reported Musculoskeletal: no problem reported Integumentary: skin lesions on abdomen/chest, crusted Neurologic: no problem reported Psychiatric: no problem reported Endocrine: no problem reported Hematologic / Lymphatic: + left axillary nodule, nontener Allergy / Immunological: no problem reported Physical Exam Constitutional: WD/WN, vitals as above + morbidly obese Eyes: PERRL, conjunctivae normal, anicteric sclerae ENMT: external ear and nose normal, oropharynx normal Neck: trachea midline, no thyromegaly Respiratory: normal respiratory effort, lungs clear to auscultation Auscultation: no rhonchi and no wheezes Cardiovascular: Rate/Rhythm: regular rhythm and + tachycardic Chest (Breasts): Chest: normal inspection of chest Gastrointestinal (Abdomen): Percussion/Palpation: abdomen soft; abdomen nontender, no guarding and abdomen not rigid obese abdomen multiple skin lesions, crusted Musculoskeletal: no cyanosis or clubbing, extremities motor strength 5/5 Head/Neck/Chest: normocephalic and head atraumatic Skin: + multiple skin lesions on abdomen, chest, crusted Neurologic: PERRL, EOMI, accommodation nl, no face palsy, no dysarthria moves all extremities Psychiatric: A+Ox3, euthymic affect Lymphatic: + lymphadenopathy (L axillary nodule, nontender) Results & Data Results & Data ([facility]) Vital Signs (Past 12 Hours) Vital Signs Temp Pulse Resp BP Pulse Ox 07/20/20 15:13 36.8 C 108 H 20 150/111 H 98 Laboratory Results 07/20/20 07/20/20 07/20/20 Range/Units 17:52 17:52 17:46 WBC 6.65 (4.8-10.8) K/uL RBC 4.97 (4.2-5.4) M/uL Hgb 13.6 (12.0-16.0) g/dL Hct 43.5 (37-47) % MCV 87.5 (80-100) fL MCH 27.4 (25-34) pg MCHC 31.3 L (32-36) g/dL RDW Std Deviation 48.2 H (36.4-46.3) fL RDW Coeff of Ida 15.0 H (11.5-14.5) % Plt Count 319 (130-400) K/uL MPV 10.1 (7.4-10.4) fL Sodium 138 (136-145) mmol/L Potassium 3.8 (3.5-5.1) mmol/L Chloride 101 (98-107) mmol/L Carbon Dioxide 34 H (21-32) mmol/L Anion Gap 3.0 (3-11) BUN 14 (7-18) mg/dl Creatinine 0.85 (0.6-1.2) mg/dl Est Cr Clr Drug Dosing 132.5 ml/min Est GFR ( Amer) 90.0 ml/min Est GFR (Non-Af Amer) 77.7 ml/min BUN/Creatinine Ratio 16.7 (10-20) Glucose 141 H (70-99) mg/dl POC Glucose (70-99) mg/dl Calcium 9.7 (8.5-10.1) mg/dl Phosphorus 3.9 (2.5-4.9) mg/dl Magnesium 1.9 (1.8-2.4) mg/dl Troponin I < 0.015 (0-0.045) ng/ml NT-Pro-B Natriuret Pep 1718 H (0-900) pg/ml COVID-19 Eval Order SARS-CoV-2 (PCR) NEGATIVE (Negative) 07/20/20 07/20/20 Range/Units 17:46 16:19 WBC (4.8-10.8) K/uL RBC (4.2-5.4) M/uL Hgb (12.0-16.0) g/dL Hct (37-47) % MCV (80-100) fL MCH (25-34) pg MCHC (32-36) g/dL RDW Std Deviation (36.4-46.3) fL RDW Coeff of Ida (11.5-14.5) % Plt Count (130-400) K/uL MPV (7.4-10.4) fL Sodium (136-145) mmol/L Potassium (3.5-5.1) mmol/L Chloride (98-107) mmol/L Carbon Dioxide (21-32) mmol/L Anion Gap (3-11) BUN (7-18) mg/dl Creatinine (0.6-1.2) mg/dl Est Cr Clr Drug Dosing ml/min Est GFR ( Amer) ml/min Est GFR (Non-Af Amer) ml/min BUN/Creatinine Ratio (10-20) Glucose (70-99) mg/dl POC Glucose 137 H (70-99) mg/dl Calcium (8.5-10.1) mg/dl Phosphorus (2.5-4.9) mg/dl Magnesium (1.8-2.4) mg/dl Troponin I (0-0.045) ng/ml NT-Pro-B Natriuret Pep (0-900) pg/ml COVID-19 Eval Order Covid19 at [facility] SARS-CoV-2 (PCR) (Negative) Medications Administered Current Inpatient Medications Acetaminophen (Acetaminophen 325 Mg Tab) 650 mg PO Q4H PRN PRN Reason: Pain or Fever Stop: 08/19/20 16:16 Last Admin: 07/20/20 19:02 Dose: 650 mg Documented by: Amiodarone HCl (Amiodarone 200 Mg Tab) 400 mg PO BID ADAN Stop: 08/19/20 20:59 Apixaban (Apixaban 5 Mg Tablet) 5 mg PO BID ADAN Stop: 08/19/20 20:59 Dextrose (Dextrose 50% 50 Ml Syringe) 25 - 50 ml IV UD PRN; Protocol PRN Reason: Hypoglycemia Protocol Stop: 08/19/20 19:11 Duloxetine HCl (Duloxetine Hcl 30 Mg Cap) 30 mg PO DAILY ADAN Stop: 08/20/20 08:59 Glucagon (Glucagon For Inj 1 Mg Vial) 1 mg SQ UD PRN; Protocol PRN Reason: Hypoglycemia Protocol Stop: 08/19/20 19:11 Glucose (Glucose 10 Tabs/Tube) 4 - 8 tabs PO UD PRN; Protocol PRN Reason: Hypoglycemia Protocol Stop: 08/19/20 19:11 Glucose (Glucose 40% Gel 15 Gm Tube) 15 - 30 gm PO UD PRN; Protocol PRN Reason: Hypoglycemia Protocol Stop: 08/19/20 19:11 Diltiazem HCl 125 mg/ Dextrose 125 mls @ 5 mls/hr IV .Q24H ADAN; Protocol Stop: 08/19/20 18:44 Insulin Aspart (Insulin Aspart 100 Units/Ml 3 Ml Pen) 0 units SC ACHS ADAN Stop: 08/19/20 20:59 Lamotrigine (Lamotrigine 100 Mg Tab) 100 mg PO BID ADAN Stop: 08/19/20 20:59 Melatonin (Melatonin 3 Mg Tab) 9 mg PO HS PRN PRN Reason: Insomnia Stop: 08/19/20 17:32 Metoprolol Succinate (Metoprolol Succ 50mg Ext Rel Tab) 150 mg PO BID ADAN Stop: 08/19/20 20:59 Miscellaneous (Carbohydrates For Hypoglycemia ) 15 - 30 gm PO UD PRN PRN Reason: Hypoglycemia Protocol Stop: 08/19/20 19:11 Ondansetron HCl (Ondansetron 4 Mg Od Tab) 4 mg PO Q6H PRN PRN Reason: Nausea Stop: 08/19/20 17:33
[2020-07-20 18:06] LABS: Hematocrit (blood only) 43.5 % (37-47); Hemoglobin 13.6 g/dL (12.0-16.0); Mean Corpuscular Hemoglobin 27.4 pg (25-34); Mean Corpuscular Hgb Conc 31.3 g/dL (32-36); Mean Corpuscular Volume 87.5 fL (80-100); Mean Platelet Volume 10.1 fL (7.4-10.4); Platelet Count 319 K/uL (130-400); RDW Standard Deviation 48.2 fL (36.4-46.3); Red Blood Count 4.97 M/uL (4.2-5.4); White Blood Count 6.65 K/uL (4.8-10.8)
[2020-07-20 18:26] LABS: BUN Creatinine Ratio 16.7 (10-20); Blood Urea Nitrogen 14 mg/dl (7-18); Calcium 9.7 mg/dl (8.5-10.1); Carbon Dioxide 34 mmol/L (21-32); Chloride 101 mmol/L (98-107); Creatinine Clr Calc Pharmacy 132.5 ml/min; Est GFR (Non-African American) 77.7 ml/min; Glucose 141 mg/dl (70-99); Magnesium 1.9 mg/dl (1.8-2.4); Potassium 3.8 mmol/L (3.5-5.1); Sodium 138 mmol/L (136-145)
[2020-07-20 18:31] LABS: NT Pro B Type Natriuretic Pept 1718 pg/ml (0-900); Phosphorus 3.9 mg/dl (2.5-4.9); Troponin I < 0.015 ng/ml (0-0.045)
[2020-07-20] MEDS ORDERED: dilTIAZem HCl 5 MG/ML 5 ML VIAL IV STA (18:31)
[2020-07-20] MEDS ORDERED: STAT IV Infusion **Titration per Protocol STA (18:31)
--- NOTE | 2020-07-20 18:32 | Cardiology Consultation ---
Date of Consultation July 20, 2020 Assessment & Plan (1) Atrial flutter with rapid ventricular response: (2) Obesity: 55-year-old female with a history of obesity, 376 pounds, BMI 55, hypertension, sleep apnea on positive pressure ventilation and recent recurrent admissions for symptomatic atrial arrhythmias. EKG reveals atrial flutter 117 bpm. The QT is indeterminate on both telemetry and EKG due to the atrial activity related to atrial flutter. Of note, at the time of her sinus rhythm EKG post cardioversion on 07/07/2020 QT interval was within normal limits of 442 ms. She has been proven to have both atrial fibrillation as well as what looks like an organized atrial flutter which was demonstrated earlier this month on EKG and again today. Echocardiogram performed at [facility] on 07/03/2020 revealed suggestion of moderate right ventricular systolic dysfunction, and mild left ventricular systolic dysfunction LVEF 45 to 49%. Volume status is difficult to assess clinically due to her body habitus. She is tachycardic but not in acute distress, and her blood pressure is adequate at 150/111. At present, we will continue her prior to hospital treatment with amiodarone 400 mg twice daily and Eliquis 5 mg twice daily for stroke prophylaxis. Continue prior to hospital treatment with metoprolol. Hold oral diltiazem, and start IV diltiazem for acute rate control and symptomatic relief. Proceed with one-time dose of furosemide 20 mg IV and potassium supplementation. Keep n.p.o. after midnight for possible repeat cardioversion. She had already been referred to electrophysiology at [facility] and had been seen by Dr. Fernández. Pulmonary vein isolation procedure have been discussed at that time. Based on her EKG, atrial flutter may in fact be right-sided and may be amenable to tricuspid isthmus ablation. History of Present Illness Attending Physician: Chip Oliva MD History of Present Illness Ara Olmos is a 55-year-old female seen in cardiology consultation per the request of Dr. Oliva for the evaluation of symptomatic atrial flutter with rapid ventricular response with suggestion of underlying volume overload. Patient's recent history dates back to March, when she was first diagnosed with atrial fibrillation with rapid ventricular response. She was initially treated with metoprolol tartrate and Eliquis. She was readmitted in April 2020, two times in May,. She underwent direct-current cardioversion on 06/10/2020, with conversion to sinus rhythm after a third countershock of 360 J. She was readmitted again on 07/07/2020 this time with atrial flutter with rapid ventricular response as compared to atrial fibrillation. Cardioversion was again performed, and she was discharged on amiodarone. She believes that she felt well for about the first week after the cardioversion, and then has had progressive easy fatigability, severe shortness of breath with exertion as well as with trying to sleep. She therefore p resented to the emergency department at [facility] earlier today was found to be in recurrent atrial flutter with rapid ventricular response. She was transferred to [facility] for further treatment. At the time my assessment, the patient was comfortable, no conversational dyspnea. Heart rate was in the 110s on EKG and telemetry. Allergies Allergy/AdvReac Type Severity Reaction Status Date / Time No Known Allergies Allergy Verified 07/06/20 15:19 Home Medications Medication Instructions Recorded Confirmed Type gabapentin 400 mg PO HS 04/14/20 07/06/20 History lamotrigine 100 mg PO BID 04/14/20 07/20/20 History metformin 500 mg PO BID 04/14/20 07/20/20 History Eliquis 5 mg PO BID #60 tab 04/15/20 07/20/20 Rx duloxetine 30 mg PO DAILY 05/08/20 07/20/20 History lisinopril 40 mg PO DAILY 05/08/20 07/20/20 History amiodarone 400 mg PO BID 07/06/20 07/20/20 History diltiazem HCl 90 mg PO TID 07/06/20 07/20/20 History metoprolol succinate [Toprol XL] 150 mg PO BID 07/06/20 07/20/20 History furosemide 40 mg PO QAM #30 tab 07/08/20 07/20/20 Rx spironolactone 25 mg PO QAM #30 tab 07/08/20 07/20/20 Rx acetaminophen [Tylenol] 650 mg PO Q4 PRN 07/20/20 07/20/20 History melatonin 10 mg PO HS PRN 07/20/20 07/20/20 History ondansetron HCl [Zofran] 4 mg PO Q6H PRN 07/20/20 07/20/20 History Patient History Medical History Atrial flutter with rapid ventricular response Dyslipidemia HTN (hypertension) Hx of lymphoma, non-Hodgkins 2014 - 6 cycles of CHOP 2018 - 3 cycles of brentuximab and radiation Hypokalemia Left-sided chest pain Nausea Obesity Prolonged QT interval Surgical History History of parotid gland removal Family History Denies family history of Heart disease Social History Smoking Status: Never smoker Tobacco Type: Cigarettes Second Hand Exposure: No; Hx Alcohol Use: No Hx Substance Use: No Preferred Language: Botswanan Communication Ability: Effective Poultry Farmworker Required: No Beliefs That Will Affect Care: None Current Living Situation: Alone Other Information That Helps Us Care for You: No Feels Safe at Home: Yes Safety Concerns: Feels Safe At This Time Assistive Devices: None Review of Systems Review of Systems: All systems reviewed & are unremarkable except as noted in HPI & below Physical Exam Physical Exam: Temp Pulse Resp BP Pulse Ox 36.8 C 108 H 20 150/111 H 98 07/20/20 15:13 07/20/20 15:13 07/20/20 15:13 07/20/20 15:13 07/20/20 15:13 Constitutional: WD/WN, vitals as above + obese Respiratory: No audible wheezing or rales, exam is technically limited due to her body habitus Cardiovascular: Heart sounds cannot be auscultated Gastrointestinal (Abdomen): normal bowel sounds, soft, nontender, no hepatosplenomegaly Neurologic: PERRL, EOMI, accommodation nl, no face palsy, no dysarthria Results & Data ([facility]) Vital Signs (Past 12 Hours) Vital Signs Temp Pulse Resp BP Pulse Ox 07/20/20 15:13 36.8 C 108 H 20 150/111 H 98 Laboratory Results CBC 07/20/20 Range/Units 17:52 WBC 6.65 (4.8-10.8) K/uL RBC 4.97 (4.2-5.4) M/uL Hgb 13.6 (12.0-16.0) g/dL Hct 43.5 (37-47) % Plt Count 319 (130-400) K/uL Comprehensive Metabolic Panel 07/20/20 Range/Units 17:52 Sodium 138 (136-145) mmol/L Potassium 3.8 (3.5-5.1) mmol/L Chloride 101 (98-107) mmol/L Carbon Dioxide 34 H (21-32) mmol/L BUN 14 (7-18) mg/dl Creatinine 0.85 (0.6-1.2) mg/dl Glucose 141 H (70-99) mg/dl Calcium 9.7 (8.5-10.1) mg/dl Intake and Output 07/20/20 07/20/20 07/20/20 06:59 14:59 22:59 Other: Weight 174.5 kg Weight Measurement Method Standing Scale Patient Weight 07/21/20 06:59 Weight 174.5 kg
[2020-07-20] MEDS ORDERED: POTASSIUM CHLORIDE CRTAB 20 MEQ TABCR PO STA (18:35)
--- NOTE | 2020-07-20 18:48 | XRay Report ---
XR chest 1V portable CLINICAL HISTORY: Atypical chest pain COMPARISON STUDY: 07/06/2020 FINDINGS: The heart is enlarged. There is no failure. There is no focal pulmonary consolidation. Ther e are no pleural effusions.[ IMPRESSION: Mild cardiomegaly. No acute findings. ACT 112: Negative or not required by law. Electronically signed by: Lamine Ramirez M.D. 07/20/2020 6:46 PM
[2020-07-20] MEDS ORDERED: DEXTROSE 50% 50 ML SYRINGE IV PRN (19:12)
[2020-07-20] MEDS ORDERED: GLUCOSE 10 TABS/TUBE PO PRN (19:12)
[2020-07-20] MEDS ORDERED: GLUCOSE 40% GEL 15 GM TUBE PO PRN (19:12)
[2020-07-20] MEDS ORDERED: GLUCAGON FOR INJ 1 MG VIAL SQ PRN (19:12)
[2020-07-20] MEDS ORDERED: CARBOHYDRATES FOR HYPOGLYCEMIA PO PRN (19:12)
[2020-07-20] MEDS: dilTIAZem HCL 125 MG in DEXTROSE 5% 100 ML IV SCH (19:28)
[2020-07-20] MEDS: APIXABAN 5 MG TABLET PO SCH (19:29)
[2020-07-20] MEDS: METOPROLOL SUCC 50MG EXT REL TAB PO SCH (19:31)
[2020-07-20] MEDS: AMIODARONE 200 MG TAB PO SCH (19:31)
[2020-07-20] MEDS: lamoTRIgine 100 MG TAB PO SCH (19:32)
[2020-07-20] MEDS: FUROSEMIDE 20 MG in SYRINGE 0 ML IV ONE ×2 (19:33→20:53)
[2020-07-20] MEDS: MELATONIN 3 MG TAB PO PRN (20:40)
[2020-07-20] MEDS: INSULIN ASPART 100 UNITS/ML 3 ML PEN SC SCH (20:44)
[2020-07-20] MEDS ORDERED: dilTIAZem HCL 30 MG TAB PO SCH (21:00)
[2020-07-21 07:01] LABS: BUN Creatinine Ratio 21.8 (10-20); Calcium 8.8 mg/dl (8.5-10.1); Creatinine Clr Calc Pharmacy 148.1 ml/min; Est GFR (African American) 103.1 ml/min; Est GFR (Non-African American) 88.9 ml/min; Magnesium 1.8 mg/dl (1.8-2.4); Potassium 3.5 mmol/L (3.5-5.1)
[2020-07-21] MEDS ORDERED: POTASSIUM CHLORIDE CRTAB 20 MEQ TABCR PO STA (07:21)
--- NOTE | 2020-07-21 07:24 | Hospitalist Progress Note ---
Date of Service July 21, 2020 Assessment & Plan (1) Atrial flutter with rapid ventricular response: Patient w/history of recurrent A. fib, a flutter with RVR Recently admitted for a flutter with RVR, underwent cardioversion on July [address] Camacho [place] well initially for several days, however now again presents with dyspnea on exertion, chest discomfort and dizziness Presented in [place] ED, where she was found in a flutter and was then transferred here for further cardiology care Will obtain EKG, will monitor on telemetry proBNP was elevated in the ED in [place], will repeat now Chest x-ray was reportedly without acute disease, will repeat chest x-ray here On last discharge, patient was started on furosemide and spironolactone Will monitor electrolytes, keep magnesium above 2 and potassium above 4 Continue home metoprolol, amiodarone, diltiazem, Eliquis Cardiology contacted, appreciate further recommendations Now status post cardioversion with cardiology (07/21) Plan to monitor overnight, and hopefully discharge tomorrow (07/22), appointment with EP tomorrow at [facility] Chronic CHF w/ preserved EF -patient may be in mild exacerbation HTN -proBNP in [place] ED elevated, will obtain proBNP here -Chest x-ray reviewed with the ED reportedly without acute disease, will obtain chest x-ray. -Seems generally euvolemic on exam however difficult to properly assess due to body habitus -At home she is on furosemide, spironolactone, lisinopril -Spironolactone was added on last admission -Monitor I's and O's -Replete electrolytes as needed, as above -monitor BP -Cardiology contacted, appreciate further recommendations, will gave 1 dose of 20 IV Lasix on admission DM type 2 (diabetes mellitus, type 2): -Hemoglobin A1c 7.2 in April 2020 - hold home Metformin, SSI while inpatient, monitor blood glucose AC HS Bipolar disorder: -Continue home Lamictal, Cymbalta MEIR (obstructive sleep apnea): - CPAP HS Morbid obesity: -BMI 56 -Tram Inspector on lifestyle changes Left axillary nodule/ adenopathy -Per patient this is new, and noted only several days ago while bathing -It is nontender to palpation, there is no erythema noted -Patient has a history of recurrent non-Hodgkin lymphoma, previously treated at [facility], currently followed up with Dr. Shira -Reviewed previous CTA that patient obtained in March of this year for any suspicious lymphadenopathy -obtained ultrasound of her left axilla - 1. Palpable abnormality corresponds to an ill-defined 18 mm ovoid density possibly representing a fatty replaced lymph node although the appearance is nonspecific. Clinical follow-up recommended. If this palpable abnormality persists, then referral to the diagnostic breast Center is recommended. Skin rash/ lesions -Patient now has several skin lesions on her abdomen and chest reports being seen by family physician, and started on steroid cream -Patient reports lesions getting worse -Recommend to follow-up with dermatology Code: Full DVT ppx: On Eliquis Dispo: PCU, patient admitted from home, plan to discharge home when medically stable (likely tomorrow) Admission and Anticipated Discharge Date Admission Date: July 20, 2020 Subjective Patient seen in follow-up of a flutter with RVR Underwent cardioversion with cardiology earlier today Currently feels tired, eating lunch Does not have any complaints besides feeling tired Review of Systems Review of Systems: All systems reviewed & are unremarkable except as noted in HPI & below Constitutional: no fever and no chills Respiratory: no cough and no dyspnea Cardiovascular: no chest pain Gastrointestinal: no abdominal pain, no nausea and no vomiting Physical Exam Constitutional: WD/WN, vitals as above + morbidly obese Eyes: PERRL, conjunctivae normal, anicteric sclerae ENMT: external ear and nose normal, oropharynx normal Neck: trachea midline, no thyromegaly Respiratory: normal respiratory effort, lungs clear to auscultation Auscultation: no rhonchi and no wheezes Cardiovascular: Rate/Rhythm: regular rhythm Heart Sounds: normal S1 and normal S2 Chest (Breasts): Chest: normal inspection of chest Gastrointestinal (Abdomen): Percussion/Palpation: abdomen soft; abdomen nontender, no guarding and abdomen not rigid + obese Musculoskeletal: no cyanosis or clubbing, extremities motor strength 5/5 Head/Neck/Chest: normocephalic and head atraumatic Neurologic: PERRL, EOMI, accommodation nl, no face palsy, no dysarthria moves all extremities Psychiatric: A+Ox3, euthymic affect Lymphatic: + lymphadenopathy (L axillary nodule, nontender) Results & Data Results & Data ([facility]) Vital Signs (Past 12 Hours) Vital Signs Temp Pulse Resp BP Pulse Ox 07/21/20 04:01 36.7 C 118 H 20 154/100 H 96 07/20/20 23:28 36.7 C 118 H 21 166/107 H 97 Laboratory Results 07/21/20 07/20/20 07/20/20 Range/Units 05:35 20:40 17:52 WBC 6.65 (4.8-10.8) K/uL RBC 4.97 (4.2-5.4) M/uL Hgb 13.6 (12.0-16.0) g/dL Hct 43.5 (37-47) % MCV 87.5 (80-100) fL MCH 27.4 (25-34) pg MCHC 31.3 L (32-36) g/dL RDW Std Deviation 48.2 H (36.4-46.3) fL RDW Coeff of Ida 15.0 H (11.5-14.5) % Plt Count 319 (130-400) K/uL MPV 10.1 (7.4-10.4) fL Sodium 139 (136-145) mmol/L Potassium 3.5 (3.5-5.1) mmol/L Chloride 103 (98-107) mmol/L Carbon Dioxide 33 H (21-32) mmol/L Anion Gap 3.0 (3-11) BUN 17 (7-18) mg/dl Creatinine 0.76 (0.6-1.2) mg/dl Est Cr Clr Drug Dosing 148.1 ml/min Est GFR ( Amer) 103.1 ml/min Est GFR (Non-Af Amer) 88.9 ml/min BUN/Creatinine Ratio 21.8 H (10-20) Glucose 233 H (70-99) mg/dl POC Glucose 219 H (70-99) mg/dl Calcium 8.8 (8.5-10.1) mg/dl Phosphorus (2.5-4.9) mg/dl Magnesium 1.8 (1.8-2.4) mg/dl Troponin I (0-0.045) ng/ml NT-Pro-B Natriuret Pep (0-900) pg/ml COVID-19 Eval Order SARS-CoV-2 (PCR) (Negative) 07/20/20 07/20/20 07/20/20 Range/Units 17:52 17:46 17:46 WBC (4.8-10.8) K/uL RBC (4.2-5.4) M/uL Hgb (12.0-16.0) g/dL Hct (37-47) % MCV (80-100) fL MCH (25-34) pg MCHC (32-36) g/dL RDW Std Deviation (36.4-46.3) fL RDW Coeff of Ida (11.5-14.5) % Plt Count (130-400) K/uL MPV (7.4-10.4) fL Sodium 138 (136-145) mmol/L Potassium 3.8 (3.5-5.1) mmol/L Chloride 101 (98-107) mmol/L Carbon Dioxide 34 H (21-32) mmol/L Anion Gap 3.0 (3-11) BUN 14 (7-18) mg/dl Creatinine 0.85 (0.6-1.2) mg/dl Est Cr Clr Drug Dosing 132.5 ml/min Est GFR ( Amer) 90.0 ml/min Est GFR (Non-Af Amer) 77.7 ml/min BUN/Creatinine Ratio 16.7 (10-20) Glucose 141 H (70-99) mg/dl POC Glucose (70-99) mg/dl Calcium 9.7 (8.5-10.1) mg/dl Phosphorus 3.9 (2.5-4.9) mg/dl Magnesium 1.9 (1.8-2.4) mg/dl Troponin I < 0.015 (0-0.045) ng/ml NT-Pro-B Natriuret Pep 1718 H (0-900) pg/ml COVID-19 Eval Order Covid19 at [facility] SARS-CoV-2 (PCR) NEGATIVE (Negative) 07/20/20 Range/Units 16:19 WBC (4.8-10.8) K/uL RBC (4.2-5.4) M/uL Hgb (12.0-16.0) g/dL Hct (37-47) % MCV (80-100) fL MCH (25-34) pg MCHC (32-36) g/dL RDW Std Deviation (36.4-46.3) fL RDW Coeff of Ida (11.5-14.5) % Plt Count (130-400) K/uL MPV (7.4-10.4) fL Sodium (136-145) mmol/L Potassium (3.5-5.1) mmol/L Chloride (98-107) mmol/L Carbon Dioxide (21-32) mmol/L Anion Gap (3-11) BUN (7-18) mg/dl Creatinine (0.6-1.2) mg/dl Est Cr Clr Drug Dosing ml/min Est GFR ( Amer) ml/min Est GFR (Non-Af Amer) ml/min BUN/Creatinine Ratio (10-20) Glucose (70-99) mg/dl POC Glucose 137 H (70-99) mg/dl Calcium (8.5-10.1) mg/dl Phosphorus (2.5-4.9) mg/dl Magnesium (1.8-2.4) mg/dl Troponin I (0-0.045) ng/ml NT-Pro-B Natriuret Pep (0-900) pg/ml COVID-19 Eval Order SARS-CoV-2 (PCR) (Negative) Medications Administered Current Inpatient Medications Acetaminophen (Acetaminophen 325 Mg Tab) 650 mg PO Q4H PRN PRN Reason: Pain or Fever Stop: 08/19/20 16:16 Last Admin: 07/20/20 19:02 Dose: 650 mg Documented by: Amiodarone HCl (Amiodarone 200 Mg Tab) 400 mg PO BID ADAN Stop: 08/19/20 20:59 Last Admin: 07/20/20 19:31 Dose: 400 mg Documented by: Apixaban (Apixaban 5 Mg Tablet) 5 mg PO BID ADAN Stop: 08/19/20 20:59 Last Admin: 07/20/20 19:29 Dose: 5 mg Documented by: Dextrose (Dextrose 50% 50 Ml Syringe) 25 - 50 ml IV UD PRN; Protocol PRN Reason: Hypoglycemia Protocol Stop: 08/19/20 19:11 Duloxetine HCl (Duloxetine Hcl 30 Mg Cap) 30 mg PO DAILY ADAN Stop: 08/20/20 08:59 Furosemide (Furosemide 40 Mg Tab) 40 mg PO QAM ADAN Stop: 08/20/20 08:59 Glucagon (Glucagon For Inj 1 Mg Vial) 1 mg SQ UD PRN; Protocol PRN Reason: Hypoglycemia Protocol Stop: 08/19/20 19:11 Glucose (Glucose 10 Tabs/Tube) 4 - 8 tabs PO UD PRN; Protocol PRN Reason: Hypoglycemia Protocol Stop: 08/19/20 19:11 Glucose (Glucose 40% Gel 15 Gm Tube) 15 - 30 gm PO UD PRN; Protocol PRN Reason: Hypoglycemia Protocol Stop: 08/19/20 19:11 Diltiazem HCl 125 mg/ Dextrose 125 mls @ 15 mls/hr IV .Q8H20M ADAN; Protocol Stop: 08/19/20 18:44 Last Titration: 07/21/20 06:27 Dose: 15 mg/hr, 15 mls/hr Documented by: Insulin Aspart (Insulin Aspart 100 Units/Ml 3 Ml Pen) 0 units SC ACHS ADAN Stop: 08/19/20 20:59 Last Admin: 07/20/20 20:44 Dose: 2 units Documented by: Lamotrigine (Lamotrigine 100 Mg Tab) 100 mg PO BID ADAN Stop: 08/19/20 20:59 Last Admin: 07/20/20 19:32 Dose: 100 mg Documented by: Lisinopril (Lisinopril 40 Mg Tab) 40 mg PO DAILY [facility] Stop: 08/20/20 08:59 Melatonin (Melatonin 3 Mg Tab) 9 mg PO HS PRN PRN Reason: Insomnia Stop: 08/19/20 17:32 Last Admin: 07/20/20 20:40 Dose: 9 mg Documented by: Metoprolol Succinate (Metoprolol Succ 50mg Ext Rel Tab) 150 mg PO BID [facility] Stop: 08/19/20 20:59 Last Admin: 07/20/20 19:31 Dose: 150 mg Documented by: Miscellaneous (Carbohydrates For Hypoglycemia ) 15 - 30 gm PO UD PRN PRN Reason: Hypoglycemia Protocol Stop: 08/19/20 19:11 Ondansetron HCl (Ondansetron 4 Mg Od Tab) 4 mg PO Q6H PRN PRN Reason: Nausea Stop: 08/19/20 17:33 Potassium Chloride (Potassium Chloride Crtab 20 Meq Tabcr) 40 meq PO NOW STA Stop: 07/21/20 07:22 Spironolactone (Spironolactone 25 Mg Tab) 25 mg PO QAM [facility] Stop: 08/20/20 08:59
--- NOTE | 2020-07-21 07:54 | Ultrasound Report ---
LEFT AXILLARY ULTRASOUND CLINICAL HISTORY: Left axillary mass COMPARISON STUDY: CT scan of chest performed April 14, 2020 FINDINGS: Targeted ultrasound of the left axilla was performed. There is an ill-defined 18 mm ovoid d ensity corresponding to the palpable abnormality. This potentially represents a fatty replaced lymph node although the appearance is nonspecific. Clinical follow-up is recommended. Given history of arabella st carcinoma, if this palpable abnormal I persists, then referral to diagnostic breast Center is karen mmended. IMPRESSION: 1. Palpable abnormality corresponds to an ill-defined 18 mm ovoid density possibly representing a fat ty replaced lymph node although the appearance is nonspecific. Clinical follow-up recommended. If thi s palpable abnormality persists, then referral to the diagnostic breast Center is recommended. ACT 112: Negative or not required by law. Electronically signed by: Lamine Ramirez M.D. 07/21/2020 7:52 AM
[2020-07-21] MEDS: INSULIN ASPART 100 UNITS/ML 3 ML PEN SC SCH ×4 (08:40→21:11)
[2020-07-21] MEDS: lisinopril 40 MG TAB PO SCH (08:51)
[2020-07-21] MEDS: FUROSEMIDE 40 MG TAB PO SCH (08:51)
[2020-07-21] MEDS: SPIRONOLACTONE 25 MG TAB PO SCH (08:51)
[2020-07-21] MEDS: DULoxetine HCL 30 MG CAP PO SCH (08:51)
[2020-07-21] MEDS: AMIODARONE 200 MG TAB PO SCH ×2 (08:52→21:03)
[2020-07-21] MEDS: APIXABAN 5 MG TABLET PO SCH ×2 (08:52→21:03)
[2020-07-21] MEDS: lamoTRIgine 100 MG TAB PO SCH ×2 (08:52→21:04)
[2020-07-21] MEDS: ONDANSETRON 4 MG OD TAB PO PRN (08:52)
[2020-07-21] MEDS: METOPROLOL SUCC 50MG EXT REL TAB PO SCH ×2 (08:52→21:04)
[2020-07-21] MEDS: dilTIAZem HCL 125 MG in DEXTROSE 5% 100 ML IV SCH (10:34)
--- NOTE | 2020-07-21 10:36 | Electrocardiogram Report ---
Test Reason : Blood Pressure : / mmHG Vent. Rate : 117 BPM Atrial Rate : 117 BPM P-R Int : 128 ms QRS Dur : 098 ms QT Int : 402 ms P-R-T Axes : 000 087 060 degrees QTc Int : 560 ms Atrial flutter with 2 to 1 block Abnormal ECG When compared with ECG of 07-JUL-2020 10:58, Atrial flutter now present HR has increased 45 bpm Confirmed by López Alexander ([id number]) on 07/21/2020 10:35:31 AM Referred By: Monet Scott Confirmed By:López Alexander
--- NOTE | 2020-07-21 10:49 | Cardiology Progress Note ---
Date of Service July 21, 2020 Assessment & Plan (1) Atrial flutter with rapid ventricular response: (2) Obesity: 55-year-old female with a history of obesity, 376 pounds, BMI 55, hypertension, sleep apnea on positive pressure ventilation and recent recurrent admissions for symptomatic atrial arrhythmias. EKG reveals atrial flutter 117 bpm. The QT is indeterminate on both telemetry and EKG due to the atrial activity related to atrial flutter. Of note, at the time of her sinus rhythm EKG post cardioversion on 07/07/2020 QT interval was within normal limits of 442 ms. She has been proven to have both atrial fibrillation as well as what looks like an organized atrial flutter which was demonstrated earlier this month on EKG and again today. Cardioversion today successful at establishing sinus rhythm. Will monitor overnight. This is now her fourth cardioversion and obviously electrophysiology is the most prudent course of action. She had already been referred to electrophysiology at [facility] and had been seen by Dr. Fernández. She is already scheduled to be seen by him tomorrow at [facility]. My plan at this time is to return to telemetry and continue amiodarone and Eliquis. Hopefully DC in the a.m. tomorrow so that she is able to keep her appointment with electrophysiology. Patient is agreeable with this plan. Pulmonary vein isolation procedure have been discussed at that time. Based on her EKG, atrial flutter may in fact be right-sided and may be amenable to tricus pid isthmus ablation. Admission and Anticipated Discharge Date Admission Date: July 20, 2020 Subjective Patient seen and examined, chart reviewed. States that she continues to feel tired and rundown along with a sensation of her heart racing. Denies chest pain, lightheadedness, dizziness or syncope. Telemetry reviewed: Atrial flutter with variable rates from 100 to the 120s. Review of Systems Review of Systems: All systems reviewed & are unremarkable except as noted in HPI & below Physical Exam Physical Exam: General: Awake, alert and oriented x 3. No acute distress. HEENT: Normocephalic, atraumatic. Pupils equal, round and reactive to light and accommodation. Extraocular muscles are intact. Anicteric sclera. Moist mucous membranes. Neck: No JVD. No bruit. Cardiovascular: irregularly irregular, unable to appreciate murmur, rub or gallop. Pulmonary: Clear to auscultation bilaterally. No rales, rhonchi, or wheezing. Abdomen: Bowel sounds x 4, soft. No rebound, guarding or tenderness. No organomegaly. Extremities: No clubbing, cyanosis or edema. +2 pedal pulses bilaterally. Skin: Warm and dry. Results & Data ([facility]) Vital Signs (Past 12 Hours) Vital Signs Temp Pulse Pulse Resp BP Pulse Ox 07/21/20 10:30 110 H 07/21/20 07:55 36.5 C 121 H 19 132/80 98 07/21/20 07:00 119 H 07/21/20 04:01 36.7 C 118 H 20 154/100 H 96 07/20/20 23:28 36.7 C 118 H 21 166/107 H 97
[2020-07-21] MEDS ORDERED: MIDAZOLAM HCL 5 MG/ML 1 ML VIAL ONE (11:08)
[2020-07-21] MEDS ORDERED: fentaNYL citrate 100 MCG/2 ML VIAL ONE ×2 (11:09→11:54)
--- NOTE | 2020-07-21 11:40 | Pre Anesthesia Assessment ---
Date of Service July 21, 2020 Pre Sedation Assessment Vital Signs Temp Pulse Pulse Resp BP Pulse Ox 07/21/20 11:31 89 18 143/120 H 96 07/21/20 10:30 110 H 07/21/20 07:55 36.5 C 121 H 19 132/80 98 07/21/20 07:00 119 H 07/21/20 04:01 36.7 C 118 H 20 154/100 H 96 07/20/20 23:28 36.7 C 118 H 21 166/107 H 97 07/20/20 19:09 37.0 C 121 H 18 146/85 H 97 07/20/20 18:57 120 H 146/85 H 07/20/20 15:13 36.8 C 108 H 20 150/111 H 98 Pre-Sedation Airway Assessment Smoking Status: Never smoker Hx Sleep Apnea: Yes Short, Thick Neck: No Thyromental Distance: > or= 3.5 Finger Breadths Oral Cavity: + WNL Mallampati Class: III ASA: ASA3 NPO Status Date of Last Intake of Fluids: 07/21/20 Time of Last Intake of Fluids: 07:00 Date of Last Intake of Solid Food: 07/20/20 Notes The planned sedation has been discussed with the patient. Informed Consent was obtained. I have identified the patient, determined the appropriateness of sedation and have assessed the patient immediately prior to the procedure. All medicine(s) and interventions are by my order.
[2020-07-21] MEDS ORDERED: MIDAZOLAM HCL 1 MG/ML 2ML VIAL ONE (11:54)
--- NOTE | 2020-07-21 12:12 | Post Anesthesia Assessment ---
Date of Service July 21, 2020 Post Sedation Assessment Vital Signs Temp Pulse Pulse Resp BP Pulse Ox 07/21/20 12:10 65 18 131/98 94 07/21/20 12:05 66 18 159/100 H 96 07/21/20 12:00 110 H 18 128/102 H 97 07/21/20 11:55 99 H 18 160/95 H 96 07/21/20 11:50 109 H 18 178/110 H 100 07/21/20 11:31 89 18 143/120 H 96 07/21/20 10:30 110 H 07/21/20 07:55 36.5 C 121 H 19 132/80 98 07/21/20 07:00 119 H 07/21/20 04:01 36.7 C 118 H 20 154/100 H 96 07/20/20 23:28 36.7 C 118 H 21 166/107 H 97 07/20/20 19:09 37.0 C 121 H 18 146/85 H 97 07/20/20 18:57 120 H 146/85 H 07/20/20 15:13 36.8 C 108 H 20 150/111 H 98 Recovery Score Activity: Moves 4 extremities Respiration: Deep Breath/Cough Circulation: +/-20% PreAnes Value Consciousness: Arouseable (by name) Oxygen Saturation: > 92% On Room Air Post Anesthesia Score: 9 Discharge Sedation Level of Care: Fast Track Phase II Post Sedation Plan On clinical assessment, the patient appears to have tolerated the sedation without complications. Patient is recovering as anticipated. Patient will continue to be monitored by nursing and may be discharged when sedation discharge criteria are met per below protocol. Upon Completions of procedure up to 15 minutes continue every 5 minute vital signs and the P.A.R. score; then discharge to a Phase I or Fast Track to Phase II per the following guidelines: * Discharge Patient to appropriate Phase II area if PAR is 8 or greater or return to pre- procedure baseline. The post - procedure orders will be as directed. * If PAR score is less than 8 or not return to pre-procedure baseline then patient will follow Phase I monitoring till PAR is reached for Phase II. The Phase I may be done in procedure room or may call to secure a Phase I area. * If naloxone or flumazenil are used for reversal, hold in Phase I for continued monitoring from when last reversal dose was given for a minimum of 60 minutes or longer pending the nurse and/or physician discretion of patient condition before discharge to Phase II. Please call the Sedation Physician to re-evaluate and complete post-note for discharge to Phase II area. Do NOT discharge from procedure sedation or Phase 1 until post- sedation evaluation note is complete by procedure /sedation MD Sedation Discharge Instructions to be given to the patient at discharge to home.
--- NOTE | 2020-07-21 12:14 | Cardioversion ---
Date of Service July 21, 2020 Electrical Cardioversion Rpt Electrical Cardioversion Report Informed consent obtained. Patient prepped. Adequate moderate conscious sedation achieved with a total of Versed 7 mg and fentanyl 150 mcg. A single shock with 360 J of energy was successful at converting to normal sinus rhythm. Patient tolerated very well but remains anxious and tearful post procedure. Start time: 1148 Stop time: 1202 Plan: Return to telemetry and monitor overnight, okay to resume diet. Plan will be for discharge in the a.m. so that she will be able to follow-up with electrophysiology as scheduled tomorrow at 3 PM at [facility].
[2020-07-21] MEDS ORDERED: LANTUS PER UNIT CHARGE SQ STA (16:32)
[2020-07-21] MEDS: MELATONIN 3 MG TAB PO PRN (21:02)
[2020-07-22] MEDS: ONDANSETRON 4 MG OD TAB PO PRN (03:54)
[2020-07-22 06:20] LABS: Hematocrit (blood only) 41.1 % (37-47); Hemoglobin 12.8 g/dL (12.0-16.0); Mean Corpuscular Hemoglobin 27.7 pg (25-34); Mean Corpuscular Hgb Conc 31.1 g/dL (32-36); Mean Platelet Volume 10.4 fL (7.4-10.4); Platelet Count 298 K/uL (130-400); RDW Coefficient of Variation 15.3 % (11.5-14.5); RDW Standard Deviation 49.2 fL (36.4-46.3); Red Blood Count 4.62 M/uL (4.2-5.4); White Blood Count 6.67 K/uL (4.8-10.8)
[2020-07-22 06:55] LABS: BUN Creatinine Ratio 22.8 (10-20); Calcium 9.5 mg/dl (8.5-10.1); Creatinine Clr Calc Pharmacy 115.6 ml/min; Est GFR (African American) 75.8 ml/min; Est GFR (Non-African American) 65.4 ml/min; Magnesium 2.1 mg/dl (1.8-2.4); Potassium 4.3 mmol/L (3.5-5.1)
[2020-07-22] MEDS: INSULIN ASPART 100 UNITS/ML 3 ML PEN SC SCH ×2 (07:49→12:25)
[2020-07-22] MEDS: AMIODARONE 200 MG TAB PO SCH (07:50)
[2020-07-22] MEDS: APIXABAN 5 MG TABLET PO SCH (07:51)
[2020-07-22] MEDS: lisinopril 40 MG TAB PO SCH (07:51)
[2020-07-22] MEDS: lamoTRIgine 100 MG TAB PO SCH (07:51)
[2020-07-22] MEDS: FUROSEMIDE 40 MG TAB PO SCH (07:51)
[2020-07-22] MEDS: DULoxetine HCL 30 MG CAP PO SCH (07:51)
[2020-07-22] MEDS: SPIRONOLACTONE 25 MG TAB PO SCH (07:52)
[2020-07-22] MEDS: METOPROLOL SUCC 50MG EXT REL TAB PO SCH (07:52)
--- NOTE | 2020-07-22 08:19 | Electrocardiogram Report ---
Test Reason : Blood Pressure : / mmHG Vent. Rate : 066 BPM Atrial Rate : 066 BPM P-R Int : 218 ms QRS Dur : 096 ms QT Int : 476 ms P-R-T Axes : 041 069 051 degrees QTc Int : 499 ms Sinus rhythm with 1st degree A-V block Prolonged QT Abnormal ECG When compared with ECG of 20-JUL-2020 17:39, Atrial flutter no longer present HR has decreased by 51 bpm Confirmed by López Alexander ([id number]) on 07/22/2020 8:19:11 AM Referred By: Monet Scott Confirmed By:López Alexander
--- NOTE | 2020-07-22 08:59 | Electrocardiogram Report ---
Test Reason : Blood Pressure : / mmHG Vent. Rate : 070 BPM Atrial Rate : 070 BPM P-R Int : 208 ms QRS Dur : 094 ms QT Int : 474 ms P-R-T Axes : 041 082 059 degrees QTc Int : 511 ms Normal sinus rhythm Prolonged QT Abnormal ECG When compared with ECG of 21-JUL-2020 12:03, No significant change was found Confirmed by López Alexander ([id number]) on 07/22/2020 8:58:52 AM Referred By: Monet Scott Confirmed By:López Alexander
--- NOTE | 2020-07-22 10:47 | Cardiology Progress Note ---
Date of Service July 22, 2020 Assessment & Plan (1) Atrial flutter with rapid ventricular response: (2) Obesity: 55-year-old female with a history of obesity, 376 pounds, BMI 55, hypertension, sleep apnea on positive pressure ventilation and recent recurrent admissions for symptomatic atrial arrhythmias. EKG reveals atrial flutter 117 bpm. The QT is indeterminate on both telemetry and EKG due to the atrial activity related to atrial flutter. Of note, at the time of her sinus rhythm EKG post cardioversion on 07/07/2020 QT interval was within normal limits of 442 ms. She has been proven to have both atrial fibrillation as well as what looks like an organized atrial flutter which was demonstrated earlier this month on EKG and again today. Cardioversion successful at establishing sinus rhythm. Has remained in sinus overnight. This is now her fourth cardioversion and obviously electrophysiology is the most prudent course of action. She had already been referred to [place] [facility] [place] had been seen by Dr. Fernández. She is already scheduled to be seen by him today at [facility]. Okay to DC patient to home and follow-up as an outpatient as scheduled. Continue current medications upon discharge. Pulmonary vein isolation procedure have been discussed at that time. Based on her EKG, atrial flutter may in fact be right-sided and may be amenable to tricuspid isthmus ablation. Admission and Anticipated Discharge Date Admission Date: July 20, 2020 Subjective Patient seen and examined, chart reviewed. Patient states that she feels rather melancholy today but denies any cardiac complaints of chest pain, shortness of breath, palpitations, lightheadedness, dizziness or syncope. No recurrences of atrial fibrillation overnight. Telemetry reviewed: Normal sinus rhythm without recurrences of atrial fibrillation overnight. Review of Systems Review of Systems: All systems reviewed & are unremarkable except as noted in HPI & below Physical Exam Physical Exam: General: Awake, alert and oriented x 3. No acute distress. HEENT: Normocephalic, atraumatic. Pupils equal, round and reactive to light and accommodation. Extraocular muscles are intact. Anicteric sclera. Moist mucous membranes. Neck: No JVD. No bruit. Cardiovascular: Regular. Positive S-4. Normal S-1 and S-2. No S-3. No murmurs or rubs. Pulmonary: Clear to auscultation B/L. No rales, rhonchi or wheezing Abdomen: Bowel sounds x 4, soft. No rebound, guarding or tenderness. No organomegaly. Extremities: No clubbing, cyanosis or edema. +2 pedal pulses bilaterally. Skin: Warm and dry. Results & Data ([facility]) Vital Signs (Past 12 Hours) Vital Signs Temp Pulse Pulse Resp BP Pulse Ox 07/22/20 09:11 84 07/22/20 08:03 36.5 C 68 19 145/61 H 97
--- NOTE | 2020-07-22 12:02 | Discharge Summary ---
Date of Service July 22, 2020 Admission HPI Per Admitting Provider Mrs. Olmos is a 54-year-old female with history of diabetes mellitus type 2, sleep apnea, hypertension, dyslipidemia, bipolar disorder, non-Hodgkin lymphoma in remission, obesity, paroxysmal A. fib who presented to the emergency room in [facility], with dizziness, chest discomfort, dyspnea on exertion, and was found to be in atrial flutter. Patient was recently admitted at [facility] due to atrial flutter with RVR and underwent cardioversion with Dr. Camacho on July 07. She was then discharged, and reportedly was doing well. She was also discharged on additional medications, furosemide 40 mg daily and spironolactone 25 mg daily. She was supposed to follow-up with cardiology in early July. Unfortunately developed again chest discomfort, dyspnea on exertion, dizziness and so prese nted to the ED in [place]. There there was found to be in atrial flutter. Troponin was negative, BNP was elevated at 1700. Chest x-ray reportedly without any acute changes. At that time ED provider planned for IV Lasix, and transfer patient to our hospital as she has her cardiology team here. Patient at the time did not want to take Lasix as she felt that would be difficult during the transfer, and she also feels that she is voiding quite a bit with her new medications. Here patient is in atrial flutter, will obtain EKG, chest x-ray, troponin, proBNP. Cardiology aware of the patient and will follow up further. She is currently sitting up in chair in no acute distress, on room air, breathing comfortably. Denies any chest pain however she reports occasional chest discomfort that starts at the sternum and radiates to her left side. She feels dizzy if she would be walking in the hallway even for short distances but she feels comfortable at rest. Patient has history of A. fib and a flutter, and underwent several cardioversions in the past. Today in addition to her chest discomfort and dyspnea, dizziness, she also reports new finding of a lump in her left arm. And several skin lesions on her abdomen and chest. Reports seeing primary care for her skin issues, however the lump seems to be new. Patient has a history of non-Hodgkin lymphoma, previously treated at [facility], since she moved to [place], she has been following with Dr. Silva. Admission Exam Per Admitting Provider Constitutional: WD/WN, vitals as above + morbidly obese Eyes: PERRL, conjunctivae normal, anicteric sclerae ENMT: external ear and nose normal, oropharynx normal Neck: trachea midline, no thyromegaly Head/Neck/Chest: normocephalic and head atraumatic Respiratory: normal respiratory effort, lungs clear to auscultation Auscultation: no rhonchi and no wheezes Cardiovascular: regular rhythm and + tachycardic Chest: normal inspection of chest Gastrointestinal: abdomen soft; abdomen nontender, no guarding and abdomen not rigid obese abdomen multiple skin lesions, crusted Musculoskeletal: no cyanosis or clubbing, extremities motor strength 5/5 Skin: + multiple skin lesions on abdomen, chest, crusted Neurologic: PERRL, EOMI, accommodation nl, no face palsy, no dysarthria moves all extremities Psychiatric: A+Ox3, euthymic affect Lymphatic: + lymphadenopathy (L axillary nodule, nontender) Principal Diagnosis Atrial flutter with rapid ventricular response: Chronic CHF w/ preserved EF -patient may be in mild exacerbation Hypertension DM type 2 (diabetes mellitus, type 2): Bipolar disorder MEIR (obstructive sleep apnea): Morbid obesity: Left axillary nodule/ adenopathy Skin rash/ lesions Discharge Exam Constitutional: WD/WN, vitals as above + morbidly obese Eyes: PERRL, conjunctivae normal, anicteric sclerae Head/Neck/Chest: normocephalic and head atraumatic ENMT: external ear and nose normal, oropharynx normal Neck: trachea midline, no thyromegaly Respiratory: normal respiratory effort, lungs clear to auscultation Auscultation: no rhonchi and no wheezes Cardiovascular: regular rhythm Heart Sounds: normal S1 and normal S2 Chest: normal inspection of chest Gastrointestinal:Percussion/Palpation: abdomen soft; abdomen nontender, no guarding and abdomen not rigid + obese Musculoskeletal: no cyanosis or clubbing, extremities motor strength 5/5 Neurologic: PERRL, EOMI, accommodation nl, no face palsy, no dysarthria moves all extremities Psychiatric: A+Ox3, euthymic affect Lymphatic: + lymphadenopathy (L axillary nodule, nontender) Discharge Data Allergies Allergy/AdvReac Type Severity Reaction Status Date / Time No Known Allergies Allergy Verified 07/06/20 15:19 Consultations 07/20/20 16:17 Consult Cardiology Routine Procedures Performed Operation Date: 07/21/20 11:30 Actual Procedures p Cardioversion - Zach Lemus, Ordered Studies 07/20/20 17:05 US extremity nonvascular Routine LEFT AXILLARY ULTRASOUND CLINICAL HISTORY: Left axillary mass COMPARISON STUDY: CT scan of chest performed April 14, 2020 FINDINGS: Targeted ultrasound of the left axilla was performed. There is an ill- defined 18 mm ovoid density corresponding to the palpable abnormality. This potentially represents a fatty replaced lymph node although the appearance is nonspecific. Clinical follow-up is recommended. Given history of breast carcinoma, if this palpable abnormal I persists, then referral to diagnostic breast Center is recommended. IMPRESSION: 1. Palpable abnormality corresponds to an ill-defined 18 mm ovoid density possibly representing a fatty replaced lymph node although the appearance is nonspecific. Clinical follow-up recommended. If this palpable abnormality persists, then referral to the diagnostic breast Center is recommended. ACT 112: Negative or not required by law. Electronically signed by: Lamine Ramirez M.D. 07/21/2020 7:52 AM Dictated: 07/21/20 0748Transcribed: 07/21/20 0748 XR chest 1V portable CLINICAL HISTORY: Atypical chest pain COMPARISON STUDY: 07/06/2020 FINDINGS: The heart is enlarged. There is no failure. There is no focal pulmonary consolidation. There are no pleural effusions.[ IMPRESSION: Mild cardiomegaly. No acute findings. ACT 112: Negative or not required by law. Electronically signed by: Lamine Ramirez M.D. 07/20/2020 6:46 PM Dictated: 07/20/20 1846Transcribed: 07/20/201845 Hospital Course (1) Atrial flutter with rapid ventricular response: Patient w/history of recurrent A. fib, a flutter with RVR Recently admitted for a flutter with RVR, underwent cardioversion on July [address] Camacho [place] well initially for several days, however now again presents with dyspnea on exertion, chest discomfort and dizziness Presented in [place] ED, where she was found in a flutter and was then transferred here for further cardiology care Will obtain EKG, will monitor on telemetry proBNP was elevated in the ED in [place], will repeat now Chest x-ray was reportedly without acute disease, will repeat chest x-ray here On last discharge, patient was started on furosemide and spironolactone Will monitor electrolytes, keep magnesium above 2 and potassium above 4 Continue home metoprolol, amiodarone, diltiazem, Eliquis Cardiology contacted, appreciate further recommendations Now status post cardioversion with cardiology (07/21) Plan to monitor overnight, and hopefully discharge tomorrow (07/22), appointment with EP tomorrow at [facility] Chronic CHF w/ preserved EF -patient may be in mild exacerbation HTN -proBNP in [place] ED elevated, will obtain proBNP here -Chest x-ray reviewed with the ED reportedly without acute disease, will obtain chest x-ray. -Seems generally euvolemic on exam however difficult to properly assess due to body habitus -At home she is on furosemide, spironolactone, lisinopril -Spironolactone was added on last admission -Monitor I's and O's -Replete electrolytes as needed, as above -monitor BP -Cardiology contacted, appreciate further recommendations, will gave 1 dose of 20 IV Lasix on admission DM type 2 (diabetes mellitus, type 2): -Hemoglobin A1c 7.2 in April 2020 - hold home Metformin, SSI while inpatient, monitor blood glucose AC HS Bipolar disorder: -Continue home Lamictal, Cymbalta MEIR (obstructive sleep apnea): - CPAP HS Morbid obesity: -BMI 56 -Economic Analysis Director on lifestyle changes Left axillary nodule/ adenopathy -Per patient this is new, and noted only several days ago while bathing -It is nontender to palpation, there is no erythema noted -Patient has a history of recurrent non-Hodgkin lymphoma, previously treated at [facility], currently followed up with Dr. Silva -Reviewed previous CTA that patient obtained in March of this year for any suspicious lymphadenopathy -obtained ultrasound of her left axilla - 1. Palpable abnormality corresponds to an ill-defined 18 mm ovoid density possibly representing a fatty replaced lymph node although the appearance is nonspecific. Clinical follow-up recommended. If this palpable abnormality persists, then referral to the diagnostic breast Center is recommended. Skin rash/ lesions -Patient now has several skin lesions on her abdomen and chest reports being seen by family physician, and started on steroid cream -Patient reports lesions getting worse -Recommend to follow-up with dermatology Code: Full DVT ppx: On Eliquis Dispo: PCU, patient admitted from home, plan to discharge home when medically stable (likely tomorrow) Total Time Total Time Spent Total Time Spent (In Minutes): 35 minutes Total Time Includes: Examination of the Patient, Discharge Planning, Medication Reconciliation, Communication With Other Providers and Other Discharge Plan Discharge Items Patient Disposition: Home - Self-Care Reason For Visit: A-FIB Discharge Diagnosis: Atrial flutter with rapid ventricular response: Chronic CHF w/ preserved EF -patient may be in mild exacerbation Hypertension DM type 2 (diabetes mellitus, type 2): Bipolar disorder MEIR (obstructive sleep apnea): Morbid obesity: Left axillary nodule/ adenopathy Skin rash/ lesions Activity: Resume your previous activity Non-emergency contact: Primary Care Provider and Speech And Drama Teacher Call non-emergency contact if: you have any medication questions Follow-up/Referrals: Osmani Estrella MD [Primary Care Provider] - Diet: Carb Consistent or DM2 Addtl Attending Provider Instructions: Follow up with your primary care provider Dr. Estrella on 07/27 @ 10:40 AM Follow up with electrophysiology Dr. Fernández. today ( 07/22) @ 2:15 pm Follow up with Cardiology dr. Lemus or his colleagues. (Office will call for the appointment) Follow up with dermatology for the skins lesion Continue outpatient follow up for the Left axillary nodule (your provider will repeat imaging in a few months to monitor for any change) Please increase metformin to reach 1000mg twice a day (first start with 500mg with breakfast and 1000mg with dinner for 1 week, then if tolerates, can increase to 1000mg twice a day) Continue follow a low carb diet and limited concentrated sweet intake Pending Studies at Discharge: No Stand-Alone Forms: [facility], Smoking Cessation Medications and DC Order Prescriptions: New metformin 500 mg tablet extended release 24hr 1,000 mg PO BID 30 Days Qty: 120 RF: 0 Continued gabapentin 400 mg capsule 400 mg PO HS RF: 0 lamotrigine 100 mg tablet 100 mg PO BID RF: 0 Eliquis 5 mg tablet 5 mg PO BID Qty: 60 RF: 0 lisinopril 40 mg tablet 40 mg PO DAILY RF: 0 duloxetine 30 mg capsule,delayed release(DR/EC) 30 mg PO DAILY RF: 0 amiodarone 200 mg tablet 400 mg PO BID RF: 0 metoprolol succinate [Toprol XL] 100 mg Tablet Extended Release 24 Hr 150 mg PO BID RF: 0 spironolactone 25 mg Tablet 25 mg PO QAM Qty: 30 RF: 0 furosemide 40 mg Tablet 40 mg PO QAM Qty: 30 RF: 0 acetaminophen [Tylenol] 325 mg Tablet 650 mg PO Q4 PRN (Reason: Mild Pain (Scale Score 1-4)) RF: 0 ondansetron HCl [Zofran] 4 mg Tablet 4 mg PO Q6H PRN (Reason: Nausea) RF: 0 melatonin 10 mg Tablet 10 mg PO HS PRN (Reason: Insomnia) RF: 0 Discontinued metformin 500 mg tablet extended release 24 hr 500 mg PO BID RF: 0 diltiazem HCl 90 mg tablet 90 mg PO TID RF: 0 Discharge Orders: Discharge Order (Routine); Ordered 07/22/20 Ordered By: Sanjiv Christopher Admission Data Admit Date/Time: 07/20/20 15:07 Attending Provider: Sanjiv Christopher Admit Provider: Monet Scott Primary Care Provider: Osmani Estrella Other Providers: Toby Thakkar Andrea F. Other Interventions: Discharge Summary Assessment (RN) Last Done: 07/22/20 12:16
== END 2020-07-22 13:26 | disposition home or self-care (01) | DRG 308 ==
LOC: SUATTDRO 15:07 → 2S 15:07